=== PATIENT | male | born 1940 | race Caucasian/White ===

== ENCOUNTER → 2019-11-15 09:10 | Outpatient (BNVA) | payer MEDICARE, SELFPAY | PROVIDERS: Family Provider Internal Medicine; PCP Internal Medicine; Visit Provider Orthopaedic Surgery | DX: Z48.89 Encounter for other specified surgical aftercare (principal); Z96.611 Presence of right artificial shoulder joint | CPT/HCPCS: 73030 ==

== ENCOUNTER 2019-11-18 07:34 | Outpatient (RCR) | payer MEDICARE, SELFPAY | END 2019-12-09 23:59 | disposition home or self-care (01) | LOC: SPT 07:34 | PROVIDERS: Family Provider Internal Medicine; PCP Internal Medicine; Referring Provider Orthopaedic Surgery; Visit Provider Orthopaedic Surgery | DX: Z47.1 Aftercare following joint replacement surgery (principal); Z96.611 Presence of right artificial shoulder joint | CPT/HCPCS: 97110; 97140; 97162 ==

== ENCOUNTER 2019-12-10 06:00 | Outpatient (RCR) | payer MEDICARE, SELFPAY | END 2020-01-07 23:59 | disposition home or self-care (01) | LOC: SPT 06:00 | PROVIDERS: Family Provider Internal Medicine; PCP Internal Medicine; Referring Provider Orthopaedic Surgery; Visit Provider Orthopaedic Surgery | DX: Z47.1 Aftercare following joint replacement surgery (principal); Z96.611 Presence of right artificial shoulder joint | CPT/HCPCS: 97110; 97140 ==

== ENCOUNTER 2019-12-10 06:00 | Outpatient (RCR) | payer MEDICARE, SELFPAY | END 2020-01-07 23:59 | disposition home or self-care (01) | LOC: SPT 06:00 | PROVIDERS: Family Provider Internal Medicine; PCP Internal Medicine; Referring Provider Orthopaedic Surgery; Visit Provider Orthopaedic Surgery | DX: Z47.1 Aftercare following joint replacement surgery (principal); Z96.611 Presence of right artificial shoulder joint | CPT/HCPCS: 97110; 97140 ==

== ENCOUNTER 2020-01-08 06:00 | Outpatient (RCR) | payer MEDICARE, SELFPAY | END 2020-02-07 23:59 | disposition home or self-care (01) | LOC: SPT 06:00 | PROVIDERS: Family Provider Internal Medicine; PCP Internal Medicine; Referring Provider Orthopaedic Surgery; Visit Provider Orthopaedic Surgery | DX: Z47.1 Aftercare following joint replacement surgery (principal); Z96.611 Presence of right artificial shoulder joint | CPT/HCPCS: 97110 ==

== ENCOUNTER 2020-01-20 15:07 | Outpatient (CLI) | payer MEDICARE, MEDICAID, SELFPAY ==
[2020-01-20 15:43] LABS: Basophils % 0.5 %; Eosinophils # 0.1 10^3/uL (0.0-0.8); Eosinophils % 2.3 %; Hematocrit 39.6 % (42.0-52.0); Hemoglobin 12.2 g/dL (11.7-16.6); Lymphocytes # 1.3 10^3/uL (0.8-4.8); Lymphocytes % 21.4 %; Mean Corpuscular HGB Conc 30.8 g/dL (30.0-36.0); Mean Corpuscular Hemoglobin 30.4 pg (28.0-34.0); Mean Corpuscular Volume 98.8 fL (80-94); Mean Platelet Volume 9.8 fL (7.4-10.4); Monocytes # 0.6 10^3/uL (0.2-0.9); Monocytes % 9.1 %; Neutrophils % 66.4 %; Nucleated Red Blood Cells % 0 %; Platelet Count 284 10^3/cmm (130-400); Red Blood Count 4.01 10^6/uL (4.1-5.3); Red Cell Distribution Width 12.1 % (12.1-15.1)
[2020-01-20 15:53] LABS: Alanine Aminotransferase 7 U/L (0-41); Albumin Level 4.5 g/dL (3.5-5.2); Alkaline Phosphatase 92 IU/L (40-130); Anion Gap 16.3 (5-19); Aspartate Amino Transferase 25 U/L (0-40); Blood Urea Nitrogen 28 mg/dL (8-23); Calcium 9.7 mg/dL (8.5-10.5); Carbon Dioxide 24 mmol/L (22-29); Chloride 102 mmol/L (98-107); Globulin 2.8 g/dL (1.3-4.6); Glucose 91 mg/dL (65-115); Lactate Dehydrogenase 169 U/L (135-225); Osmolality Calculated 281 mOsm/kg (285-295); Potassium 5.3 mmol/L (3.5-5.1); Sodium 137 mmol/L (136-145); Total Bilirubin 0.5 mg/dL (0.15-1.2); Total Protein 7.3 g/dL (6.6-8.7)
== END 2020-01-20 15:08 | disposition home or self-care (01) ==
LOC: ONCMED 15:14
PROVIDERS: Family Provider Internal Medicine; PCP Internal Medicine; Visit Provider Internal Medicine Hematology & Oncology
DX: C82.11 Follicular lymphoma grade II, lymph nodes of head, face, and neck (principal)
CPT/HCPCS: 36415; 80053; 83615; 85025

== ENCOUNTER 2020-01-23 08:43 | Outpatient (CLI) | payer MEDICARE, SELFPAY ==
--- NOTE | 2020-01-23 09:37 | ONC FU_ITS ---
Dr. Figueroa follow up note Patient: Xavi Pryor Unit #: [id number]: 1940 Dicatated By: Jose Angel Figueroa M.D.Date of Visit:Jan 23, 2020 Onc Med Follow-up/Prog Note History of Present Illness: Mr. 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 Also exhibited surface kappa light chain restriction. And these findings were consistent with grade 2 follicular lymphoma. Patient was evaluated by Dr. Pardo at [facility] in [place], [place] and being low-grade and stage II disease active surveillance was pursued. Last time he saw Dr. Pardo on 02/15/2018. As per patient, last CT PET scan was done in 2016. Since his last visit with Dr. Pardo in February 2018, patient did develop left inguinal lymphadenopathy and lost about 30 pounds. Patient take his weight loss is due to diverticulitis. Denies any night sweats, denies any recurrent fevers, denies any abdominal fullness, denies any other peripheral lymphadenopathy. Denies any melena hematochezia, denies any nosebleed petechiae or ecchymosis, denies any shortness of breath or dysphagia, denies any jaundice. CT PET scan was done on 03/12/2019 showed hypermetabolic soft tissue adherent to the aorta at upper mediastinum and upper abdominal level is consistent with a lymphoma Hypermetabolic left inguinal nodes consistent with lymphoma Diffuse activity in the rectosigmoid colon Questionable activity in the posterior left iliac Left inguinal lymph node biopsy was done on 05/04/2019 to confirm whether there is transformation to aggressive lymphoma versus persistent low-grade follicular. Final pathology report came back follicular lymphoma grade 1-2 of 3 s/p right shoulder replacement in first week of October 2019. Came for follow-up, denies any specific complaints, denies any night sweats, denies any recent fever, denies any weight loss, denies any abdominal fullness or peripheral lymphadenopathy, denies any generalized weakness and fatigue. Medications: Acetaminophen 2 Tablet (of 325 mg) Oral q 6 hours PRN, Albuterol Sulfate 1 puff(s) (of 108 (90 base) mcg/act) Aerosol Powder, Breath Activated Inhalation PRN, Claritin 1 Tablet (of 10 mg) Oral daily, Flonase 2 spray(s) (of 50 mcg/act) Suspension Nasal daily, HYDROcodone-Acetaminophen 1 Tablet (of 5-325 mg) Oral q 6 hours PRN, Naprosyn 1 Tablet (of 250 mg) Oral b.i.d. Allergies: Tetanus-Diphtheria Toxoids Td Review of Systems: Review of Systems is not available for this patient. Vital Signs: Performed on Jan 23, 2020 08:52 Height - 67.50 in Weight - 140.0 lbs (HIGH) BSA - 1.75 sq.m BMI - 21.60 Temperature - 98.0 F (LOW) Pulse - 87 /min Respiration - 18 /min BP - 120/68 mm(hg) O2 Sat - 98 % Pain - 0 Performance Status: 0 - Fully active, able to carry on all predisease activities without restrictions. (ECOG) Physical Examination: ENMT - . No oral exudates, ulcers, masses, thrush or mucositis. Oropharynx clear. Tongue normal, Hematologic/Lymphatic - No petechiae or purpura. No tender or palpable lymph nodes in the cervical, supraclavicular, axillary or inguinal area, Respiratory - Lungs are clear to auscultation without rhonchi or wheezing, Cardiovascular - Regular rate and rhythm of heart, Abdomen - Non-tender, non-distended, Good bowel sounds. No guarding or rebound tenderness. No pulsatile masses, Extremities - no edema. Lab/Imaging: Test performed on Sep 20, 2019 12:38 Sodium 137 mmol/L Potassium 4.3 mmol/L Chloride 102 mmol/L CO2 22 mmol/L Anion Gap 20.3 BUN 20 mg/dL Creatinine 1.3 mg/dL Cr Clearance (Est) 42.9300 mL/min Glucose 114 mg/dl Calcium 9.9 mg/dL Protein, Total 7.8 g/dL Albumin 4.9 g/dL Globulin 2.9 gm/dL Bilirubin, Total 0.9 mg/dL ALT (SGPT) 20 U/L AST (SGOT) 35 U/L Alkaline Phosphatase 87 U/L WBC 5.0 10 3/uL RBC 3.85 10 6/uL HGB 12.0 g/dL HCT 36.9 % MCV 95.8 fl MCH 31.2 pg MCHC 32.5 g/dl RDW 12.3 % Platelet Count 273 10 3/cmm MPV 9.8 fl Neutrophils 3.1 10 3/uL Lymphocytes 1.3 10 3/uL Monocytes 0.5 10 3/uL Eosinophils 0.2 10 3/uL Basophils 0.0 10 3/uL Neutrophil % 60.7 % Lymphocyte % 25.2 % Monocyte % 9.9 % Eosinophil % 3.4 % Basophils % 0.6 % Impression: Grade 2 follicular lymphoma status post excisional biopsy of right mandibular mass done on 04/08/2017 Flow cytometry was positive for CD19, CD20, CD22 and FNCC 7 and negative for CD5 Also exhibited surface kappa light chain restriction. CT PET scan was done in 2017, as per patient he was told he has stage II disease. Being low-grade and early-stage, no treatment was required but Active surveillance. CT PET scan done on 05/06/2017 showed left cervical lymphadenopathy and activity in the right shoulder but there are severe degenerative changes in that area and there is also increased activity involving lumbar spine may have both soft tissue or bone lesions. There are abnormal areas in the right ribs but patient has history of surgery on right ribs CT PET scan repeated on 03/12/2019 showed suspicious activity is present in the mediastinum in soft tissue abutting the ascending aortic arch and pulmonary artery. This has SUV of 7.9 consistent with recurrent lymphoma and additional hypermetabolic soft tissue is adherent to the abdominal aorta with SUV of 6.8 consistent with lymphoma Left inguinal lymph nodes measures up to 2.7 cm has SUV of 11 There is intense rectosigmoid activity which could be physiological but lymphomatous involvement cannot be ruled out Patient has history of diverticulitis/diverticular. Left inguinal lymph node biopsy done on 05/04/2019 showed follicular lymphoma Plan: Discussed with patient regarding his labs white blood count 6 hemoglobin 12.2 crit 30.6 platelets 264,000 CMP within normal limit except creatinine 1.4 and potassium 5.3 Clinically, patient is doing well with no signs symptoms suggestive of recurrence/progression of disease, no B symptoms, and follow-up lab workup is within normal limits except mild renal insufficiency. Patient is on naproxen by PMD for chronic arthritis pain, as per patient his PMDs following his renal function test and electrolytes, closely. Patient will return to 4 months with CBC CMP LDH and follow-up CT scan of neck chest abdomen pelvis. Patient was advised to call in case he has any B symptoms or any concerns Signed By: Jose Angel Figueroa M.D. <<Signature on File>>
== END 2020-01-23 08:44 | disposition home or self-care (01) ==
LOC: ONCMED 08:43
PROVIDERS: Family Provider Internal Medicine; PCP Internal Medicine; Visit Provider Internal Medicine Hematology & Oncology
DX: C82.11 Follicular lymphoma grade II, lymph nodes of head, face, and neck (principal); G89.29 Other chronic pain; M19.90 Unspecified osteoarthritis, unspecified site; Z79.891 Long term (current) use of opiate analgesic; Z79.51 Long term (current) use of inhaled steroids; Z96.611 Presence of right artificial shoulder joint
CPT/HCPCS: G0463

== ENCOUNTER 2020-02-08 06:00 | Outpatient (RCR) | payer MEDICARE, SELFPAY | END 2020-03-08 23:59 | disposition home or self-care (01) | LOC: SPT 06:00 | PROVIDERS: Family Provider Internal Medicine; PCP Internal Medicine; Referring Provider Orthopaedic Surgery; Visit Provider Orthopaedic Surgery | DX: Z47.1 Aftercare following joint replacement surgery (principal); Z96.611 Presence of right artificial shoulder joint | CPT/HCPCS: 97110; 97140 ==

== ENCOUNTER 2020-05-21 08:35 | Outpatient (CLI) | payer MEDICARE, SELFPAY ==
[2020-05-21 09:31] LABS: Alanine Aminotransferase 14 U/L (0-41); Albumin Level 4.2 g/dL (3.5-5.2); Alkaline Phosphatase 90 IU/L (40-130); Aspartate Amino Transferase 23 U/L (0-40); Blood Urea Nitrogen 20 mg/dL (8-23); Calcium 9.7 mg/dL (8.5-10.5); Carbon Dioxide 24 mmol/L (22-29); Chloride 99 mmol/L (98-107); Globulin 2.9 g/dL (1.3-4.6); Glucose 102 mg/dL (65-115); Osmolality Calculated 273 mOsm/kg (285-295); Sodium 133 mmol/L (136-145); Total Bilirubin 0.4 mg/dL (0.15-1.2); Total Protein 7.1 g/dL (6.6-8.7)
[2020-05-21 09:40] LABS: Basophils % 0.5 %; Eosinophils # 0.3 10^3/uL (0.0-0.8); Eosinophils % 5.3 %; Hemoglobin 11.8 g/dL (11.7-16.6); Lymphocytes # 1.3 10^3/uL (0.8-4.8); Lymphocytes % 20.6 %; Mean Corpuscular HGB Conc 31.1 g/dL (30.0-36.0); Mean Corpuscular Hemoglobin 29.7 pg (28.0-34.0); Mean Corpuscular Volume 95.7 fL (80-94); Mean Platelet Volume 10.2 fL (7.4-10.4); Monocytes # 0.6 10^3/uL (0.2-0.9); Monocytes % 10.3 %; Neutrophils # 3.91 10^3/uL (1.8-7.7); Neutrophils % 62.8 %; Nucleated Red Blood Cells % 0 %; Platelet Count 292 10^3/cmm (130-400); Red Blood Count 3.97 10^6/uL (4.1-5.3); Red Cell Distribution Width 12.5 % (12.1-15.1); White Blood Count 6.2 10^3/uL (4.0-10.0)
--- NOTE | 2020-05-21 15:51 | ONC FU_ITS ---
Dr. Figueroa follow up note Patient: Xavi Pryor Unit #: [id number]: 1940 Dicatated By: Jose Angel Figueroa M.D.Date of Visit:May 21, 2020 Onc Med Follow-up/Prog Note History of Present Illness: Mr. 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 Also exhibited surface kappa light chain restriction. And these findings were consistent with grade 2 follicular lymphoma. Patient was evaluated by Dr. Pardo at [facility] in [place], [place] and being low-grade and stage II disease active surveillance was pursued. Last time he saw Dr. Pardo on 02/15/2018. As per patient, last CT PET scan was done in 2016. Since his last visit with Dr. Pardo in February 2018, patient did develop left inguinal lymphadenopathy and lost about 30 pounds. Patient take his weight loss is due to diverticulitis. Denies any night sweats, denies any recurrent fevers, denies any abdominal fullness, denies any other peripheral lymphadenopathy. Denies any melena hematochezia, denies any nosebleed petechiae or ecchymosis, denies any shortness of breath or dysphagia, denies any jaundice. CT PET scan was done on 03/12/2019 showed hypermetabolic soft tissue adherent to the aorta at upper mediastinum and upper abdominal level is consistent with a lymphoma Hypermetabolic left inguinal nodes consistent with lymphoma Diffuse activity in the rectosigmoid colon Questionable activity in the posterior left iliac Left inguinal lymph node biopsy was done on 05/04/2019 to confirm whether there is transformation to aggressive lymphoma versus persistent low-grade follicular. Final pathology report came back follicular lymphoma grade 1-2 of 3 s/p right shoulder replacement in first week of October 2019. Came for follow-up, denies any specific complaint except progressive generalized weakness and fatigue but no night sweats, no recurrent fever, no weight loss, no shortness of breath at rest or palpitation, no melena or hematochezia, no diarrhea or constipation, no headaches, appetite is good, denies any peripheral lymphadenopathy or abdominal fullness. But intolerance to hot weather. Medications: Acetaminophen 2 Tablet (of 325 mg) Oral q 6 hours PRN, Albuterol Sulfate 1 puff(s) (of 108 (90 base) mcg/act) Aerosol Powder, Breath Activated Inhalation PRN, Claritin 1 Tablet (of 10 mg) Oral daily, Flonase 2 spray(s) (of 50 mcg/act) Suspension Nasal daily, HYDROcodone-Acetaminophen 1 Tablet (of 5-325 mg) Oral q 6 hours PRN, Naprosyn 1 Tablet (of 250 mg) Oral b.i.d. Allergies: Tetanus-Diphtheria Toxoids Td Review of Systems: Constitutional - Weight is stable, appetite is appropriate. Pt states he feels weak and tired, ENMT - Negative for sinus congestion/drainage. No mouth sores. No sore throat or difficulty swallowing, Hematologic/Lymphatic - Pt states he bruises and bleeds easily, Respiratory - No dyspnea on exertion, chest pain, cough or hemoptysis, Cardiovascular - No anginal chest pain, palpitations or orthopnea, Gastrointestinal - He continues to have diverticulitis, Genitourinary (M) - No hematuria, dysuria, increased frequency, urgency, hesitancy or incontinence, Musculoskeletal - No joint pain, swelling or redness. No decreased range of motion, Integumentary - No chronic rashes, inflammation, ulcerations or skin changes, Neurologic - No headache or dizziness. No numbness/paresthesias or other focal neurologic symptoms, Psychiatric - No anxiety or depression. No insomnia. Vital Signs: Performed on May 21, 2020 10:54 Height - 67.50 in Weight - 139.0 lbs (LOW) BSA - 1.74 sq.m BMI - 21.45 Temperature - 98.9 F (HIGH) Pulse - 71 /min Respiration - 18 /min BP - 115/67 mm(hg) O2 Sat - 97 % Pain - 0 Performance Status: 1 - No physically strenuous activity, but ambulatory and able to carry out light or sedentary work (e.g. office work, light house work). (ECOG) Physical Examination: ENMT - No mouth sores, no thrush, no jaundice, Respiratory - Lungs are clear, Cardiovascular - Regular rate and rhythm of heart, Abdomen - Soft, bowel sounds present, Extremities - No visible edemaOr peripheral lymphadenopathy. Lab/Imaging: Test performed on Jan 20, 2020 15:30 LDH (Total) 169 U/L Sodium 137 mmol/L Potassium 5.3 mmol/L Chloride 102 mmol/L CO2 24 mmol/L Anion Gap 16.3 BUN 28 mg/dL Creatinine 1.4 mg/dL Cr Clearance (Est) 39.69 mL/min Glucose 91 mg/dL Calcium 9.7 mg/dL Protein, Total 7.3 g/dL Albumin 4.5 g/dL Globulin 2.8 g/dL Bilirubin, Total 0.5 mg/dL ALT (SGPT) 7 U/L AST (SGOT) 25 U/L Alkaline Phosphatase 92 IU/L WBC 6.0 10 3/uL RBC 4.01 10 6/uL HGB 12.2 g/dL HCT 39.6 % MCV 98.8 fL MCH 30.4 pg MCHC 30.8 g/dL RDW 12.1 % Platelet Count 284 10 3/cmm MPV 9.8 fL Neutrophils 4.0 10 3/uL Lymphocytes 1.3 10 3/uL Monocytes 0.6 10 3/uL Eosinophils 0.1 10 3/uL Basophils 0.0 10 3/uL Neutrophil % 66.4 % Lymphocyte % 21.4 % Monocyte % 9.1 % Eosinophil % 2.3 % Basophils % 0.5 % Impression: Grade 2 follicular lymphoma status post excisional biopsy of right mandibular mass done on 04/08/2017 Flow cytometry was positive for CD19, CD20, CD22 and FNCC 7 and negative for CD5 Also exhibited surface kappa light chain restriction. CT PET scan was done in 2017, as per patient he was told he has stage II disease. Being low-grade and early-stage, no treatment was required but Active surveillance. CT PET scan done on 05/06/2017 showed left cervical lymphadenopathy and activity in the right shoulder but there are severe degenerative changes in that area and there is also increased activity involving lumbar spine may have both soft tissue or bone lesions. There are abnormal areas in the right ribs but patient has history of surgery on right ribs CT PET scan repeated on 03/12/2019 showed suspicious activity is present in the mediastinum in soft tissue abutting the ascending aortic arch and pulmonary artery. This has SUV of 7.9 consistent with recurrent lymphoma and additional hypermetabolic soft tissue is adherent to the abdominal aorta with SUV of 6.8 consistent with lymphoma Left inguinal lymph nodes measures up to 2.7 cm has SUV of 11 There is intense rectosigmoid activity which could be physiological but lymphomatous involvement cannot be ruled out Patient has history of diverticulitis/diverticular. Left inguinal lymph node biopsy done on 05/04/2019 showed follicular lymphoma Plan: Discussed with patient regarding his labs white blood count 6.2 hemoglobin 11.8 hematocrit 38 platelets 292,000 CMP within normal limits Clinically, patient doing well, with no B signs symptom, no peripheral lymphadenopathy or organomegaly on exam. Patient was scheduled for follow-up CT scan of chest abdomen pelvis but his insurance declined the coverage. His lab work-up is within normal limits, will continue to monitor and as far as generalized weakness and fatigue is concerned, etiology unclear but will check his TSH and testosterone level and if low may consider supplement In the meantime he will return to clinic in 4 months with CBC CMP and LDH, As patient is aware of insurance's refusal to cover follow-up CT scans Signed By: Jose Angel Figueroa M.D. <<Signature on File>>
[2020-05-22 01:07] LABS: Testosterone Total 824.1 ng/dL (193-740)
[2020-05-22 01:49] LABS: Thyroid Stimulating Hormone 0.97 uIU/mL (0.27-4.20)
== END 2020-05-21 08:36 | disposition home or self-care (01) ==
LOC: ONCMED 08:38
PROVIDERS: PCP Internal Medicine; Visit Provider Internal Medicine Hematology & Oncology
DX: C82.11 Follicular lymphoma grade II, lymph nodes of head, face, and neck (principal); K57.90 Diverticulosis of intestine, part unspecified, without perforation or abscess without bleeding; M19.90 Unspecified osteoarthritis, unspecified site; R59.0 Localized enlarged lymph nodes; Z85.828 Personal history of other malignant neoplasm of skin; Z79.899 Other long term (current) drug therapy
CPT/HCPCS: 80053; 84403; 84443; 85025; 99214

== ENCOUNTER 2020-09-19 10:19 | Outpatient (CLI) | payer MEDICARE, SELFPAY ==
[2020-09-19 10:50] LABS: Basophils % 0.5 %; Eosinophils # 0.3 10^3/uL (0.0-0.8); Eosinophils % 4.8 %; Hematocrit 38.6 % (42.0-52.0); Hemoglobin 12.3 g/dL (11.7-16.6); Lymphocytes # 1.1 10^3/uL (0.8-4.8); Lymphocytes % 18.7 %; Mean Corpuscular HGB Conc 31.9 g/dL (30.0-36.0); Mean Corpuscular Hemoglobin 30.8 pg (28.0-34.0); Mean Corpuscular Volume 96.5 fL (80-94); Mean Platelet Volume 10.1 fL (7.4-10.4); Monocytes # 0.6 10^3/uL (0.2-0.9); Monocytes % 10.6 %; Neutrophils % 65.2 %; Nucleated Red Blood Cells % 0 %; Platelet Count 289 10^3/cmm (130-400); Red Cell Distribution Width 12.9 % (12.1-15.1); White Blood Count 5.7 10^3/uL (4.0-10.0)
[2020-09-19 14:34] LABS: Alanine Aminotransferase 13 U/L (0-41); Albumin Level 4.5 g/dL (3.5-5.2); Alkaline Phosphatase 102 IU/L (40-130); Anion Gap 13.7 (5-19); Aspartate Amino Transferase 27 U/L (0-40); Blood Urea Nitrogen 22 mg/dL (8-23); Calcium 9.6 mg/dL (8.5-10.5); Carbon Dioxide 26 mmol/L (22-29); Chloride 101 mmol/L (98-107); Globulin 2.7 g/dL (1.3-4.6); Glucose 105 mg/dL (65-115); Lactate Dehydrogenase 352 U/L (135-225); Osmolality Calculated 286 mOsm/kg (285-295); Potassium 4.7 mmol/L (3.5-5.1); Sodium 136 mmol/L (136-145); Total Bilirubin 0.5 mg/dL (0.15-1.2); Total Protein 7.2 g/dL (6.6-8.7)
== END 2020-09-19 10:20 | disposition home or self-care (01) ==
LOC: ONCMED 10:23
PROVIDERS: PCP Internal Medicine; Visit Provider Internal Medicine Hematology & Oncology
DX: C82.11 Follicular lymphoma grade II, lymph nodes of head, face, and neck (principal)
CPT/HCPCS: 36415; 80053; 83615; 85025

== ENCOUNTER 2020-09-21 05:49 | Outpatient (CLI) | payer MEDICARE, SELFPAY ==
--- NOTE | 2020-09-21 11:51 | ONC FU_ITS ---
Dr. Figueroa follow up note Patient: Xavi Pryor Unit #: [id number]: 1940 Dicatated By: Jose Angel Figueroa M.D.Date of Visit:Sep 21, 2020 Onc Med Follow-up/Prog Note History of Present Illness: Mr. 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 Also exhibited surface kappa light chain restriction. And these findings were consistent with grade 2 follicular lymphoma. Patient was evaluated by Dr. Pardo at [facility] in [place], [place] and being low-grade and stage II disease active surveillance was pursued. Last time he saw Dr. Pardo on 02/15/2018. As per patient, last CT PET scan was done in 2016. Since his last visit with Dr. Pardo in February 2018, patient did develop left inguinal lymphadenopathy and lost about 30 pounds. Patient take his weight loss is due to diverticulitis. Denies any night sweats, denies any recurrent fevers, denies any abdominal fullness, denies any other peripheral lymphadenopathy. Denies any melena hematochezia, denies any nosebleed petechiae or ecchymosis, denies any shortness of breath or dysphagia, denies any jaundice. CT PET scan was done on 03/12/2019 showed hypermetabolic soft tissue adherent to the aorta at upper mediastinum and upper abdominal level is consistent with a lymphoma Hypermetabolic left inguinal nodes consistent with lymphoma Diffuse activity in the rectosigmoid colon Questionable activity in the posterior left iliac Left inguinal lymph node biopsy was done on 05/04/2019 to confirm whether there is transformation to aggressive lymphoma versus persistent low-grade follicular. Final pathology report came back follicular lymphoma grade 1-2 of 3 s/p right shoulder replacement in first week of October 2019. Came for follow-up, denies any specific complaints, no fever chills, no nausea or vomiting, no diarrhea constipation, no night sweats, no weight loss, no recurrent fever, no peripheral lymphadenopathy, no abdominal fullness Medications: Acetaminophen 2 Tablet (of 325 mg) Oral q 6 hours PRN, Albuterol Sulfate 1 puff(s) (of 108 (90 base) mcg/act) Aerosol Powder, Breath Activated Inhalation PRN, Claritin 1 Tablet (of 10 mg) Oral daily, Flonase 2 spray(s) (of 50 mcg/act) Suspension Nasal daily, HYDROcodone-Acetaminophen 1 Tablet (of 5-325 mg) Oral q 6 hours PRN, Naprosyn 1 Tablet (of 250 mg) Oral b.i.d. Allergies: Tetanus-Diphtheria Toxoids Td Review of Systems: Constitutional - Weight is stable, appetite is appropriate. Pt states he feels weak and tired, ENMT - Negative for sinus congestion/drainage. No mouth sores. No sore throat or difficulty swallowing, Hematologic/Lymphatic - Pt states he bruises and bleeds easily, Respiratory - No dyspnea on exertion, chest pain, cough or hemoptysis, Cardiovascular - No anginal chest pain, palpitations or orthopnea, Gastrointestinal - He continues to have diverticulitis, Genitourinary (M) - No hematuria, dysuria, increased frequency, urgency, hesitancy or incontinence, Musculoskeletal - No joint pain, swelling or redness. No decreased range of motion, Integumentary - No chronic rashes, inflammation, ulcerations or skin changes, Neurologic - No headache or dizziness. No numbness/paresthesias or other focal neurologic symptoms, Psychiatric - No anxiety or depression. No insomnia. Vital Signs: Performed on Sep 21, 2020 11:17 Height - 67.50 in Weight - 142.0 lbs (HIGH) BSA - 1.76 sq.m BMI - 21.91 Temperature - 98.6 F Pulse - 75 /min Respiration - 24 /min BP - 142/70 mm(hg) (HIGH) O2 Sat - 98 % Pain - 0 Performance Status: 0 - Fully active, able to carry on all predisease activities without restrictions. (ECOG) Physical Examination: ENMT - No mouth sores, no thrush, no jaundice, Respiratory - Lungs are clear to auscultation, Cardiovascular - Regular rate and rhythm of heart, Abdomen - Soft, bowel sounds present, Extremities - No visible edema. Lab/Imaging: Test performed on May 21, 2020 08:45 Testosterone, Total 824.1 ng/dL TSH 0.97 uIU/mL Test performed on May 21, 2020 07:45 Sodium 133 mmol/L Potassium 5.0 mmol/L Chloride 99 mmol/L CO2 24 mmol/L Anion Gap 15.0 BUN 20 mg/dL Creatinine 1.1 mg/dL Cr Clearance (Est) 50.15 mL/min Glucose 102 mg/dL Calcium 9.7 mg/dL Protein, Total 7.1 g/dL Albumin 4.2 g/dL Globulin 2.9 g/dL Bilirubin, Total 0.4 mg/dL ALT (SGPT) 14 U/L AST (SGOT) 23 U/L Alkaline Phosphatase 90 IU/L WBC 6.2 10 3/uL RBC 3.97 10 6/uL HGB 11.8 g/dL HCT 38.0 % MCV 95.7 fL MCH 29.7 pg MCHC 31.1 g/dL RDW 12.5 % Platelet Count 292 10 3/cmm MPV 10.2 fL Neutrophils 3.91 10 3/uL Lymphocytes 1.3 10 3/uL Monocytes 0.6 10 3/uL Eosinophils 0.3 10 3/uL Basophils 0.0 10 3/uL Neutrophil % 62.8 % Lymphocyte % 20.6 % Monocyte % 10.3 % Eosinophil % 5.3 % Basophils % 0.5 % NRBC % 0 % Impression: Grade 2 follicular lymphoma status post excisional biopsy of right mandibular mass done on 04/08/2017 Flow cytometry was positive for CD19, CD20, CD22 and FNCC 7 and negative for CD5 Also exhibited surface kappa light chain restriction. CT PET scan was done in 2017, as per patient he was told he has stage II disease. Being low-grade and early-stage, no treatment was required but Active surveillance. CT PET scan done on 05/06/2017 showed left cervical lymphadenopathy and activity in the right shoulder but there are severe degenerative changes in that area and there is also increased activity involving lumbar spine may have both soft tissue or bone lesions. There are abnormal areas in the right ribs but patient has history of surgery on right ribs CT PET scan repeated on 03/12/2019 showed suspicious activity is present in the mediastinum in soft tissue abutting the ascending aortic arch and pulmonary artery. This has SUV of 7.9 consistent with recurrent lymphoma and additional hypermetabolic soft tissue is adherent to the abdominal aorta with SUV of 6.8 consistent with lymphoma Left inguinal lymph nodes measures up to 2.7 cm has SUV of 11 There is intense rectosigmoid activity which could be physiological but lymphomatous involvement cannot be ruled out Patient has history of diverticulitis/diverticular. Left inguinal lymph node biopsy done on 05/04/2019 showed follicular lymphoma Plan: Discussed with patient regarding his labs white blood count 5.7 hemoglobin 12.3 hematocrit 38.6 platelets 289,000 CMP within normal limit except creatinine 1.3 and LDH is 352 compared to 169 on March 21, 2020 Clinically, patient is doing well with no new signs symptom suggestive of recurrence of disease, no B symptoms, no peripheral lymphadenopathy, no organomegaly. But his follow-up labs shows LDH has gone up, will continue to monitor return to clinic in 6 months with CBC CMP, patient was advised to call us in case he experience night sweats or recurrent fever or any peripheral lymphadenopathy. Signed By: Jose Angel Figueroa M.D. <<Signature on File>>
== END 2020-09-21 05:50 | disposition home or self-care (01) ==
LOC: ONCMED 05:51
PROVIDERS: PCP Internal Medicine; Visit Provider Internal Medicine Hematology & Oncology
DX: Z08 Encounter for follow-up examination after completed treatment for malignant neoplasm (principal); Z85.72 Personal history of non-Hodgkin lymphomas; R59.0 Localized enlarged lymph nodes
CPT/HCPCS: G0463

== ENCOUNTER → 2020-10-20 10:20 | Outpatient (BNVA) | payer MEDICARE, SELFPAY | PROVIDERS: PCP Internal Medicine; Visit Provider Nurse Practitioner Family | DX: Z20.828 Contact with and (suspected) exposure to other viral communicable diseases (principal) | CPT/HCPCS: 87635 ==

== ENCOUNTER → 2020-12-31 12:40 | Outpatient (BNVA) | payer MEDICARE, MEDICAID, SELFPAY | PROVIDERS: PCP Internal Medicine; Visit Provider Surgery | DX: C82.90 Follicular lymphoma, unspecified, unspecified site (principal) | CPT/HCPCS: 88304 ==

== ENCOUNTER 2021-01-01 13:38 | Outpatient (CLI) | payer MEDICARE, SELFPAY ==
--- NOTE | 2021-01-01 13:45 | CT_ITS ---
WS: [id number] CT ABDOMEN AND PELVIS WITH CONTRAST HISTORY: LYTIC BONE LESION ON X-RAY TECHNIQUE: Imaging performed of the abdomen and pelvis with IV contrast. Single phase imaging of the abdomen. Coronal and sagittal reformats are submitted. All CT scans at [facility] use at least one of these dose optimization techniques: automated exposure control; mA and/or kV adjustment per patient size (includes targeted exams where dose is matched to clinical indication); or iterativ e reconstruction. IV CONTRAST: Visipaque 320; 95 mL IV. Oral contrast: Yes. DLP: 862.55 mGycm COMPARISON: 12/03/2020. Lower thorax: Mild interstitial thickening at the RIGHT lung base. Heart size is normal. No hiatal he rnia. Liver/biliary system: Normal size liver with mild central bile duct dilatation. Gallbladder: Normal. No gallstones or wall thickening. No pericholecystic fluid. Pancreas: Normal. Spleen: Normal. Adrenal glands: Normal. Right kidney: Normal. Left kidney: Normal. Aorta: Mild atherosclerosis with no aneurysm. Lymphadenopathy: None. Free fluid: None. GI tract: Diffuse constipation. GI tract is limited without oral contrast. Abdominal wall: Unremarkable abdominal wall. No hernia. Pelvis: No free fluid. Beam hardening artifact in the pelvis from the patient's RIGHT hip arthroplast y. Bones: Prior RIGHT hip arthroplasty. There is no lytic area identified in the LEFT ilium. Lytic alvarez es may extend air in the colon as there is probably significant constipation and urinary retention. T here is variable density within the LEFT femoral neck and head. No destruction of the bony cortex. Th ere is a lipoma in the vastus lateralis. Extensive osteochondrosis in the lumbar vertebral bodies. 5 mm anterolisthesis of L5. Sclerotic changes are similar to the CT from 03/12/2019. CT/CT abdomen pelvis w con* [id number] IMPRESSION: 1. No lytic lesion in the LEFT ilium. 2. Variable density within the LEFT hip and proximal femur may be all related to osteopenia. Consider follow-up nuclear medicine bone scan for confirmation. 3. Moderate atherosclerosis aorta. 4. Constipation. 5. Mild central bile duct dilatation.
[2021-01-01] MEDS: iodixanol 320 mg/mL 100mL Btl IV (14:38)
== END 2021-01-01 13:39 | disposition home or self-care (01) ==
LOC: RADWPI 13:42
PROVIDERS: PCP Internal Medicine; Visit Provider Internal Medicine
DX: M89.9 Disorder of bone, unspecified (principal); K59.00 Constipation, unspecified; I70.0 Atherosclerosis of aorta
CPT/HCPCS: 74177; Q9967

== ENCOUNTER 2021-01-14 08:00 | Outpatient (CLI) | payer MEDICARE, SELFPAY ==
--- NOTE | 2021-01-14 08:07 | NM_ITS ---
WS: [id number] NUCLEAR MEDICINE BONE SCAN Radiopharmaceutical: 265 Tc-99m MDP mCi IV Injection site: Right antecubital Postinjection imaging delay: 1 hr CLINICAL INFORMATION: LYTIC LESION ON XRAY COMPARISON: Radiograph December 03, [address] January 01, 2021 FINDINGS: Bone lesions: Multiple patchy areas of uptake involving the humeral shafts bilaterally and mid femora l shafts suspicious for metastatic disease. Patchy activity involving the left hip. Additional patchy uptake involving the forearm bilaterally. Additional patchy uptake involving the left proximal tibia and proximal tibial shaft. Patchy uptake involving the calvarium. Bony uptake involving the right m axillary sinus likely due to sinusitis. Soft tissue contours: Normal. Kidneys: Normal. Other findings: Postoperative changes right HEMANT. Degenerative uptake involving both AC joints and rig ht knee. Degenerative type uptake in both wrists. NM/NM bone scan whole body* [id number] IMPRESSION: 1. Multiple patchy areas of bone marrow activity involving the bilateral humer us, bilateral forearm bones, and mid femoral shafts suspicious for metastatic d isease. 2. Patchy activity involving the left hip. 3. Additional abnormal activity involving the left proximal tibial shaft. 4. Right maxillary sinus uptake likely due to sinusitis. 5. Additional patchy uptake involving the calvarium.
== END 2021-01-14 08:01 | disposition home or self-care (01) ==
LOC: RAD 08:03
PROVIDERS: PCP Internal Medicine; Visit Provider Internal Medicine
DX: M89.9 Disorder of bone, unspecified (principal)
CPT/HCPCS: 78306; A9561

== ENCOUNTER 2021-01-14 08:28 | Outpatient (CLI) | payer MEDICARE, SELFPAY ==
[2021-01-14 08:57] LABS: Basophils % 0.6 %; Eosinophils # 0.3 10^3/uL (0.0-0.8); Eosinophils % 3.5 %; Hematocrit 33.8 % (42.0-52.0); Hemoglobin 10.7 g/dL (11.7-16.6); Lymphocytes % 14.5 %; Mean Corpuscular HGB Conc 31.7 g/dL (30.0-36.0); Mean Corpuscular Hemoglobin 29.3 pg (28.0-34.0); Mean Corpuscular Volume 92.6 fL (80-94); Mean Platelet Volume 9.2 fL (7.4-10.4); Monocytes # 0.7 10^3/uL (0.2-0.9); Monocytes % 10.4 %; Neutrophils # 4.99 10^3/uL (1.8-7.7); Neutrophils % 70.7 %; Nucleated Red Blood Cells % 0 %; Platelet Count 367 10^3/cmm (130-400); Red Blood Count 3.65 10^6/uL (4.1-5.3); Red Cell Distribution Width 12.3 % (12.1-15.1); White Blood Count 7.1 10^3/uL (4.0-10.0)
[2021-01-14 09:15] LABS: Alanine Aminotransferase 11 U/L (0-41); Alkaline Phosphatase 112 IU/L (40-130); Anion Gap 15.5 (5-19); Aspartate Amino Transferase 19 U/L (0-40); Blood Urea Nitrogen 20 mg/dL (8-23); Calcium 9.7 mg/dL (8.5-10.5); Carbon Dioxide 26 mmol/L (22-29); Chloride 100 mmol/L (98-107); Globulin 3.5 g/dL (1.3-4.6); Glucose 70 mg/dL (65-115); Osmolality Calculated 285 mOsm/kg (285-295); Potassium 4.5 mmol/L (3.5-5.1); Sodium 137 mmol/L (136-145); Total Bilirubin 0.3 mg/dL (0.15-1.2); Total Protein 7.5 g/dL (6.6-8.7)
== END 2021-01-14 08:29 | disposition home or self-care (01) ==
LOC: ONCMED 08:32
PROVIDERS: PCP Internal Medicine; Visit Provider Internal Medicine Hematology & Oncology
DX: C82.11 Follicular lymphoma grade II, lymph nodes of head, face, and neck (principal)
CPT/HCPCS: 80053; 85025

== ENCOUNTER 2021-01-15 05:45 | Outpatient (CLI) | payer MEDICARE, SELFPAY ==
--- NOTE | 2021-01-15 16:33 | ONC FU_ITS ---
Dr. Figueroa follow up note Patient: Xavi Pryor Unit #: [id number]: 1940 Dicatated By: Jose Angel Figueroa M.D.Date of Visit:Jan 15, 2021 Onc Med Follow-up/Prog Note History of Present Illness: Mr. 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 Also exhibited surface kappa light chain restriction. And these findings were consistent with grade 2 follicular lymphoma. Patient was evaluated by Dr. Pardo at [facility] in [place], [place] and being low-grade and stage II disease active surveillance was pursued. Last time he saw Dr. Pardo on 02/15/2018. As per patient, last CT PET scan was done in 2016. Since his last visit with Dr. Pardo in February 2018, patient did develop left inguinal lymphadenopathy and lost about 30 pounds. Patient take his weight loss is due to diverticulitis. Denies any night sweats, denies any recurrent fevers, denies any abdominal fullness, denies any other peripheral lymphadenopathy. Denies any melena hematochezia, denies any nosebleed petechiae or ecchymosis, denies any shortness of breath or dysphagia, denies any jaundice. CT PET scan was done on 03/12/2019 showed hypermetabolic soft tissue adherent to the aorta at upper mediastinum and upper abdominal level is consistent with a lymphoma Hypermetabolic left inguinal nodes consistent with lymphoma Diffuse activity in the rectosigmoid colon Questionable activity in the posterior left iliac Left inguinal lymph node biopsy was done on 05/04/2019 to confirm whether there is transformation to aggressive lymphoma versus persistent low-grade follicular. Final pathology report came back follicular lymphoma grade 1-2 of 3 s/p right shoulder replacement in first week of October 2019. Patient underwent anterior left midabdomen skin biopsy on December 31, 2020 which showed follicular lymphoma, grade 1 -2 of 3., BCL6 negative cyclin D1 was negative, BCL-2's staining is moderately strong and demonstrate aberrant coexpression of B cells. Further immunohistochemistry positive for CD3, CD5, CD20, CD10, CD43 Because of progressive left hip/lower back pain with radiation to left leg, PMD ordered CT scan of abdomen pelvis which was done on January 01, 2021 showed no lytic lesion in left ilium. Variable density within left hip and proximal femur may be related to osteopenia. No abdominal or pelvic lymphadenopathy, spleen is normal size, bone scan was recommended for further evaluation which was done on January 14, 2021 showed multiple patchy areas of bone marrow activity involving bilateral humerus, bilateral forearm bones, mid femoral shafts suspicious for metastatic disease. Patchy activity involving left hip. Also involving left proximal tibial shaft. And calvarium. Came for follow-up, denies any specific complaint except purplish color skin lesion in left anterior and mid abdomen, recently underwent skin biopsy and pathology confirmed follicular lymphoma. Patient also underwent CT scan of abdomen pelvis on January 01, 2021 followed by bone scan on January 14, 2021, he is here for further discussions. Patient denies any night sweats, denies any recurrent fevers, denies any weight loss, denies any progressive peripheral lymphadenopathy, denies any abdominal fullness. Patient is complaining of lower back pain due to pinched nerve and now radiating to left leg, his PMD is evaluating him Medications: Acetaminophen 2 Tablet (of 325 mg) Oral q 6 hours PRN, Albuterol Sulfate 1 puff(s) (of 108 (90 base) mcg/act) Aerosol Powder, Breath Activated Inhalation PRN, Claritin 1 Tablet (of 10 mg) Oral daily, Flonase 2 spray(s) (of 50 mcg/act) Suspension Nasal daily, HYDROcodone-Acetaminophen 1 Tablet (of 5-325 mg) Oral q 6 hours PRN, Naprosyn 1 Tablet (of 250 mg) Oral b.i.d. Allergies: Tetanus-Diphtheria Toxoids Td Review of Systems: Review of Systems is not available for this patient. Vital Signs: Performed on Jan 15, 2021 08:55 Height - 67.50 in Weight - 144.6 lbs (HIGH) BSA - 1.77 sq.m BMI - 22.31 Temperature - 98.7 F Pulse - 94 /min Respiration - 18 /min BP - 131/71 mm(hg) O2 Sat - 97 % Pain - 4 Fatigue - 4 Performance Status: 2 - Ambulatory/capable of all self-care, unable to perform any work activities. Up and about more than 50% of waking hours. (ECOG) Physical Examination: ENMT - No mouth sores, no thrush, no jaundice, Mild shotty cervical lymphadenopathy and right submental lymph node, Respiratory - Lungs are clear to auscultation, Cardiovascular - Regular rate and rhythm of heart, Abdomen - Soft, bowel sounds present,10x8 cm purplish skin lesion in the left anterior abdomen wall, nontender not fixed, Extremities - No visible edema. Lab/Imaging: Test performed on Sep 19, 2020 10:27 LDH (Total) 352 U/L Sodium 136 mmol/L Potassium 4.7 mmol/L Chloride 101 mmol/L CO2 26 mmol/L Anion Gap 13.7 BUN 22 mg/dL Creatinine 1.3 mg/dL Cr Clearance (Est) 43.35 mL/min Glucose 105 mg/dL Osmolality - Calculated 286 mOsm/kg Calcium 9.6 mg/dL Protein, Total 7.2 g/dL Albumin 4.5 g/dL Globulin 2.7 g/dL Bilirubin, Total 0.5 mg/dL ALT (SGPT) 13 U/L AST (SGOT) 27 U/L Alkaline Phosphatase 102 IU/L WBC 5.7 10 3/uL RBC 4.00 10 6/uL HGB 12.3 g/dL HCT 38.6 % MCV 96.5 fL MCH 30.8 pg MCHC 31.9 g/dL RDW 12.9 % Platelet Count 289 10 3/cmm MPV 10.1 fL Neutrophils 3.70 10 3/uL Lymphocytes 1.1 10 3/uL Monocytes 0.6 10 3/uL Eosinophils 0.3 10 3/uL Basophils 0.0 10 3/uL Neutrophil % 65.2 % Lymphocyte % 18.7 % Monocyte % 10.6 % Eosinophil % 4.8 % Basophils % 0.5 % NRBC % 0 % Impression: Grade 2 follicular lymphoma status post excisional biopsy of right mandibular mass done on 04/08/2017 Flow cytometry was positive for CD19, CD20, CD22 and FNCC 7 and negative for CD5 Also exhibited surface kappa light chain restriction. CT PET scan was done in 2017, as per patient he was told he has stage II disease. Being low-grade and early-stage, no treatment was required but Active surveillance. CT PET scan done on 05/06/2017 showed left cervical lymphadenopathy and activity in the right shoulder but there are severe degenerative changes in that area and there is also increased activity involving lumbar spine may have both soft tissue or bone lesions. There are abnormal areas in the right ribs but patient has history of surgery on right ribs CT PET scan repeated on 03/12/2019 showed suspicious activity is present in the mediastinum in soft tissue abutting the ascending aortic arch and pulmonary artery. This has SUV of 7.9 consistent with recurrent lymphoma and additional hypermetabolic soft tissue is adherent to the abdominal aorta with SUV of 6.8 consistent with lymphoma Left inguinal lymph nodes measures up to 2.7 cm has SUV of 11 There is intense rectosigmoid activity which could be physiological but lymphomatous involvement cannot be ruled out Patient has history of diverticulitis/diverticular. Left inguinal lymph node biopsy done on 05/04/2019 showed follicular lymphoma Skin biopsy from left anterior mid abdomen done on December 31, 2020 showed follicular lymphoma similar to initial histology Plan: Discussed with patient regarding his labs white blood count 7.1 hemoglobin 10.7 g compared to 12.3 g on September 19, 2020 hematocrit 33.8 platelets 367,000 CMP within normal limits LDH is pending And left anterior abdominal skin biopsy results which showed follicular lymphoma, as per pathology, no evidence of transformation rather similar histology when compared with initial biopsy Clinically, patient is doing well but in mild to moderate distress due to lower back pain now radiating to left leg, being evaluated by PMD, patient was advised if there is a worsening of pain or urine or stool incontinence he need to go to ER. As far as, follicular lymphoma is concerned,Patient denies any B symptoms. Persistent right submental mass, and shortly cervical lymphadenopathy but no progression. now with anterior abdominal skin involvement, biopsy-proven, bone scan shows extensive bone marrow infiltrate most likely with a lymphoma, CBC shows drop in his hemoglobin, consistent with transformation into aggressive lymphoma but recently done anterior abdominal skin biopsy showed low-grade lymphoma similar to initial histology. At this point, we will consider whole blood flow cytometry to rule out transformation into progressive lymphoma and also consider CT PET scan if CT PET scan shows high SUV e.g. more than 15, that would be a sign of transformation. And we may consider bone marrow evaluation from left hip to rule out extensive bone marrow involvement causing anemia or other pathology. Patient will return to clinic after CT PET scan and whole blood flow cytometry for further discussion. Signed By: Jose Angel Figueroa M.D. <<Signature on File>>
== END 2021-01-15 05:46 | disposition home or self-care (01) ==
LOC: ONCMED 05:47
PROVIDERS: PCP Internal Medicine; Visit Provider Internal Medicine Hematology & Oncology
DX: C82.18 Follicular lymphoma grade II, lymph nodes of multiple sites (principal); M79.605 Pain in left leg
CPT/HCPCS: 36415; 88184; 88185; 99214

== ENCOUNTER 2021-01-25 05:39 | Outpatient (CLI) | payer MEDICARE, SELFPAY ==
[2021-01-25 10:06] LABS: HCG Tumor Marker 1 mIU/mL (0-3); Tumor Marker Alpha Fetoprotein 4.2 ng/mL (0-8.3)
[2021-01-25 10:17] LABS: Lactate Dehydrogenase 325 U/L (135-225)
--- NOTE | 2021-01-25 10:19 | ONC FU_ITS ---
Dr. Figueroa follow up note Patient: Xavi Pryor Unit #: [id number]: 1940 Dicatated By: Jose Angel Figueroa M.D.Date of Visit:Jan 25, 2021 Onc Med Follow-up/Prog Note History of Present Illness: Mr. 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 Also exhibited surface kappa light chain restriction. And these findings were consistent with grade 2 follicular lymphoma. Patient was evaluated by Dr. Pardo at [facility] in [place], [place] and being low-grade and stage II disease active surveillance was pursued. Last time he saw Dr. Pardo on 02/15/2018. As per patient, last CT PET scan was done in 2016. Since his last visit with Dr. Pardo in February 2018, patient did develop left inguinal lymphadenopathy and lost about 30 pounds. Patient take his weight loss is due to diverticulitis. Denies any night sweats, denies any recurrent fevers, denies any abdominal fullness, denies any other peripheral lymphadenopathy. Denies any melena hematochezia, denies any nosebleed petechiae or ecchymosis, denies any shortness of breath or dysphagia, denies any jaundice. CT PET scan was done on 03/12/2019 showed hypermetabolic soft tissue adherent to the aorta at upper mediastinum and upper abdominal level is consistent with a lymphoma Hypermetabolic left inguinal nodes consistent with lymphoma Diffuse activity in the rectosigmoid colon Questionable activity in the posterior left iliac Left inguinal lymph node biopsy was done on 05/04/2019 to confirm whether there is transformation to aggressive lymphoma versus persistent low-grade follicular. Final pathology report came back follicular lymphoma grade 1-2 of 3 s/p right shoulder replacement in first week of October 2019. Patient underwent anterior left midabdomen skin biopsy on December 31, 2020 which showed follicular lymphoma, grade 1 -2 of 3., BCL6 negative cyclin D1 was negative, BCL-2's staining is moderately strong and demonstrate aberrant coexpression of B cells. Further immunohistochemistry positive for CD3, CD5, CD20, CD10, CD43 Because of progressive left hip/lower back pain with radiation to left leg, PMD ordered CT scan of abdomen pelvis which was done on January 01, 2021 showed no lytic lesion in left ilium. Variable density within left hip and proximal femur may be related to osteopenia. No abdominal or pelvic lymphadenopathy, spleen is normal size, bone scan was recommended for further evaluation which was done on January 14, 2021 showed multiple patchy areas of bone marrow activity involving bilateral humerus, bilateral forearm bones, mid femoral shafts suspicious for metastatic disease. Patchy activity involving left hip. Also involving left proximal tibial shaft. And calvarium. CT PET scan done on January 19, 2021 showed anterior mediastinal and upper abdominal periaortic soft tissue seen previously is now FDG negative. However there is a new central anterior mediastinal soft tissue measuring 2.2 x 1.2 cm with an SUV of 7.5, other soft tissue lesion noted in the right cervical level two lymph node. Subcutaneous lesion in the anterior left chest and anterior left upper quadrant abdominal wall soft tissue thickening. The right testicular lesion has SUV of 15.8. A peripancreatic node at pancreatic tail has SUV of seven. Multifocal osseous lesions are present in the proximal left humerus, medial left clavicle, bilateral proximal femurs, left L3 and L4 with encroachment into left neural foramen at these levels. Came for follow-up, denies any specific complaint except persistent lower back pain radiating to left leg and left leg tingling sensation. As per patient his PMD gave him dexamethasone with that his pain improved tremendously along with neuropathy but now it took last dose yesterday and it appears pain is relapsing on the scale of 1-10 is about four or five. Otherwise no urine or stool incontinence, no night sweats, no weight loss, no recurrent fever., No abdominal fullness, no lymphadenopathy. Skin lesion on abdomen and chest stable. Medications: Acetaminophen 2 Tablet (of 325 mg) Oral q 6 hours PRN, Albuterol Sulfate 1 puff(s) (of 108 (90 base) mcg/act) Aerosol Powder, Breath Activated Inhalation PRN, Claritin 1 Tablet (of 10 mg) Oral daily, Flonase 2 spray(s) (of 50 mcg/act) Suspension Nasal daily, HYDROcodone-Acetaminophen 1 Tablet (of 5-325 mg) Oral q 6 hours PRN, Naprosyn 1 Tablet (of 250 mg) Oral b.i.d. Allergies: Tetanus-Diphtheria Toxoids Td Review of Systems: Review of Systems is not available for this patient. Vital Signs: Performed on Jan 25, 2021 08:31 Height - 67.50 in Weight - 144.8 lbs (HIGH) BSA - 1.77 sq.m BMI - 22.34 Temperature - 98.2 F (LOW) Pulse - 88 /min Respiration - 17 /min BP - 112/59 mm(hg) O2 Sat - 96 % Pain - 0 Performance Status: 1 - No physically strenuous activity, but ambulatory and able to carry out light or sedentary work (e.g. office work, light house work). (ECOG) Physical Examination: ENMT - no Mouth sores, no thrush, no jaundice no lymphadenopathy, Respiratory - Lungs are clear to auscultation, Cardiovascular - Regular rate and rhythm of heart, Abdomen - Soft, bowel sounds present, Extremities - No visible edema. Lab/Imaging: Test performed on Sep 19, 2020 10:27 LDH (Total) 352 U/L Sodium 136 mmol/L Potassium 4.7 mmol/L Chloride 101 mmol/L CO2 26 mmol/L Anion Gap 13.7 BUN 22 mg/dL Creatinine 1.3 mg/dL Cr Clearance (Est) 43.35 mL/min Glucose 105 mg/dL Osmolality - Calculated 286 mOsm/kg Calcium 9.6 mg/dL Protein, Total 7.2 g/dL Albumin 4.5 g/dL Globulin 2.7 g/dL Bilirubin, Total 0.5 mg/dL ALT (SGPT) 13 U/L AST (SGOT) 27 U/L Alkaline Phosphatase 102 IU/L WBC 5.7 10 3/uL RBC 4.00 10 6/uL HGB 12.3 g/dL HCT 38.6 % MCV 96.5 fL MCH 30.8 pg MCHC 31.9 g/dL RDW 12.9 % Platelet Count 289 10 3/cmm MPV 10.1 fL Neutrophils 3.70 10 3/uL Lymphocytes 1.1 10 3/uL Monocytes 0.6 10 3/uL Eosinophils 0.3 10 3/uL Basophils 0.0 10 3/uL Neutrophil % 65.2 % Lymphocyte % 18.7 % Monocyte % 10.6 % Eosinophil % 4.8 % Basophils % 0.5 % NRBC % 0 % Impression: Grade 2 follicular lymphoma status post excisional biopsy of right mandibular mass done on 04/08/2017 Flow cytometry was positive for CD19, CD20, CD22 and FNCC 7 and negative for CD5 Also exhibited surface kappa light chain restriction. CT PET scan was done in 2017, as per patient he was told he has stage II disease. Being low-grade and early-stage, no treatment was required but Active surveillance. CT PET scan done on 05/06/2017 showed left cervical lymphadenopathy and activity in the right shoulder but there are severe degenerative changes in that area and there is also increased activity involving lumbar spine may have both soft tissue or bone lesions. There are abnormal areas in the right ribs but patient has history of surgery on right ribs CT PET scan repeated on 03/12/2019 showed suspicious activity is present in the mediastinum in soft tissue abutting the ascending aortic arch and pulmonary artery. This has SUV of 7.9 consistent with recurrent lymphoma and additional hypermetabolic soft tissue is adherent to the abdominal aorta with SUV of 6.8 consistent with lymphoma Left inguinal lymph nodes measures up to 2.7 cm has SUV of 11 There is intense rectosigmoid activity which could be physiological but lymphomatous involvement cannot be ruled out Patient has history of diverticulitis/diverticular. Left inguinal lymph node biopsy done on 05/04/[address] PET scan done on January 19, 2021 showed hypermetabolic soft tissue lesion in the right cervical papo territory, anterior mediastinum, subcutaneous tissue involving left upper abdominal wall and anterior chest, right testicle, peripancreatic region. Multifocal osseous metastatic disease, FDG positive soft tissue at L3 and L4 neuroforamen, representing lymphoma. Plan: Discussed with patient regarding his CT PET scan report which shows anterior mediastinal lymph node and right cervical lymph node and one peripancreatic lymph node but concern is osseous metastatic disease which is unusual for low-grade lymphoma like follicular unless transformation but his recent abdominal wall skin biopsy showed no evidence of transformation. And also noted right testicle uptake at this point, concern exists progressive lower back pain with radiation to left leg most likely due to L3-L4 vertebral involvement with encroachment into left neural foramen, patient responded well to dexamethasone prescribed by PMD, case was discussed with radiation oncology this morning so we will refer him to radiation oncology for evaluation and possible treatment in the meantime we will start him on Medrol Dosepak for lower back pain. In the meantime we will order testicular sonogram with special attention to right testicle, and check beta-hCG, AFP, LDH, PSA, as per PET scan is a previously seen periaortic lymph node as well as anterior mediastinal lymph node are now FDG negative but now he has a new central anterior mediastinal soft tissue so concern is whether he has a second primary metastasized to mediastinum or lymphoma progression. And will also consider left humerus bone biopsy, and we will do hepatitis panel, in case metastatic follicular lymphoma is confirmed then will consider systemic treatment with bendamustine/Rituxan or R-CVP. Patient return to clinic in 2 weeks for further discussion. Patient was advised in case there is a worsening of symptoms like urine or stool incontinence or weakness in left leg, he need to go to hospital immediately otherwise he will see radiation oncology as soon as possible. Signed By: Jose Angel Figueroa M.D. <<Signature on File>>
[2021-01-25 10:28] LABS: Hepatitis A Antibody IgM Non-Reactive (Nonreactive); Hepatitis B Core AB, Total Non-Reactive (Nonreactive); Hepatitis B Surface AB 3.5 (0-8.5); Hepatitis B Surface Antigen Non-Reactive (Nonreactive); Hepatitis C Virus Antibody Non-Reactive (Nonreactive)
== END 2021-01-25 05:40 | disposition home or self-care (01) ==
PROVIDERS: PCP Internal Medicine; Visit Provider Internal Medicine Hematology & Oncology
DX: C82.18 Follicular lymphoma grade II, lymph nodes of multiple sites (principal); C79.51 Secondary malignant neoplasm of bone; R94.8 Abnormal results of function studies of other organs and systems; R93.89 Abnormal findings on diagnostic imaging of other specified body structures; M54.5 Low back pain; N50.811 Right testicular pain; Z79.52 Long term (current) use of systemic steroids
CPT/HCPCS: 82105; 83615; 84153; 84702; 86705; 86706; 86709; 86803; 87340; 99215

== ENCOUNTER 2021-01-31 10:03 | Outpatient (CLI) | payer MEDICARE, SELFPAY ==
--- NOTE | 2021-01-31 | XR_ITS ---
WS: [id number] SHOULDER LEFT TECHNIQUE: 3 views of the left shoulder CLINICAL INFORMATION: FELL, PAIN LEFT SHOULDER COMPARISON: None. FINDINGS: Mild degenerative arthritis AC joint. Downsloping of the acromion. Mild narrowing of the subacromial space. Mild degenerative arthritis the glenohumeral joint. No acute fractures. XR/XR shoulder LT min 2V* [id number] IMPRESSION: Mild degenerative arthritis AC joint and glenohumeral joint. No visualized frac tures.
== END 2021-01-31 10:04 | disposition home or self-care (01) ==
PROVIDERS: PCP Internal Medicine; Visit Provider Internal Medicine
DX: Z53.9 Procedure and treatment not carried out, unspecified reason (principal)

== ENCOUNTER 2021-02-06 05:40 | Outpatient (RCR) | payer MEDICARE, SELFPAY ==
--- NOTE | 2021-01-28 14:06 | N.ONRAD NP_ITS ---
Radiation Oncology Consultation Patient Name: Xavi Pryor Date of : 1940 Date of Service: 01/28/2021 Attending Physician: Mauri Calabrese M.D. Xavi Pryor was seen in consultation this afternoon at the request of Taina Figueroa M.D. for consideration of radiotherapy for the management of his newly diagnosed bone metastases for the management of his lymphoma. He was diagnosed with a stage II, grade 1/2 follicular lymphoma in March 2017 following a right submandibular mass biopsy. Active surveillance was pursued. Left inguinal adenopathy developed for which an excisional biopsy was completed in April 2019. No transformation was documented pathology confirming a low-grade follicular lymphoma. In November, a left hip radiograph was performed because of left leg paresthesia. A lytic area was demonstrated in the left ilium and left femoral diaphysis. A nuclear bone scan (directly viewed in [employer]) ordered on January 14, 2021 revealed metabolic uptake involving the calvarium, humeral shafts, mid femoral shafts, and proximal tibia. Approximately 2 weeks ago he described worsening left hip and lower back pain symptoms of the left leg. A recent PET CT (independently visualized in [employer]) on January 19, 2021 identified an anterior mediastinal soft tissue mass measuring 2.2 cm x 1.2 cm (SUV of 7.5), right cervical lymphadenopathy (level II), subcutaneous lesions within the anterior left chest wall and upper quadrant of the abdominal wall, a right testicular lesion (SUV 15.8), a hypermetabolic peripancreatic lymph node, and multiple osseous lesions within the proximal left humerus, medial left clavicle, bilateral proximal femurs, and L3/L4/L5 with encroachment into the left neural foramen. Dexamethasone was prescribed prior to this consultation. Recent laboratory data (personally reviewed in [employer]) revealed anemia (Hg 10.7 g/dL), and elevated LDH (325 U/L) and PSA (7.1 ng/mL). A normal alpha-fetoprotein level was noted. A testicular ultrasound has been requested. The patient presents for evaluation for potential palliative lumbar radiotherapy. I discussed with the patient the role of palliative radiotherapy for the management of his metastases. I would recommend a 2-week course of radiation therapy. Prior to beginning treatment, a planning CT will be acquired to delineate the clinical tumor volume. The potential toxicities of lumbar spine radiotherapy were reviewed. The patient has verbalized understanding would like to proceed as recommended. Signed by: Dr. Mauri Calabrese 01/28/2021 2:10:23 PM
--- NOTE | 2021-01-28 14:34 | US_ITS ---
WS: [id number] TESTICULAR ULTRASOUND HISTORY: TESTICULAR PAIN/MASS- ATTN:RIGHT testicle COMPARISON: 01/19/2021 TECHNIQUE: Real-time and color Doppler imaging or utilized to perform a testicular ultrasound. Right testicle: 4.8 cm x 3.3 cm x 2.8 cm. Normal sized testicle. Ill-defined low-attenuation soft tissue mass within the central RIGHT testicle . Mass measures 2.4 x 1.8 x 2.1 cm with marked increased vascularity. The central portion of this mas s is of very low attenuation but also contains increased vascularity. The normal appearing testicle has normal Doppler. No significant hydrocele. Right epididymis: Normal epididymis with no increased vascularity. Left testicle: 3.0 cm x 2.2 cm x 1.6 cm. Normal size and echogenicity. No mass or torsion. Normal color Doppler is present throughout. Systolic and diastolic velocities are both present. No significant hydrocele. Left epididymis: Normal epididymis with no increased vascularity. US/US scrotum [id number] IMPRESSION: 1. Low-attenuation mass within the RIGHT testicle with increased vascularity a nd possible mild central necrosis. Mass measures 2.4 x 1.8 x 2.1 cm and was lidia cribed also on PET/CT is likely malignant. With the diffuse increased vasculari ty this is not likely a testicular abscess. 2. Negative LEFT testicle.
--- NOTE | 2021-01-29 16:47 | CT_ITS ---
Radiation Therapy Planning CT images; total exam DLP: 547.07 mGy-cm MTDD
--- NOTE | 2021-02-05 14:39 | ONCRAD TMN_ITS ---
Radiation Oncology Treatment Management Note Patient Name: Xavi Pryor Date of : 1940 Date of Service: 02/05/2021 Attending Physician: Mauri Calabrese M.D. 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 The patient has received 15 Gy of a prescribed 30 Rodrigues to the lumbar spine with a 3-dimensional conformal radiotherapy plan utilizing AP/PA treatment manriquez. Upon review of systems, he denied any neurological complaints. On physical examination, the patient weighed 141 lbs. His temperature was 99 ???F with a blood pressure of 138/87 mmHg. His pulse was 79 bpm and his respiratory rate was 18. Continue palliative radiotherapy as prescribed. Signed by: Dr. Mauri Calabrese 02/05/2021 2:38:28 PM
== END 2021-02-06 23:59 | disposition home or self-care (01) ==
LOC: ONCMED 05:40
PROVIDERS: PCP Internal Medicine; Visit Provider Radiology Radiation Oncology
DX: Z51.0 Encounter for antineoplastic radiation therapy (principal); C82.99 Follicular lymphoma, unspecified, extranodal and solid organ sites; N50.811 Right testicular pain; N50.9 Disorder of male genital organs, unspecified; R93.811 Abnormal radiologic findings on diagnostic imaging of right testicle; D63.0 Anemia in neoplastic disease; R74.02 Elevation of levels of lactic acid dehydrogenase [LDH]
CPT/HCPCS: 76870; 77280; 77290; 77295; 77300; 77334; 77412; 77417; 99215

== ENCOUNTER 2021-02-26 08:30 | Outpatient (RCR) | payer MEDICARE, SELFPAY ==
--- NOTE | 2021-02-12 14:20 | ONCRAD TMN_ITS ---
Radiation Oncology Treatment Management Note Patient Name: Xavi Pryor Date of : 1940 Date of Service: 02/12/2021 Attending Physician: Mauri Calabrese M.D. 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 The patient has received 30 Gy of a prescribed 30 Rodrigues to the lumbar spine with a 3-dimensional conformal radiotherapy plan utilizing AP/PA treatment manriquez. Upon review of systems, he reported a significant improvement in his pain (2/10). On physical examination, the patient weighed 140 lbs. His temperature was 99.1 ???F with a blood pressure of 104/63 mmHg. His pulse was 98 bpm and his respiratory rate was 18. Radiotherapy was completed today. Signed by: Dr. Mauri Calabrese 02/12/2021 2:20:01 PM
[2021-02-18 09:25] LABS: Basophils # 0.1 10^3/uL (0.0-0.1); Basophils % 1.3 %; Eosinophils # 0.5 10^3/uL (0.0-0.8); Eosinophils % 9.9 %; Hematocrit 32.6 % (42.0-52.0); Hemoglobin 10.6 g/dL (11.7-16.6); Lymphocytes # 0.3 10^3/uL (0.8-4.8); Lymphocytes % 5.9 %; Mean Corpuscular HGB Conc 32.5 g/dL (30.0-36.0); Mean Corpuscular Volume 92.4 fL (80-94); Mean Platelet Volume 9.3 fL (7.4-10.4); Monocytes # 0.5 10^3/uL (0.2-0.9); Monocytes % 10.2 %; Neutrophils # 3.73 10^3/uL (1.8-7.7); Neutrophils % 70.8 %; Nucleated Red Blood Cells % 0 %; Platelet Count 334 10^3/cmm (130-400); Red Blood Count 3.53 10^6/uL (4.1-5.3); Red Cell Distribution Width 13.2 % (12.1-15.1); White Blood Count 5.3 10^3/uL (4.0-10.0)
[2021-02-18 09:42] LABS: Alanine Aminotransferase 13 U/L (0-41); Albumin Level 2.9 g/dL (3.5-5.2); Alkaline Phosphatase 102 IU/L (40-130); Anion Gap 13.1 (5-19); Aspartate Amino Transferase 18 U/L (0-40); Blood Urea Nitrogen 14 mg/dL (8-23); Calcium 8.5 mg/dL (8.5-10.5); Carbon Dioxide 27 mmol/L (22-29); Chloride 97 mmol/L (98-107); Globulin 2.6 g/dL (1.3-4.6); Glucose 101 mg/dL (65-115); Lactate Dehydrogenase 418 U/L (135-225); Osmolality Calculated 277 mOsm/kg (285-295); Potassium 4.1 mmol/L (3.5-5.1); Sodium 133 mmol/L (136-145); Total Bilirubin 0.4 mg/dL (0.15-1.2); Total Protein 5.5 g/dL (6.6-8.7)
[2021-02-20 14:05] LABS: Basophils # 0.1 10^3/uL (0.0-0.1); Basophils % 1.1 %; Eosinophils # 0.4 10^3/uL (0.0-0.8); Eosinophils % 8.2 %; Hematocrit 31.7 % (42.0-52.0); Hemoglobin 10.4 g/dL (11.7-16.6); Lymphocytes # 0.3 10^3/uL (0.8-4.8); Lymphocytes % 6.3 %; Mean Corpuscular HGB Conc 32.8 g/dL (30.0-36.0); Mean Corpuscular Hemoglobin 29.7 pg (28.0-34.0); Mean Corpuscular Volume 90.6 fL (80-94); Mean Platelet Volume 9.2 fL (7.4-10.4); Monocytes # 0.4 10^3/uL (0.2-0.9); Monocytes % 7.6 %; Neutrophils # 3.51 10^3/uL (1.8-7.7); Neutrophils % 73.6 %; Nucleated Red Blood Cells % 0 %; Platelet Count 372 10^3/cmm (130-400); Red Cell Distribution Width 12.8 % (12.1-15.1); White Blood Count 4.8 10^3/uL (4.0-10.0)
[2021-02-20 14:33] LABS: Alanine Aminotransferase 16 U/L (0-41); Albumin Level 3.1 g/dL (3.5-5.2); Alkaline Phosphatase 103 IU/L (40-130); Anion Gap 13.4 (5-19); Aspartate Amino Transferase 24 U/L (0-40); Blood Urea Nitrogen 15 mg/dL (8-23); Calcium 8.7 mg/dL (8.5-10.5); Carbon Dioxide 30 mmol/L (22-29); Chloride 96 mmol/L (98-107); Globulin 2.6 g/dL (1.3-4.6); Glucose 94 mg/dL (65-115); Lactate Dehydrogenase 478 U/L (135-225); Osmolality Calculated 281 mOsm/kg (285-295); Potassium 4.4 mmol/L (3.5-5.1); Sodium 135 mmol/L (136-145); Total Bilirubin 0.3 mg/dL (0.15-1.2); Total Protein 5.7 g/dL (6.6-8.7)
--- NOTE | 2021-03-03 15:02 | ONC FU_ITS ---
[facility] Patient Note Patient: Xavi Gomez Unit #: [id number]: 1940 Dictated By: Marsha MaciasDate of Visit: Feb 20, 2021 Onc MED Follow-Up/Prog Note Chief Complaint: Follicular lymphoma History of Present Illness: Mr. 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 He initially presented with right submandibular mass and was treated with antibiotics without much help, He was referred to ENT and underwent FNA of right submental mass which showed atypical lymphoid infiltrate. Mr Gomez subsequently underwent excisional biopsy of right submandibular mass on 04/08/2017. flow cytometry showed monoclonal B-cell population which was positive for CD19/CD20/FNCC 7 and CD20 to and was negative for CD5. Also exhibited surface kappa light chain restriction. These findings were consistent with grade 2 follicular lymphoma. Patient was evaluated by Dr. Pardo at [facility] in [place], [place] and being low-grade and stage II disease active surveillance was pursued. Last time he saw Dr. Pardo was on 02/15/2018. As per patient, last CT PET scan was done in 2016. Since his last visit with Dr. Pardo in February 2018, he had develop left inguinal lymphadenopathy and lost about 30 pounds. Mr Gomez attributed his weight loss to diverticulitis. Denied any night sweats, recurrent fever, abdominal fullness, any other peripheral lymphadenopathy. Denied any melena, hematochezia, denied any nosebleed, petechiae or ecchymosis. He denied any shortness of breath or dysphagia, denies any jaundice. CT PET scan was done on 03/12/2019 showed hypermetabolic soft tissue adherent to the aorta at upper mediastinum and upper abdominal level is consistent with a lymphoma Hypermetabolic left inguinal nodes consistent with lymphoma Diffuse activity in the rectosigmoid colon Questionable activity in the posterior left iliac Left inguinal lymph node biopsy was done on 05/04/2019 to confirm whether there is transformation to aggressive lymphoma versus persistent low-grade follicular. Final pathology report came back follicular lymphoma grade 1-2 of 3 s/p right shoulder replacement in first week of October 2019. Patient underwent anterior left midabdomen skin biopsy on December 31, 2020 which showed follicular lymphoma, grade 1 -2 of 3., BCL6 negative cyclin D1 was negative, BCL-2's staining is moderately strong and demonstrate aberrant coexpression of B cells. Further immunohistochemistry positive for CD3, CD5, CD20, CD10, CD43 Because of progressive left hip/lower back pain with radiation to left leg, PMD ordered CT scan of abdomen pelvis which was done on January 01, 2021 showed no lytic lesion in left ilium. Variable density within left hip and proximal femur may be related to osteopenia. No abdominal or pelvic lymphadenopathy, spleen is normal size, bone scan was recommended for further evaluation which was done on January 14, 2021 showed multiple patchy areas of bone marrow activity involving bilateral humerus, bilateral forearm bones, mid femoral shafts suspicious for metastatic disease. Patchy activity involving left hip. Also involving left proximal tibial shaft. And calvarium. CT PET scan done on January 19, 2021 showed anterior mediastinal and upper abdominal periaortic soft tissue seen previously is now FDG negative. However there is a new central anterior mediastinal soft tissue measuring 2.2 x 1.2 cm with an SUV of 7.5, other soft tissue lesion noted in the right cervical level two lymph node. Subcutaneous lesion in the anterior left chest and anterior left upper quadrant abdominal wall soft tissue thickening. The right testicular lesion has SUV of 15.8. A peripancreatic node at pancreatic tail has SUV of seven. Multifocal osseous lesions are present in the proximal left humerus, medial left clavicle, bilateral proximal femurs, left L3 and L4 with encroachment into left neural foramen at these levels. Mr. Gomez was referred to Dr. Calabrese in [facility] for newly diagnosed bone metastasis related to his lymphoma. His nuclear bone scan from January 14, 2021 revealed metabolic uptake in the calvarium, moral shaft, mid femoral shaft and proximal tibia. 2 weeks prior to his appointment with Dr. Calaberse he developed worsening left hip pain and lower back pain symptoms of the left leg. A recent PET/CT on January 19, 2021 identified the anterior medial soft tissue mass as indicated above. It measured 2.2 cm x 1.2 cm with an SUV of 7.5. He also had right cervical lymphadenopathy (level 2), subcutaneous lesions within the anterior left chest wall and upper quadrant of the abdominal wall. I right testicular lesion SUV of 15.8 and a hypermetabolic peripancreatic lymph node as well as multiple osseous lesions throughout the proximal left humerus, medial left clavicle, bilateral proximal femurs and L3???L4-L5 with encroachment into the left neural foramen. He was treated with dexamethasone prior to his appointment with Dr. Calabrese for potential palliative lumbar radiotherapy. 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 A total of 30 Rodrigues was delivered in 10 fractions encompassing 14 days. He received radiation to the third through the fifth lumbar vertebral bodies. He tolerated it well and states his pain is better. Mr. Gomez is here today for concerns of new nodules in his abdomen and on his back. He states they are also on his lower leg. He has adenopathy in his left anterior cervical supraclavicular area as well. He denies any trouble swallowing. He has had no fever or chills. He denies any hot flashes or night sweats. He states that his breathing is about the same. Is not having any new orthopnea. He denies chest pain or palpitations. He denies nausea or vomiting. His energy is fair. He states overall his pain is better after having radiation to his back. He is walking better. He denies any diarrhea or constipation. These nodules have worsened over the last week or 2 per his report. His ECOG is 2. Past Medical History: Diverticulosis History of basal cell skin cancer Osteoarthritis Past Surgical History: Appendectomy Cataract excision Reconstruction of ribs Right hip replacement Colonoscopy in 2016 Allergies: Tetanus-Diphtheria Toxoids Td Medications: Acetaminophen 2 Tablet (of 325 mg) Oral q 6 hours PRN Albuterol Sulfate 1 puff(s) (of 108 (90 base) mcg/act) Aerosol Powder, Breath Activated Inhalation PRN Claritin 1 Tablet (of 10 mg) Oral daily Flonase 2 spray(s) (of 50 mcg/act) Suspension Nasal daily HYDROcodone-Acetaminophen 1 Tablet (of 5-325 mg) Oral q 6 hours PRN Naprosyn 1 Tablet (of 250 mg) Oral b.i.d. Family History: Mr. Gomez's mother at age 63: brain cancer. Mr. Gomez's father at age 80: myeloma. His maternal grandfather is : cancer of unknown primary. Social History: Mr. Gomez is and he is retired. Mr. Gomez quit smoking 16 years ago but had smoked 1.0 pack/day for 40 years. He is an active drinker.He consumes 2 drinks/day 7 days/week. Review Of Symptoms: See above Vital Signs: Performed on Feb 20, 2021 12:32 Height - 67.50 in Weight - 141 lbs (HIGH) BSA - 1.75 sq.m BMI - 21.76 Temperature - 99.3 F (HIGH) Pulse - 112 /min (HIGH) Respiration - 16 /min BP - 117/70 mm(hg) O2 Sat - 92 % (LOW) Pain - 3,2 - Ambulatory/capable of all self-care, unable to perform any work activities. Up and about more than 50% of waking hours. (ECOG) Physical Examination: Constitutional Alert, oriented, no acute distress. Skin pink, warm and dry. Head Normocephalic; atraumatic. Eyes Conjunctivae and sclerae are clear and without icterus. Pupils are reactive and equal. Hematologic/Lymphatic He has adenopathy on the left side and the sternal click navicular area. Is approximately 2 cm in diameter. He also has subcutaneous nodules on his abdomen, lower legs and back. These are purple in appearance without any open skin or exudate. They are of various sizes with the smallest being approximate one-point centimeters in diameter. Respiratory Lungs are clear to auscultation without rhonchi or wheezing. Cardiovascular Regular rate and rhythm of heart without murmurs,clicks, gallops or rubs. Back/Spine Non-tender to palpation. Extremities No visible deformities, no cyanosis, clubbing or edema. Musculoskeletal No tenderness or swelling, normal range of motion without obvious weakness. Neurologic No sensory or motor deficits, normal cerebellar function, normal gait. Psychiatric Alert and oriented times three. Coherent speech. Verbalizes understanding of our discussions today. Laboratory:Test performed on Feb 20, 2021 13:40 LDH (Total) 478 U/L Sodium 135 mmol/L Potassium 4.4 mmol/L Chloride 96 mmol/L CO2 30 mmol/L Anion Gap 13.4 BUN 15 mg/dL Creatinine 0.9 mg/dL Cr Clearance (Est) 61.1900 mL/min Glucose 94 mg/dL Osmolality - Calculated 281 mOsm/kg Calcium 8.7 mg/dL Protein, Total 5.7 g/dL Albumin 3.1 g/dL Globulin 2.6 g/dL Bilirubin, Total 0.3 mg/dL ALT (SGPT) 16 U/L AST (SGOT) 24 U/L Alkaline Phosphatase 103 IU/L WBC 4.8 10 3/uL RBC 3.50 10 6/uL HGB 10.4 g/dL HCT 31.7 % MCV 90.6 fL MCH 29.7 pg MCHC 32.8 g/dL RDW 12.8 % Platelet Count 372 10 3/cmm MPV 9.2 fL Neutrophils 3.51 10 3/uL Lymphocytes 0.3 10 3/uL Monocytes 0.4 10 3/uL Eosinophils 0.4 10 3/uL Basophils 0.1 10 3/uL Neutrophil % 73.6 % Lymphocyte % 6.3 % Monocyte % 7.6 % Eosinophil % 8.2 % Basophils % 1.1 % NRBC % 0 % Impression: Grade 2 follicular lymphoma status post excisional biopsy of right mandibular mass done on 04/08/2017 Flow cytometry was positive for CD19, CD20, CD22 and FNCC 7 and negative for CD5 Also exhibited surface kappa light chain restriction. CT PET scan was done in 2017, as per patient he was told he has stage II disease. Being low-grade and early-stage, no treatment was required but Active surveillance. CT PET scan done on 05/06/2017 showed left cervical lymphadenopathy and activity in the right shoulder but there are severe degenerative changes in that area and there is also increased activity involving lumbar spine may have both soft tissue or bone lesions. There are abnormal areas in the right ribs but patient has history of surgery on right ribs CT PET scan repeated on 03/12/2019 showed suspicious activity is present in the mediastinum in soft tissue abutting the ascending aortic arch and pulmonary artery. This has SUV of 7.9 consistent with recurrent lymphoma and additional hypermetabolic soft tissue is adherent to the abdominal aorta with SUV of 6.8 consistent with lymphoma Left inguinal lymph nodes measures up to 2.7 cm has SUV of 11 There is intense rectosigmoid activity which could be physiological but lymphomatous involvement cannot be ruled out Patient has history of diverticulitis/diverticular. Left inguinal lymph node biopsy done on 05/04/[address] PET scan done on January 19, 2021 showed hypermetabolic soft tissue lesion in the right cervical papo territory, anterior mediastinum, subcutaneous tissue involving left upper abdominal wall and anterior chest, right testicle, peripancreatic region. Multifocal osseous metastatic disease, FDG positive soft tissue at L3 and L4 neuroforamen, representing lymphoma. Plan: PROBLEMS ADDRESSED TODAY 1. Follicular lymphoma A. After reviewing his presentation and concerns with Dr. Figueroa and Dr. Figueroa evaluating his nodules, Mr. Gomez has been advised to pursue biopsy of the sternal clavicular area nodule with Dr. Jennings. B. We will also put in a request for prior authorization for Rituxan CVP to start ANDREA. C. He will need baseline echocardiogram full echocardiogram before starting chemotherapy. D. I have asked for CBC CMP LDH and type a next for today. He has complained of fatigue and has had radiation to the L3-L5 vertebral spine. E. Anticipate him starting his chemotherapy as soon as prior authorization is obtained. Hopefully he will be able to have his biopsy soon as well. F. Mr. Garza was instructed to contact us in interim should questions or problems arise. Total time spent in review of this patient's care today including evaluating his records prior to his visit, review of his current concerns and discussion with Dr. Figueroa and formation of plan of care as well as post visit documentation was 55 minutes. Signed By: Marsha Macias-, [facility] Jose Angel Figueroa MD <<Signature on File>>
== END 2021-03-08 23:59 | disposition home or self-care (01) ==
LOC: ONCMED 08:30
PROVIDERS: Radiology Radiation Oncology; PCP Internal Medicine; Visit Provider Nurse Practitioner
DX: Z51.0 Encounter for antineoplastic radiation therapy (principal); C82.11 Follicular lymphoma grade II, lymph nodes of head, face, and neck; C79.51 Secondary malignant neoplasm of bone; M19.011 Primary osteoarthritis, right shoulder; K57.92 Diverticulitis of intestine, part unspecified, without perforation or abscess without bleeding; M81.0 Age-related osteoporosis without current pathological fracture; Z79.899 Other long term (current) drug therapy
CPT/HCPCS: 36415; 77336; 77412; 80053; 83615; 85025; 99215

== ENCOUNTER 2021-02-26 08:30 | Outpatient (CLI) | payer MEDICARE, SELFPAY ==
--- NOTE | 2021-02-26 10:09 | USCV_ITS ---
Xavi Pryor Age: 80 Gender: M : 1940 Exam Date: 02/26/2021 10:23 Ordering Phys: Lucy Rosas NP Technologist: Curly Yanes Exam Location: [facility] – [place], [place] Indication: HIGH RISK MEDS BP: 139 / 69 HR: 97 Rhythm: Sinus Technical Quality: Fair MEASUREMENTS (Male / Female) Normal Values 2D ECHO LV Diastolic Diameter PLAX 3.3 cm 4.2 - 5.9 / 3.9 - 5.3 cm LV Systolic Diameter PLAX 2.0 cm IVS Diastolic Thickness 0.8 cm 0.6 - 1.0 / 0.6 - 0.9 cm IVS Systolic Thickness 1.2 cm LVPW Diastolic Thickness 0.8 cm 0.6 - 1.0 / 0.6 - 0.9 cm LVPW Systolic Thickness 1.1 cm LVOT Diameter 2.1 cm LV Ejection Fraction 2D Teich 71.5 % LV Ejection Fraction MOD 2C 64.0 % LV Ejection Fraction 2C AL 63.3 % LA Diameter 3.4 cm LA Width 3.5 cm LA Height 4.3 cm RA Width 2.6 cm RA Height 4.4 cm Aorta at Sinotubular Diameter 2.8 cm M-MODE LV Diastolic Diameter MM 5.2 cm 4.2 - 5.9 / 3.9 - 5.3 cm LV Systolic Diameter MM 3.3 cm LV Ejection Fraction MM Teich 66.0 % IVS Diastolic Thickness MM 0.9 cm 0.6 - 1.0 / 0.6 - 0.9 cm IVS Systolic Thickness MM 1.4 cm LVPW Diastolic Thickness MM 1.3 cm 0.6 - 1.0 / 0.6 - 0.9 cm LVPW Systolic Thickness MM 1.7 cm RV Diastolic Diameter MM 0.9 cm Aortic Annulus Diameter 3.0 cm LA Ao Ratio MM 1.3 MV E Point Septal Separation 0.8 cm DOPPLER AV Peak Velocity 121.3 cm/s LVOT Peak Velocity 125.0 cm/s AV Area Cont Eq vti 2.9 cm squared AV Area Cont Eq pk 3.4 cm squared MV Area PHT 5.0 cm squared Mitral E to A Ratio 0.7 MV E' Velocity 38.5 cm/s Mitral E to MV E' Ratio 7.4 Mitral E to LV E' Lateral Ratio 7.1 Mitral E to LV E' Septal Ratio 7.7 TR Peak Velocity 223.7 cm/s TR Peak Gradient 20.0 mmHg TV Peak E Velocity 89.0 cm/s Right Atrial Pressure 3.0 mmHg Pulmonary Artery Systolic Pressu 23.0 mmHg PV Peak Velocity 84.0 cm/s FINDINGS Left Ventricle Normal left ventricular cavity size. Normal left ventricular systolic function. No regional wall motion abnormalities. Left ventricular ejection fraction is estimated at 60 %. Grade I/IV diastolic dysfunction (abnormal relaxation filling pattern), normal to mildly elevated filling pressures. Right Ventricle The right ventricle is normal in size and function. Right Atrium The right atrium is normal in size. Left Atrium The left atrium is normal in size. Mitral Valve Mildly thickened mitral valve. No mitral valve stenosis. Mild mitral valve regurgitation. Aortic Valve Structurally normal aortic valve without significant sclerosis or stenosis. There is no aortic regurgitation. Tricuspid Valve Structurally normal tricuspid valve without significant stenosis or regurgitation. Pulmonary artery systolic pressure is normal. Pulmonic Valve Structurally normal pulmonic valve without significant stenosis. There is no pulmonic regurgitation. Pericardium Normal pericardium without effusion. Aorta Normal ascending aorta dimension. CONCLUSIONS 1-Normal left ventricular cavity size. Normal left ventricular systolic function. No regional wall motion abnormalities. Left ventricular ejection fraction is estimated at 60 %. Grade I/IV diastolic dysfunction (abnormal relaxation filling pattern), normal to mildly elevated filling pressures. 2-No significant valve abnormalities. 3-There is no pericardial effusion. 4-Pulmonary artery systolic pressure is within normal limits. 5-Right atrial pressure is around 5 mm of mercury. 6-There are no prior echocardiogram studies to compare. Grecia Santa MD (Electronically Signed) Final Date: 16 Mar 2021 17:35 S
== END 2021-02-26 10:06 | disposition home or self-care (01) ==
PROVIDERS: PCP Internal Medicine; Visit Provider Nurse Practitioner
DX: C82.11 Follicular lymphoma grade II, lymph nodes of head, face, and neck (principal); Z79.899 Other long term (current) drug therapy
CPT/HCPCS: 93306

== ENCOUNTER → 2021-03-11 16:36 | Outpatient (BNVA) | payer MEDICARE, SELFPAY | PROVIDERS: PCP Internal Medicine; Visit Provider Surgery | DX: R22.2 Localized swelling, mass and lump, trunk (principal) | CPT/HCPCS: 88307 ==

== ENCOUNTER 2021-03-20 05:31 | Outpatient (RCR) | payer MEDICARE, SELFPAY ==
[2021-03-12 13:33] LABS: Basophils # 0.1 10^3/uL (0.0-0.1); Basophils % 0.9 %; Eosinophils # 0.2 10^3/uL (0.0-0.8); Hematocrit 35.4 % (42.0-52.0); Hemoglobin 11.3 g/dL (11.7-16.6); Lymphocytes # 0.7 10^3/uL (0.8-4.8); Lymphocytes % 8.1 %; Mean Corpuscular HGB Conc 31.9 g/dL (30.0-36.0); Mean Corpuscular Hemoglobin 28.8 pg (28.0-34.0); Mean Corpuscular Volume 90.3 fL (80-94); Mean Platelet Volume 9.8 fL (7.4-10.4); Monocytes % 11.6 %; Neutrophils # 6.26 10^3/uL (1.8-7.7); Neutrophils % 76.5 %; Nucleated Red Blood Cells % 0 %; Platelet Count 478 10^3/cmm (130-400); Red Blood Count 3.92 10^6/uL (4.1-5.3); Red Cell Distribution Width 13.2 % (12.1-15.1); White Blood Count 8.2 10^3/uL (4.0-10.0)
--- NOTE | 2021-03-13 14:36 | ONC FU_ITS ---
Dr. Figueroa follow up note Patient: Xavi Gomez Unit #: [id number]: [id number] Dicatated By: Jose Angel Figueroa M.D.Date of Visit:March 13, 2021 Onc Med Follow-up/Prog Note History of Present Illness: Mr. 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 He initially presented with right submandibular mass and was treated with antibiotics without much help, He was referred to ENT and underwent FNA of right submental mass which showed atypical lymphoid infiltrate. Mr Gomez subsequently underwent excisional biopsy of right submandibular mass on 04/08/2017. flow cytometry showed monoclonal B-cell population which was positive for CD19/CD20/FNCC 7 and CD20 to and was negative for CD5. Also exhibited surface kappa light chain restriction. These findings were consistent with grade 2 follicular lymphoma. Patient was evaluated by Dr. Pardo at [facility] in [place], [place] and being low-grade and stage II disease active surveillance was pursued. Last time he saw Dr. Pardo was on 02/15/2018. As per patient, last CT PET scan was done in 2016. Since his last visit with Dr. Pardo in February 2018, he had develop left inguinal lymphadenopathy and lost about 30 pounds. Mr Gomez attributed his weight loss to diverticulitis. Denied any night sweats, recurrent fever, abdominal fullness, any other peripheral lymphadenopathy. Denied any melena, hematochezia, denied any nosebleed, petechiae or ecchymosis. He denied any shortness of breath or dysphagia, denies any jaundice. CT PET scan was done on 03/12/2019 showed hypermetabolic soft tissue adherent to the aorta at upper mediastinum and upper abdominal level is consistent with a lymphoma Hypermetabolic left inguinal nodes consistent with lymphoma Diffuse activity in the rectosigmoid colon Questionable activity in the posterior left iliac Left inguinal lymph node biopsy was done on 05/04/2019 to confirm whether there is transformation to aggressive lymphoma versus persistent low-grade follicular. Final pathology report came back follicular lymphoma grade 1-2 of 3 s/p right shoulder replacement in first week of October 2019. Patient underwent anterior left midabdomen skin biopsy on December 31, 2020 which showed follicular lymphoma, grade 1 -2 of 3., BCL6 negative cyclin D1 was negative, BCL-2's staining is moderately strong and demonstrate aberrant coexpression of B cells. Further immunohistochemistry positive for CD3, CD5, CD20, CD10, CD43 Because of progressive left hip/lower back pain with radiation to left leg, PMD ordered CT scan of abdomen pelvis which was done on January 01, 2021 showed no lytic lesion in left ilium. Variable density within left hip and proximal femur may be related to osteopenia. No abdominal or pelvic lymphadenopathy, spleen is normal size, bone scan was recommended for further evaluation which was done on January 14, 2021 showed multiple patchy areas of bone marrow activity involving bilateral humerus, bilateral forearm bones, mid femoral shafts suspicious for metastatic disease. Patchy activity involving left hip. Also involving left proximal tibial shaft. And calvarium. CT PET scan done on January 19, 2021 showed anterior mediastinal and upper abdominal periaortic soft tissue seen previously is now FDG negative. However there is a new central anterior mediastinal soft tissue measuring 2.2 x 1.2 cm with an SUV of 7.5, other soft tissue lesion noted in the right cervical level two lymph node. Subcutaneous lesion in the anterior left chest and anterior left upper quadrant abdominal wall soft tissue thickening. The right testicular lesion has SUV of 15.8. A peripancreatic node at pancreatic tail has SUV of seven. Multifocal osseous lesions are present in the proximal left humerus, medial left clavicle, bilateral proximal femurs, left L3 and L4 with encroachment into left neural foramen at these levels. Mr. Gomez was referred to Dr. Calabrese in radiationoncology for newly diagnosed bone metastasis related to his lymphoma. His nuclear bone scan from January 14, 2021 revealed metabolic uptake in the calvarium, moral shaft, mid femoral shaft and proximal tibia. 2 weeks prior to his appointment with Dr. Calabrese he developed worsening left hip pain and lower back pain symptoms of the left leg. A recent PET/CT on January 19, 2021 identified the anterior medial soft tissue mass as indicated above. It measured 2.2 cm x 1.2 cm with an SUV of 7.5. He also had right cervical lymphadenopathy (level 2), subcutaneous lesions within the anterior left chest wall and upper quadrant of the abdominal wall. I right testicular lesion SUV of 15.8 and a hypermetabolic peripancreatic lymph node as well as multiple osseous lesions throughout the proximal left humerus, medial left clavicle, bilateral proximal femurs and L3???L4-L5 with encroachment into the left neural foramen. He was treated with dexamethasone prior to his appointment with Dr. Calabrese for potential palliative lumbar radiotherapy. 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 A total of 30 Rodrigues was delivered in 10 fractions encompassing 14 days. He received radiation to the third through the fifth lumbar vertebral bodies. He tolerated it well and states his pain is better. patient was concernd of new nodules in his abdomen and on his back. He states they are also on his lower leg. He has adenopathy in his left anterior cervical supraclavicular area as well. He denies any trouble swallowing. And complaining of generalized weakness and fatigue, initially patient had skin biopsy done from left anterior epigastric area skin lesion and as per pathology he was consistent with low-grade lymphoma but his disease is behaving like aggressive lymphoma, patient was referred to surgery for biopsy from new lesions especially in the left anterior cervical supraclavicular lymph node area, biopsy was repeated from the large subcutaneous lesion in the right upper abdominal area, and pathology is pending Came for follow-up, complaining of generalized weakness and fatigue, night sweats, no fever, no weight loss, though poor appetite, overall not feeling well. No nausea or vomiting, no diarrhea or constipation. Medications: Acetaminophen 2 Tablet (of 325 mg) Oral q 6 hours PRN, Albuterol Sulfate 1 puff(s) (of 108 (90 base) mcg/act) Aerosol Powder, Breath Activated Inhalation PRN, Claritin 1 Tablet (of 10 mg) Oral daily, Flonase 2 spray(s) (of 50 mcg/act) Suspension Nasal daily, HYDROcodone-Acetaminophen 1 Tablet (of 5-325 mg) Oral q 6 hours PRN, Naprosyn 1 Tablet (of 250 mg) Oral b.i.d. Allergies: Tetanus-Diphtheria Toxoids Td Review of Systems: Review of Systems is not available for this patient. Vital Signs: Performed on March 13, 2021 09:36 Height - 67.50 in Weight - 140.2 lbs (LOW) BSA - 1.75 sq.m BMI - 21.63 Temperature - 98.6 F Pulse - 100 /min Respiration - 18 /min BP - 146/73 mm(hg) (HIGH) O2 Sat - 95 % (LOW) Pain - 4 Fatigue - 10 Performance Status: 2 - Ambulatory/capable of all self-care, unable to perform any work activities. Up and about more than 50% of waking hours. (ECOG) Physical Examination: ENMT - No mouth sores, no thrush, no jaundice but large 8 x 10 cm left anterior cervical/supraclavicular lymph node/mass, nontender, Respiratory - Lungs are clear to auscultation, Cardiovascular - Regular rate and rhythm of heart, Abdomen - Soft, bowel sounds present, flat raised erythematous skin lesion involving upper abdomen, nontender, Extremities - No visible edema but right leg showed below-knee a flat but raised margin skin lesion 15 x 10 cm in size, no oozing, nontender. Lab/Imaging: Test performed on Feb 20, 2021 13:40 LDH (Total) 478 U/L Sodium 135 mmol/L Potassium 4.4 mmol/L Chloride 96 mmol/L CO2 30 mmol/L Anion Gap 13.4 BUN 15 mg/dL Creatinine 0.9 mg/dL Cr Clearance (Est) 61.1900 mL/min Glucose 94 mg/dL Osmolality - Calculated 281 mOsm/kg Calcium 8.7 mg/dL Protein, Total 5.7 g/dL Albumin 3.1 g/dL Globulin 2.6 g/dL Bilirubin, Total 0.3 mg/dL ALT (SGPT) 16 U/L AST (SGOT) 24 U/L Alkaline Phosphatase 103 IU/L WBC 4.8 10 3/uL RBC 3.50 10 6/uL HGB 10.4 g/dL HCT 31.7 % MCV 90.6 fL MCH 29.7 pg MCHC 32.8 g/dL RDW 12.8 % Platelet Count 372 10 3/cmm MPV 9.2 fL Neutrophils 3.51 10 3/uL Lymphocytes 0.3 10 3/uL Monocytes 0.4 10 3/uL Eosinophils 0.4 10 3/uL Basophils 0.1 10 3/uL Neutrophil % 73.6 % Lymphocyte % 6.3 % Monocyte % 7.6 % Eosinophil % 8.2 % Basophils % 1.1 % NRBC % 0 % Impression: Grade 2 follicular lymphoma status post excisional biopsy of right mandibular mass done on 04/08/2017 Flow cytometry was positive for CD19, CD20, CD22 and FNCC 7 and negative for CD5 Also exhibited surface kappa light chain restriction. CT PET scan was done in 2017, as per patient he was told he has stage II disease. Being low-grade and early-stage, no treatment was required but Active surveillance. CT PET scan done on 05/06/2017 showed left cervical lymphadenopathy and activity in the right shoulder but there are severe degenerative changes in that area and there is also increased activity involving lumbar spine may have both soft tissue or bone lesions. There are abnormal areas in the right ribs but patient has history of surgery on right ribs CT PET scan repeated on 03/12/2019 showed suspicious activity is present in the mediastinum in soft tissue abutting the ascending aortic arch and pulmonary artery. This has SUV of 7.9 consistent with recurrent lymphoma and additional hypermetabolic soft tissue is adherent to the abdominal aorta with SUV of 6.8 consistent with lymphoma Left inguinal lymph nodes measures up to 2.7 cm has SUV of 11 There is intense rectosigmoid activity which could be physiological but lymphomatous involvement cannot be ruled out Patient has history of diverticulitis/diverticular. Left inguinal lymph node biopsy done on 05/04/[address] PET scan done on January 19, 2021 showed hypermetabolic soft tissue lesion in the right cervical papo territory, anterior mediastinum, subcutaneous tissue involving left upper abdominal wall and anterior chest, right testicle, peripancreatic region. Multifocal osseous metastatic disease, FDG positive soft tissue at L3 and L4 neuroforamen, representing lymphoma. Plan: Discussed with patient regarding his labs white blood count 8.2 hemoglobin 11.3 hematocrit 35.4 platelets 478,000 Clinically, patient is in mild to moderate distress due to generalized weakness and fatigue, night sweats and now with progressive disease patient has multiple skin lesions involving upper abdomen, right anterior shoulder, right leg, left anterior cervical/supraclavicular mass, patient had left anterior abdominal wall biopsy done recently on December 31, 2020 but after pathology it was a follicular lymphoma, clinically his disease is behaving like an aggressive lymphoma so repeat biopsy was considered which was done recently and case was discussed with Dr. Calabrese pathologist, his impression is, probably there is a transformation into diffuse B-cell lymphoma but he would consult dermatopathologist to confirm it, as per Dr. Calabrese, final pathology may be available by Thursday or next week. But patient is symptomatic, at this point, will consider R-CHOP if transformation is confirmed otherwise will consider R-CVP, as per discussed with pathology and clinical findings, patient most likely has transformation into high-grade lymphoma, so we will request prior approval for R-CHOP unless pathology confirmed low-grade lymphoma again in that case we will consider R-CVP, all the side effect possible benefits history with chemotherapy were discussed earlier and repeated again today, because of patient's symptoms, will start him on prednisone 60 mg p.o. daily for 5 days while waiting for pathology confirmation, hopefully with that his symptom may improve and once we have confirmation, will plan accordingly. , His CT PET scan shows extensive bone mets, will also consider monthly Xgeva to prevent skeletal related complications. Patient had echocardiogram done recently, report is pending, will also consider Port-A-Cath placement., Patient will return to clinic in a week with CBC CMP, patient was advised in case there is a worsening of symptom, he need to go to hospital for evaluation. Signed By: Jose Angel Figueroa M.D. <<Signature on File>>
[2021-03-19 10:54] LABS: Basophils % 0.2 %; Hematocrit 34.2 % (42.0-52.0); Hemoglobin 11.1 g/dL (11.7-16.6); Lymphocytes # 0.5 10^3/uL (0.8-4.8); Lymphocytes % 3.9 %; Mean Corpuscular HGB Conc 32.5 g/dL (30.0-36.0); Mean Corpuscular Hemoglobin 28.8 pg (28.0-34.0); Mean Corpuscular Volume 88.8 fL (80-94); Mean Platelet Volume 10.1 fL (7.4-10.4); Monocytes # 1.1 10^3/uL (0.2-0.9); Monocytes % 8.8 %; Neutrophils # 10.55 10^3/uL (1.8-7.7); Neutrophils % 84.4 %; Nucleated Red Blood Cells % 0 %; Platelet Count 475 10^3/cmm (130-400); Red Blood Count 3.85 10^6/uL (4.1-5.3); Red Cell Distribution Width 13.7 % (12.1-15.1); White Blood Count 12.5 10^3/uL (4.0-10.0)
[2021-03-19 11:36] LABS: Alanine Aminotransferase 17 U/L (0-41); Albumin Level 3.6 g/dL (3.5-5.2); Alkaline Phosphatase 118 IU/L (40-130); Aspartate Amino Transferase 28 U/L (0-40); Calcium 11.1 mg/dL (8.5-10.5); Carbon Dioxide 26 mmol/L (22-29); Chloride 95 mmol/L (98-107); Globulin 2.7 g/dL (1.3-4.6); Glucose 101 mg/dL (65-115); Osmolality Calculated 308 mOsm/kg (285-295); Sodium 134 mmol/L (136-145); Total Bilirubin 0.2 mg/dL (0.15-1.2); Total Protein 6.3 g/dL (6.6-8.7)
[2021-03-19 12:08] LABS: Anion Gap 17.6 (5-19); Potassium 4.6 mmol/L (3.5-5.1)
[2021-03-19 12:09] LABS: Blood Urea Nitrogen 97 mg/dL (8-23)
[2021-03-20 14:39] LABS: Alanine Aminotransferase 16 U/L (0-41); Albumin Level 3.5 g/dL (3.5-5.2); Alkaline Phosphatase 105 IU/L (40-130); Anion Gap 15.5 (5-19); Aspartate Amino Transferase 22 U/L (0-40); Basophils % 0.1 %; Calcium 10.4 mg/dL (8.5-10.5); Carbon Dioxide 28 mmol/L (22-29); Chloride 98 mmol/L (98-107); Globulin 2.4 g/dL (1.3-4.6); Glucose 116 mg/dL (65-115); Hematocrit 31.7 % (42.0-52.0); Hemoglobin 10.3 g/dL (11.7-16.6); Lactate Dehydrogenase 551 U/L (135-225); Lymphocytes # 0.4 10^3/uL (0.8-4.8); Lymphocytes % 2.6 %; Mean Corpuscular HGB Conc 32.5 g/dL (30.0-36.0); Mean Corpuscular Hemoglobin 28.9 pg (28.0-34.0); Mean Corpuscular Volume 88.8 fL (80-94); Mean Platelet Volume 10.3 fL (7.4-10.4); Monocytes # 0.8 10^3/uL (0.2-0.9); Monocytes % 5.7 %; Neutrophils # 11.95 10^3/uL (1.8-7.7); Neutrophils % 89.7 %; Nucleated Red Blood Cells % 0 %; Osmolality Calculated 313 mOsm/kg (285-295); Platelet Count 436 10^3/cmm (130-400); Potassium 5.5 mmol/L (3.5-5.1); Red Blood Count 3.57 10^6/uL (4.1-5.3); Red Cell Distribution Width 13.9 % (12.1-15.1); Sodium 136 mmol/L (136-145); Total Bilirubin 0.2 mg/dL (0.15-1.2); Total Protein 5.9 g/dL (6.6-8.7); Uric Acid 10.7 mg/dL (3.4-7.0); White Blood Count 13.3 10^3/uL (4.0-10.0)
[2021-03-20 14:41] LABS: Blood Urea Nitrogen 97 mg/dL (8-23)
--- NOTE | 2021-03-20 16:00 | ONC FU_ITS ---
[facility] Patient Note Patient: Xavi Pryor Unit #: [id number]: 1940 Dictated By: Marsha MaciasDate of Visit: March 20, 2021 Onc MED Follow-Up/Prog Note Chief Complaint: Follicular lymphoma History of Present Illness: Mr. 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 He initially presented with right submandibular mass and was treated with antibiotics without much help, He was referred to ENT and underwent FNA of right submental mass which showed atypical lymphoid infiltrate. Mr Pryor subsequently underwent excisional biopsy of right submandibular mass on 04/08/2017. flow cytometry showed monoclonal B-cell population which was positive for CD19/CD20/FNCC 7 and CD20 to and was negative for CD5. Also exhibited surface kappa light chain restriction. These findings were consistent with grade 2 follicular lymphoma. Patient was evaluated by Dr. Pardo at [facility] in [place], [place] and being low-grade and stage II disease active surveillance was pursued. Last time he saw Dr. Pardo was on 02/15/2018. As per patient, last CT PET scan was done in 2016. Since his last visit with Dr. Pardo in February 2018, he had develop left inguinal lymphadenopathy and lost about 30 pounds. Mr Pryor attributed his weight loss to diverticulitis. Denied any night sweats, recurrent fever, abdominal fullness, any other peripheral lymphadenopathy. Denied any melena, hematochezia, denied any nosebleed, petechiae or ecchymosis. He denied any shortness of breath or dysphagia, denies any jaundice. CT PET scan was done on 03/12/2019 showed hypermetabolic soft tissue adherent to the aorta at upper mediastinum and upper abdominal level is consistent with a lymphoma Hypermetabolic left inguinal nodes consistent with lymphoma Diffuse activity in the rectosigmoid colon Questionable activity in the posterior left iliac Left inguinal lymph node biopsy was done on 05/04/2019 to confirm whether there is transformation to aggressive lymphoma versus persistent low-grade follicular. Final pathology report came back follicular lymphoma grade 1-2 of 3 s/p right shoulder replacement in first week of October 2019. Patient underwent anterior left midabdomen skin biopsy on December 31, 2020 which showed follicular lymphoma, grade 1 -2 of 3., BCL6 negative cyclin D1 was negative, BCL-2's staining is moderately strong and demonstrate aberrant coexpression of B cells. Further immunohistochemistry positive for CD3, CD5, CD20, CD10, CD43 Because of progressive left hip/lower back pain with radiation to left leg, PMD ordered CT scan of abdomen pelvis which was done on January 01, 2021 showed no lytic lesion in left ilium. Variable density within left hip and proximal femur may be related to osteopenia. No abdominal or pelvic lymphadenopathy, spleen is normal size, bone scan was recommended for further evaluation which was done on January 14, 2021 showed multiple patchy areas of bone marrow activity involving bilateral humerus, bilateral forearm bones, mid femoral shafts suspicious for metastatic disease. Patchy activity involving left hip. Also involving left proximal tibial shaft. And calvarium. CT PET scan done on January 19, 2021 showed anterior mediastinal and upper abdominal periaortic soft tissue seen previously is now FDG negative. However there is a new central anterior mediastinal soft tissue measuring 2.2 x 1.2 cm with an SUV of 7.5, other soft tissue lesion noted in the right cervical level two lymph node. Subcutaneous lesion in the anterior left chest and anterior left upper quadrant abdominal wall soft tissue thickening. The right testicular lesion has SUV of 15.8. A peripancreatic node at pancreatic tail has SUV of seven. Multifocal osseous lesions are present in the proximal left humerus, medial left clavicle, bilateral proximal femurs, left L3 and L4 with encroachment into left neural foramen at these levels. Mr. Pryor was referred to Dr. Calabrese in radiationoncology for newly diagnosed bone metastasis related to his lymphoma. His nuclear bone scan from January 14, 2021 revealed metabolic uptake in the calvarium, moral shaft, mid femoral shaft and proximal tibia. 2 weeks prior to his appointment with Dr. Calabrese he developed worsening left hip pain and lower back pain symptoms of the left leg. A recent PET/CT on January 19, 2021 identified the anterior medial soft tissue mass as indicated above. It measured 2.2 cm x 1.2 cm with an SUV of 7.5. He also had right cervical lymphadenopathy (level 2), subcutaneous lesions within the anterior left chest wall and upper quadrant of the abdominal wall. I right testicular lesion SUV of 15.8 and a hypermetabolic peripancreatic lymph node as well as multiple osseous lesions throughout the proximal left humerus, medial left clavicle, bilateral proximal femurs and L3???L4-L5 with encroachment into the left neural foramen. He was treated with dexamethasone prior to his appointment with Dr. Calabrese for potential palliative lumbar radiotherapy. 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 A total of 30 Rodrigues was delivered in 10 fractions encompassing 14 days. He received radiation to the third through the fifth lumbar vertebral bodies. He tolerated it well and states his pain is better. Mr Pryor was seen in medical oncology post completion of the radiation therapy. He was concernd of new nodules in his abdomen and on his back. He states they are also on his lower leg. He has adenopathy in his left anterior cervical supraclavicular area as well. He denied any trouble swallowing. He was complaining of generalized weakness and fatigue, initially patient had skin biopsy done from left anterior epigastric area skin lesion and as per pathology he was consistent with low-grade lymphoma but his disease is behaving like aggressive lymphoma. Mr Smiley was referred to surgery for biopsy from new lesions especially in the left anterior cervical supraclavicular lymph node area, biopsy was repeated from the large subcutaneous lesion in the right upper abdominal area, and pathology has been pending Mr. Pryor was seen on March 13, [address] Figueroa for follow-up given his generalized weakness and fatigue. He also had developed night sweats. There were more lesions involving the upper abdomen, right anterior shoulder, right leg, left anterior cervical/supraclavicular mass. Dr. Figueroa did call today to pathology to confirm his pathology and was told it had turned transformed from low-grade lymphoma to high-grade lymphoma. Mr. Pryor was started on prednisone 60 mg daily for 5 days. He states he has 2 more days left. He states today he feels really good. He states he feels better than he has in quite some time. He denies any fever or chills. The night sweats are much better. He denies any nausea or vomiting. He has had some intermittent gastritis symptoms from the prednisone but states generally if he eats that is resolved. He denies any new shortness of breath orthopnea. He denies hemoptysis he has had no lower extremity edema. He has had no diarrhea or constipation. He denies any urinary symptoms. He states his urine stream and volume is normal for him. He denies any hematuria. He has no new pain. He states overall he again feels much better. He is very jovial today. He states his energy is much better and he is eating good also. It is noted that his weight is up 4 pounds from last week. His ECOG is 1. Past Medical History: Diverticulosis History of basal cell skin cancer Osteoarthritis Past Surgical History: Appendectomy Cataract excision Reconstruction of ribs Right hip replacement Covid vaccine #2 in 2020 Covid vaccine #1 in 2020 Colonoscopy in 2016 Allergies: Tetanus-Diphtheria Toxoids Td Medications: Acetaminophen 2 Tablet (of 325 mg) Oral q 6 hours PRN Albuterol Sulfate 1 puff(s) (of 108 (90 base) mcg/act) Aerosol Powder, Breath Activated Inhalation PRN Claritin 1 Tablet (of 10 mg) Oral daily Flonase 2 spray(s) (of 50 mcg/act) Suspension Nasal daily HYDROcodone-Acetaminophen 1 Tablet (of 5-325 mg) Oral q 6 hours PRN Naprosyn 1 Tablet (of 250 mg) Oral b.i.d. Family History: Mr. Pryor's mother at age 63: brain cancer. Mr. Pryor's father at age 80: myeloma. His maternal grandfather is : cancer of unknown primary. Social History: Mr. Pryor is and he is retired. Mr. Pryor quit smoking 16 years ago but had smoked 1.0 pack/day for 40 years. He is an active drinker.He consumes 2 drinks/day 7 days/week. Review Of Symptoms: <See Above> Vital Signs: Performed on March 20, 2021 12:55 Height - 67.50 in Weight - 144.6 lbs (HIGH) BSA - 1.77 sq.m BMI - 22.31 Temperature - 99.0 F (HIGH) Pulse - 79 /min Respiration - 18 /min BP - 150/75 mm(hg) (HIGH) O2 Sat - 98 % Pain - 0 Fatigue - 6,1 - No physically strenuous activity, but ambulatory and able to carry out light or sedentary work (e.g. office work, light house work). (ECOG) Physical Examination: Constitutional Alert, oriented, no acute distress. Skin pink, warm and dry. Head Normocephalic; atraumatic. Eyes Conjunctivae and sclerae are clear and without icterus. Pupils are reactive and equal. Hematologic/Lymphatic He has adenopathy on the left side and the sternoclavicular area. Is approximately 2-3 cm in diameter. It is dramatically improved since I last saw him in February 2021. Back/Spine Non-tender to palpation. Extremities No visible deformities, no cyanosis, clubbing or edema. Musculoskeletal No tenderness or swelling, normal range of motion without obvious weakness. Neurologic No sensory or motor deficits, normal cerebellar function, normal gait. Psychiatric Alert and oriented times three. Coherent speech. Verbalizes understanding of our discussions today. Laboratory:Test performed on March 20, 2021 13:30 LDH (Total) 551 U/L Sodium 136 mmol/L Uric Acid 10.7 mg/dL Potassium 5.5 mmol/L Chloride 98 mmol/L CO2 28 mmol/L Anion Gap 15.5 BUN 97 mg/dL Creatinine 4.0 mg/dL Cr Clearance (Est) 13.6900 mL/min Glucose 116 mg/dL Osmolality - Calculated 313 mOsm/kg Calcium 10.4 mg/dL Protein, Total 5.9 g/dL Albumin 3.5 g/dL Globulin 2.4 g/dL Bilirubin, Total 0.2 mg/dL ALT (SGPT) 16 U/L AST (SGOT) 22 U/L Alkaline Phosphatase 105 IU/L WBC 13.3 10 3/uL RBC 3.57 10 6/uL HGB 10.3 g/dL HCT 31.7 % MCV 88.8 fL MCH 28.9 pg MCHC 32.5 g/dL RDW 13.9 % Platelet Count 436 10 3/cmm MPV 10.3 fL Neutrophils 11.95 10 3/uL Lymphocytes 0.4 10 3/uL Monocytes 0.8 10 3/uL Eosinophils 0.0 10 3/uL Basophils 0.0 10 3/uL Neutrophil % 89.7 % Lymphocyte % 2.6 % Monocyte % 5.7 % Eosinophil % 0.0 % Basophils % 0.1 % NRBC % 0 % Impression: Grade 2 follicular lymphoma status post excisional biopsy of right mandibular mass done on 04/08/2017 Flow cytometry was positive for CD19, CD20, CD22 and FNCC 7 and negative for CD5 Also exhibited surface kappa light chain restriction. CT PET scan was done in 2017, as per patient he was told he has stage II disease. Being low-grade and early-stage, no treatment was required but Active surveillance. CT PET scan done on 05/06/2017 showed left cervical lymphadenopathy and activity in the right shoulder but there are severe degenerative changes in that area and there is also increased activity involving lumbar spine may have both soft tissue or bone lesions. There are abnormal areas in the right ribs but patient has history of surgery on right ribs CT PET scan repeated on 03/12/2019 showed suspicious activity is present in the mediastinum in soft tissue abutting the ascending aortic arch and pulmonary artery. This has SUV of 7.9 consistent with recurrent lymphoma and additional hypermetabolic soft tissue is adherent to the abdominal aorta with SUV of 6.8 consistent with lymphoma Left inguinal lymph nodes measures up to 2.7 cm has SUV of 11 There is intense rectosigmoid activity which could be physiological but lymphomatous involvement cannot be ruled out Patient has history of diverticulitis/diverticular. Left inguinal lymph node biopsy done on 05/04/[address] PET scan done on January 19, 2021 showed hypermetabolic soft tissue lesion in the right cervical papo territory, anterior mediastinum, subcutaneous tissue involving left upper abdominal wall and anterior chest, right testicle, peripancreatic region. Multifocal osseous metastatic disease, FDG positive soft tissue at L3 and L4 neuroforamen, representing lymphoma. Plan/Problems Addressed at this Visit: 1. 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 He was also prescribed allopurinol, but I am unclear as to if he was actually taking it. 2. Follicular lymphoma-now transformed to high grade lymphoma A. His labs from March 19, 2021 were reviewed in detail discussed with Mr. Pryor and Dr. Figueroa. Mr. Pryor's WBC was 12.5, hemoglobin 11.1, platelets 4 and 75,000, ANC is 10,500. His sodium was 134 potassium 4.6, BUN was noted to be 97 and creatinine 4.4. His calcium was reported at 11.1. His LFTs were normal LDH was not drawn. Repeat labs on 03/20/2021 revealed a white count of 13.3, hemoglobin 10.3, platelets 4 and 36,000 ANC is 12,000 potassium 5.5, random glucose 116, BUN 97 creatinine is 4.0 calcium is 10.4 total bilirubin 0.2 LFTs are normal LDH is 551 (it was 478 on February 20, 2021) and his uric acid is 10.7 entheses no recent comparison) his blood pressure stable at 150/75 O2 sat 98 heart rate is 79 and respirations are 18. B. He confirms that he has been taking the prednisone. C. I discussed his labs and presentation with Dr. Figueroa. Given his creatinine of 4.0 (It was 0.9 on February 20, 2021), it has been elected to pursue at least overnight hospital observation with hydration. I did talk with Dr. Arias, [facility] hospitalist, and she is willing to accept his case. D. Dr. Figueroa reported to me that he did talk with the pathology and and confirmed that the lymphoma is now considered high-grade . E. With the confirmation of high-grade lymphoma, we will plan to treat him with R-CHOP but due to concern of his elevated creatinine and tumor lysis syndrome symptoms per lab, we will start him with just cyclophosphamide and vincristine. He does not have central line yet so we will hold the Adriamycin. We will hold the Rituxan for now given that it can induce further tumor lysis syndrome. F. He reports that he is scheduled for Port-A-Cath placement with Dr. Jennings on Thursday, March 22, 2021. G. We will plan to give him cyclophosphamide and vincristine tomorrow if he is improved after hydration/supportive care. H. His calcium from yesterday was 11.1 however that is improved today to 10.4. He will need denosumab for extensive bone metastasis and can either start that while he is in the hospital or we can do it as an outpatient whichever is most appropriate given his labs at the time. I. He did have baseline echocardiogram for high risk medication monitoring (Adriamycin) his LVEF was estimated at 60%. Grade 1/4 diastolic dysfunction with normal to mildly elevated filling pressures. The right ventricle is normal size and function the right atrium is normal in size the left atrium is normal in size he has a mildly thickened mitral valve but no mitral valve stenosis no significant mitral valve regurgitation. His pulmonary artery systolic pressure is normal and there were no regional wall motion abnormalities. There was no report of pericardial effusion. J. I discussed his labs from March 19 and again repeat labs for today in detail with Mr. Pryor in regards to the creatinine. He is aware that hospital admission is necessary at this point for hydration given that he has acute renal failure. I did tell him we are more concerned about his kidney function and feel that he would benefit from persistent hydration overnight. He is in no acute distress but I did encourage him that I felt admission was necessary to protect him from further complications. We will plan to give him chemotherapy tomorrow as indicated above. We will plan later to add the rituximab and Adriamycin. He states he is already had dramatic response from the prednisone and that he cannot feel the nodules other than the one in his neck which is significantly smaller. He is willing to proceed for hospital admission and is aware that we will plan to see him back here tomorrow for chemotherapy and will have him proceed as planned for Port-A-Cath placement on Thursday. K. Mr. Pryor was instructed to contact us in interim should questions or problems arise. Total time spent in review of this patient's care today including evaluating his records prior to his visit, review of his current concerns and discussion with Dr. Figueroa and formation/corridination of plan of care as well as post visit documentation was 60 minutes. Signed By: Marsha Macias-, AOCNP Jose Angel Figueroa MD <<Signature on File>>
== END 2021-03-20 16:00 | disposition home or self-care (01) ==
LOC: ONCMED 05:31
PROVIDERS: Internal Medicine Hematology & Oncology; Internal Medicine Medical Oncology; PCP Internal Medicine; Visit Provider Nurse Practitioner
DX: C82.11 Follicular lymphoma grade II, lymph nodes of head, face, and neck (principal); C79.51 Secondary malignant neoplasm of bone; K57.90 Diverticulosis of intestine, part unspecified, without perforation or abscess without bleeding; M19.90 Unspecified osteoarthritis, unspecified site; Z85.828 Personal history of other malignant neoplasm of skin; Z79.899 Other long term (current) drug therapy; Z79.52 Long term (current) use of systemic steroids
CPT/HCPCS: 36415; 80053; 83615; 84550; 85025; 99214; 99215

== ENCOUNTER 2021-03-20 16:55 | Inpatient (IN) | payer MEDICARE, SELFPAY ==
[2021-03-20 17:09] VITALS: BP 165/84; PULSE 76; RESP 25; TEMP 36.9; O2SAT 98
--- NOTE | 2021-03-20 17:09 | P.HP_ITS ---
Providers/Chief Complaint Admitting Physician: Yoli Arias MD Primary Care Provider: Enrique Nguyen DO Chief Complaint: Lymphoma History of Present Illness Xavi Pryor is a 80 year old male who [facility] He has follicular lymphoma involving multiple locations. He has been in the process of getting worked up. He is due to start chemotherapy tomorrow, March 21. He has been on steroids, prednisone 60 mg daily which was started on March 14, in preparation for this. He was prescribed allopurinol but it is unclear if he was taking it. He has had night sweats and weight loss. Denies fever. Not having any nausea or vomiting. Denies any hematuria. His urine might be a little bit darker. He does not describe decreased urine output, dysuria or difficulty with urination. Denies any blood in his stools or black tarry stools. He has some chronic hip and back pain as well as pain in his right knee and right shoulder. Denies recent respiratory symptoms. Other than home medications he was given for cancer pretreatment and [id number] pain medications plus hydrocodone and allergy medicines he is not on anything chronically. No known history of kidney problems. He had a normal BUN and creatinine in February of this year. He had laboratory studies done yesterday in preparation for today's clinic visit and was found to have a BUN and creatinine around 90/4.0. Uric acid was elevated at 10.7 and LDH which had been in the 400s was up to 550. He was sent for direct admission for hydration and further monitoring of progressive abnormalities. Current plan is for him to undergo a treatment with an R-CHOP regimen although it will have to be adjusted due to renal function and suspected tumor lysis. He is supposed to get Port-A-Cath placement this Thursday. Plan is for him to be getting cyclophosphamide and vincristine AF improves overnight enough with holding of the Adriamycin and Rituxan for now. He will need denosumab initiated at some point as well. Review of Systems Const: Reports: change in weight, fatigue and night sweats; Denies: fever(s), chills or change in appetite Eyes: Denies: change in vision ENMT: Denies: throat pain Card: Denies: chest pain, palpitations or edema Resp: Denies: dyspnea, productive cough or non-productive cough GI: Reports: abdominal pain and heartburn; Denies: nausea, vomiting, diarrhea, constipation, hematochezia or melena : Denies: difficulty urinating, oliguria or hematuria Musc: Reports: back pain and extremity pain Skin/Breast: Denies: rash, pruritus or sores Neuro: Reports: weakness in extremities; Denies: headache(s), numbness in extremities or difficulty walking Psych: Denies: anxiety or depression Miguel/Lymph: Denies: easy bruising or easy bleeding Medications/Allergies Home Medications Medication Instructions Recorded Confirmed Last Taken Type acetaminophen 325 mg tablet 325 mg PO ONCE PRN 11/15/19 03/11/21 Unknown History fluticasone propionate 50 1 spray INTRANASAL BID 11/15/19 03/11/21 Unknown History mcg/actuation nasal spray,suspension hydrocodone 5 mg-acetaminophen 325 1 tab PO Q6H PRN 11/15/19 03/11/21 Unknown History mg tablet loratadine 10 mg tablet 10 mg PO ONCE 11/15/19 03/11/21 Unknown History naproxen 250 mg tablet 250 mg PO BID PRN 12/15/19 03/11/21 Unknown History Allergies Allergy/AdvReac Type Severity Reaction Status Date / Time Tetanus Vaccines and Toxoid Allergy Intermediate ALGY-Hives Verified 03/11/21 15:36 PFSH Acute PFSH: Medical History (Updated 03/20/21 @ 23:14 by Yoli Arias MD) Diverticulosis Follicular lymphoma Diagnosed in 2017, 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, multiple locations, 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 History of basal cell carcinoma of skin Osteoarthritis Surgical History (Updated 03/20/21 @ 22:45 by Yoli Arias MD) H/O lymph node biopsy (~04/2019) Left inguinal History of appendectomy History of cataract surgery History of colonoscopy (~2015) History of right knee joint replacement S/P skin biopsy (~12/2020) Abdominal wall mass Status post excisional biopsy (~2016) Submandibular mass Status post radiation therapy Palliative radiotherapy completed on February 12, 2021 to the lumbar area Status post replacement of right shoulder joint (~2018) Family History (Updated 03/20/21 @ 22:47 by Yoli Arias MD) Mother Cancer Brain Father Cancer Multiple myeloma Social History (Updated 03/20/21 @ 22:48 by Yoli Arias MD) Smoking and tobacco status: former smoker Alcohol intake: current Alcohol intake frequency: few times a week Alcohol type: beer Alcohol use comment: Denies daily use Lives independently: Yes Marital status: / Physical Exam Narrative: EXAM NARRATIVE: Constitutional: Awake and alert, very pleasant HEENT: Normocephalic, extraocular movements are intact, oropharynx with very poor dentition with some rotten teeth that ideally need to be extracted Neck: Supple, soft tissue mass noted in the left supraclavicular area which according the patient has gone down significantly Respiratory: Clear to auscultation bilaterally Cardiovascular: Regular rate and rhythm Abdomen: Soft, mild tenderness, has sutures in place underneath the Band-Aid in the right mid lower quadrant from recent biopsy. Has erythematous soft tissue masses in the mid left lower quadrant x2 : Normal external genitalia Extremities: No pitting edema Skin: Dry, has erythema at sites where he has various masses Neuro: Speech clear, face symmetric, handgrip equal Data Other Labs: Laboratory Tests 03/19/21 03/20/21 03/20/21 10:30 13:30 13:30 WBC 13.3 H Hgb 10.3 L Hct 31.7 L Plt Count 436 H Sodium 136 Potassium 5.5 H Chloride 98 Carbon Dioxide 28 Anion Gap 15.5 BUN 97 H* D 97 H* Creatinine 4.4 H 4.0 H Glucose 116 H Calculated Osmolality 313 H Uric Acid 10.7 H Calcium 10.4 Total Bilirubin 0.2 AST 22 ALT 16 Alkaline Phosphatase 105 Lactate Dehydrogenase 551 H Total Protein 5.9 L Albumin 3.5 Globulin 2.4 Laboratory Tests 02/18/21 02/20/21 03/19/21 08:47 13:40 10:30 Potassium 4.1 4.4 4.6 BUN 14 15 97 H* D Creatinine 0.9 0.9 4.4 H Lactate Dehydrogenase 418 H 478 H 03/20/21 13:30 Potassium 5.5 H BUN 97 H* Creatinine 4.0 H Lactate Dehydrogenase 551 H A&P Assessment and plan (1) Acute kidney injury: Has been on steroids and also has NSAIDs as part of his pain control regimen. Given elevation in uric acid and LDH combined with this being a lymphoma, tumor lysis syndrome prior to initiation of chemotherapy is within the differential. That said he does not look as sick as one might expect under such a circumstance. He does describe decreased size of some of his tumors. Status: Acute (2) Tumor lysis syndrome: Status: Acute (3) Follicular lymphoma: Status: Chronic Qualifiers: Follicular lymphoma grade: grade III, unspecified Lymphoma site: multiple regions Qualified Code(s): C82.28 - Follicular lymphoma grade III, unspecified, lymph nodes of multiple sites (4) Poor dentition: Status: Acute Additional A&P Information Observation admission IV fluids We will see if we can get rasburicase Hold NSAID therapy Pain control Monitor serial laboratory studies Strict I's and O's, unless has rapid improvement will need to place Dudley catheter for close monitoring of urine output He clinically looks better than you would expect for abnormalities identified Dialysis is pending Current plan is for patient to receive first dose of chemotherapy tomorrow as per discussion with oncology although will of course depend on clinical course and response to treatment PPI Add Augmentin for dentition and will discuss with oncology Supportive care otherwise Plans were discussed with patient and he was given an opportunity to ask questions Tentative disposition is tomorrow back to oncology for management assuming that he has significant improvement in his renal function with hydration overnight Currently full code until we can discuss CODE STATUS more at length Attestations Medical Necessity Statement*: Currently anticipated stay less than 2 midnights in a patient with significant acute kidney injury who is currently about to start chemotherapy for follicular lymphoma. He has evidence of what is some early tumor lysis syndrome and requires aggressive hydration. Current plan is for him to receive chemotherapy tomorrow out patient unless he clinically worsens necessitating other management Coding Level of Care Code Acute Motor Equipment Sergeant for Alexi Mckeon Diagnoses Acute kidney injury N17.9 Tumor lysis syndrome E88.3 Follicular lymphoma C82.28 Follicular lymphoma grade: grade III, unspecified Lymphoma site: multiple regions Poor dentition K08.9
[2021-03-20] MEDS: sodium chloride 0.9% 1,000 ML 150 ML IV (18:59)
--- NOTE | 2021-03-20 19:46 | PC.PHAR ---
DISCUSSION WITH TRISTAN VIA PHONE REGARDING PATIENT'S ELEVATED URIC ACID LEVEL. RASBURICASE TO BE GIVEN SINGLE DOSE OF 7.5 MG NOW AND RECHECK LEVEL. WILL REPEAT DOSE TOMORROW IF NEEDED. VERBAL ORDER MORENA/TRISTAN
--- NOTE | 2021-03-20 20:09 | PC.PHAR ---
DELIVERED RASBURICASE TO FLOOR AND ASKED THAT NURSING HANG IT ANDREA
[2021-03-20 20:27] VITALS: BP 158/85; PULSE 80; RESP 18; TEMP 36.7; O2SAT 97
[2021-03-20] MEDS: pantoprazole 40 mg SDV IVP (20:33)
[2021-03-20] MEDS: enoxaparin 40 mg/0.4 mL Syringe SUBCUT (20:33)
[2021-03-20 22:00] VITALS: PULSE 93
[2021-03-21] VITALS (15 sets, daily range): BP systolic 152–188; BP diastolic 60–99; PULSE 72–101; RESP 14–20; TEMP 36.2–37.2; O2SAT 92–97
--- NOTE | 2021-03-21 | SCC_ITS ---
Procedure Done: Placement of PowerPort in the right subclavian vein Fluoroscopic guidance and interpretation for placement of catheter 190.7 seconds of fluoroscopic guidance, for a cumulative dose of 19.47 mGy, was provided to Dr. Jennings by the radiology department. C-arm images of the chest were saved for the patient's permanent record. [facility]
[2021-03-21] MEDS: sodium chloride 0.9% 1,000 ML 150 ML IV ×3 (01:58→20:26)
[2021-03-21 05:27] LABS: Basophils % 0.2 %; Eosinophils % 0.4 %; Hematocrit 26.7 % (42.0-52.0); Hemoglobin 8.5 g/dL (11.7-16.6); Lymphocytes # 0.4 10^3/uL (0.8-4.8); Lymphocytes % 4.6 %; Mean Corpuscular HGB Conc 31.8 g/dL (30.0-36.0); Mean Corpuscular Hemoglobin 28.1 pg (28.0-34.0); Mean Corpuscular Volume 88.1 fL (80-94); Mean Platelet Volume 10.4 fL (7.4-10.4); Monocytes % 10.2 %; Neutrophils # 7.86 10^3/uL (1.8-7.7); Neutrophils % 82.2 %; Nucleated Red Blood Cells % 0 %; Platelet Count 373 10^3/cmm (130-400); Red Blood Count 3.03 10^6/uL (4.1-5.3); White Blood Count 9.6 10^3/uL (4.0-10.0)
[2021-03-21 05:35] LABS: INR 1.12 (0.8-1.2)
[2021-03-21 05:41] LABS: Alanine Aminotransferase 13 U/L (0-41); Albumin Level 2.7 g/dL (3.5-5.2); Alkaline Phosphatase 89 IU/L (40-130); Aspartate Amino Transferase 19 U/L (0-40); Calcium 9.4 mg/dL (8.5-10.5); Carbon Dioxide 24 mmol/L (22-29); Chloride 103 mmol/L (98-107); Globulin 2.2 g/dL (1.3-4.6); Glucose 104 mg/dL (65-115); Magnesium 1.7 mg/dL (1.7-2.3); Osmolality Calculated 310 mOsm/kg (285-295); Phosphorus 4.5 mg/dL (2.5-4.5); Sodium 136 mmol/L (136-145); Total Bilirubin 0.2 mg/dL (0.15-1.2); Total Protein 4.9 g/dL (6.6-8.7)
[2021-03-21 05:45] LABS: Lactate Dehydrogenase 442 U/L (135-225); Uric Acid 0.4 mg/dL (3.4-7.0)
[2021-03-21 05:58] LABS: Add Urine Microscopic? NO; Charge for UA Resulting for Rev
[2021-03-21 06:27] LABS: Bilirubin Urine Neg (Negative); Blood Urine Neg (Negative); Glucose Urine UA Norm (Normal); Ketones Urine Negative (Negative); Leukocyte Esterase Urine Negative (Negative); Nitrate Urine Negative (Negative); Protein Urine Neg (Negative); Urine Appearance Clear (CLEAR); Urine Color Yellow (Yellow); Urobilinogen Urine Norm (Negative); pH Urine 7 (5-7)
[2021-03-21 07:14] LABS: Blood Urea Nitrogen 91 mg/dL (8-23)
--- NOTE | 2021-03-21 08:59 | US_ITS ---
WS: [id number] RENAL ULTRASOUND HISTORY: acute renal failure COMPARISON: 10/24/2016 TECHNIQUE: 2-D and color Doppler imaging of the kidney submitted. Right kidney: 10.2 cm x 5.6 cm x 6.0 cm. Normal size kidney. Mild increased echogenicity as compared to the liver. No hydronephrosis or mass. No cortical thinning. Left kidney: 9.9 cm x 5.4 cm x 5.2 cm. Normal size kidney with mild increased echogenicity. No hydronephrosis or mass. No cortical thinning. Aorta: Mild atherosclerotic plaque. Urinary Bladder: Normal distention. US/US renal BI* [id number] IMPRESSION: 1. Mild chronic medical renal disease. 2. No hydronephrosis or significant cortical atrophy.
[2021-03-21] MEDS: amoxicillin-clav 875-125 mg Tablet 1 TAB PO ×2 (09:13→17:34)
[2021-03-21] MEDS: allopurinol 100 mg Tablet PO (09:13)
--- NOTE | 2021-03-21 11:54 | PC.CHAP ---
Pastoral Care Encounter/Spiritual Assessment Type of Contact [] Declined school janitor visit [] Patient/Family/Request visit [] Outpatient visit [] Follow-up visit [] Physician referral [] Code/Alert [x] Routine visit [] Staff referral [] Actively dying [] Patient sleeping [] Family support [] [] Out of room [] Palliative care [] [x] Receiving care in room [] Pre-surgical visit [] Trauma [x] Long length of stay [] ICU visit [] Other: Relational/Emotional Strength [x] Patient feels connected with others/family/visitors/staff [] Distress [] Loneliness/isolation [] Abandonment Spirituality of Patient [x] Person of Rossi [] Attends Cheondoism of their Rossi [x] Believes in Prayer [] Reads Bible or Adventist materials [] There are Spiritual issues to be addressed Adobe Developer Interventions [x] Prayer [x] Active listening [x] Non-anxious presence [x] Spiritual/emotional support [] Crisis/trauma care [x] Spiritual counseling [] Bereavement support [] Provided bereavement packet [] Provided Bible/devotional materials [] Provided toy/stuffed animal, coloring book to patient or family member [] Provided Communion [] Anointing/[place] [] Salvation [x] Completed spiritual assessment [] Other: Impact on Illness or Injury [] Angry [] Fearful [] Anxious [] Often cries [] Exhaustion [] Unable to work [] Unable to attend druze [] Unable to walk/stand [] Unable to read [] Unable to drive [] Unable to eat/drink [] Unable to sleep [] Unable to be with family [] Patient intubated [] Other: Summary Time spent with patient
--- NOTE | 2021-03-21 12:43 | PC.CHAP ---
Pastoral Care Encounter/Spiritual Assessment Type of Contact [] Declined delivery driver/customer service visit [] Patient/Family/Request visit [] Outpatient visit [] Follow-up visit [] Physician referral [] Code/Alert [] Routine visit [x] Staff referral [] Actively dying [] Patient sleeping [] Family support [] [] Out of room [] Palliative care [] [x] Receiving care in room [] Pre-surgical visit [] Trauma [x] Long length of stay [] ICU visit [] Other: Relational/Emotional Strength [x] Patient feels connected with others/family/visitors/staff [] Distress [] Loneliness/isolation [] Abandonment Spirituality of Patient [x] Person of Rossi [] Attends Religious of their Rossi [] Believes in Prayer [] Reads Bible or Holiness materials [] There are Spiritual issues to be addressed Health Technician Interventions [x] Prayer [x] Active listening [x] Non-anxious presence [x] Spiritual/emotional support [] Crisis/trauma care [x] Spiritual counseling [] Bereavement support [] Provided bereavement packet [] Provided Bible/devotional materials [] Provided toy/stuffed animal, coloring book to patient or family member [] Provided Communion [] Anointing/[place] [] Salvation [x] Completed spiritual assessment [] Other: Impact on Illness or Injury [] Angry [] Fearful [] Anxious [] Often cries [] Exhaustion [] Unable to work [] Unable to attend orthodox [] Unable to walk/stand [] Unable to read [] Unable to drive [] Unable to eat/drink [] Unable to sleep [] Unable to be with family [] Patient intubated [] Other: Summary Lymphoma cancer on chemo, feels good has a good attitude, wb\ants ti\o gohome Time spent with patient 10 mins
--- NOTE | 2021-03-21 13:55 | PC.NURSE ---
surgery Pt taken down to surgery.
--- NOTE | 2021-03-21 13:56 | PM.CONSULT ---
Providers/Reason For Consult Consulting Physican/Specialty*: General Surgery Dr. Jennings Reason for Consult*: Port-A-Cath placement Attending Physician: Yoli Arias MD Primary Care Provider: Enrique Nguyen DO History of Present Illness History of Present Illness Xavi Pryor is a 80 year old male who was recently admitted to the hospital with acute renal failure secondary to tumor lysis syndrome. Patient had been diagnosed with follicular lymphoma and needed central venous access for emergent chemotherapy. Patient denies a history of clavicle fracture or central line placement Review of Systems General: Reports: 10 or more systems reviewed and unremarkable except in HPI and below Meds/Allergies Home Medications and Allergies Home Medications Medication Instructions Recorded Confirmed Last Taken Type acetaminophen 325 mg tablet 325 mg PO DAILY PRN 11/15/19 03/21/21 Unknown History fluticasone propionate 50 1 spray INTRANASAL BID PRN 11/15/19 03/21/21 Unknown History mcg/actuation nasal spray,suspension hydrocodone 5 mg-acetaminophen 325 1 tab PO Q6H PRN 11/15/19 03/21/21 Unknown History mg tablet loratadine 10 mg tablet 10 mg PO DAILY PRN 11/15/19 03/21/21 Unknown History naproxen 250 mg tablet 250 mg PO BID PRN 12/15/19 03/21/21 Unknown History albuterol sulfate 1 puff INHALATION QID PRN 03/21/21 03/21/21 Unknown History prednisone 20 mg PO TID 03/21/21 03/21/21 Unknown History Allergies Allergy/AdvReac Type Severity Reaction Status Date / Time Tetanus Vaccines and Toxoid Allergy Intermediate ALGY-Hives Verified 03/11/21 15:36 Current Medications Current Medications Generic Name Dose Route Start Last Admin Trade Name Freq PRN Reason Stop Dose Admin Allopurinol 100 mg 03/21/21 09:00 03/21/21 09:13 Allopurinol 100 Mg Tablet PO 100 mg DAILY ADITI Administration Amoxicillin/Clavulanate Potassium 1 tab 03/21/21 09:00 03/21/21 09:13 Amoxicillin-Clav 875-125 Mg Tablet PO 1 tab BID ADITI Administration Protocol Enoxaparin Sodium 40 mg 03/20/21 20:00 03/20/21 20:33 Enoxaparin 40 Mg/0.4 Ml Syringe SUBCUT 40 mg Q24H ADITI Administration Sodium Chloride 1,000 mls @ 150 mls/hr 03/20/21 17:15 03/21/21 09:13 Sodium Chloride 0.9% IV 150 mls/hr .Q6H40M ADITI Administration Pantoprazole Sodium 40 mg 03/20/21 20:00 03/20/21 20:33 Pantoprazole 40 Mg Sdv IVP 40 mg Q24H ADITI Administration PFSH Acute PFSH: Medical History Diverticulosis Follicular lymphoma Diagnosed in 2017, 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, multiple locations, 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 History of basal cell carcinoma of skin Osteoarthritis Surgical History H/O lymph node biopsy (~04/2019) Left inguinal History of appendectomy History of cataract surgery History of colonoscopy (~2015) History of right knee joint replacement S/P skin biopsy (~12/2020) Abdominal wall mass Status post excisional biopsy (~2016) Submandibular mass Status post radiation therapy Palliative radiotherapy completed on February 12, 2021 to the lumbar area Status post replacement of right shoulder joint (~2018) Family History Mother Cancer Brain Father Cancer Multiple myeloma Social History Smoking and tobacco status: former smoker Alcohol intake: current Alcohol intake frequency: few times a week Alcohol type: beer Alcohol use comment: Denies daily use Lives independently: Yes Marital status: / Vitals/I&O/Wt Last Vital Signs Temp 98.0 F 03/21/21 12:00 Pulse 81 03/21/21 12:00 Resp 20 H 03/21/21 12:00 BP 156/81 03/21/21 12:00 Pulse Ox 97 03/21/21 12:00 03/20/21 03/21/21 03/21/21 22:59 06:59 14:59 Intake Total 50 / 1050 1000 / 1050 1000 / 1000 Output Total 200 / 1700 1500 / 1700 500 / 500 Balance -150 / -650 -500 / -650 500 / 500 Physical Exam Narrative: EXAM NARRATIVE: HEENT: Normocephalic Eye: Sclera /conjunctiva normal Respiratory and chest: Bilateral clear breath sounds on auscultation Cardiovascular: Normal S1 and S2 heart sounds Abdomen: Soft to palpation Neurological: Oriented to place person and time Skin: Intact, multiple subcutaneous masses throughout the entire body A&P Assessment and plan (1) Follicular lymphoma: 80-year-old male with follicular lymphoma requiring central venous access for chemotherapy Plan for PowerPort placement under MAC Procedure, risks, benefits and alternatives have been discussed with the patient who wishes to proceed with surgery. Status: Chronic Qualifiers: Follicular lymphoma grade: grade III, unspecified Lymphoma site: multiple regions Qualified Code(s): C82.28 - Follicular lymphoma grade III, unspecified, lymph nodes of multiple sites Consult Attestations Medical Necessity Statement: As per attending physician Coding Level of Care Code Acute Glass Or Mirror Inspector for [facility] Fwd Diagnoses Follicular lymphoma C82.28 Follicular lymphoma grade: grade III, unspecified Lymphoma site: multiple regions
--- NOTE | 2021-03-21 14:12 | PM.CONSULT ---
Providers/Reason For Consult Consulting Physican/Specialty*: Jody Todd DO, telenephrology Reason for Consult*: Acute Kidney Injury Attending Physician: Yoli Arias MD Primary Care Provider: Enrique Nguyen DO History of Present Illness History of Present Illness Xavi Pryor is a 80 year old male recently diagnosed with high grade lymphoma admitted for evaluation of acute kidney injury. Baseline serum Cr 0.9 mg/dL. Was taking naproxen BID for about a year. In 2011 he had a horse back riding accident and was hospitalized for 2 months. He developed DARÍO during that hospitalization and was on hemodialysis for 3 weeks. Review of Systems Card: Reports: edema; Denies: chest pain Resp: Denies: dyspnea : Denies: difficulty urinating Meds/Allergies Home Medications and Allergies Home Medications Medication Instructions Recorded Confirmed Last Taken Type acetaminophen 325 mg tablet 325 mg PO DAILY PRN 11/15/19 03/21/21 Unknown History fluticasone propionate 50 1 spray INTRANASAL BID PRN 11/15/19 03/21/21 Unknown History mcg/actuation nasal spray,suspension hydrocodone 5 mg-acetaminophen 325 1 tab PO Q6H PRN 11/15/19 03/21/21 Unknown History mg tablet loratadine 10 mg tablet 10 mg PO DAILY PRN 11/15/19 03/21/21 Unknown History naproxen 250 mg tablet 250 mg PO BID PRN 12/15/19 03/21/21 Unknown History albuterol sulfate 1 puff INHALATION QID PRN 03/21/21 03/21/21 Unknown History prednisone 20 mg PO TID 03/21/21 03/21/21 Unknown History Allergies Allergy/AdvReac Type Severity Reaction Status Date / Time Tetanus Vaccines and Toxoid Allergy Intermediate ALGY-Hives Verified 03/11/21 15:36 Current Medications Current Medications Generic Name Dose Route Start Last Admin Trade Name Freq PRN Reason Stop Dose Admin Allopurinol 100 mg 03/21/21 09:00 03/21/21 09:13 Allopurinol 100 Mg Tablet PO 100 mg DAILY ADITI Administration Amoxicillin/Clavulanate Potassium 1 tab 03/21/21 09:00 03/21/21 09:13 Amoxicillin-Clav 875-125 Mg Tablet PO 1 tab BID ADITI Administration Protocol Enoxaparin Sodium 40 mg 03/20/21 20:00 03/20/21 20:33 Enoxaparin 40 Mg/0.4 Ml Syringe SUBCUT 40 mg Q24H ADITI Administration Sodium Chloride 1,000 mls @ 150 mls/hr 03/20/21 17:15 03/21/21 09:13 Sodium Chloride 0.9% IV 150 mls/hr .Q6H40M ADITI Administration Pantoprazole Sodium 40 mg 03/20/21 20:00 03/20/21 20:33 Pantoprazole 40 Mg Sdv IVP 40 mg Q24H ADITI Administration PFSH Acute PFSH: Medical History Diverticulosis Follicular lymphoma Diagnosed in 2017, 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, multiple locations, 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 History of basal cell carcinoma of skin Osteoarthritis Surgical History H/O lymph node biopsy (~04/2019) Left inguinal History of appendectomy History of cataract surgery History of colonoscopy (~2015) History of right knee joint replacement S/P skin biopsy (~12/2020) Abdominal wall mass Status post excisional biopsy (~2016) Submandibular mass Status post radiation therapy Palliative radiotherapy completed on February 12, 2021 to the lumbar area Status post replacement of right shoulder joint (~2018) Family History Mother Cancer Brain Father Cancer Multiple myeloma Social History Smoking and tobacco status: former smoker Alcohol intake: current Alcohol intake frequency: few times a week Alcohol type: beer Alcohol use comment: Denies daily use Lives independently: Yes Marital status: / Vitals/I&O/Wt Last Vital Signs Temp 98.4 F 03/21/21 14:08 Pulse 79 03/21/21 14:08 Resp 18 03/21/21 14:08 BP 175/86 03/21/21 14:08 Pulse Ox 95 03/21/21 14:08 03/20/21 03/21/21 03/21/21 22:59 06:59 14:59 Intake Total 50 / 50 1000 / 1050 1000 / 1000 Output Total 200 / 200 1500 / 1700 500 / 500 Balance -150 / -150 -500 / -650 500 / 500 Physical Exam Const: COMMON NORMALS: no acute distress GENERAL APPEARANCE: cooperative Eye: COMMON NORMALS: negative for no scleral icterus Extremity: GENERAL: Yes edema Data Labs: Other Labs: urinalysis normal, Uric acid initially 10.7, 0.4 today after rasburicase Calcium 11.1, now corrected for albumin about 10.6 phos 4.5, LDH 442, Mg 1.7 Imaging^: US: Radiologist's impression: Right kidney: 10.2 cm x 5.6 cm x 6.0 cm. Normal size kidney. Mild increased echogenicity as compared to the liver. No hydronephrosis or mass. No cortical thinning. Left kidney: 9.9 cm x 5.4 cm x 5.2 cm. Normal size kidney with mild increased echogenicity. No hydronephrosis or mass. No cortical thinning. A&P Additional A&P Information Impression: 1. 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 Supported by hyperuricemia and hyperkalemia (mild). Not hyperphosphatemic or hypocalcemic. Was taking NSAID, possible component of volume depletion. 2. High grade follicular lymphoma 3. Hypertension 4. Anemia Recommend: continue IVF hydration. Allopurinol started. Repeat labs 03/22/21. Daily uric acid. Line placement scheduled to begin chemotherapy. May need to add antihypertensive. Consult Attestations Medical Necessity Statement: see above Time Spent in Patient Care: Greater than 35 minutes Coding Level of Care Code Acute Pipe Joints Supervisor for Alexi Mckeon
[2021-03-21] MEDS: sodium chloride 0.9% 1,000 ML 30 ML (14:25)
--- NOTE | 2021-03-21 14:28 | ANES.PREANE2 ---
Pre-Anesthetic Assessment Pre-Anesthetic Assessment: Height/Weight: Height 1.7 m Temp Pulse Resp BP Pulse Ox 98.4 F 79 18 175/86 95 03/21/21 14:08 03/21/21 14:08 03/21/21 14:08 03/21/21 14:08 03/21/21 14:08 Preop Diagnosis: Follicular lymphoma Proposed Procedure: Operation Date: 03/21/21 15:10 Proposed Procedures p Portacath Placement(Not Applicable) - Magdiel Jennings MD Familial anesthetic complications: None Was Beta Paz taken within 24 hours: N/A Was Clonidine taken within 24 hours: N/A Last intake: Intake Last Liquid Date 03/21/21 Last Liquid Time 07:00 Last Solid Date 03/20/21 Last Solid Time 19:00 Social: Social History: No alcohol and No tobacco Exam: Pre-Anes Outpt Exam: alert, oriented x 3, clear to auscultation bilaterally and regular rate & rhythm Airway: Cervical ROM: WNL MP: 3 Dentition: Full Pulmonary: Comments: Hx 8 rib fractures CV/HEM: Comments: echo EF 60% : Comments: DARÍO Metabolic: Comments: follicular lymphom a Anesthetic Plan: ASA status: 4 Anesthesia: MAC Risk of > 500 ml blood loss (7ml/kg in children): No Meds/Allergies Current Medications: Current Medications Generic Name Dose Route Start Last Admin Trade Name Freq PRN Reason Stop Dose Admin Allopurinol 100 mg 03/21/21 09:00 03/21/21 09:13 Allopurinol 100 Mg Tablet PO 100 mg DAILY ADITI Administration Amoxicillin/Clavul anate Potassium 1 tab 03/21/21 09:00 03/21/21 09:13 Amoxicillin-Clav 875-125 Mg Tablet PO 1 tab BID ADITI Administration Protocol Enoxaparin Sodium 40 mg 03/20/21 20:00 03/20/21 20:33 Enoxaparin 40 Mg /0.4 Ml Syringe SUBCUT 40 mg Q24H ADITI Administration Sodium Chloride 1,000 mls @ 150 m ls/hr 03/20/21 17:15 03/21/21 09:13 Sodium Chloride 0.9% IV 150 mls/hr .Q6H40M ADITI Administration Pantoprazole Sodiu m 40 mg 03/20/21 20:00 03/20/21 20:33 Pantoprazole 40 Mg Sdv IVP 40 mg Q24H ADITI Administration PFSH Anesthesia PFSH: Medical History Diverticulosis Follicular lymphoma Diagnosed in 2017, 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, multiple locations, 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 History of basal cell carcinoma of skin Osteoarthritis Surgical History H/O lymph node biopsy (~04/2019) Left inguinal History of appendectomy History of cataract surgery History of colonoscopy (~2015) History of right knee joint replacement S/P skin biopsy (~12/2020) Abdominal wall mass Status post excisional biopsy (~2016) Submandibular mass Status post radiation therapy Palliative radiotherapy completed on February 12, 2021 to the lumbar area Status post replacement of right shoulder joint (~2018) Family History Mother Cancer Brain Father Cancer Multiple myeloma Social History Smoking and tobacco status: former smoker Alcohol intake: current Alcohol intake frequency: few times a week Alcohol type: beer Alcohol use comment: Denies daily use Lives independently: Yes Marital status: / Data Anesthesia CBC & Chem 7: 03/21/21 04:40 03/21/21 04:40 Other Labs: Laboratory Results - last 48 hr 03/21/21 03/21/21 03/21/21 04:40 04:40 04:40 WBC 9.6 RBC 3.03 L Hgb 8.5 L Hct 26.7 L MCV 88.1 MCH 28.1 MCHC 31.8 RDW 14.0 Plt Count 373 MPV 10.4 Neut % (Auto) 82.2 Lymph % (Auto) 4.6 [place] % (Auto) 10.2 Eos % (Auto) 0.4 Baso % (Auto) 0.2 Neut # (Auto) 7.86 H Lymph # (Auto) 0.4 L [place] # (Auto) 1.0 H Eos # (Auto) 0.0 Baso # (Auto) 0.0 Nucleated RBC % (auto) 0 Nucleated RBCs # 0.0 PT 14.80 INR 1.12 APTT 36.0 Sodium 136 Potassium 5.0 Chloride 103 Carbon Dioxide 24 Anion Gap 14.0 BUN 91 H* Creatinine 3.9 H GFR Calculation Not Reportable Glucose 104 Calculated Osmolality 310 H Uric Acid Calcium 9.4 Phosphorus 4.5 Magnesium 1.7 Total Bilirubin 0.2 AST 19 ALT 13 Alkaline Phosphatase 89 Lactate Dehydrogenase Total Protein 4.9 L Albumin 2.7 L Globulin 2.2 Urine Color Urine Appearance Urine pH Ur Specific [place] Urine Protein Urine Glucose (UA) Urine Ketones Urine Blood Urine Nitrate Urine Bilirubin Urine Urobilinogen Ur Leukocyte Esterase 03/21/21 03/21/21 04:40 05:57 WBC RBC Hgb Hct MCV MCH MCHC RDW Plt Count MPV Neut % (Auto) Lymph % (Auto) [place] % (Auto) Eos % (Auto) Baso % (Auto) Neut # (Auto) Lymph # (Auto) [place] # (Auto) Eos # (Auto) Baso # (Auto) Nucleated RBC % (auto) Nucleated RBCs # PT INR APTT Sodium Potassium Chloride Carbon Dioxide Anion Gap BUN Creatinine GFR Calculation Glucose Calculated Osmolality Uric Acid 0.4 L Calcium Phosphorus Magnesium Total Bilirubin AST ALT Alkaline Phosphatase Lactate Dehydrogenase 442 H Total Protein Albumin Globulin Urine Color Yellow Urine Appearance Clear Urine pH 7 Ur Specific [place] 1.010 Urine Protein Neg Urine Glucose (UA) Norm Urine Ketones Negative Urine Blood Neg Urine Nitrate Negative Urine Bilirubin Neg Urine Urobilinogen Norm Ur Leukocyte Esterase Negative Cardiac Studies: No Data to Display
[2021-03-21] MEDS: lidocaine 1% INJ 20 mL INJECTION (14:55)
[2021-03-21] MEDS: heparin, porcine 1,000 unit/mL INJ 10 mL 10000 UNIT IRRIGATION (14:56)
--- NOTE | 2021-03-21 15:30 | P.OP_ITS ---
Operative Report Date of procedure: March 21, 2021 Pre-op Diagnosis: Follicular lymphoma Post-op diagnosis: same Procedure Done: Placement of PowerPort in the right subclavian vein Fluoroscopic guidance and interpretation for placement of catheter Pathology: none sent Surgeon: Magdiel Jennings Anesthesia: MAC Condition: stable Disposition: PACU Procedure: The patient was taken to the Operating Room and the chest and neck bilaterally were prepped and draped in a sterile manner after the antibiotic had been administered and shoulder rolls had been placed. A total of 10 mL of 1% lidocaine with 0.5% Marcaine was infiltrated under the clavicle on the left side at the site of the planned entry into the subclavian vein. An introducer needle was then used to access the subclavian vein under the clavicle and after withdrawing blood syringe was removed and a guidewire passed under fluoroscopy into the superior vena cava. The site of the planned port was then marked on the chest and a 15 blade was used to make a 3 cm skin incision this was extended into the subcutaneous tissue using electrocautery and a subcutaneous pocket over the pectoralis fascia was created 2-0 Vicryl suture was used to suture the port to the pectoral fascia in the pocket on 3 sides. The catheter, after having been flushed with hep saline, was attached to the tunneler and a tunnel created between the port site and the subclavian vein entry site. Under fluoroscopy the dilator sheath was passed over the guidewire into the proximal superior vena cava. The inner dilator was removed and the sheath left behind and~the catheter was introduced through the peel-away sheath as it was removed but the catheter tip migrated to the brachiocephalic vein. 0.038 J-wire was passed through the catheter to reposition the catheter tip. The proximal end of the catheter was cut to the right size and was attached to the port. Unfortunately it was noted that there was no withdrawing of blood and therefore the catheter was cut from the port to which it was attached and the tip was slowly withdrawn into the superior vena cava under fluoroscopy and there was withdrawal and easy flushing of hep saline noted through the catheter. The catheter was attached to a new port after the previous port had been removed. Using a Denis needle the port was accessed, it withdrew blood easily and flushed easily. The port was sutured to the pectoral fascia using 2-0 Vicryl suture. A final 5cc of heparin was used to flush the PowerPort. The subcutaneous tissue was approximated using interrupted 3-0 Vicryl sutures and the skin at the introducer site and the port site was closed using subcuticular running 4-0 Cameron cryl sutures. Surgical glue was applied and the patient was stable throughout the procedure. Fluoroscopic guidance and interpretation was performed for introduction of the guidewire in the right subclavian vein, passage of dilator and placement of catheter tip in the distal superior vena cava.
--- NOTE | 2021-03-21 15:49 | SUR.PHASEI ---
PT SLEEPS NOW AFTER 4 WARM BLANKETS TO PT, LT CHEST DRESSING D/I VSS PT AWAKES EASILY AND VERBALIZED APPROP,DENIES PAIN AND NAUSEA.
--- NOTE | 2021-03-21 16:19 | SUR.PHASEI ---
PT AWAKE ALERT DRESSING TO RT CHEST NO LEFT STATED ABOVE, PT TO FLOOR PER CART PT WALKED TO BED WITH MINIMAL ASSIST, AND IN TO BED . PT ALERT AND TALKATIVE TO AID IN ROOM.
[2021-03-21] MEDS: hyDRALAzine 25 mg Tablet PO ×2 (17:34→20:26)
[2021-03-21] MEDS: HYDROcodone-acetaminophen 5-325 mg Tablet 1 TAB PO (17:38)
--- NOTE | 2021-03-21 18:04 | ANE.PACU2 ---
Inpatient post-anesthesia follow up: Airway intact: Yes Vital signs: Temperature 97.2 F Pulse Rate 76 Respiratory Rate 20 Blood Pressure 188/99 Pulse Oximetry 95 Oxygen Delivery Me thod Room Air Oxygen Flow Rate Fraction of Inspir ed Oxygen Hydration adequate: Yes Nausea and vomiting: No Pain level: 2 Mental status: Baseline
[2021-03-21] MEDS: enoxaparin 40 mg/0.4 mL Syringe SUBCUT (20:26)
[2021-03-21] MEDS: pantoprazole 40 mg SDV IVP (20:26)
--- NOTE | 2021-03-21 23:10 | P.PN_ITS ---
Subjective Subjective: Interval history: Patient was seen earlier this morning. Case was discussed with Dr. Figueroa. Given minimal improvement and renal function decision was made to cancel plan for chemotherapy today and proceed with continued hospitalization for management of acute kidney injury. Uric acid improved significantly after rasburicase and LDH has trended background investigator to usual base line. Case was discussed with on-call nephrology who has seen . Appreciate assistance in care. I also discussed the case with Dr. Jennings. Mr. Pryor underwent Port-A-Cath placement today. He tolerated the procedure well. He himself has no complaints but he is not much of a complainer. Vitals/I&O/Wt Last Vital Signs Temp 97.7 F 03/21/21 19:15 Pulse 84 03/21/21 21:15 Resp 18 03/21/21 21:15 BP 161/60 03/21/21 21:15 Pulse Ox 92 03/21/21 21:15 03/21/21 03/21/21 03/22/21 14:59 22:59 06:59 Intake Total 1750 / 1750 120 / 1870 Output Total 500 / 500 475 / 975 Balance 1250 / 1250 -355 / 895 Physical Exam Narrative: EXAM NARRATIVE: Constitutional: Awake and alert Neck: No change to soft tissue mass Respiratory: Clear to auscultation bilaterally Cardiovascular: Regular rate and rhythm Abdomen: Soft, sutures in place underneath the Band-Aid in the right mid lower quadrant from recent biopsy. No change to other nonbiopsied masses Extremities: No pitting edema Skin: Dry, has erythema at sites where he has various masses Neuro: Speech clear, face symmetric, handgrip equal Data : 03/21/21 04:40 03/21/21 04:40 Renal ultrasound: Radiologist's impression: Right kidney: 10.2 cm x 5.6 cm x 6.0 cm. Normal size kidney. Mild increased echogenicity as compared to the liver. No hydronephrosis or mass. No cortical thinning. Left kidney: 9.9 cm x 5.4 cm x 5.2 cm. Normal size kidney with mild increased echogenicity. No hydronephrosis or mass. No cortical thinning. Aorta: Mild atherosclerotic plaque. Urinary Bladder: Normal distention. US/US renal BI* [id number] IMPRESSION: 1. Mild chronic medical renal disease. 2. No hydronephrosis or significant cortical atrophy A&P Assessment and plan (1) Acute kidney injury: Tumor lysis syndrome plus or minus impact of NSAID therapy Status: Acute (2) Tumor lysis syndrome: Status: Acute (3) Follicular lymphoma: Status: Chronic Qualifiers: Follicular lymphoma grade: grade III, unspecified Lymphoma site: multiple regions Qualified Code(s): C82.28 - Follicular lymphoma grade III, unspecified, lymph nodes of multiple sites (4) Poor dentition: Status: Acute (5) Hypertension: Status: Acute Additional A&P Information Change to inpatient Continue IV fluids Check daily labs including uric acid and LDH Status post 1 dose of rasburicase Avoid nephrotoxic medications Pain control with usual home hydrocodone and as needed morphine Monitor blood pressures Strict I's and O's, may need to place Dudley catheter Augmentin for teeth GI prophylaxis Will need close follow-up with oncology for initiation of chemotherapy when renal function improves Lovenox for DVT prophylaxis Supportive care otherwise Plans were discussed with patient and he was given an opportunity to ask questions Full code Attestations Medical Necessity Statement*: Given lack of rapid improvement with fluids, he has been changed to inpatient stay as he will now crossed 2 midnights. Plans are as indicated. Coding Level of Care Code Acute Student Services Representative for Alexi Mckeon Diagnoses Acute kidney injury N17.9 Tumor lysis syndrome E88.3 Follicular lymphoma C82.28 Follicular lymphoma grade: grade III, unspecified Lymphoma site: multiple regions Poor dentition K08.9 Hypertension I10
[2021-03-22] VITALS (10 sets, daily range): BP systolic 157–174; BP diastolic 63–90; PULSE 84–120; RESP 15–20; TEMP 36.5–36.9; O2SAT 94–98
[2021-03-22 00:04] LABS: Basophils % 0.4 %; Eosinophils # 0.7 10^3/uL (0.0-0.8); Eosinophils % 6.1 %; Hematocrit 26.5 % (42.0-52.0); Hemoglobin 8.6 g/dL (11.7-16.6); Lymphocytes # 0.5 10^3/uL (0.8-4.8); Lymphocytes % 4.4 %; Mean Corpuscular HGB Conc 32.5 g/dL (30.0-36.0); Mean Corpuscular Hemoglobin 28.8 pg (28.0-34.0); Mean Corpuscular Volume 88.6 fL (80-94); Mean Platelet Volume 9.9 fL (7.4-10.4); Monocytes # 0.9 10^3/uL (0.2-0.9); Monocytes % 8.8 %; Neutrophils # 8.36 10^3/uL (1.8-7.7); Neutrophils % 78.6 %; Nucleated Red Blood Cells % 0 %; Platelet Count 360 10^3/cmm (130-400); Red Blood Count 2.99 10^6/uL (4.1-5.3); Red Cell Distribution Width 14.3 % (12.1-15.1); White Blood Count 10.6 10^3/uL (4.0-10.0)
[2021-03-22] MEDS: sodium chloride 0.9% 1,000 ML 150 ML IV ×2 (03:23→09:22)
[2021-03-22 06:30] LABS: Alanine Aminotransferase 10 U/L (0-41); Albumin Level 2.7 g/dL (3.5-5.2); Alkaline Phosphatase 81 IU/L (40-130); Anion Gap 15.7 (5-19); Aspartate Amino Transferase 17 U/L (0-40); Calcium 8.7 mg/dL (8.5-10.5); Carbon Dioxide 22 mmol/L (22-29); Chloride 107 mmol/L (98-107); Globulin 2.1 g/dL (1.3-4.6); Glucose 72 mg/dL (65-115); Lactate Dehydrogenase 473 U/L (135-225); Magnesium 1.5 mg/dL (1.7-2.3); Osmolality Calculated 315 mOsm/kg (285-295); Phosphorus 4.9 mg/dL (2.5-4.5); Potassium 4.7 mmol/L (3.5-5.1); Sodium 140 mmol/L (136-145); Total Bilirubin 0.2 mg/dL (0.15-1.2); Total Protein 4.8 g/dL (6.6-8.7); Uric Acid 0.3 mg/dL (3.4-7.0)
[2021-03-22 06:47] LABS: Blood Urea Nitrogen 86 mg/dL (8-23)
--- NOTE | 2021-03-22 07:07 | P.PN_ITS ---
Subjective Subjective: Interval history: no complaints. Had access placed for chemotherapy yesterday Medications: Reviewed: Yes Vitals/I&O/Wt Last Vital Signs Temp 98.4 F 03/22/21 03:12 Pulse 84 03/22/21 06:00 Resp 18 03/22/21 03:12 BP 174/79 03/22/21 03:12 Pulse Ox 95 03/22/21 03:12 03/21/21 03/22/21 03/22/21 22:59 06:59 14:59 Intake Total 120 / 1870 1000 / 2870 Output Total 475 / 975 1575 / 2550 Balance -355 / 895 -575 / 320 Physical Exam Const: COMMON NORMALS: no acute distress GENERAL APPEARANCE: cooperative Data : 03/21/21 23:46 03/22/21 05:36 Other Labs: uric acid 0.3, calcium 8.7, phos 4.9, Mg 1.5 LDH 473, albumin 2.7 A&P Additional A&P Information Impression: 1. 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 Supported by hyperuricemia and hyperkalemia (mild). Was taking NSAID, possible component of volume depletion. Serum creatinine improving. Excellent urine output 2. High grade follicular lymphoma 3. Hypertension 4. Anemia 5. Hypomagnesemia Recommend: continue IVF hydration. Allopurinol started. Daily uric acid. add oral magnesium Attestations Medical Necessity Statement*: see above Time Spent in Patient Care: 16 - 35 minutes Coding Level of Care Code Acute Director Patient Financial Services for Alexi Mckeon Exam Problem Focused
[2021-03-22] MEDS: amoxicillin-clav 875-125 mg Tablet 1 TAB PO ×2 (09:22→17:33)
[2021-03-22] MEDS: allopurinol 100 mg Tablet PO (09:22)
[2021-03-22] MEDS: hyDRALAzine 25 mg Tablet PO (09:22)
--- NOTE | 2021-03-22 09:26 | P.PN_ITS ---
Subjective Subjective: Interval history: Patient reports some loose stools. I suspect it may be secondary to Augmentin. He had some blood noted in the toilet bowl yesterday. He does not report a history of hemorrhoids. Normally has bowel movements are daily. Denies issues with constipation. Occasionally takes a laxative at home. Does not have any abdominal pain that is new per se. He is wanting to get up out of bed. Feels fairly steady on his feet. No vomiting. Tolerating oral intake. Port-A-Cath was placed yesterday. Doing okay from that standpoint. Medications: Reviewed: Yes Vitals/I&O/Wt Last Vital Signs Temp 98.1 F 03/22/21 08:11 Pulse 92 03/22/21 08:11 Resp 18 03/22/21 08:11 BP 166/63 03/22/21 08:11 Pulse Ox 94 03/22/21 08:11 03/21/21 03/22/21 03/22/21 22:59 06:59 14:59 Intake Total 120 / 1870 1000 / 2870 1377.5 / 1377.5 Output Total 475 / 975 1575 / 2550 Balance -355 / 895 -575 / 320 1377.5 / 1377.5 Physical Exam Narrative: EXAM NARRATIVE: Constitutional: Awake and alert Neck: No change to soft tissue mass Respiratory: Clear to auscultation bilaterally Cardiovascular: Regular rate and rhythm Abdomen: Soft, nontender, sutures still in place, no flank pain, no changes to palpable masses Extremities: No pitting edema Neuro: Speech clear, face symmetric, handgrip equal Data : 03/21/21 23:46 03/22/21 05:36 A&P Assessment and plan (1) Hematochezia: New complaint today. Has accompanied development of some diarrhea. I suspect the diarrhea is from Augmentin. He has flushed the toilet rather than allowing staff to see. Reports that he normally has a bowel movement most days. Last solid stool was a couple of days ago. Occasionally takes laxatives at home. Has had intermittent issues with hemorrhoids but not recently to his knowledge. He did receive Lovenox for DVT prophylaxis. He had radiation therapy that ended at the beginning of February. He does have a drop in his hemoglobin, though this is coincided with administration of fluids for acute kidney injury. No new abdominal pain. Differential includes hemorrhoidal bleeding, GI losses related to prior NSAID use, radiation therapy, prednisone, among others. Status: Acute (2) Acute kidney injury: Tumor lysis syndrome plus impact of NSAID therapy, slow improvement with current management though uric acid has not reaccumulated Status: Acute (3) Tumor lysis syndrome: Secondary to lymphoma after initiation of prednisone prior to planned initiation of chemotherapy, has not begun chemotherapy yet Status: Acute (4) Follicular lymphoma: Diagnosed in 2017, 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, multiple locations, now appears to be high-grade lymphoma with extensive sites including bone metastases, though further studies pending per my conversation with Dr Figueroa. Status: Chronic Qualifiers: Follicular lymphoma grade: grade III, unspecified Lymphoma site: multiple regions Qualified Code(s): C82.28 - Follicular lymphoma grade III, unspecified, lymph nodes of multiple sites (5) Hypertension: This is a new finding, not previously identified prior to the acute kidney injury Status: Acute Qualifiers: Hypertension type: renovascular hypertension Qualified Code(s): I15.0 - Renovascular hypertension (6) Poor dentition: Status: Acute (7) Port-A-Cath in place: Placed 03/21/2021 Status: Acute (8) Protein-calorie malnutrition, moderate: In the setting of known cancer, weight loss, acute kidney injury, hypoalbu minemia Status: Acute Additional A&P Information Decrease IV fluids Check daily labs including uric acid, LDH Nephrology following, appreciate their assistance Strict I's and O's, may need to place Dudley catheter Continue hydralazine but increase dose Monitor blood pressures Status post 1 dose of rasburicase on 03/20 Avoid nephrotoxic medications Probably need to see about arranging outpatient nephrology follow-up given planned initiation of chemotherapy Check TIBC, type and screen; coags were normal 03/21 Hold Lovenox secondary to decreased hemoglobin and reported hematochezia Add scheduled as a one-time extra laxative, discussed with patient that there may be a component of constipation contributing to the diarrhea/hematochezia. Last CT image did demonstrate constipation though it was a few months ago. He is on narcotics for pain. Clarified with him that I do think that the Augmentin is a factor. He expressed understanding. Monitor closely for any evidence of bleeding, have instructed him not to flush the toilet and ensure nursing staff and/or I have notified if he has further bleeding May have to consider imaging or direct evaluation depending on clinical course Pain control with usual home hydrocodone and as needed morphine Augmentin for teeth; need to ensure oncology knows about dentition before starting chemotherapy, discussed with patient GI prophylaxis Add nepro supplement, recommend outpatient nutritional follow up through oncology or pcp Out of bed and scds while in bed for DVT prophlaxis, no pharmacological prophylaxis currentlt due to hematochezia and drop in hemoglobin presently Will need close follow-up with oncology for initiation of chemotherapy when renal function improves Supportive care otherwise Plans were discussed with patient and he was given an opportunity to ask questions Reviewed with nursing Full code Attestations Medical Necessity Statement*: Requires ongoing inpatient stay for continued monitoring of renal dysfunction and now anemia and reported hematochezia. Plans are as indicated. Coding Level of Care Code Acute Business Analytics Faculty Member for Poojag Chaced Diagnoses Hematochezia K92.1 Acute kidney injury N17.9 Tumor lysis syndrome E88.3 Follicular lymphoma C82.28 Follicular lymphoma grade: grade III, unspecified Lymphoma site: multiple regions Hypertension I15.0 Hypertension type: renovascular hypertension Poor dentition K08.9 Port-A-Cath in place Z95.828 Protein-calorie malnutrition, moderate E44.0
[2021-03-22] MEDS: bisacodyl 5 mg Tablet PO (10:11)
[2021-03-22] MEDS: sennosides-docusate Tablet 1 TAB PO ×2 (10:11→17:34)
[2021-03-22] MEDS: HYDROcodone-acetaminophen 5-325 mg Tablet 1 TAB PO ×2 (10:13→20:32)
--- NOTE | 2021-03-22 12:40 | PC.CHAP ---
Pastoral Care Encounter/Spiritual Assessment Type of Contact [] Declined motorcycle police visit [] Patient/Family/Request visit [] Outpatient visit [] Follow-up visit [] Physician referral [] Code/Alert [xx] Routine visit [] Staff referral [] Actively dying [] Patient sleeping [] Family support [] [] Out of room [] Palliative care [] [] Receiving care in room [] Pre-surgical visit [] Trauma [] Long length of stay [] ICU visit [] Other: Relational/Emotional Strength [xx] Patient feels connected with others/family/visitors/staff [] Distress [] Loneliness/isolation [] Abandonment Spirituality of Patient [xx] Person of Rossi [] Attends Congregation of their Rossi [xx] Believes in Prayer [xx] Reads Bible or Hoahaoism materials [] There are Spiritual issues to be addressed Cylinder Batcher Interventions [xx] Prayer [xx] Active listening [xx] Non-anxious presence [] Spiritual/emotional support [] Crisis/trauma care [] Spiritual counseling [] Bereavement support [] Provided bereavement packet [] Provided Bible/devotional materials [] Provided toy/stuffed animal, coloring book to patient or family member [] Provided Communion [] Anointing/[place] [] Salvation [xx] Completed spiritual assessment [] Other: Impact on Illness or Injury [] Angry [] Fearful [] Anxious [] Often cries [] Exhaustion [] Unable to work [] Unable to attend caodaism [] Unable to walk/stand [] Unable to read [] Unable to drive [] Unable to eat/drink [] Unable to sleep [] Unable to be with family [] Patient intubated [] Other: Summary Patient was a very pleasant gentleman to talk to and pray with. His IVs started beeping during prayer. Cylinder Batcher afterward found nurse to take care of what the patient called the most annoying sound in the hospital. Time spent with patient 5 minutes
[2021-03-22] MEDS: hyDRALAzine 50 mg Tablet PO ×3 (13:07→20:32)
--- NOTE | 2021-03-22 16:39 | CTR_ITS ---
PROCEDURE INFORMATION: Exam: CT Chest Without Contrast; Diagnostic Exam date and time: 03/22/2021 5:17 PM Age: 80 years old Clinical indication: Condition or disease; Cancer; Other: Lymphoma; Prior surgery; Surgery type: Port, ribs; Additional info: Gross hematuria with clots, lymphoma high grade TECHNIQUE: Imaging protocol: Diagnostic computed tomography of the chest without contrast. Total images: 477 Radiation optimization: All CT scans at this facility use at least one of these dose optimization techniques: automated exposure control; mA and/or kV adjustment per patient size (includes targeted exams where dose is matched to clinical indication); or iterative reconstruction. COMPARISON: No relevant prior studies available. RADIATION DOSE METRICS: Total DLP (mGy-cm): 1311.96 FINDINGS: Tubes, catheters and devices: Right Infusaport catheter. 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 Mild parenchymal scar right lung base. Pleural spaces: Scant right pleural effusion. Heart: No cardiomegaly. No visible pericardial effusion. Advanced 3 vessel coronary artery disease. Aorta: The thoracic aorta is nonaneurysmal. Moderate arterial sclerotic disease. Lymph nodes: Few marginally prominent middle mediastinal lymph nodes a dominant pretracheal node measuring 11 mm in the short axis. No visible axillary lymphadenopathy. Unable to adequately assess hilar lymph nodes without contrast. Bones/joints: Right shoulder prosthesis with extensive metal artifact. Right rib compression plate and screw fixation devices with metal artifact. Scoliosis. No visible acute osseous abnormality. Degenerative disease of the spine age-appropriate. Increased kyphosis. No visible osteolytic or osteoblastic destructive process. Soft tissues: Cachexia. IMPRESSION: 1. Currently no visible evidence for acute cardiopulmonary/cardiothoracic pathologic process. 2. 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 3. Scant right pleural effusion. 4. Advanced 3 vessel coronary artery disease. PROCEDURE INFORMATION: Exam: CT Abdomen And Pelvis Without Contrast Exam date and time: 03/22/2021 5:17 PM Age: 80 years old Clinical indication: Condition or disease; Cancer; Other: Lymphoma; Prior surgery; Surgery type: Port, ribs; Additional info: Gross hematuria with clots, lymphoma high grade TECHNIQUE: Imaging protocol: Computed tomography of the abdomen and pelvis without contrast. Radiation optimization: All CT scans at this facility use at least one of these dose optimization techniques: automated exposure control; mA and/or kV adjustment per patient size (includes targeted exams where dose is matched to clinical indication); or iterative reconstruction. COMPARISON: No relevant prior studies available. RADIATION DOSE METRICS: Total DLP (mGy-cm): 1311.96 FINDINGS: Liver: No visible hepatic mass or cystic structure. Gallbladder and bile ducts: Gallbladder unremarkable. No visible cholelithiasis. Pancreas: Pancreas unremarkable. No visible pancreatic ductal ectasia. Spleen: Spleen unremarkable. Adrenal glands: Adrenal glands unremarkable. Kidneys and ureters: No visible hydronephrosis or perinephric fluid bilaterally. No visible nephrolithiasis. Stomach and bowel: Diverticulosis coli without visible evidence for acute diverticulitis nonobstructive bowel pattern. No visible significant adynamic or reactive ileus. Small right inguinal hernia containing a small bowel loop without obstruction. Appendix: The appendix is not visualized. Intraperitoneal space: No visible pneumoperitoneum or intraperitoneal ascites. Vasculature: The abdominal aorta is nonaneurysmal. Moderate arterial sclerotic disease. Lymph nodes: Currently no visible lymphadenopathy. Urinary bladder: Urinary bladder grossly unremarkable. No visible filling defect. No visible asymmetrical bladder wall thickening. Reproductive: Prostate hypertrophy. Bones/joints: Scoliosis. No visible acute osseous abnormality. Bilateral spondylolysis L5/S1 with grade 1 anterior spondylolisthesis. Advanced degenerative disc disease with disc space height loss throughout the visualized thoracolumbar lumbosacral spine. Facet arthrosis. No visible osteolytic or osteoblastic destructive process. Right total hip prosthesis with extensive metal artifact limiting assessment of the pelvis. Soft tissues: Cachexia. CT/CT chest abd pel wo con IMPRESSION: 1. Currently no visible evidence for acute abdominal or pelvic pathologic process. 2. No visible explanation for the indication of gross hematuria with clots. 3. Other nonurgent, nonemergent, chronic, and age related findings as detailed in text above. Radiation Dose CTDIVOL = (mGy): DLP = 1311.96~1311.96 (mGy-cm)
[2021-03-22 17:15] LABS: Basophils % 0.2 %; Eosinophils # 0.6 10^3/uL (0.0-0.8); Eosinophils % 6.3 %; Hematocrit 25.5 % (42.0-52.0); Lymphocytes # 0.4 10^3/uL (0.8-4.8); Lymphocytes % 4.5 %; Mean Corpuscular HGB Conc 31.4 g/dL (30.0-36.0); Mean Corpuscular Hemoglobin 28.8 pg (28.0-34.0); Mean Corpuscular Volume 91.7 fL (80-94); Mean Platelet Volume 10.6 fL (7.4-10.4); Monocytes # 0.9 10^3/uL (0.2-0.9); Monocytes % 9.7 %; Neutrophils # 7.52 10^3/uL (1.8-7.7); Nucleated Red Blood Cells % 0 %; Platelet Count 382 10^3/cmm (130-400); Red Blood Count 2.78 10^6/uL (4.1-5.3); Red Cell Distribution Width 14.6 % (12.1-15.1); White Blood Count 9.7 10^3/uL (4.0-10.0)
--- NOTE | 2021-03-22 19:33 | PC.NURSE ---
patient complained of blood in his stools today, upon assessment patient had a total of 4 stools with blood and clots noted. notified.
[2021-03-22] MEDS: pantoprazole 40 mg SDV IVP (20:23)
--- NOTE | 2021-03-22 21:48 | ECG_ITS ---
[facility] ED Test Date: 2021-03-22 Pat Name: Xavi Pryor Department: Room: 270 Gender: Male Clinical Counselor: SAM KAUR: 1940 Requested By: Dario Judge Order Number: [id number] Qiana MD: Kailey Ang M.D. Measurements Intervals [place] Rate: 105 P: 68 MT: 159 QRS: 10 QRSD: 88 T: 72 QT: 306 QTc: 404 Interpretive Statements SINUS TACHYCARDIA Compared to ECG 09/30/2019 14:16:20 Sinus rhythm no longer present Electronically Signed On 03-27-2021 6:58:25 CDT by Kailey Ang M.D. [id number]
[2021-03-22] MEDS: sodium chloride 0.9% 1,000 ML 125 ML IV (22:13)
[2021-03-22] MEDS: magnesium oxide 400 mg tablet PO (22:14)
[2021-03-22 22:51] LABS: Basophils % 0.2 %; Eosinophils # 0.3 10^3/uL (0.0-0.8); Eosinophils % 2.9 %; Hematocrit 21.5 % (42.0-52.0); Lymphocytes # 0.6 10^3/uL (0.8-4.8); Lymphocytes % 6.1 %; Mean Corpuscular HGB Conc 32.6 g/dL (30.0-36.0); Mean Corpuscular Hemoglobin 28.9 pg (28.0-34.0); Mean Corpuscular Volume 88.8 fL (80-94); Mean Platelet Volume 9.8 fL (7.4-10.4); Monocytes # 0.9 10^3/uL (0.2-0.9); Monocytes % 9.6 %; Neutrophils # 7.35 10^3/uL (1.8-7.7); Neutrophils % 79.8 %; Nucleated Red Blood Cells % 0 %; Platelet Count 330 10^3/cmm (130-400); Red Blood Count 2.42 10^6/uL (4.1-5.3); Red Cell Distribution Width 14.3 % (12.1-15.1); White Blood Count 9.2 10^3/uL (4.0-10.0)
[2021-03-23] VITALS (14 sets, daily range): BP systolic 145–164; BP diastolic 66–88; PULSE 87–119; RESP 16–21; TEMP 36.5–37.5; O2SAT 94–96
--- NOTE | 2021-03-23 01:25 | PC.NURSE ---
Port Accessed called from med surg for assistance on accessing port. Right chest wall port site edematous and bruised making difficult to palpate power port. Right chest wall port accessed with 19G non-coring needle via sterile procedure. flushed with 20ml saline and blood return obtained. Pt complains of tenderness and pain during access and tolerated well. Dry sterile gauze with tegaderm dressing applied.
[2021-03-23] MEDS: sodium chloride 0.9% (100 ml) 100 ML 50 ML (03:39)
--- NOTE | 2021-03-23 07:08 | P.PN_ITS ---
Subjective Subjective: Interval history: telehealth cart not working. Per RN, Xavi feels better. Had one episode of bright red blood per rectum Medications: Reviewed: Yes Vitals/I&O/Wt Last Vital Signs Temp 97.8 F 03/23/21 06:38 Pulse 116 H 03/23/21 06:38 Resp 18 03/23/21 06:38 BP 164/81 03/23/21 06:38 Pulse Ox 96 03/23/21 06:38 03/22/21 03/23/21 03/23/21 22:59 06:59 14:59 Intake Total 1000 / 3269.5 1455 / 4724.5 Output Total 500 / 500 0 / 500 Balance 500 / 2769.5 1455 / 4224.5 Weight last 48 hrs Weight 62.794 kg Data : 03/23/21 08:18 03/23/21 08:18 A&P Additional A&P Information 1. 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 Supported by hyperuricemia and hyperkalemia (mild). Was taking NSAID, possible component of volume depletion. Serum creatinine improving. Excellent urine output 2. High grade follicular lymphoma 3. Hypertension 4. Anemia 5. Hypomagnesemia Recommend: continue IVF hydration. Allopurinol started. Daily uric acid. 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
[2021-03-23] MEDS: allopurinol 100 mg Tablet PO (08:15)
[2021-03-23] MEDS: amoxicillin-clav 875-125 mg Tablet 1 TAB PO ×2 (08:15→17:24)
[2021-03-23] MEDS: sennosides-docusate Tablet 1 TAB PO ×2 (08:15→17:24)
[2021-03-23] MEDS: sodium chloride 0.9% 1,000 ML 125 ML IV ×2 (08:16→15:54)
[2021-03-23] MEDS: hyDRALAzine 50 mg Tablet PO ×4 (08:16→21:11)
[2021-03-23 08:51] LABS: Basophils % 0.2 %; Eosinophils # 0.3 10^3/uL (0.0-0.8); Eosinophils % 3.7 %; Hematocrit 26.6 % (42.0-52.0); Hemoglobin 8.5 g/dL (11.7-16.6); Lymphocytes # 0.7 10^3/uL (0.8-4.8); Lymphocytes % 7.1 %; Mean Corpuscular Hemoglobin 28.9 pg (28.0-34.0); Mean Corpuscular Volume 90.5 fL (80-94); Mean Platelet Volume 9.6 fL (7.4-10.4); Monocytes # 0.9 10^3/uL (0.2-0.9); Monocytes % 10.3 %; Neutrophils # 7.07 10^3/uL (1.8-7.7); Neutrophils % 77.4 %; Nucleated Red Blood Cells % 0 %; Platelet Count 339 10^3/cmm (130-400); Red Blood Count 2.94 10^6/uL (4.1-5.3); White Blood Count 9.1 10^3/uL (4.0-10.0)
[2021-03-23] MEDS: HYDROcodone-acetaminophen 5-325 mg Tablet 1 TAB PO ×2 (08:58→18:54)
[2021-03-23 09:07] LABS: Iron 44 ug/dL (59-158); Percent Saturation 26.9 % (20-50); Total Iron Binding Capacity 163 mcg/dl; Unsaturated Iron Binding 119 ug/dL (112-347)
[2021-03-23 09:33] LABS: Blood Urea Nitrogen 63 mg/dL (8-23); Calcium 8.8 mg/dL (8.5-10.5); Carbon Dioxide 20 mmol/L (22-29); Chloride 106 mmol/L (98-107); Glucose 96 mg/dL (65-115); Lactate Dehydrogenase 485 U/L (135-225); Magnesium 1.5 mg/dL (1.7-2.3); Osmolality Calculated 306 mOsm/kg (285-295); Phosphorus 4.2 mg/dL (2.5-4.5); Sodium 139 mmol/L (136-145)
--- NOTE | 2021-03-23 10:07 | P.PN_ITS ---
Subjective Subjective: Interval history: Patient had hematochezia yesterday and subsequently his hemoglobin dropped to 7 g/dL, received 1 unit PRBC and his hemoglobin is up to 8.5 today. Patient feels a lot better states that he had a semisolid stool after a long time and it was not significantly bloody Vitals/I&O/Wt Last Vital Signs Temp 97.7 F 03/23/21 08:00 Pulse 117 H 03/23/21 08:00 Resp 17 03/23/21 08:00 BP 154/78 03/23/21 08:00 Pulse Ox 95 03/23/21 08:00 03/22/21 03/23/21 03/23/21 22:59 06:59 14:59 Intake Total 1000 / 4724.5 1455 / 4724.5 2096.25 / 2096.25 Output Total 500 / 500 0 / 500 Balance 500 / 4224.5 1455 / 4224.5 2096.25 / 2096.25 Weight last 48 hrs Weight 138 lb 7 oz Physical Exam Narrative: EXAM NARRATIVE: Abdomen: Soft, nontender, nondistended Data : 03/23/21 08:18 03/23/21 08:18 A&P Assessment and plan (1) Hematochezia: 80-year-old male with follicular lymphoma, recurrent and acute renal failure secondary to tumor lysis syndrome who developed hematochezia yesterday which appears to be resolving spontaneously. His hemoglobin has responded appropriately to 1 unit PRBC transfusion suggesting that he is not actively bleeding. CT abdomen pelvis did not show any acute pathology to identify a source of GI bleed. I had performed a flexible sigmoidoscopy in 2018 which had shown sigmoid diverticulosis. At this point after discussing with the patient we can hold off on performing colonoscopy unless he starts bleeding actively again. Continue regular diet Status: Acute Attestations Medical Necessity Statement*: GI bleed, acute renal failure requiring continued inpatient stay Coding Level of Care Code Acute Social And Political Studies Professor for Alexi Mckeon Diagnoses Hematochezia K92.1
[2021-03-23] MEDS: magnesium sulfate premix 2 GM/50 ML PIGGYBACK IV (10:27)
[2021-03-23] MEDS: magnesium lactate 84 mg Tablet PO (17:23)
[2021-03-23] MEDS: pantoprazole 40 mg SDV IVP (20:49)
--- NOTE | 2021-03-23 21:34 | P.PN_ITS ---
Subjective Subjective: Interval history: Later in the day yesterday patient developed a gross blood, bright red with blood clots multiple episodes, even more than what he had originally reported. Feeling much better today. Received 1 unit of packed red blood cells. Has not had any further bloody bowel movements. Stool today in fact has supple blood per his report. Denies abdominal pain again. No new complaints. CT imaging of the abdomen and pelvis did not show any obvious etiology of b shobha. It was done with oral contrast only. Medications: Reviewed: Yes Vitals/I&O/Wt Last Vital Signs Temp 99.5 F 03/23/21 19:37 Pulse 119 H 03/23/21 19:37 Resp 21 H 03/23/21 19:37 BP 157/79 03/23/21 19:37 Pulse Ox 95 03/23/21 19:37 03/23/21 03/23/21 03/23/21 06:59 14:59 22:59 Intake Total 1455 / 4724.5 2506.25 / 2506.25 1074.167 / 3580.417 Output Total 0 / 500 150 / 150 Balance 1455 / 4224.5 2506.25 / 2506.25 924.167 / 3430.417 Weight last 48 hrs Weight 62.794 kg Physical Exam Narrative: EXAM NARRATIVE: Constitutional: Awake and alert Neck: No change to soft tissue mass Respiratory: Clear to auscultation bilaterally Cardiovascular: Regular rate and rhythm Abdomen: Soft, nontender, sutures still in place, no flank pain, no changes to palpable masses Extremities: No pitting edema Neuro: Speech clear, face symmetric, handgrip equal Data : 03/23/21 08:18 03/23/21 08:18 A&P Assessment and plan (1) Hematochezia: Large volume with gross blood clots, has resolved with cessation of Lovenox at least for the time being. Required transfusion of 1 units of packed red blood cells. Unremarkable CT of the abdomen and pelvis with oral contrast. Diverticular bleed, hemorrhoidal bleed, or involvement of his lymphoma somewhere along the GI tract that was not visible on imaging within differential. He had had previous endoscopy demonstrating diverticulosis. Upper GI bleed less likely with bright red blood and bright red clots but he had been treated recently with steroids. Status: Acute (2) Acute kidney injury: Tumor lysis syndrome plus impact of NSAID therapy, slow improvement with current management though uric acid has not reaccumulated Status: Acute (3) Tumor lysis syndrome: Secondary to lymphoma after initiation of prednisone prior to planned initiation of chemotherapy, has not begun chemotherapy yet Status: Acute (4) Follicular lymphoma: Diagnosed in 2017, 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, multiple locations, now appears to be high-grade lymphoma with extensive sites including bone metastases, though further studies pending per my conversation with Dr Figueroa. Status: Chronic Qualifiers: Follicular lymphoma grade: grade III, unspecified Lymphoma site: multiple regions Qualified Code(s): C82.28 - Follicular lymphoma grade III, unspecified, lymph nodes of multiple sites (5) Hypertension: This is a new finding, not previously identified prior to the acute kidney injury Status: Acute Qualifiers: Hypertension type: renovascular hypertension Qualified Code(s): I15.0 - Renovascular hypertension (6) Poor dentition: Status: Acute (7) Port-A-Cath in place: Placed 03/21/2021 Status: Acute (8) Protein-calorie malnutrition, moderate: In the setting of known cancer, weight loss, acute kidney injury, hypoalbuminemia Status: Acute Additional A&P Information Decrease IV fluids Check daily labs including uric acid, LDH Nephrology following, appreciate their assistance Continue hydralazine Monitor blood pressures Status post 1 dose of rasburicase on 03/20 Avoid nephrotoxic medications Need to see about arranging outpatient nephrology follow-up given planned initiation of chemotherapy Start iron orally Pain control with usual home hydrocodone and as needed morphine Port-A-Cath is fusing well Augmentin for teeth; need to ensure oncology knows about dentition before starting chemotherapy, discussed with patient GI prophylaxis Recommend outpatient nutritional follow up through oncology or pcp Out of bed and scds while in bed for DVT prophlaxis, no pharmacological prophylaxis due to hematochezia and anemia requiring transfusion Will need close follow-up with oncology for initiation of chemotherapy when renal function improves Supportive care otherwise Plans were discussed with patient and he was given an opportunity to ask questions Reviewed with nursing Full code Attestations Medical Necessity Statement*: Requires ongoing inpatient care for continued fluid and close monitoring of renal function, replacement of electrolytes and monitoring for further bleeding. Other issues and plans as noted above. Coding Level of Care Code Acute Career Guidance Counselor for Alexi Mckeon Diagnoses Hematochezia K92.1 Acute kidney injury N17.9 Tumor lysis syndrome E88.3 Follicular lymphoma C82.28 Follicular lymphoma grade: grade III, unspecified Lymphoma site: multiple regions Hypertension I15.0 Hypertension type: renovascular hypertension Poor dentition K08.9 Port-A-Cath in place Z95.828 Protein-calorie malnutrition, moderate E44.0
[2021-03-23] MEDS: sodium chloride 0.9% 1,000 ML 100 ML IV (23:53)
[2021-03-24] VITALS (13 sets, daily range): BP systolic 135–166; BP diastolic 67–81; PULSE 93–127; RESP 18–20; TEMP 36.7–37.5; O2SAT 94–97
[2021-03-24 00:34] LABS: Lactate Dehydrogenase 518 U/L (135-225)
[2021-03-24 05:05] LABS: Basophils % 0.2 %; Eosinophils # 0.4 10^3/uL (0.0-0.8); Eosinophils % 4.6 %; Hematocrit 22.2 % (42.0-52.0); Hemoglobin 7.1 g/dL (11.7-16.6); Lymphocytes # 0.4 10^3/uL (0.8-4.8); Lymphocytes % 5.2 %; Mean Corpuscular Hemoglobin 28.7 pg (28.0-34.0); Mean Corpuscular Volume 89.9 fL (80-94); Mean Platelet Volume 9.8 fL (7.4-10.4); Monocytes # 0.8 10^3/uL (0.2-0.9); Monocytes % 10.3 %; Neutrophils # 6.37 10^3/uL (1.8-7.7); Neutrophils % 78.7 %; Nucleated Red Blood Cells % 0 %; Platelet Count 296 10^3/cmm (130-400); Red Blood Count 2.47 10^6/uL (4.1-5.3); Red Cell Distribution Width 14.6 % (12.1-15.1); White Blood Count 8.1 10^3/uL (4.0-10.0)
[2021-03-24 05:22] LABS: Anion Gap 14.7 (5-19); Blood Urea Nitrogen 52 mg/dL (8-23); Calcium 8.2 mg/dL (8.5-10.5); Carbon Dioxide 20 mmol/L (22-29); Chloride 107 mmol/L (98-107); Glucose 91 mg/dL (65-115); Magnesium 1.8 mg/dL (1.7-2.3); Osmolality Calculated 300 mOsm/kg (285-295); Phosphorus 3.8 mg/dL (2.5-4.5); Potassium 3.7 mmol/L (3.5-5.1); Sodium 138 mmol/L (136-145); Uric Acid 1.5 mg/dL (3.4-7.0)
[2021-03-24] MEDS: hyDRALAzine 50 mg Tablet PO ×4 (08:26→20:30)
[2021-03-24] MEDS: ferrous sulfate EC 325 mg Tablet PO ×2 (08:26→17:41)
[2021-03-24] MEDS: magnesium lactate 84 mg Tablet PO ×2 (08:26→17:41)
[2021-03-24] MEDS: amoxicillin-clav 875-125 mg Tablet 1 TAB PO ×2 (08:26→17:41)
[2021-03-24] MEDS: allopurinol 100 mg Tablet PO (08:26)
[2021-03-24] MEDS: sennosides-docusate Tablet 1 TAB PO ×2 (08:26→17:41)
--- NOTE | 2021-03-24 08:56 | P.PN_ITS ---
Subjective Subjective: Interval history: Patient feels good, no further bloody bowel movements, denies any abdominal pain, nausea or vomiting Vitals/I&O/Wt Last Vital Signs Temp 99.5 F 03/24/21 08:00 Pulse 119 H 03/24/21 08:00 Resp 18 03/24/21 08:00 BP 156/74 03/24/21 08:00 Pulse Ox 94 03/24/21 08:00 03/23/21 03/24/21 03/24/21 22:59 06:59 14:59 Intake Total 1074.167 / 4578.334 997.917 / 4578.334 240 / 240 Output Total 550 / 1100 550 / 1100 200 / 200 Balance 524.167 / 3478.334 447.917 / 3478.334 40 / 40 Weight last 48 hrs Weight 138 lb 7 oz Physical Exam Narrative: EXAM NARRATIVE: Abdomen: Soft, incision from prior subcutaneous mass biopsy healing well, sutures removed Data : 03/24/21 04:46 03/24/21 04:46 A&P Assessment and plan (1) Hematochezia: 80-year-old male with follicular lymphoma, recurrent and acute renal failure secondary to tumor lysis syndrome who developed hematochezia yesterday which appears to be resolving spontaneously. His hemoglobin is down to 7.1 today. No evidence of active GI bleed. CT abdomen pelvis did not show any acu te pathology to identify a source of GI bleed. Patient most likely will need one more unit PRBC, I think at this point we can still hold off on performing a colonoscopy since he does not have hematochezia. 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
--- NOTE | 2021-03-24 09:08 | PM.PN ---
Subjective Subjective: Interval history: He feels well today with no further episodes of hematochezia. Eating and drinking well. Mobilizing around the [place] well. Breathing comfortably, no dyspnea on exertion. Passing urine well with good volumes, no obstructive symptoms. No uremic symptoms. Vitals/I&O/Wt Last Vital Signs Temp 99.5 F 03/24/21 08:00 Pulse 119 H 03/24/21 08:00 Resp 18 03/24/21 08:00 BP 156/74 03/24/21 08:00 Pulse Ox 94 03/24/21 08:00 03/23/21 03/24/21 03/24/21 22:59 06:59 14:59 Intake Total 1074.167 / 3580.417 997.917 / 4578.334 240 / 240 Output Total 550 / 550 550 / 1100 200 / 200 Balance 524.167 / 3030.417 447.917 / 3478.334 40 / 40 Physical Exam Narrative: EXAM NARRATIVE: Constitutional: Awake, comfortable HEENT: Wet mucosa, no jvp, non icteric Lungs: Bilaterally clear without discernible wheeze or rales in all lung zones CVS: S1 S2, no murmurs Abdo: Soft, BS ok Ext 4: Minimal edema, peripheral perfusion with no cyanosis Neurological: Grossly non-focal Data : 03/24/21 04:46 03/24/21 04:46 A&P Additional A&P Information 1. 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 Renal function continues to improve nicely. Uric acid levels now low. Good oral intake, maintain oral hydration. No need for further IV hydration and this cannot be stopped. It will likely take a few weeks for renal function to completely recover which can be monitored as an outpatient. Avoid usual nephrotoxic agents. Dose medications for GFR less than 30. 2. Chemistry Minor aberration including slight decrease in serum bicarb. Corrected calcium is normal. Continue to monitor 3. Hematochezia I appreciate Dr. Jennings's input, no indication for colonoscopy at this time, continue to monitor, may need another unit of blood. 4. Disposition He can be discharged from my own perspective pending clearance from Dr. Jennings and Dr. 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
--- NOTE | 2021-03-24 10:56 | PC.SOCIAL ---
Pg 2 IMM Explained to pt Pg 2 IMM. No questions voiced. Provided pt a copy. Signed, dated, & timed a copy & placed in chart.
[2021-03-24 14:04] LABS: Hematocrit 13.2 % (42.0-52.0); Hemoglobin 4.1 g/dL (11.7-16.6)
[2021-03-24 15:39] LABS: Basophils % 0.2 %; Eosinophils # 0.3 10^3/uL (0.0-0.8); Hematocrit 23.7 % (42.0-52.0); Hemoglobin 7.7 g/dL (11.7-16.6); Lymphocytes # 0.6 10^3/uL (0.8-4.8); Lymphocytes % 5.6 %; Mean Corpuscular HGB Conc 32.5 g/dL (30.0-36.0); Mean Corpuscular Hemoglobin 29.3 pg (28.0-34.0); Mean Corpuscular Volume 90.1 fL (80-94); Mean Platelet Volume 9.8 fL (7.4-10.4); Monocytes # 0.9 10^3/uL (0.2-0.9); Monocytes % 8.8 %; Neutrophils # 8.54 10^3/uL (1.8-7.7); Neutrophils % 81.2 %; Nucleated Red Blood Cells % 0 %; Platelet Count 310 10^3/cmm (130-400); Red Blood Count 2.63 10^6/uL (4.1-5.3); Red Cell Distribution Width 14.6 % (12.1-15.1); White Blood Count 10.5 10^3/uL (4.0-10.0)
[2021-03-24] MEDS: sodium chloride 0.9% (100 ml) 100 ML (16:34)
[2021-03-24] MEDS: HYDROcodone-acetaminophen 5-325 mg Tablet 1 TAB PO (16:34)
[2021-03-24] MEDS: hyDRALAzine 50 mg Tablet 100 MG PO (17:53)
--- NOTE | 2021-03-25 01:57 | P.DS_ITS ---
Discharge Providers Date of Admission: 03/21/21 08:59 Date of Discharge: March 25, 2021 Attending Provider at Admission: Yoli Arias MD Attending Provider at Discharge: Yoli Arias MD Consults: Dr Jennings Primary Care Provider: Enrique Nguyen DO Diagnoses at Discharge Discharge Diagnosis (1) Acute kidney injury: Status: Acute (2) Tumor lysis syndrome: Status: Acute (3) Hypertension: Status: Acute Qualifiers: Hypertension type: renovascular hypertension Qualified Code(s): I15.0 - Renovascular hypertension (4) Follicular lymphoma: Status: Chronic Permanent problem details: Diagnosed in 2017, 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, multiple locations, 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 Pryor presented from oncology clinic due to acute kidney injury. Clinically he appeared to have tumor lysis syndrome after initiation of prednisone therapy for pretreatment. Plan had been for him to initiate chemotherapy the day following his admission but it was delayed. He had had normal creatinine in February and now had BUN and creatinine of 90/4.0. He was admitted to the medical floor. Nephrology was consulted for assistance in care. I did give him 1 dose of respiratory case for uric acid of 10.7. With this uric acid normalized. He was continued on IV fluids and BUN and creatinine improved to 52/3.2 prior to discharge. He was having good urine output. Per nephrology will take a couple of weeks for his kidney function to normalize. He was hypertensive as well and started on hydralazine for blood pressure control. Pressures have been normal prior to the acute kidney injury. Blood pressures will need to be monitored and adjustment in medication made as indicated. While in the hospital patient was treated empirically with Lovenox for DVT prophylaxis. He subsequently developed hematochezia at times with large bright red clots of blood noted. This lasted for approximately 24 hours, stopping after Lovenox was stopped. He did have acute blood loss anemia with hemoglobin dropping from around 10 to a low of 7. He received a total of 2 units of packed red blood cells. Second unit was given due to anticipated need for chemotherapy soon and potential for recurrent anemia. He was also having tachycardia with exertion. I have ordered for labs to be rechecked outpatient. Recommend patient continue stool softeners. While here it was noted that Mr. Pryor has very poor dentition. He was given a course of Augmentin for this particularly in light of planned chemotherapy. Dr. Jennings did place a Port-A-Cath during this stay. It was working and utilized during the hospital stay. There was some bruising around the area but no signs of bleeding. Sutures were removed from the site where the abdominal wall mass was recently biopsied as well. Patient was chomping at the bits to get out of the hospital on the day of discharge. Color was improved with transfusion. He was pleasant, alert and oriented. He had some tachycardia with exertion, though it improved with rest. Lungs were clear. Abdomen was soft without increase masses or tenderness noted. Patient did have some ongoing pain in his right lower extremity and right knee but indicated that these were chronic throughout the stay and they did not progress. Patient is to keep follow-up with oncology and I have also recommended follow-up with his primary care provider. He will probably need to get established with a hide salter as he may have further complications during chemotherapy. Patient was seen by [place] [employer] professor while here and recommendations were made to increase protein and calories to improve his overall nutritional status as he enters into treatment course for his cancer. Diet plans were to be balanced with his renal function. Information was provided to him to take with him. Discharge Data Data Completed and Pending: Completed Studies During Hospitalization Category Date Time Status CT chest abd pel wo con Routine Cat Scan 03/22/21 16:39 Completed US renal BI* [id number] Routine Ultrasound 03/21/21 08:59 Completed Pending at discharge Category Date Time Status C-arm [place] for CVA [id number] Routine Exams 03/21/21 Taken Irradiated Leuko Red RBC Routine Lab 03/22/21 19:27 Results PRBC [Leukocyte R educed RBC] Routin e Lab 03/24/21 14:10 Results Type and Screen R outine Lab 03/22/21 19:27 Results Laboratory Results WBC 10.5 10^3/uL (4.0 -10.0) H 03/24/21 15:24 Corrected WBC Cancelled 03/22/21 05:36 RBC 2.63 10^6/uL (4.1 -5.3) L 03/24/21 15:24 Hgb 7.7 g/dL (11.7-16 .6) L D 03/24/21 15:24 Hct 23.7 % (42.0-52.0 ) L D 03/24/21 15:24 MCV 90.1 fL (80-94) 03/24/21 15:24 MCH 29.3 pg (28.0-34. 0) 03/24/21 15:24 MCHC 32.5 g/dL (30.0-3 6.0) 03/24/21 15:24 RDW 14.6 % (12.1-15.1 ) 03/24/21 15:24 Plt Count 310 10^3/cmm (130 -400) 03/24/21 15:24 MPV 9.8 fL (7.4-10.4) 03/24/21 15:24 Gran % Cancelled 03/22/21 05:36 Neut % (Auto) 81.2 % 03/24/21 15:24 Lymph % (Auto) 5.6 % 03/24/21 15:24 Summit % (Auto) 8.8 % 03/24/21 15:24 Eos % (Auto) 3.0 % 03/24/21 15:24 Baso % (Auto) 0.2 % 03/24/21 15:24 Neut # (Auto) 8.54 10^3/uL (1.8 -7.7) H 03/24/21 15:24 Lymph # (Auto) 0.6 10^3/uL (0.8- 4.8) L 03/24/21 15:24 Summit # (Auto) 0.9 10^3/uL (0.2- 0.9) 03/24/21 15:24 Eos # (Auto) 0.3 10^3/uL (0.0- 0.8) 03/24/21 15:24 Baso # (Auto) 0.0 10^3/uL (0.0- 0.1) 03/24/21 15:24 Absolute Gran (aut o) Cancelled 03/22/21 05:36 Nucleated RBC % (a uto) 0 % 03/24/21 15:24 Nucleated RBCs # 0.0 /100WBC 03/24/21 15:24 PT 14.80 SECONDS (12 .1-14.9) 03/21/21 04:40 INR 1.12 (0.8-1.2) 03/21/21 04:40 APTT 36.0 SECONDS (23. 9-36.7) 03/21/21 04:40 Sodium 138 mmol/L (136-1 45) 03/24/21 04:46 Potassium 3.7 mmol/L (3.5-5 .1) 03/24/21 04:46 Chloride 107 mmol/L (98-10 7) 03/24/21 04:46 Carbon Dioxide 20 mmol/L (22-29) L 03/24/21 04:46 Anion Gap 14.7 (5-19) 03/24/21 04:46 BUN 52 mg/dL (8-23) H 03/24/21 04:46 Creatinine 3.2 mg/dL (0.7-1. 2) H 03/24/21 04:46 GFR Calculation Not Reportable 03/24/21 04:46 Glucose 91 mg/dL (65-115) 03/24/21 04:46 Calculated Osmolal ity 300 mOsm/kg (285- 295) H 03/24/21 04:46 Uric Acid 1.5 mg/dL (3.4-7. 0) L 03/24/21 04:46 Calcium 8.2 mg/dL (8.5-10 .5) L 03/24/21 04:46 Phosphorus 3.8 mg/dL (2.5-4. 5) 03/24/21 04:46 Magnesium 1.8 mg/dL (1.7-2. 3) 03/24/21 04:46 Iron Cancelled 03/23/21 08:18 TIBC Cancelled 03/23/21 08:18 % Saturation Cancelled 03/23/21 08:18 Unsat Iron Binding Cancelled 03/23/21 08:18 Total Bilirubin 0.2 mg/dL (0.15-1 .2) 03/22/21 05:36 AST 17 U/L (0-40) 03/22/21 05:36 ALT 10 U/L (0-41) 03/22/21 05:36 Alkaline Phosphata se 81 IU/L (40-130) 03/22/21 05:36 Lactate Dehydrogen ase 518 U/L (135-225) H 03/23/21 23:45 Total Protein 4.8 g/dL (6.6-8.7 ) L 03/22/21 05:36 Albumin 2.7 g/dL (3.5-5.2 ) L 03/22/21 05:36 Globulin 2.1 g/dL (1.3-4.6 ) 03/22/21 05:36 Urine Color Yellow (Yellow) 03/21/21 05:57 Urine Appearance Clear (CLEAR) 03/21/21 05:57 Urine pH 7 (5-7) 03/21/21 05:57 Ur Specific Gravit y 1.010 (1.005-1.0 30) 03/21/21 05:57 Urine Protein Neg (Negative) 03/21/21 05:57 Urine Glucose (UA) Norm (Normal) 03/21/21 05:57 Urine Ketones Negative (Negati ve) 03/21/21 05:57 Urine Blood Neg (Negative) 03/21/21 05:57 Urine Nitrate Negative (Negati ve) 03/21/21 05:57 Urine Bilirubin Neg (Negative) 03/21/21 05:57 Urine Urobilinogen Norm mg/dL (Negat nanette) 03/21/21 05:57 Ur Leukocyte Shahana ase Negative (Negati ve) 03/21/21 05:57 Blood Type O Negative 03/22/21 19:27 Rho(D) Type Negative / 0 03/22/21 19:27 Antibody Screen Negative 03/22/21 19:27 Crossmatch See Detail 03/22/21 19:27 Impressions Renal Ultrasound 03/21/21 08:59 IMPRESSION: 1. Mild chronic medical renal disease. 2. No hydronephrosis or significant cortical atrophy. Chest/Abdomen/Pelvis CT 03/22/21 16:39 IMPRESSION: 1. Currently no visible evidence for acute abdominal or pelvic pathologic process. 2. No visible explanation for the indication of gross hematuria with clots. 3. Other nonurgent, nonemergent, chronic, and age related findings as detailed in text above. Radiation Dose CTDIVOL = (mGy): DLP = 1311.96~1311.96 (mGy-cm) Vitals: Last Vital Signs Temp 98.4 F 03/24/21 20:29 Pulse 111 H 03/24/21 20:29 Resp 20 H 03/24/21 20:29 BP 135/67 03/24/21 20:29 Pulse Ox 94 03/24/21 20:29 Discharge Plan Discharge Patient Disposition: Home Condition: Stable Prescriptions: New allopurinol 100 mg Tablet 100 mg PO DAILY Qty: 30 RF: 0 ferrous sulfate 325 mg (65 mg iron) Tablet,Delayed Release (Dr/Ec) 325 mg PO BIDWM Qty: 0 RF: 0 amoxicillin-pot clavulanate 875-125 mg Tablet 1 tab PO BID Qty: 14 RF: 0 Stool Softener-Laxative 8.6-50 mg Tablet 1 tab PO BID Qty: 0 RF: 0 hydralazine 100 mg tablet 100 mg PO TID Qty: 90 RF: 0 pantoprazole 40 mg tablet,delayed release (DR/EC) 40 mg PO DAILY 28 Days Qty: 30 RF: 0 Continued loratadine [Claritin] 10 mg tablet 10 mg PO DAILY PRN (Reason: Allergy Symptoms) RF: 0 fluticasone propionate 50 mcg/actuation spray,suspension 1 spray INTRANASAL BID PRN (Reason: Nasal Congestion) RF: 0 acetaminophen [Tylenol] 325 mg tablet 325 mg PO DAILY PRN (Reason: Pain) RF: 0 albuterol sulfate 90 mcg/actuation Hfa Aerosol Inhaler 1 puff INHALATION QID PRN (Reason: Shortness Of Breath) RF: 0 hydrocodone-acetaminophen 5-325 mg tablet 1 tab PO Q6H PRN (Reason: Pain) RF: 0 Discontinued naproxen 250 mg tablet 250 mg PO BID PRN (Reason: Pain) RF: 0 prednisone 20 mg tablet 20 mg PO TID RF: 0 Discharge Orders: Discharge Order (Routine); Ordered 03/24/21 Ordered By: Yoli Arias Other Ambulatory Orders: Complete Blood Count w/Auto (Routine) Timeframe: 3 Days Location: Determined by Patient Ordered By: Yoli Arias Comprehensive Metabolic Panel (Routine) Timeframe: 3 Days Location: Determined by Patient Ordered By: Yoli Arias Lactate Dehydrogenase (Routine) Timeframe: 3 Days Location: Determined by Patient Ordered By: Yoli Arias Magnesium (Routine) Timeframe: 3 Days Location: Determined by Patient Ordered By: Yoli Arias Phosphorus (Routine) Timeframe: 3 Days Location: Determined by Patient Ordered By: Yoli Arias Uric Acid (Routine) Timeframe: 3 Days Location: Determined by Patient Ordered By: Yoli Arias Referrals: Jose Angel Figueroa MD [Staff Physician] - 1-3 days (hospital follow up to determine plan of care; can schedule with Lucy Rosas also) Enrique Nguyen DO [Primary Care Provider] - 4-7 days (hospital follow up) Discharge Diet: Advance as tolerated Discharge Activity: Resume usual activity Patient Instructions: Gastrointestinal Bleeding (DC), Acute Kidney Injury (GEN), High Protein / High Calorie Diet (GEN), Eating During Cancer Treatment (GEN), Implanted Venous Access Port (DC), Self Care Measures with Cancer (GEN), Tumor Lysis Syndrome (DC), Opioid Safety Activity Restrictions/Additional Instructions: You came to the hospital from the cancer treatment center due to acute kidney injury. On February 20, your BUN/creatinine were 15/0.9. This is a completely normal value. On March 19, your BUN and creatinine were 97/4.4. You had an elevated uric acid 10.7 as well as an increase in your LDH level from mid 400s in February to mid 500s in March. You had only been on prednisone pretreatment for planned start of chemotherapy for your lymphoma. Acute kidney injury felt to be secondary to tumor lysis syndrome. You received 1 dose of a medicine called rasburicase to bring down your uric acid level. You also received IV fluids. A kidney doctor saw you while you were in the hospital. Slowly your renal function has improved not back to normal. You are making good urine output and it was felt that she could be discharged home with ongoing management in the outpatient setting. You need to drink plenty of fluids. Your BUN and creatinine on the day of discharge were 52/3.2. Your uric acid level was at 1.5. LDH at 518. It will take a few weeks for your renal function to normalize. We will likely need to have you follow with a kidney doctor while you are undergoing chemotherapy. For now continue close follow-up with Dr. Figueroa/Lucy Rosas as well as her primary care provider. Renal ultrasound done during the hospital stay showed mild chronic medical renal disease with no hydronephrosis or cortical atrophy. During the hospital stay you were noted to have high blood pressures. You were started on hydralazine. At discharge this will be continued. As your kidney function normalizes, this may be able to be stopped as you did have more normal blood pressures back in February without treatment. You were noted to have poor dentition during the hospital stay. You were covered with some Augmentin. Make sure to let Dr. Figueroa and Lucy can slow no about your teeth before you start chemotherapy. Your Port-A-Cath was able to be placed by Dr. Jenninsg during the hospital stay. It is functioning and can be used right away and was in fact use during the hospital stay. During the hospital stay you developed grossly bloody stools, with bright red blood and bright red clots. This lasted for about 24 hours. You had a drop in your blood counts and required transfusion of 2 units of packed red blood cells. The bleeding started after you had received Lovenox for DVT prophylaxis. I have ordered a medication for your stomach. Dr. Jennings did see you. A CT of the abdomen and pelvis oral contrast did not show a reason for bleeding. You were known to have diverticulosis. At this point in time no clear indication for colonoscopy or upper endoscopy. Should you have recurrent bleeding would follow-up with Dr. Jennings who knows you well. I have started you on iron replacement secondary to the anemia. Discharge Attestations Time Spent in Discharge Care*: greater than 30 min Specific Discharge Activities: educating patient, documenting/other paperwork and evaluating patient/reviewing data Quality Metrics Clinical Quality Measures During this hospital stay, did patient experience: None Coding Level of Care Code Acute g FW DC note Diagnoses Acute kidney injury N17.9 Tumor lysis syndrome E88.3 Hypertension I15.0 Hypertension type: renovascular hypertension Follicular lymphoma C82.28 Follicular lymphoma grade: grade III, unspecified Lymphoma site: multiple regions Hematochezia K92.1 Acute blood loss anemia D62 Protein-calorie malnutrition, moderate E44.0 Poor dentition K08.9 Port-A-Cath in place Z95.828
== END 2021-03-24 20:55 | disposition home or self-care (01) | DRG 674 ==
PROVIDERS: Internal Medicine; Surgery; Admitting Provider Hospitalist; PCP Internal Medicine; Visit Provider Hospitalist
PROC: 0JH60WZ Insertion of Totally Implantable Vascular Access Device into Chest Subcutaneous Tissue and Fascia, Open Approach (ICD-10-PCS; principal; 2021-03-21 15:00)
DX: N17.9 Acute kidney failure, unspecified (principal); C82.28 Follicular lymphoma grade III, unspecified, lymph nodes of multiple sites; D62 Acute posthemorrhagic anemia; E44.0 Moderate protein-calorie malnutrition; K92.1 Melena; E88.3 Tumor lysis syndrome; I10 Essential (primary) hypertension; K08.9 Disorder of teeth and supporting structures, unspecified; M19.90 Unspecified osteoarthritis, unspecified site; E83.42 Hypomagnesemia; Z87.19 Personal history of other diseases of the digestive system; Z85.828 Personal history of other malignant neoplasm of skin; Z96.651 Presence of right artificial knee joint; Z92.3 Personal history of irradiation; Z96.611 Presence of right artificial shoulder joint; Z87.891 Personal history of nicotine dependence; Z79.891 Long term (current) use of opiate analgesic
CPT/HCPCS: 36415; 36430; 71250; 74176; 76770; 77001; 80048; 80053; 81003; 83540; 83550; 83615; 83735; 84100; 84550; 85014; 85018; 85025; 85610; 85730; 86850; 86900; 86920; 93005; 96372; C1788; C9113; G0378; G0379; J0690; J1644; J1650; J2250; J2704; J2783; J3010; J3475; J3490; J7030; P9040; Q3014

== ENCOUNTER 2021-04-02 08:06 | Outpatient (RCR) | payer MEDICARE, SELFPAY ==
[2021-03-29 09:18] LABS: Basophils # 0.1 10^3/uL (0.0-0.1); Basophils % 0.8 %; Eosinophils # 0.1 10^3/uL (0.0-0.8); Eosinophils % 0.9 %; Hematocrit 26.7 % (42.0-52.0); Hemoglobin 8.7 g/dL (11.7-16.6); Lymphocytes # 0.5 10^3/uL (0.8-4.8); Lymphocytes % 4.1 %; Mean Corpuscular HGB Conc 32.6 g/dL (30.0-36.0); Mean Corpuscular Hemoglobin 29.4 pg (28.0-34.0); Mean Corpuscular Volume 90.2 fL (80-94); Mean Platelet Volume 9.4 fL (7.4-10.4); Monocytes # 1.1 10^3/uL (0.2-0.9); Monocytes % 8.1 %; Neutrophils # 11.08 10^3/uL (1.8-7.7); Neutrophils % 85.6 %; Nucleated Red Blood Cells % 0 %; Platelet Count 340 10^3/cmm (130-400); Red Blood Count 2.96 10^6/uL (4.1-5.3); Red Cell Distribution Width 14.6 % (12.1-15.1); White Blood Count 12.9 10^3/uL (4.0-10.0)
[2021-03-29 09:39] LABS: Alanine Aminotransferase 16 U/L (0-41); Albumin Level 3.7 g/dL (3.5-5.2); Alkaline Phosphatase 111 IU/L (40-130); Anion Gap 18.2 (5-19); Aspartate Amino Transferase 27 U/L (0-40); Blood Urea Nitrogen 33 mg/dL (8-23); Carbon Dioxide 24 mmol/L (22-29); Chloride 94 mmol/L (98-107); Globulin 2.7 g/dL (1.3-4.6); Glucose 142 mg/dL (65-115); Osmolality Calculated 286 mOsm/kg (285-295); Potassium 3.2 mmol/L (3.5-5.1); Sodium 133 mmol/L (136-145); Total Bilirubin 0.4 mg/dL (0.15-1.2); Total Protein 6.4 g/dL (6.6-8.7)
--- NOTE | 2021-03-29 10:52 | ONC FU_ITS ---
Dr. Figueroa follow up note Patient: Xavi Pryor Unit #: [id number]: 1940 Dicatated By: Jose Angel Figueroa M.D.Date of Visit:March 29, 2021 Onc Med Follow-up/Prog Note History of Present Illness: Mr. 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 He initially presented with right submandibular mass and was treated with antibiotics without much help, He was referred to ENT and underwent FNA of right submental mass which showed atypical lymphoid infiltrate. Mr Pryor subsequently underwent excisional biopsy of right submandibular mass on 04/08/2017. flow cytometry showed monoclonal B-cell population which was positive for CD19/CD20/FNCC 7 and CD20 to and was negative for CD5. Also exhibited surface kappa light chain restriction. These findings were consistent with grade 2 follicular lymphoma. Patient was evaluated by Dr. Pardo at [facility] in [place], [place] and being low-grade and stage II disease active surveillance was pursued. Last time he saw Dr. Pardo was on 02/15/2018. As per patient, last CT PET scan was done in 2016. Since his last visit with Dr. Pardo in February 2018, he had develop left inguinal lymphadenopathy and lost about 30 pounds. Mr Pryor attributed his weight loss to diverticulitis. Denied any night sweats, recurrent fever, abdominal fullness, any other peripheral lymphadenopathy. Denied any melena, hematochezia, denied any nosebleed, petechiae or ecchymosis. He denied any shortness of breath or dysphagia, denies any jaundice. CT PET scan was done on 03/12/2019 showed hypermetabolic soft tissue adherent to the aorta at upper mediastinum and upper abdominal level is consistent with a lymphoma Hypermetabolic left inguinal nodes consistent with lymphoma Diffuse activity in the rectosigmoid colon Questionable activity in the posterior left iliac Left inguinal lymph node biopsy was done on 05/04/2019 to confirm whether there is transformation to aggressive lymphoma versus persistent low-grade follicular. Final pathology report came back follicular lymphoma grade 1-2 of 3 s/p right shoulder replacement in first week of October 2019. Patient underwent anterior left midabdomen skin biopsy on December 31, 2020 which showed follicular lymphoma, grade 1 -2 of 3., BCL6 negative cyclin D1 was negative, BCL-2's staining is moderately strong and demonstrate aberrant coexpression of B cells. Further immunohistochemistry positive for CD3, CD5, CD20, CD10, CD43 Because of progressive left hip/lower back pain with radiation to left leg, PMD ordered CT scan of abdomen pelvis which was done on January 01, 2021 showed no lytic lesion in left ilium. Variable density within left hip and proximal femur may be related to osteopenia. No abdominal or pelvic lymphadenopathy, spleen is normal size, bone scan was recommended for further evaluation which was done on January 14, 2021 showed multiple patchy areas of bone marrow activity involving bilateral humerus, bilateral forearm bones, mid femoral shafts suspicious for metastatic disease. Patchy activity involving left hip. Also involving left proximal tibial shaft. And calvarium. CT PET scan done on January 19, 2021 showed anterior mediastinal and upper abdominal periaortic soft tissue seen previously is now FDG negative. However there is a new central anterior mediastinal soft tissue measuring 2.2 x 1.2 cm with an SUV of 7.5, other soft tissue lesion noted in the right cervical level two lymph node. Subcutaneous lesion in the anterior left chest and anterior left upper quadrant abdominal wall soft tissue thickening. The right testicular lesion has SUV of 15.8. A peripancreatic node at pancreatic tail has SUV of seven. Multifocal osseous lesions are present in the proximal left humerus, medial left clavicle, bilateral proximal femurs, left L3 and L4 with encroachment into left neural foramen at these levels. Mr. Pryor was referred to Dr. Calabrese in radiationoncology for newly diagnosed bone metastasis related to his lymphoma. His nuclear bone scan from January 14, 2021 revealed metabolic uptake in the calvarium, moral shaft, mid femoral shaft and proximal tibia. 2 weeks prior to his appointment with Dr. Calabrese he developed worsening left hip pain and lower back pain symptoms of the left leg. A recent PET/CT on January 19, 2021 identified the anterior medial soft tissue mass as indicated above. It measured 2.2 cm x 1.2 cm with an SUV of 7.5. He also had right cervical lymphadenopathy (level 2), subcutaneous lesions within the anterior left chest wall and upper quadrant of the abdominal wall. I right testicular lesion SUV of 15.8 and a hypermetabolic peripancreatic lymph node as well as multiple osseous lesions throughout the proximal left humerus, medial left clavicle, bilateral proximal femurs and L3???L4-L5 with encroachment into the left neural foramen. He was treated with dexamethasone prior to his appointment with Dr. Calabrese for potential palliative lumbar radiotherapy. 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 A total of 30 Rodrigues was delivered in 10 fractions encompassing 14 days. He received radiation to the third through the fifth lumbar vertebral bodies. He tolerated it well and states his pain is better. Mr Pryor was seen in medical oncology post completion of the radiation therapy. He was concernd of new nodules in his abdomen and on his back. He states they are also on his lower leg. He has adenopathy in his left anterior cervical supraclavicular area as well. He denied any trouble swallowing. He was complaining of generalized weakness and fatigue, initially patient had skin biopsy done from left anterior epigastric area skin lesion and as per pathology he was consistent with low-grade lymphoma but his disease is behaving like aggressive lymphoma. Mr Smiley was referred to surgery for biopsy from new lesions especially in the left anterior cervical supraclavicular lymph node area, biopsy was repeated from the large subcutaneous lesion in the right upper abdominal area, and pathology has been pending Mr. Pryor was seen on March 13, 2021 for follow-up given his generalized weakness and fatigue. He also had developed night sweats. There were more lesions involving the upper abdomen, right anterior shoulder, right leg, left anterior cervical/supraclavicular mass. as per pathology it had turned transformed from low-grade lymphoma to high-grade lymphoma. Mr. Pryor was started on prednisone 60 mg daily for 5 days.While awaiting chemotherapy with R-CHOP approval from insurance company And prognostic lymphoma profile testing His final pathology report was confirmed on March 12, 2021 which shows large B-cell lymphoma with high-grade features high Ki-67 up to 75%, BCL-2 weak and strong c-Myc coexpression. FISH to evaluate possible double hit was pending Patient was admitted to hospital on March 21, 2021 with acute kidney injury/tumor lysis due to steroid alone, as his chemistry showed BUN 90/creatinine 4, nephrology was consulted his uric acid was 10.7, patient was given dose of rasburicase with that his uric acid was normalized patient was treated with IV fluids and his BUN/creatinine continue to improve at the time of discharge his BUN was 52 creatinine was 3.2 and patient was also having good urine output, as per nephrology that will take couple of weeks for kidney function to normalize patient also had CT scan of chest done on March 21, 2021 which showed no visible evidence of acute cardiopulmonary pathology process, advanced COPD, centrilobular emphysema scant right pleural effusion no significant mediastinal or axillary lymphadenopathy. Came for follow-up, denies any specific complaint except generalized weakness and fatigue but no night sweats, no fever, no abdominal fullness, no dysphagia, no mouth sores, no melena or hematochezia, no jaundice, as per patient he did receive 2 units of packed RBC while he was in the hospital recently. But overall feeling well and now on allopurinol. Patient is due for his fourth cycle of R-CHOP minus prednisone as he has already completed recommended course of prednisone.Patient has follow-up appointment with primary care and wants to consider starting his chemotherapy on Thursday morning Medications: Acetaminophen 2 Tablet (of 325 mg) Oral q 6 hours PRN, Albuterol Sulfate 1 puff(s) (of 108 (90 base) mcg/act) Aerosol Powder, Breath Activated Inhalation PRN, Allopurinol 1 Tablet (of 100 mg) Oral daily, Amoxicillin-Pot Clavulanate 1 Tablet (of 875-125 mg) Oral b.i.d. for 7 days, Claritin 1 Tablet (of 10 mg) Oral daily, Ferrous Sulfate 1 Tablet (of 325 (65 fe) mg) Oral b.i.d., Flonase 2 spray(s) (of 50 mcg/act) Suspension Nasal daily, hydrALAZINE HCl 1 Tablet (of 100 mg) Oral daily, HYDROcodone-Acetaminophen 1 Tablet (of 5-325 mg) Oral q 6 hours PRN, Naprosyn 1 Tablet (of 250 mg) Oral b.i.d., Pantoprazole Sodium 1 Tablet (of 40 mg) Tablet, enteric coated Oral daily Allergies: Tetanus-Diphtheria Toxoids Td Review of Systems: Review of Systems is not available for this patient. Vital Signs: Performed on March 29, 2021 09:09 Height - 67.50 in Weight - 136.4 lbs (LOW) BSA - 1.73 sq.m BMI - 21.05 Temperature - 97.7 F (LOW) Pulse - 95 /min Respiration - 17 /min BP - 142/63 mm(hg) (HIGH) O2 Sat - 94 % (LOW) Pain - 3 Performance Status: 1 - No physically strenuous activity, but ambulatory and able to carry out light or sedentary work (e.g. office work, light house work). (ECOG) Physical Examination: ENMT - No mouth sores, no thrush, no jaundice no cervical lymphadenopathy except anterior low neck mass but significantly improved, Respiratory - Poor air entry otherwise clear, Cardiovascular - Regular rate and rhythm of heart, Abdomen - Soft, bowel sounds present, Extremities - No visible edema. Lab/Imaging: Test performed on March 20, 2021 13:30 LDH (Total) 551 U/L Sodium 136 mmol/L Uric Acid 10.7 mg/dL Potassium 5.5 mmol/L Chloride 98 mmol/L CO2 28 mmol/L Anion Gap 15.5 BUN 97 mg/dL Creatinine 4.0 mg/dL Cr Clearance (Est) 13.6900 mL/min Glucose 116 mg/dL Osmolality - Calculated 313 mOsm/kg Calcium 10.4 mg/dL Protein, Total 5.9 g/dL Albumin 3.5 g/dL Globulin 2.4 g/dL Bilirubin, Total 0.2 mg/dL ALT (SGPT) 16 U/L AST (SGOT) 22 U/L Alkaline Phosphatase 105 IU/L WBC 13.3 10 3/uL RBC 3.57 10 6/uL HGB 10.3 g/dL HCT 31.7 % MCV 88.8 fL MCH 28.9 pg MCHC 32.5 g/dL RDW 13.9 % Platelet Count 436 10 3/cmm MPV 10.3 fL Neutrophils 11.95 10 3/uL Lymphocytes 0.4 10 3/uL Monocytes 0.8 10 3/uL Eosinophils 0.0 10 3/uL Basophils 0.0 10 3/uL Neutrophil % 89.7 % Lymphocyte % 2.6 % Monocyte % 5.7 % Eosinophil % 0.0 % Basophils % 0.1 % NRBC % 0 % Impression: [Large B-cell lymphoma with high-grade features, per anterior abdominal wall cutaneous/subcutaneous mass biopsy done on March 11, 2021, final pathology report confirmed high grade B-cell lymphoma, high Ki-67 up to 75%, BCL-2 weak and strong c-Myc coexpression MUM1 is negative, PAX 5+ in all large size tumor lymphocytes FISH to evaluate for possible double hit lymphoma is pending ^Grade 2 follicular lymphoma status post excisional biopsy of right mandibular mass done on 04/08/2017 Flow cytometry was positive for CD19, CD20, CD22 and FNCC 7 and negative for CD5 Also exhibited surface kappa light chain restriction. CT PET scan was done in 2017, as per patient he was told he has stage II disease. Being low-grade and early-stage, no treatment was required but Active surveillance. CT PET scan done on 05/06/2017 showed left cervical lymphadenopathy and activity in the right shoulder but there are severe degenerative changes in that area and there is also increased activity involving lumbar spine may have both soft tissue or bone lesions. There are abnormal areas in the right ribs but patient has history of surgery on right ribs CT PET scan repeated on 03/12/2019 showed suspicious activity is present in the mediastinum in soft tissue abutting the ascending aortic arch and pulmonary artery. This has SUV of 7.9 consistent with recurrent lymphoma and additional hypermetabolic soft tissue is adherent to the abdominal aorta with SUV of 6.8 consistent with lymphoma Left inguinal lymph nodes measures up to 2.7 cm has SUV of 11 There is intense rectosigmoid activity which could be physiological but lymphomatous involvement cannot be ruled out Patient has history of diverticulitis/diverticular. Left inguinal lymph node biopsy done on 05/04/[address] PET scan done on January 19, 2021 showed hypermetabolic soft tissue lesion in the right cervical papo territory, anterior mediastinum, subcutaneous tissue involving left upper abdominal wall and anterior chest, right testicle, peripancreatic region. Multifocal osseous metastatic disease, FDG positive soft tissue at L3 and L4 neuroforamen, representing lymphoma. Plan: Discussed with patient regarding his labs white blood count 12.9 hemoglobin 8.7 compared to 10.3 g on March 20, 2021, marked 26.7 platelets 340,000 CMP within normal limit except creatinine 2.5 BUN 33 glucose 142 potassium 3.2. Clinically, patient doing reasonably well, with no new signs symptom except generalized weakness and fatigue which could be multifactorial including due to progressive anemia, patient did receive 2 units of packed RBC in the hospital other possibility could be high-grade lymphoma, so we will start him on R-CHOP patient has already completed his high-dose prednisone and had a very good response with significant improvement in cutaneous lymphomatous lesion as well as left anterior low cervical lymph node/mass, resolution of night sweats but patient had tumor lysis just with prednisone, responded well to dose of rasburicase and now on allopurinol, and renal function test is improving. Patient return to clinic on Thursday to start his first cycle of chemotherapy with R-CHOP minus prednisone as mentioned above he has completed his recommended dose of prednisone while waiting for confirmation from pathology regarding transformation of low-grade lymphoma into high-grade lymphoma. We will continue to monitor and consider blood transfusion if hemoglobin drops below 8 g and continue supportive care.And he will return to clinic on Thursday morning with CBC CMPAnd to start his first cycle of chemotherapy with Neulasta support Signed By: Jose Angel Figueroa M.D. <<Signature on File>>
[2021-04-01] MEDS: acetaminophen 325 mg Tablet 650 MG PO (09:10)
[2021-04-01] MEDS: sodium chloride 0.9% 1,000 ML 999 ML IV (09:10)
[2021-04-01] MEDS: palonosetron 0.25 mg/5 mL SDV IVP (09:11)
[2021-04-01] MEDS: famotidine 20 mg/2 mL INJ IVP (09:12)
[2021-04-01] MEDS: diphenhydrAMINE 50 mg/mL SDV 1mL 25 MG IVP (09:15)
[2021-04-01] MEDS: denosumab 120 mg SDV SUBCUT (09:20)
== END 2021-04-08 23:59 | disposition home or self-care (01) ==
LOC: ONCMED 08:06
PROVIDERS: Internal Medicine Hematology & Oncology; PCP Internal Medicine; Visit Provider Internal Medicine Medical Oncology
DX: Z51.12 Encounter for antineoplastic immunotherapy (principal); Z51.11 Encounter for antineoplastic chemotherapy; C83.38 Diffuse large B-cell lymphoma, lymph nodes of multiple sites; C79.51 Secondary malignant neoplasm of bone; M19.011 Primary osteoarthritis, right shoulder; K57.92 Diverticulitis of intestine, part unspecified, without perforation or abscess without bleeding; Z79.899 Other long term (current) drug therapy
CPT/HCPCS: 36591; 80053; 85025; 96367; 96372; 96375; 96411; 96413; 96415; 96417; 99214; J0897; J1100; J1200; J1453; J2469; J2505; J3490; J7030; J7040; J9000; J9070; J9312; J9370

== ENCOUNTER 2021-04-09 12:11 | Outpatient (RCR) | payer MEDICARE, SELFPAY ==
[2021-04-09] MEDS: sodium chloride 0.9% 1,000 ML 999 ML IV (13:12)
[2021-04-09 13:29] LABS: Basophils % 2.3 %; Eosinophils # 0.1 10^3/uL (0.0-0.8); Eosinophils % 6.8 %; Hemoglobin 7.7 g/dL (11.7-16.6); Lymphocytes # 0.2 10^3/uL (0.8-4.8); Mean Corpuscular HGB Conc 32.1 g/dL (30.0-36.0); Mean Corpuscular Hemoglobin 28.9 pg (28.0-34.0); Mean Corpuscular Volume 90.2 fL (80-94); Mean Platelet Volume 10.3 fL (7.4-10.4); Monocytes # 0.2 10^3/uL (0.2-0.9); Monocytes % 26.1 %; Neutrophils % 43.3 %; Nucleated Red Blood Cells % 0 %; Platelet Count 151 10^3/cmm (130-400); Red Blood Count 2.66 10^6/uL (4.1-5.3); Red Cell Distribution Width 14.5 % (12.1-15.1)
[2021-04-09 13:43] LABS: Alanine Aminotransferase 11 U/L (0-41); Albumin Level 3.6 g/dL (3.5-5.2); Alkaline Phosphatase 114 IU/L (40-130); Aspartate Amino Transferase 14 U/L (0-40); Blood Urea Nitrogen 31 mg/dL (8-23); Calcium 8.1 mg/dL (8.5-10.5); Carbon Dioxide 22 mmol/L (22-29); Chloride 99 mmol/L (98-107); Globulin 2.4 g/dL (1.3-4.6); Glucose 135 mg/dL (65-115); Osmolality Calculated 285 mOsm/kg (285-295); Sodium 133 mmol/L (136-145); Total Bilirubin 0.3 mg/dL (0.15-1.2)
[2021-04-09 13:52] LABS: Neutrophils # 0.38 10^3/uL (1.8-7.7); Slide Review Slide Review Perform; White Blood Count 0.9 10^3/uL (4.0-10.0)
--- NOTE | 2021-04-09 16:58 | ONC FU_ITS ---
Dr. Figueroa follow up note Patient: Xavi Pryor Unit #: [id number]: 1940 Dicatated By: Jose Angel Figueroa M.D.Date of Visit:Apr 09, 2021 Onc Med Follow-up/Prog Note History of Present Illness: Mr. 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 He initially presented with right submandibular mass and was treated with antibiotics without much help, He was referred to ENT and underwent FNA of right submental mass which showed atypical lymphoid infiltrate. Mr Pryor subsequently underwent excisional biopsy of right submandibular mass on 04/08/2017. flow cytometry showed monoclonal B-cell population which was positive for CD19/CD20/FNCC 7 and CD20 to and was negative for CD5. Also exhibited surface kappa light chain restriction. These findings were consistent with grade 2 follicular lymphoma. Patient was evaluated by Dr. Pardo at [facility] in [place], [place] and being low-grade and stage II disease active surveillance was pursued. Last time he saw Dr. Pardo was on 02/15/2018. As per patient, last CT PET scan was done in 2016. Since his last visit with Dr. Pardo in February 2018, he had develop left inguinal lymphadenopathy and lost about 30 pounds. Mr Pryor attributed his weight loss to diverticulitis. Denied any night sweats, recurrent fever, abdominal fullness, any other peripheral lymphadenopathy. Denied any melena, hematochezia, denied any nosebleed, petechiae or ecchymosis. He denied any shortness of breath or dysphagia, denies any jaundice. CT PET scan was done on 03/12/2019 showed hypermetabolic soft tissue adherent to the aorta at upper mediastinum and upper abdominal level is consistent with a lymphoma Hypermetabolic left inguinal nodes consistent with lymphoma Diffuse activity in the rectosigmoid colon Questionable activity in the posterior left iliac Left inguinal lymph node biopsy was done on 05/04/2019 to confirm whether there is transformation to aggressive lymphoma versus persistent low-grade follicular. Final pathology report came back follicular lymphoma grade 1-2 of 3 s/p right shoulder replacement in first week of October 2019. Patient underwent anterior left midabdomen skin biopsy on December 31, 2020 which showed follicular lymphoma, grade 1 -2 of 3., BCL6 negative cyclin D1 was negative, BCL-2's staining is moderately strong and demonstrate aberrant coexpression of B cells. Further immunohistochemistry positive for CD3, CD5, CD20, CD10, CD43 Because of progressive left hip/lower back pain with radiation to left leg, PMD ordered CT scan of abdomen pelvis which was done on January 01, 2021 showed no lytic lesion in left ilium. Variable density within left hip and proximal femur may be related to osteopenia. No abdominal or pelvic lymphadenopathy, spleen is normal size, bone scan was recommended for further evaluation which was done on January 14, 2021 showed multiple patchy areas of bone marrow activity involving bilateral humerus, bilateral forearm bones, mid femoral shafts suspicious for metastatic disease. Patchy activity involving left hip. Also involving left proximal tibial shaft. And calvarium. CT PET scan done on January 19, 2021 showed anterior mediastinal and upper abdominal periaortic soft tissue seen previously is now FDG negative. However there is a new central anterior mediastinal soft tissue measuring 2.2 x 1.2 cm with an SUV of 7.5, other soft tissue lesion noted in the right cervical level two lymph node. Subcutaneous lesion in the anterior left chest and anterior left upper quadrant abdominal wall soft tissue thickening. The right testicular lesion has SUV of 15.8. A peripancreatic node at pancreatic tail has SUV of seven. Multifocal osseous lesions are present in the proximal left humerus, medial left clavicle, bilateral proximal femurs, left L3 and L4 with encroachment into left neural foramen at these levels. Mr. Pryor was referred to Dr. Calabrese in radiationoncology for newly diagnosed bone metastasis related to his lymphoma. His nuclear bone scan from January 14, 2021 revealed metabolic uptake in the calvarium, moral shaft, mid femoral shaft and proximal tibia. 2 weeks prior to his appointment with Dr. Calabrese he developed worsening left hip pain and lower back pain symptoms of the left leg. A recent PET/CT on January 19, 2021 identified the anterior medial soft tissue mass as indicated above. It measured 2.2 cm x 1.2 cm with an SUV of 7.5. He also had right cervical lymphadenopathy (level 2), subcutaneous lesions within the anterior left chest wall and upper quadrant of the abdominal wall. I right testicular lesion SUV of 15.8 and a hypermetabolic peripancreatic lymph node as well as multiple osseous lesions throughout the proximal left humerus, medial left clavicle, bilateral proximal femurs and L3???L4-L5 with encroachment into the left neural foramen. He was treated with dexamethasone prior to his appointment with Dr. Calabrese for potential palliative lumbar radiotherapy. 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 A total of 30 Rodrigues was delivered in 10 fractions encompassing 14 days. He received radiation to the third through the fifth lumbar vertebral bodies. He tolerated it well and states his pain is better. Mr Pryor was seen in medical oncology post completion of the radiation therapy. He was concernd of new nodules in his abdomen and on his back. He states they are also on his lower leg. He has adenopathy in his left anterior cervical supraclavicular area as well. He denied any trouble swallowing. He was complaining of generalized weakness and fatigue, initially patient had skin biopsy done from left anterior epigastric area skin lesion and as per pathology he was consistent with low-grade lymphoma but his disease is behaving like aggressive lymphoma. Mr Smiley was referred to surgery for biopsy from new lesions especially in the left anterior cervical supraclavicular lymph node area, biopsy was repeated from the large subcutaneous lesion in the right upper abdominal area, and pathology has been pending Mr. Pryor was seen on March 13, 2021 for follow-up given his generalized weakness and fatigue. He also had developed night sweats. There were more lesions involving the upper abdomen, right anterior shoulder, right leg, left anterior cervical/supraclavicular mass. as per pathology it had turned transformed from low-grade lymphoma to high-grade lymphoma. Mr. Pryor was started on prednisone 60 mg daily for 5 days.While awaiting chemotherapy with R-CHOP approval from insurance company And prognostic lymphoma profile testing His final pathology report was confirmed on March 12, 2021 which shows large B-cell lymphoma with high-grade features high Ki-67 up to 75%, BCL-2 weak and strong c-Myc coexpression. FISH to evaluate possible double hit was pending Patient was admitted to hospital on March 21, 2021 with acute kidney injury/tumor lysis due to steroid alone, as his chemistry showed BUN 90/creatinine 4, nephrology was consulted his uric acid was 10.7, patient was given dose of rasburicase with that his uric acid was normalized patient was treated with IV fluids and his BUN/creatinine continue to improve at the time of discharge his BUN was 52 creatinine was 3.2 and patient was also having good urine output, as per nephrology that will take couple of weeks for kidney function to normalize patient also had CT scan of chest done on March 21, 2021 which showed no visible evidence of acute cardiopulmonary pathology process, advanced COPD, centrilobular emphysema scant right pleural effusion no significant mediastinal or axillary lymphadenopathy. Started on R-CHOP on April 01, 2021 due to low-grade lymphoma transforming into high-grade Came for follow-up, complaining of chills and shakes, feeling very cold, denies any fever, denies any dysuria or hematuria denies any cough or sore throat but infection/pain in left anterior mandible,, denies any blurred vision or double vision but complaining of generalized weakness and fatigue and dyspnea on exertion, denies any melena or hematochezia denies any hemoptysis or hematemesis. Tolerated first cycle of chemotherapy with R-CHOP and monthly Xgeva for bone mets And since then his left lower anterior cervical/upper sternal swelling has gone down significantly and abdominal skin lesion are also resolving Medications: Acetaminophen 2 Tablet (of 325 mg) Oral q 6 hours PRN, Albuterol Sulfate 1 puff(s) (of 108 (90 base) mcg/act) Aerosol Powder, Breath Activated Inhalation PRN, Allopurinol 1 Tablet (of 100 mg) Oral daily, Amoxicillin-Pot Clavulanate 1 Tablet (of 875-125 mg) Oral b.i.d. for 7 days, Claritin 1 Tablet (of 10 mg) Oral daily, Ferrous Sulfate 1 Tablet (of 325 (65 fe) mg) Oral b.i.d., Flonase 2 spray(s) (of 50 mcg/act) Suspension Nasal daily, hydrALAZINE HCl 1 Tablet (of 100 mg) Oral daily, HYDROcodone-Acetaminophen 1 Tablet (of 5-325 mg) Oral q 6 hours PRN, Naprosyn 1 Tablet (of 250 mg) Oral b.i.d., Pantoprazole Sodium 1 Tablet (of 40 mg) Tablet, enteric coated Oral daily Allergies: Tetanus-Diphtheria Toxoids Td Review of Systems: Review of Systems is not available for this patient. Vital Signs: Performed on Apr 09, 2021 13:51 Height - 67.50 in Weight - 129.4 lbs (LOW) BSA - 1.69 sq.m BMI - 19.97 Temperature - 99.7 F (HIGH) Pulse - 117 /min (HIGH) Respiration - 18 /min BP - 145/79 mm(hg) (HIGH) O2 Sat - 98 % Pain - 4 Fatigue - 10 Performance Status: 2 - Ambulatory/capable of all self-care, unable to perform any work activities. Up and about more than 50% of waking hours. (ECOG) Physical Examination: ENMT - No mouth sores, but poor oral hygiene with inflammation/purulent discharge in left anterior mandible, no thrush, no jaundice, Respiratory - Lungs are clear to auscultation, Cardiovascular - Regular rate and rhythm of heart, Abdomen - Soft, bowel sounds present, Anterior skin lesions are improving, Extremities - No visible edema. Lab/Imaging: Test performed on March 20, 2021 13:30 LDH (Total) 551 U/L Sodium 136 mmol/L Uric Acid 10.7 mg/dL Potassium 5.5 mmol/L Chloride 98 mmol/L CO2 28 mmol/L Anion Gap 15.5 BUN 97 mg/dL Creatinine 4.0 mg/dL Cr Clearance (Est) 13.6900 mL/min Glucose 116 mg/dL Osmolality - Calculated 313 mOsm/kg Calcium 10.4 mg/dL Protein, Total 5.9 g/dL Albumin 3.5 g/dL Globulin 2.4 g/dL Bilirubin, Total 0.2 mg/dL ALT (SGPT) 16 U/L AST (SGOT) 22 U/L Alkaline Phosphatase 105 IU/L WBC 13.3 10 3/uL RBC 3.57 10 6/uL HGB 10.3 g/dL HCT 31.7 % MCV 88.8 fL MCH 28.9 pg MCHC 32.5 g/dL RDW 13.9 % Platelet Count 436 10 3/cmm MPV 10.3 fL Neutrophils 11.95 10 3/uL Lymphocytes 0.4 10 3/uL Monocytes 0.8 10 3/uL Eosinophils 0.0 10 3/uL Basophils 0.0 10 3/uL Neutrophil % 89.7 % Lymphocyte % 2.6 % Monocyte % 5.7 % Eosinophil % 0.0 % Basophils % 0.1 % NRBC % 0 % Impression: Large B-cell lymphoma with high-grade features per anterior abdominal wall skin lesion biopsy done on March 11, 2021, Ki-67 up to 75%, BCL-2 weak, strong c-Myc expression, FISH pending CT PET scan done on January 19, 2021 showed hypermetabolic soft tissue lesion in the right cervical papo territory, anterior mediastinum, subcutaneous tissue involving left upper abdominal wall and anterior chest, right testicle, peripancreatic region. Multifocal osseous metastatic disease, FDG positive soft tissue at L3 and L4 neuroforamen, representing lymphoma. Started on R-CHOP/Xgeva on April 01, 2021, Prior to that, patient was given high-dose prednisone as a part of R-CHOP because of progressive symptoms while waiting for chemotherapy approval for recently transformed low-grade lymphoma into high-grade, patient did develop symptom of tumor lysis despite of being on allopurinol for which patient required inpatient care 2, h/o Grade 2 follicular lymphoma status post excisional biopsy of right mandibular mass done on 04/08/2017 Flow cytometry was positive for CD19, CD20, CD22 and FNCC 7 and negative for CD5 Also exhibited surface kappa light chain restriction. CT PET scan was done in 2017, as per patient he was told he has stage II disease. Being low-grade and early-stage, no treatment was required but Active surveillance. CT PET scan done on 05/06/2017 showed left cervical lymphadenopathy and activity in the right shoulder but there are severe degenerative changes in that area and there is also increased activity involving lumbar spine may have both soft tissue or bone lesions. There are abnormal areas in the right ribs but patient has history of surgery on right ribs CT PET scan repeated on 03/12/2019 showed suspicious activity is present in the mediastinum in soft tissue abutting the ascending aortic arch and pulmonary artery. This has SUV of 7.9 consistent with recurrent lymphoma and additional hypermetabolic soft tissue is adherent to the abdominal aorta with SUV of 6.8 consistent with lymphoma Left inguinal lymph nodes measures up to 2.7 cm has SUV of 11 There is intense rectosigmoid activity which could be physiological but lymphomatous involvement cannot be ruled out Patient has history of diverticulitis/diverticular. Left inguinal lymph node biopsy done on 05/04/2019 showed follicular lymphoma Plan: Discussed with patient regarding his labs white blood count 0.9 hemoglobin 7.7 g adequate 24 platelets 151,000 ANC 380 CMP within normal limit except creatinine 1.5 compared to 2.5 on March 29, 2021 and 4.4 on March 19, 2021, sodium 133 Clinically, patient is in moderate to severe distress due to persistent shakes and chills and feeling cold although not feverish but clinically being severely neutropenic, there is a concern he may have underlying sepsis and source could be left anterior mandibular gingivitis or questionable osteomyelitis. At this point we will send him to [facility] for evaluation for possible inpatient care with broad-spectrum antibiotics, patient also has severe anemia which is multifactorial, will also consider 2 units of packed RBCs. Patient return to clinic in 2 weeks with CBC CMP Signed By: Jose Angel Figueroa M.D. <<Signature on File>>
== END 2021-04-09 15:00 | disposition home or self-care (01) ==
LOC: ONCMED 12:11
PROVIDERS: PCP Internal Medicine; Visit Provider Internal Medicine Hematology & Oncology
DX: C82.11 Follicular lymphoma grade II, lymph nodes of head, face, and neck (principal); C79.51 Secondary malignant neoplasm of bone; R74.8 Abnormal levels of other serum enzymes; K57.92 Diverticulitis of intestine, part unspecified, without perforation or abscess without bleeding; Z79.899 Other long term (current) drug therapy; Z92.21 Personal history of antineoplastic chemotherapy
CPT/HCPCS: 80053; 85025; 96360; 99214; J7030

== ENCOUNTER 2021-04-09 15:15 | Inpatient (IN) | payer MEDICARE, SELFPAY ==
[2021-04-09] VITALS (12 sets, daily range): BP systolic 120–141; BP diastolic 65–87; PULSE 98–118; RESP 16–22; TEMP 36.6–38.4; O2SAT 94–99; BMI 20.2
--- NOTE | 2021-04-09 16:36 | ECG_ITS ---
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 Measurements Intervals [place] Rate: 111 P: WI: QRS: 46 QRSD: 85 T: 81 QT: 318 QTc: 433 Interpretive Statements SINUS TACHYCARDIA Compared to ECG 03/22/2021 22:03:53 NO SIGNIFICANT CHANGES Electronically Signed On 04-09-2021 18:54:38 CDT by Neal Stringer M.D. [email or web address]
[2021-04-09 17:57] LABS: Basophils % 2.6 %; Eosinophils # 0.1 10^3/uL (0.0-0.8); Eosinophils % 6.9 %; Hematocrit 26.1 % (42.0-52.0); Hemoglobin 8.1 g/dL (11.7-16.6); Lymphocytes # 0.2 10^3/uL (0.8-4.8); Lymphocytes % 17.2 %; Mean Corpuscular Hemoglobin 29.3 pg (28.0-34.0); Mean Corpuscular Volume 94.6 fL (80-94); Mean Platelet Volume 10.2 fL (7.4-10.4); Monocytes # 0.3 10^3/uL (0.2-0.9); Monocytes % 23.3 %; Neutrophils % 49.1 %; Nucleated Red Blood Cells % 0 %; Platelet Count 161 10^3/cmm (130-400); Red Blood Count 2.76 10^6/uL (4.1-5.3); Red Cell Distribution Width 14.6 % (12.1-15.1); White Blood Count 1.2 10^3/uL (4.0-10.0)
[2021-04-09 18:08] LABS: Ketone (Acetest) Serum Negative (Negative)
[2021-04-09 18:15] LABS: Alanine Aminotransferase 9 U/L (0-41); Albumin Level 3.6 g/dL (3.5-5.2); Alkaline Phosphatase 109 IU/L (40-130); Anion Gap 16.9 (5-19); Aspartate Amino Transferase 15 U/L (0-40); Blood Urea Nitrogen 30 mg/dL (8-23); Calcium 8.2 mg/dL (8.5-10.5); Carbon Dioxide 21 mmol/L (22-29); Chloride 98 mmol/L (98-107); Globulin 2.7 g/dL (1.3-4.6); Glucose 114 mg/dL (65-115); Osmolality Calculated 281 mOsm/kg (285-295); Potassium 3.9 mmol/L (3.5-5.1); Sodium 132 mmol/L (136-145); Total Bilirubin 0.4 mg/dL (0.15-1.2); Total Protein 6.3 g/dL (6.6-8.7)
[2021-04-09 18:20] LABS: Neutrophils # 0.57 10^3/uL (1.8-7.7)
[2021-04-09 18:21] LABS: Slide Review Slide Review Perform
--- NOTE | 2021-04-09 18:21 | ED_ITS ---
HPI - General Adult General: Chief complaint: General Medical Stated complaint: NEEDS TRANSFUSION Time Seen by Provider: 04/09/21 18:10 Source: patient Mode of arrival: ambulatory Limitations: no limitations History of Present Illness: HPI narrative: 80-year-old male has a history of cancer has been on chemo over the last 2 weeks. Patient states he had blood drawn yesterday and was anemic in his oncologist sent him up here for transfusion. Patient also is neutropenic and had a low-grade fever at home. Temperature here is 99.6. He denies any cough or difficulty urinating. He denies any headache. Associated symptoms: Deny chest pain, dyspnea, headache(s), nausea, rash or vomiting Review of Systems Const: Denies: fever(s), chills, body aches or change in appetite Eyes: Denies: blurry vision or eye discomfort ENMT: Denies: throat pain or dental pain Card: Denies: chest pain Resp: Denies: dyspnea GI: Denies: abdominal pain, nausea, vomiting or diarrhea : Denies: dysuria Musc: Denies: neck pain or back pain Skin/Breast: Denies: rash Neuro: Denies: headache(s) Psych: Denies: depression Miguel/Lymph: Denies: easy bruising All/Imm: Denies: urticaria PFSH ED PFSH: Medical History Diverticulosis Follicular lymphoma Diagnosed in 2017, 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, multiple locations, 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 History of basal cell carcinoma of skin History of renal dialysis Temporary 3 weeks of hemodialysis after traumatic encounter with a horse in 2011 Osteoarthritis Surgical History H/O lymph node biopsy (~04/2019) Left inguinal History of appendectomy History of cataract surgery History of colonoscopy (~2015) History of right knee joint replacement Port-A-Cath in place (03/21/21) S/P skin biopsy (~12/2020) Abdominal wall mass Status post excisional biopsy (~2016) Submandibular mass Status post radiation therapy Palliative radiotherapy completed on February 12, 2021 to the lumbar area Status post replacement of right shoulder joint (~2018) Family History Mother Cancer Brain Father Cancer Multiple myeloma Social History Smoking and tobacco status: former smoker Alcohol intake: current Alcohol intake frequency: few times a week Alcohol type: beer Lives independently: Yes Marital status: / Physical Exam Const: COMMON NORMALS: no acute distress, patient oriented x3 and healthy appearing HENMT: COMMON NORMALS: normocephalic and atraumatic HEAD & SCALP: normocephalic and atraumatic Eye: COMMON NORMALS: Equal, round and reactive pupils present and EOMs intact bilaterally PUPIL: Yes Equal, round and reactive pupils present Neck/C-Spine: COMMON NORMALS: full ROM and supple Chest: COMMONS NORMALS: normal inspection of the chest and normal palpation of entire chest wall Resp: COMMON NORMALS: normal respiratory effort, No retractions, No use of a ccessory muscles and clear to auscultation bilaterally AUSCULTATION: clear to auscultation bilaterally Cardio: COMMON NORMALS: regular rate, regular rhythm and No murmurs present (Cardio) RATE: regular rate RHYTHM: regular rhythm GI: COMMON NORMALS: Normal to inspection, nondistended, normoactive bowel sounds present, Soft to palpation, non-tender and no masses PALPATION: Yes Soft to palpation Extremity: COMMON NORMALS: normal to inspection and full ROM Neuro: COMMON NORMALS: patient oriented x3, moves all extremities and no focal motor deficits Psych: COMMON NORMALS: mental status grossly normal, Normal thought process present and cooperative THOUGHT PROCESS: Normal thought process present Skin: COMMON NORMALS: no rashes or lesions noted and no wounds GENERAL SKIN EXAM: no rashes or lesions noted Course Vital Signs: Vital signs: Vital Signs Temperature 101.1 F H 04/09/21 18:48 Pulse Rate 110 H 04/09/21 18:41 Respiratory Rate 22 H 04/09/21 18:41 Blood Pressure 134/87 04/09/21 18:41 Pulse Oximetry 99 04/09/21 18:41 MDM - General Adult MDM Narrative: Medical decision making narrative: Patient presents with a neutropenic fever. His temperature here is 101. He has no signs of septic shock his vitals here have otherwise been normal. He is neutropenic. I spoke to the hospitalist and will admit and start patient on IV antibiotics. Lab Data: Labs: Lab Results 04/09/21 04/09/21 04/09/21 Range/Units 17:36 17:36 17:36 WBC 1.2 L (4.0-10.0) 10^3/ uL RBC 2.76 L (4.1-5.3) 10^6/u L Hgb 8.1 L (11.7-16.6) g/dL Hct 26.1 L (42.0-52.0) % MCV 94.6 H (80-94) fL MCH 29.3 (28.0-34.0) pg MCHC 31.0 (30.0-36.0) g/dL RDW 14.6 (12.1-15.1) % Plt Count 161 (130-400) 10^3/c mm MPV 10.2 (7.4-10.4) fL Neut % (Auto) 49.1 % Lymph % (Auto) 17.2 % [place] % (Auto) 23.3 % Eos % (Auto) 6.9 % Baso % (Auto) 2.6 % Neut # (Auto) 0.57 L* (1.8-7.7) 10^3/u L Lymph # (Auto) 0.2 L (0.8-4.8) 10^3/u L [place] # (Auto) 0.3 (0.2-0.9) 10^3/u L Eos # (Auto) 0.1 (0.0-0.8) 10^3/u L Baso # (Auto) 0.0 (0.0-0.1) 10^3/u L Nucleated RBC % (a uto) 0 % Nucleated RBCs # 0.0 /100WBC Sodium 132 L (136-145) mmol/L Potassium 3.9 (3.5-5.1) mmol/L Chloride 98 (98-107) mmol/L Carbon Dioxide 21 L (22-29) mmol/L Anion Gap 16.9 (5-19) BUN 30 H (8-23) mg/dL Creatinine 1.3 H (0.7-1.2) mg/dL GFR Calculation Not Reportable Glucose 114 (65-115) mg/dL Calculated Osmolal ity 281 L (285-295) mOsm/k g Lactic Acid 1.0 (0.5-2.2) mmol/L Lactate (0.5-2.2) mmol/L Calcium 8.2 L (8.5-10.5) mg/dL Total Bilirubin 0.4 (0.15-1.2) mg/dL AST 15 (0-40) U/L ALT 9 (0-41) U/L Alkaline Phosphata se 109 (40-130) IU/L Total Protein 6.3 L (6.6-8.7) g/dL Albumin 3.6 (3.5-5.2) g/dL Globulin 2.7 (1.3-4.6) g/dL Urine Color (Yellow) Urine Appearance (CLEAR) Urine pH (5-7) Ur Specific Gravit y (1.005-1.030) Urine Protein (Negative) Urine Glucose (UA) (Normal) Urine Ketones (Negative) Urine Blood (Negative) Urine Nitrate (Negative) Urine Bilirubin (Negative) Urine Urobilinogen (Negative) mg/dL Ur Leukocyte Shahana ase (Negative) Serum Ketones (Negative) Blood Type Rho(D) Type Antibody Screen 04/09/21 04/09/21 04/09/21 Range/Units 17:36 17:36 18:43 WBC (4.0-10.0) 10^3/ uL RBC (4.1-5.3) 10^6/u L Hgb (11.7-16.6) g/dL Hct (42.0-52.0) % MCV (80-94) fL MCH (28.0-34.0) pg MCHC (30.0-36.0) g/dL RDW (12.1-15.1) % Plt Count (130-400) 10^3/c mm MPV (7.4-10.4) fL Neut % (Auto) % Lymph % (Auto) % [place] % (Auto) % Eos % (Auto) % Baso % (Auto) % Neut # (Auto) (1.8-7.7) 10^3/u L Lymph # (Auto) (0.8-4.8) 10^3/u L [place] # (Auto) (0.2-0.9) 10^3/u L Eos # (Auto) (0.0-0.8) 10^3/u L Baso # (Auto) (0.0-0.1) 10^3/u L Nucleated RBC % (a uto) % Nucleated RBCs # /100WBC Sodium (136-145) mmol/L Potassium (3.5-5.1) mmol/L Chloride (98-107) mmol/L Carbon Dioxide (22-29) mmol/L Anion Gap (5-19) BUN (8-23) mg/dL Creatinine (0.7-1.2) mg/dL GFR Calculation Glucose (65-115) mg/dL Calculated Osmolal ity (285-295) mOsm/k g Lactic Acid (0.5-2.2) mmol/L Lactate 0.8 (0.5-2.2) mmol/L Calcium (8.5-10.5) mg/dL Total Bilirubin (0.15-1.2) mg/dL AST (0-40) U/L ALT (0-41) U/L Alkaline Phosphata se (40-130) IU/L Total Protein (6.6-8.7) g/dL Albumin (3.5-5.2) g/dL Globulin (1.3-4.6) g/dL Urine Color (Yellow) Urine Appearance (CLEAR) Urine pH (5-7) Ur Specific Gravit y (1.005-1.030) Urine Protein (Negative) Urine Glucose (UA) (Normal) Urine Ketones (Negative) Urine Blood (Negative) Urine Nitrate (Negative) Urine Bilirubin (Negative) Urine Urobilinogen (Negative) mg/dL Ur Leukocyte Shahana ase (Negative) Serum Ketones Negative (Negative) Blood Type O Negative Rho(D) Type Negative / 0 Antibody Screen Negative 04/09/21 Range/Units 19:10 WBC (4.0-10.0) 10^3/ uL RBC (4.1-5.3) 10^6/u L Hgb (11.7-16.6) g/dL Hct (42.0-52.0) % MCV (80-94) fL MCH (28.0-34.0) pg MCHC (30.0-36.0) g/dL RDW (12.1-15.1) % Plt Count (130-400) 10^3/c mm MPV (7.4-10.4) fL Neut % (Auto) % Lymph % (Auto) % [place] % (Auto) % Eos % (Auto) % Baso % (Auto) % Neut # (Auto) (1.8-7.7) 10^3/u L Lymph # (Auto) (0.8-4.8) 10^3/u L [place] # (Auto) (0.2-0.9) 10^3/u L Eos # (Auto) (0.0-0.8) 10^3/u L Baso # (Auto) (0.0-0.1) 10^3/u L Nucleated RBC % (a uto) % Nucleated RBCs # /100WBC Sodium (136-145) mmol/L Potassium (3.5-5.1) mmol/L Chloride (98-107) mmol/L Carbon Dioxide (22-29) mmol/L Anion Gap (5-19) BUN (8-23) mg/dL Creatinine (0.7-1.2) mg/dL GFR Calculation Glucose (65-115) mg/dL Calculated Osmolal ity (285-295) mOsm/k g Lactic Acid (0.5-2.2) mmol/L Lactate (0.5-2.2) mmol/L Calcium (8.5-10.5) mg/dL Total Bilirubin (0.15-1.2) mg/dL AST (0-40) U/L ALT (0-41) U/L Alkaline Phosphata se (40-130) IU/L Total Protein (6.6-8.7) g/dL Albumin (3.5-5.2) g/dL Globulin (1.3-4.6) g/dL Urine Color Yellow (Yellow) Urine Appearance Clear (CLEAR) Urine pH 6 (5-7) Ur Specific Gravit y 1.010 (1.005-1.030) Urine Protein Neg (Negative) Urine Glucose (UA) Norm (Normal) Urine Ketones Negative (Negative) Urine Blood Neg (Negative) Urine Nitrate Negative (Negative) Urine Bilirubin Neg (Negative) Urine Urobilinogen Norm (Negative) mg/dL Ur Leukocyte Shahana ase Negative (Negative) Serum Ketones (Negative) Blood Type Rho(D) Type Antibody Screen Imaging Data^: CXR: Attestation: I personally reviewed and interpreted this imaging study as follows: Radiologist's impression: [address] [address] XRay Report Signed Patient: Xavi Pryor Unit #: [id number] : 1940 Age/Sex: 80 / M ADM Date: 04/09/21 Loc: ER Room/Bed: Attending Dr: Ordering Provider/Ordering MD: Ciarra Hartman MD Date of Service: 04/09/21 Procedure(s): XR chest 1V portable [id number] Accession Number(s): [id number] Report Number: [id number] PROCEDURE INFORMATION: Exam: XR Chest Exam date and time: 04/09/2021 6:20 PM Age: 80 years old Clinical indication: Fever and shortness of breath; Prior surgery; Surgery type: RT side ribs, RT shoulder, port; Patient HX: PT on chemo for lymphoma; Additional info: Fever, SOB TECHNIQUE: Imaging protocol: XR of the chest. Views: 1 view. COMPARISON: CT chest abd pel wo con 03/22/2021 6:44 PM FINDINGS: Tubes, catheters and devices: Right-sided Port-A-Cath seen in place with tip in the superior vena cava. Stable orthopedic hardware seen at several right ribs. Lungs: Unremarkable. No consolidation. Pleural spaces: Trace right pleural effusion. Heart/Mediastinum: Unremarkable. No cardiomegaly. Bones/joints: Right shoulder arthroplasty changes. XR/XR chest 1V portable [id number] IMPRESSION: 1. Right-sided Port-A-Cath seen in place with tip in the superior vena cava. 2. Stable orthopedic hardware seen at several right ribs. 3. Right shoulder arthroplasty changes. 4. Trace right pleural effusion. Discharge Plan Discharge Prescriptions: No Action loratadine [Claritin] 10 mg tablet 10 mg PO DAILY PRN (Reason: Allergy Symptoms) RF: 0 fluticasone propionate 50 mcg/actuation spray,suspension 1 spray INTRANASAL BID PRN (Reason: Nasal Congestion) RF: 0 albuterol sulfate 90 mcg/actuation Hfa Aerosol Inhaler 1 puff INHALATION QID PRN (Reason: Shortness Of Breath) RF: 0 hydrocodone-acetaminophen 5-325 mg tablet 1 tab PO Q6H PRN (Reason: Pain) RF: 0 ferrous sulfate 325 mg (65 mg iron) Tablet,Delayed Release (Dr/Ec) 325 mg PO BIDWM Qty: 0 RF: 0 sennosides-docusate sodium [Stool Softener-Laxative] 8.6-50 mg Tablet 1 tab PO BID Qty: 0 RF: 0 hydralazine 100 mg tablet 100 mg PO TID Qty: 90 RF: 0 allopurinol 100 mg tablet 100 mg PO DAILY@20 RF: 0 multivitamin Tablet 1 tab PO DAILY@20 RF: 0 prochlorperazine maleate 10 mg tablet 10 - 20 mg PO TID PRN (Reason: Nausea And Vomiting) RF: 0 lidocaine-prilocaine 2.5-2.5 % cream 1 applic topical . 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
[2021-04-09 19:05] LABS: Lactate (Lactic Acid level) 0.8 mmol/L (0.5-2.2)
[2021-04-09 19:17] LABS: Add Urine Microscopic? NO; Charge for UA Resulting for Rev
--- NOTE | 2021-04-09 19:19 | PM.HP ---
Providers/Chief Complaint Primary Care Provider: Enrique Nguyen DO Chief Complaint: NEEDS TRANSFUSION History of Present Illness Xavi Pryor is a 80 year old male who has 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 Figueroa because of anemia, neutropenia. Patient is stating that at home he has not noticed any chest pain, shortness of breath, productive cough, change in his bowel movement, worsening of skin rash. He has been extremely lethargic, fatigued and exhausted. Endorsing subjective fevers. Denies any melena, hematochezia, hemoptysis. He has lost significant amount of weight about 30 pounds in last few months. Diagnosis in the ER revealed high-grade fever, neutropenia and anemia, he was started on broad-spectrum antibiotics, normal blood pressure, patient is denying new symptoms other than exhaustion. Chest x-ray unremarkable Of note, patient did develop tumor lysis syndrome after starting chemotherapy Review of records: CT PET scan done on January 19, 2021 showed hypermetabolic soft tissue lesion in the right cervical papo territory, anterior mediastinum, subcutaneous tissue involving left upper abdominal wall and anterior chest, right testicle, peripancreatic region. Multifocal osseous metastatic disease, FDG positive soft tissue at L3 and L4 neuroforamen, representing lymphoma. Review of Systems Const: Reports: chills, body aches, change in appetite, change in weight, fatigue and malaise; Denies: night sweats Eyes: Denies: change in vision ENMT: Reports: throat pain, oral sores, dental pain and halitosis Card: Denies: chest pain Resp: Denies: dyspnea GI: Denies: abdominal pain : Denies: flank pain Musc: Reports: muscle cramps Skin/Breast: Reports: lesions Neuro: Denies: headache(s) Psych: Denies: anxiety Endo: Denies: polyuria Miguel/Lymph: Reports: easy bruising All/Imm: Denies: urticaria Medications/Allergies Home Medications Medication Instructions Recorded Confirmed Last Taken Type fluticasone propionate 50 1 spray INTRANASAL BID PRN 11/15/19 03/21/21 Unknown History mcg/actuation nasal spray,suspension loratadine 10 mg tablet 10 mg PO DAILY PRN 11/15/19 03/21/21 Unknown History albuterol sulfate 1 puff INHALATION QID PRN 03/21/21 04/09/21 Unknown History ferrous sulfate 325 mg PO BIDWM #0 tab 03/24/21 Unknown Rx hydralazine 100 mg PO TID #90 tab 03/24/21 Unknown Rx hydrocodone-acetaminophen 1 tab PO Q6H PRN 03/24/21 03/24/21 03/21/21 History sennosides-docusate sodium [Stool 1 tab PO BID #0 tab 03/24/21 Unknown Rx Softener-Laxative] allopurinol 100 mg PO DAILY@20 04/09/21 04/09/21 04/08/21 History lidocaine-prilocaine 1 applic TOPICAL . DIRECTED 04/09/21 04/09/21 Unknown History lorazepam 1 mg PO TID PRN 04/09/21 04/09/21 Unknown History melatonin 10 mg PO BEDTIME 04/09/21 04/09/21 Unknown History multivitamin 1 tab PO DAILY@20 04/09/21 04/09/21 04/08/21 History pantoprazole 40 mg PO DAILY 04/09/21 04/09/21 Unknown History potassium chloride 20 meq PO DAILY@20 04/09/21 04/09/21 04/08/21 History prochlorperazine maleate 10 - 20 mg PO TID PRN 04/09/21 04/09/21 Unknown History Allergies Allergy/AdvReac Type Severity Reaction Status Date / Time Tetanus Vaccines and Toxoid Allergy Intermediate ALGY-Hives Verified 04/09/21 15:59 PFSH Acute PFSH: Medical History Diverticulosis Follicular lymphoma Diagnosed in 2017, 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, multiple locations, 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 History of basal cell carcinoma of skin History of renal dialysis Temporary 3 weeks of hemodialysis after traumatic encounter with a horse in 2011 Osteoarthritis Surgical History H/O lymph node biopsy (~04/2019) Left inguinal History of appendectomy History of cataract surgery History of colonoscopy (~2015) History of right knee joint replacement Port-A-Cath in place (03/21/21) S/P skin biopsy (~12/2020) Abdominal wall mass Status post excisional biopsy (~2016) Submandibular mass Status post radiation therapy Palliative radiotherapy completed on February 12, 2021 to the lumbar area Status post replacement of right shoulder joint (~2018) Family History Mother Cancer Brain Father Cancer Multiple myeloma Social History Smoking and tobacco status: former smoker Alcohol intake: current Alcohol intake frequency: few times a week Alcohol type: beer Lives independently: Yes Marital status: / Vitals/I&O/Wt Last Vital Signs Temp 101.1 F H 04/09/21 18:48 Pulse 110 H 04/09/21 18:41 Resp 22 H 04/09/21 18:41 BP 134/87 04/09/21 18:41 Pulse Ox 99 04/09/21 18:41 Weight last 48 hrs Weight 58.513 kg Physical Exam Narrative: EXAM NARRATIVE: Very pleasant elderly male who was laying supine comfortably in his bed with multiple layers of blankets Was able to mention above HPI, Awake alert oriented x3 GCS 15 No strokelike symptoms No signs of meningitis No headache EOMI, PERRLA Left mandibular gingivitis left mid abdomen nodule, mildly tender on deep palpation Abdomen soft no signs of peritonitis guarding or rigidity Lower extremity no edema gangrene or ulcer Bilateral breath sounds without adventitious rhonchi or crackles S1, S2 sinus tachycardia Multiple skin nodules all over his body, cervical lymphadenopathy, erythema nodosum Data : 04/09/21 17:36 04/09/21 17:36 Micro: Microbiology 04/09/21 18:43 Blood Culture - Preliminary Blood SPECIMEN COLLECTED 04/09/21 17:36 Blood Culture - Preliminary Blood SPECIMEN COLLECTED A&P Assessment and plan (1) Neutropenia: Status: Acute (2) Neutropenic fever: Status: Acute (3) Chronic kidney disease: Status: Acute (4) Macrocytic anemia: Status: Acute (5) Sepsis: Status: Acute Additional A&P Information Sepsis with neutropenia Neutropenia with fever 101 Multiple lymphadenopathy with skin nodules Chest x-ray unremarkable no signs of meningitis Start on broad-spectrum antibiotics Normal saline 75 cc/h Currently hemodynamically stable CBC showing anemia with neutropenia however platelet count is normal, kindly touch base with Dr. Figueroa in the morning if he would benefit from CSF stimulating factor however does not have pancytopenia, differentials will include sepsis, chemotherapy-induced, bone marrow suppression Isolation precautions With broad-spectrum antibiotics he will get MRSA, gram-negative &anaerobic coverage, I would hold off on adding antifungal regimen for now Requested blood culture, sputum culture Will obtain chest abdomen pelvis CT scan Scrotum ultrasound 01/28: Poor dental hygiene with gingival inflammation, chlorhexidine mouthwash 1. Low-attenuation mass within the RIGHT testicle with increased vascularity and possible mild central necrosis. Mass measures 2.4 x 1.8 x 2.1 cm and was described also on PET/CT is likely malignant. With the diffuse increased vascularity this is not likely a testicular abscess. 2. Negative LEFT testicle. Macrocytic anemia: No acute blood loss, check B12, folic acid I would hold off on blood transfusion for now, current hemoglobin 8.1, he has received blood transfusion in the past when his hemoglobin was 4 Normal TSH, will check B12 and folate level Previous history of hematuria, CT abdomen pelvis was unremarkable He also experienced hematochezia with large bright red clots, however improved after Lovenox was discontinued, he received 2 units of blood when his hemoglobin dropped from 12 to 7 I do not see any EGD or colonoscopy report Protein calorie malnourishment: He was evaluated by a tile ditcher in the past, recommendation was made to increase protein and calories, diet plan was according to his poor kidney function Chronic kidney disease without acute exacerbation this seems to be his new baseline Cardiac diet DVT prophylaxis contraindicated would use SCDs Full code , Sepsis with neutropenic fever carries higher mortality and morbidity, currently patient is hemodynamically stable will monitor on MedSurg for now Attestations Medical Necessity Statement*: Anticipating stay in the hospital cross more than 2 midnights for sepsis neutropenic fever Time Spent in Patient Care: 40mins Coding Level of Care Code 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 Fwd Diagnoses Neutropenia D70.9 Neutropenic fever D70.9; R50.81 Chronic kidney disease N18.9 Macrocytic anemia D53.9 Sepsis A41.9
[2021-04-09 19:21] LABS: Bilirubin Urine Neg (Negative); Blood Urine Neg (Negative); Glucose Urine UA Norm (Normal); Ketones Urine Negative (Negative); Leukocyte Esterase Urine Negative (Negative); Nitrate Urine Negative (Negative); Protein Urine Neg (Negative); Urine Appearance Clear (CLEAR); Urine Color Yellow (Yellow); Urobilinogen Urine Norm (Negative); pH Urine 6 (5-7)
--- NOTE | 2021-04-09 19:23 | PC.PHAR ---
pt states he takes care of his own medications-pt states the dr parker all the steroids he was taking-pt states he thinks he is taking 100mg daily of allopurinol last filled on 03/25/21-pt did have 300mg daily filled on 03/13/21-pt states he is unsure if he is taking pantoprazole 40mg daily filled on 03/25/21 30d/s
[2021-04-09] MEDS: acetaminophen 325 mg Tablet 650 MG PO (20:13)
[2021-04-09] MEDS: piperacillin-tazobactam 3.375 GM in sodium chloride 0.9% (plus) 50 ML IV (20:19)
[2021-04-09] MEDS: vancomycin 1,000 MG in sodium chloride 0.9% 250 ML 250 MG IV (20:56)
--- NOTE | 2021-04-09 21:55 | CTR_ITS ---
PROCEDURE INFORMATION: Exam: CT Chest Without Contrast; Diagnostic Exam date and time: 04/09/2021 10:01 PM Age: 80 years old Clinical indication: Prior surgery; Surgery type: Costal fixation. Tsr. Thr. ; Patient HX: Fever with lymphadenopathy. History of lymphoma. ; Additional info: Fever lymphadenopathy, lymphoma TECHNIQUE: Imaging protocol: Diagnostic computed tomography of the chest without contrast. Radiation optimization: All CT scans at this facility use at least one of these dose optimization techniques: automated exposure control; mA and/or kV adjustment per patient size (includes targeted exams where dose is matched to clinical indication); or iterative reconstruction. COMPARISON: CT chest abd pel wo con 03/22/2021 6:44 PM RADIATION DOSE METRICS: Total DLP (mGy-cm): 1214.17 FINDINGS: Tubes, catheters and devices: Right-sided Port-A-Cath Lungs: Emphysematous changes. Right lower lobe atelectasis versus infiltrate. Pleural spaces: Unremarkable. No pneumothorax. No pleural effusion. Heart: Coronary artery atherosclerotic calcifications. Aorta: Unremarkable. No aortic aneurysm. Lymph nodes: Several nonspecific mediastinal lymph nodes measuring up to 5.5 mm short axis diameter, similar to prior exam. Bones/joints: Fixation hardware seen in several right ribs. Soft tissues: Unremarkable. IMPRESSION: 1. Emphysematous changes. 2. Coronary artery atherosclerotic calcifications. 3. Right lower lobe atelectasis versus infiltrate. 4. Fixation hardware seen in several right ribs. 5. Several nonspecific mediastinal lymph nodes measuring up to 5.5 mm short axis diameter, similar to prior exam. 6. Right-sided Port-A-Cath PROCEDURE INFORMATION: Exam: CT Abdomen And Pelvis Without Contrast Exam date and time: 04/09/2021 10:01 PM Age: 80 years old Clinical indication: Prior surgery; Surgery type: Costal fixation. Tsr. Thr. ; Patient HX: Fever with lymphadenopathy. History of lymphoma. ; Additional info: Fever lymphadenopathy, lymphoma TECHNIQUE: Imaging protocol: Computed tomography of the abdomen and pelvis without contrast. Radiation optimization: All CT scans at this facility use at least one of these dose optimization techniques: automated exposure control; mA and/or kV adjustment per patient size (includes targeted exams where dose is matched to clinical indication); or iterative reconstruction. COMPARISON: CT chest abd pel wo con 03/22/2021 6:44 PM RADIATION DOSE METRICS: Total DLP (mGy-cm): 1214.17 FINDINGS: Liver: Normal. No mass. Gallbladder and bile ducts: Normal. No calcified stones. No ductal dilation. Pancreas: Normal. No ductal dilation. Spleen: Normal. No splenomegaly. Adrenal glands: Normal. No mass. Kidneys and ureters: Normal. No hydronephrosis. Stomach and bowel: Constipation. Diverticulosis without diverticulitis. Appendix: No evidence of appendicitis. Intraperitoneal space: Unremarkable. No free air. No significant fluid collection. Vasculature: Unremarkable. No abdominal aortic aneurysm. Lymph nodes: Unremarkable. No enlarged lymph nodes. Urinary bladder: Unremarkable as visualized. Reproductive: Unremarkable as visualized. Bones/joints: Right hip arthroplasty changes. 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 Soft tissues: Unremarkable. CT/CT chest abd pel wo con IMPRESSION: 1. Negative for acute inflammatory process in the abdomen or pelvis. 2. Constipation. 3. Diverticulosis without diverticulitis. 4. Right hip arthroplasty changes. 5. 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 Radiation Dose CTDIVOL = (mGy): DLP = 1214.17~1214.17 (mGy-cm)
[2021-04-09 22:22] LABS: Reticulocyte % 0.2 % (0.5-2.0)
[2021-04-09 22:38] LABS: Iron 16 ug/dL (59-158); Lactate Dehydrogenase 312 U/L (135-225); Percent Saturation 6.6 % (20-50); Total Bilirubin 0.4 mg/dL (0.15-1.2); Total Iron Binding Capacity 241 mcg/dl; Unsaturated Iron Binding 225 ug/dL (112-347)
[2021-04-09 22:52] LABS: Vitamin B12 1276 pg/mL (232-1245)
[2021-04-09 22:53] LABS: Ferritin 1155 ng/mL (30-400); Folate Level 15.9 ng/mL (4.5-32.2)
[2021-04-09] MEDS: sodium chloride 0.9% 500 ML 999 ML IV (23:18)
[2021-04-09] MEDS: sodium chloride 0.9% 1,000 ML 75 ML IV (23:52)
[2021-04-10] VITALS (18 sets, daily range): BP systolic 119–155; BP diastolic 60–86; PULSE 97–114; RESP 16–20; TEMP 36.5–36.8; O2SAT 94–97
[2021-04-10] MEDS: HYDROcodone-acetaminophen 5-325 mg Tablet 1 TAB PO ×2 (00:17→21:10)
[2021-04-10 03:27] LABS: Basophils % 1.8 %; Eosinophils # 0.2 10^3/uL (0.0-0.8); Eosinophils % 10.4 %; Lymphocytes # 0.2 10^3/uL (0.8-4.8); Lymphocytes % 14.7 %; Mean Corpuscular HGB Conc 31.3 g/dL (30.0-36.0); Mean Corpuscular Hemoglobin 28.9 pg (28.0-34.0); Mean Corpuscular Volume 92.2 fL (80-94); Mean Platelet Volume 10.7 fL (7.4-10.4); Monocytes # 0.3 10^3/uL (0.2-0.9); Monocytes % 15.3 %; Neutrophils % 54.7 %; Nucleated Red Blood Cells % 0 %; Platelet Count 118 10^3/cmm (130-400); Red Blood Count 2.18 10^6/uL (4.1-5.3); Red Cell Distribution Width 14.4 % (12.1-15.1); White Blood Count 1.6 10^3/uL (4.0-10.0)
[2021-04-10 03:30] LABS: Hematocrit 20.1 % (42.0-52.0); Hemoglobin 6.3 g/dL (11.7-16.6); Neutrophils # 0.89 10^3/uL (1.8-7.7)
[2021-04-10 03:31] LABS: Slide Review Slide Review Perform
[2021-04-10] MEDS: piperacillin-tazobactam 3.375 GM in sodium chloride 0.9% (plus) 50 ML IV ×2 (03:37→19:35)
[2021-04-10 03:57] LABS: Anion Gap 13.8 (5-19); Blood Urea Nitrogen 30 mg/dL (8-23); C Reactive Protein 101.5 mg/L (0.0-4.9); Calcium 7.5 mg/dL (8.5-10.5); Carbon Dioxide 22 mmol/L (22-29); Chloride 102 mmol/L (98-107); Glucose 125 mg/dL (65-115); Osmolality Calculated 286 mOsm/kg (285-295); Potassium 3.8 mmol/L (3.5-5.1); Sodium 134 mmol/L (136-145)
[2021-04-10 04:04] LABS: Procalcitonin 0.39 ng/mL (0-0.5)
[2021-04-10] MEDS: pantoprazole DR 40 mg Tablet PO ×2 (09:26→17:25)
[2021-04-10] MEDS: hyDRALAzine 50 mg Tablet PO ×3 (09:26→21:10)
[2021-04-10] MEDS: chlorhexidine gluconate 0.12% Btl 473 mL 15 ML MUCOUS MEM ×2 (09:26→17:18)
[2021-04-10] MEDS: sennosides-docusate Tablet 1 TAB PO ×2 (09:26→17:25)
[2021-04-10] MEDS: sodium chloride 0.9% (100 ml) 100 ML (10:52)
--- NOTE | 2021-04-10 16:41 | P.PN_ITS ---
Subjective Subjective: Interval history: Admitted overnight. H&P and labs appreciated. Examination patient lying comfortably in bed. States he is feeling little better. Denies any nausea vomiting, headache. T-max since admission 101 Fahrenheit. Patient has not had any fever since 1 spike. Patient states he would like to go home but he understands if he is not able to go today. He is already received monitor blood transfusion and second is ongoing. Vitals/I&O/Wt Last Vital Signs Temp 98.0 F 04/10/21 15:58 Pulse 110 H 04/10/21 15:58 Resp 16 04/10/21 15:58 BP 139/78 04/10/21 15:58 Pulse Ox 94 04/10/21 15:58 04/10/21 04/10/21 04/10/21 06:59 14:59 22:59 Intake Total 1460 / 1760 1100 / 1100 0 / 1100 Output Total 465 / 465 620 / 620 Balance 995 / 1295 480 / 480 0 / 480 Weight last 48 hrs Weight 58.513 kg Physical Exam Narrative: EXAM NARRATIVE: Very pleasant elderly male who was laying supine comfortably Awake alert oriented x3 GCS 15 EOMI, PERRLA Left mandibular gingivitis left mid abdomen nodule, mildly tender on deep palpation Abdomen soft no signs of peritonitis guarding or rigidity, bowel sounds regular Lower extremity no edema gangrene or ulcer Bilateral breath sounds without adventitious rhonchi or crackles S1, S2 sinus tachycardia Multiple skin nodules all over his body, cervical lymphadenopathy, Data : 04/10/21 01:53 04/10/21 01:53 Micro: Microbiology 04/09/21 18:43 Blood Culture - Preliminary Blood 04/09/21 17:36 Blood Culture - Preliminary Blood SPECIMEN COLLECTED A&P Assessment and plan (1) Neutropenia: Status: Acute (2) Neutropenic fever: Status: Acute (3) Chronic kidney disease: Status: Acute (4) Macrocytic anemia: Status: Acute (5) Sepsis: Status: Acute Additional A&P Information Sepsis with neutropenia: Post first cycle chemotherapy. Continue broad-spectrum antibiotics vancomycin and Zosyn. Check MRSA swab, urine Legionella, bacterial antigen, sputum culture. We will continue to follow blood cultures. Preliminary negative. Patient has remained afebrile next 48 hours and blood cultures remain negative we will discontinue the antibiotics. Keep mean arterial pressure over 65. Continue with neutropenic precautions. Continue to monitor ANC. Leukopenia/anemia: Most likely secondary to first cycle of chemotherapy. Treatment of leukopenia as above. Anemia: Patient is getting 2 units of blood transfusion. We will recheck hemoglobin after the second unit. No active sites of bleeding for now. CT abdomen results appreciated. Check iron panel, vitamin B12, folate levels. Stool for occult blood. If positive will consult general surgery for possible EGD and colonoscopy. Patient would benefit from EGD and colonoscopy as an outpatient as well. Protein calorie malnourishment: He was evaluated by a online communications manager in the past, recommendation was made to increase protein and calories, diet plan was according to his poor kidney function Chronic kidney disease: Baseline creatinine from earlier this year seems to be running on the higher side. Creatinine improving than before. 1.4 today. Medical reconciliation done for nephrotoxic drugs. No active signs of acidosis or electrolyte of normality present. Tachycardia: Most likely reactionary to anemia. Start patient metoprolol 5 mg twice daily. We will continue to monitor. Cardiac diet DVT prophylaxis contraindicated would use SCDs Full code Attestations Medical Necessity Statement*: Patient requires further hospitalization for man agement of sepsis in setting of neutropenia, anemia requiring blood transfusion. Time Spent in Patient Care: Greater than 35 minutes (>than 50% of time spent in counselling and/or direct pt care on unit) . Coding Level of Care Code Acute Hospice Volunteer Coordinator for g Fwd Diagnoses Neutropenia D70.9 Neutropenic fever D70.9; R50.81 Chronic kidney disease N18.9 Macrocytic anemia D53.9 Sepsis A41.9
[2021-04-10 17:02] LABS: Iron 21 ug/dL (59-158); Percent Saturation 12.2 % (20-50); Total Iron Binding Capacity 171 mcg/dl; Unsaturated Iron Binding 150 ug/dL (112-347)
[2021-04-10 17:08] LABS: Thyroid Stimulating Hormone 1.81 uIU/mL (0.27-4.20)
[2021-04-10] MEDS: sodium chloride 0.9% 1,000 ML 75 ML IV (18:55)
[2021-04-10] MEDS: allopurinol 100 mg Tablet PO (19:35)
[2021-04-10 20:36] LABS: Hematocrit 25.8 % (42.0-52.0); Hemoglobin 8.6 g/dL (11.7-16.6)
[2021-04-10] MEDS: vancomycin 1,000 MG in sodium chloride 0.9% 250 ML 250 MG IV (21:10)
[2021-04-10] MEDS: metoprolol tartrate 25 mg Tablet PO (21:10)
[2021-04-11] VITALS (9 sets, daily range): BP systolic 121–133; BP diastolic 55–78; PULSE 80–106; RESP 18–21; TEMP 36.3–36.8; O2SAT 94–98
[2021-04-11] MEDS: piperacillin-tazobactam 3.375 GM in sodium chloride 0.9% (plus) 50 ML IV ×3 (03:54→21:34)
[2021-04-11 06:11] LABS: Hematocrit 26.7 % (42.0-52.0); Hemoglobin 8.6 g/dL (11.7-16.6); Mean Corpuscular HGB Conc 32.2 g/dL (30.0-36.0); Mean Corpuscular Hemoglobin 28.8 pg (28.0-34.0); Mean Corpuscular Volume 89.3 fL (80-94); Mean Platelet Volume 11.2 fL (7.4-10.4); Platelet Count 131 10^3/cmm (130-400); Red Blood Count 2.99 10^6/uL (4.1-5.3); Red Cell Distribution Width 14.6 % (12.1-15.1); White Blood Count 8.5 10^3/uL (4.0-10.0)
[2021-04-11 06:35] LABS: Alanine Aminotransferase 9 U/L (0-41); Alkaline Phosphatase 101 IU/L (40-130); Anion Gap 14.5 (5-19); Aspartate Amino Transferase 14 U/L (0-40); Blood Urea Nitrogen 20 mg/dL (8-23); Calcium 7.2 mg/dL (8.5-10.5); Carbon Dioxide 20 mmol/L (22-29); Chloride 103 mmol/L (98-107); Globulin 2.4 g/dL (1.3-4.6); Glucose 89 mg/dL (65-115); Osmolality Calculated 280 mOsm/kg (285-295); Potassium 3.5 mmol/L (3.5-5.1); Sodium 134 mmol/L (136-145); Total Bilirubin 0.4 mg/dL (0.15-1.2); Total Protein 5.4 g/dL (6.6-8.7)
[2021-04-11 06:37] LABS: Estmated Average Glucose 103; Hemoglobin A1C 5.2 % (4.0-6.0)
[2021-04-11 07:29] LABS: Slide Review Slide Review Perform
[2021-04-11 07:40] LABS: Absolute Eosinophils 0.5 10^3/cmm (0.0-0.7); Absolute Segmented Neutrophil 3.5 10/cmm (1.6-7.1); Band Neutrophils Absolute 3.3 10^3/cmm (0.0-1.2); Eosinophils 6 %; Lymphocytes 3 %; Lymphocytes Absolute 0.3 10^3/cmm (1.2-3.4); Monocytes Absolute 0.8 10^3/cmm (0.1-0.6); Segmented Neutrophils 41 %; Total Cells Counted 100 (0-100)
[2021-04-11 07:41] LABS: Absolute Neutrophil 6.8 10^3/cmm (1.4-6.5); Giant Platelets Trace; Platelet Estimate Decreased (Normal)
[2021-04-11] MEDS: pantoprazole DR 40 mg Tablet PO ×2 (08:41→17:50)
[2021-04-11] MEDS: ferrous sulfate EC 325 mg Tablet PO (08:41)
[2021-04-11] MEDS: sennosides-docusate Tablet 1 TAB PO ×2 (08:41→17:50)
[2021-04-11] MEDS: hyDRALAzine 50 mg Tablet PO ×3 (08:42→21:30)
[2021-04-11] MEDS: metoprolol tartrate 25 mg Tablet PO ×2 (08:43→21:30)
[2021-04-11] MEDS: chlorhexidine gluconate 0.12% Btl 473 mL 15 ML MUCOUS MEM ×2 (08:43→17:50)
[2021-04-11] MEDS: sodium chloride 0.9% 1,000 ML 75 ML IV (11:16)
--- NOTE | 2021-04-11 11:51 | P.PN_ITS ---
Subjective Subjective: Interval history: No events overnight. Has remained afebrile and hemodynamically stable. Blood cultures 1 out of 4 growing staph aureus. Patient denies any nausea, vomiting, headache. Patient is eager to go home. But understands the reason for him to be in the hospital. Vitals/I&O/Wt Last Vital Signs Temp 98.3 F 04/11/21 11:40 Pulse 80 04/11/21 11:40 Resp 18 04/11/21 11:40 BP 121/63 04/11/21 11:40 Pulse Ox 98 04/11/21 11:40 04/10/21 04/11/21 04/11/21 22:59 06:59 14:59 Intake Total 1774.792 / 2874.792 753.208 / 3628.000 960 / 960 Output Total 950 / 1570 595 / 2165 200 / 200 Balance 824.792 / 1304.792 158.208 / 1463.000 760 / 760 Weight last 48 hrs Weight 58.513 kg Physical Exam Narrative: EXAM NARRATIVE: Very pleasant elderly male who was laying supine comfortably Awake alert oriented x3 GCS 15 EOMI, PERRLA Left mandibular gingivitis left mid abdomen nodule, mildly tender on deep palpation Abdomen soft no signs of peritonitis guarding or rigidity, bowel sounds regular Lower extremity no edema gangrene or ulcer Bilateral breath sounds without adventitious rhonchi or crackles S1, S2 sinus tachycardia Multiple skin nodules all over his body, cervical lymphadenopathy, Data : 04/11/21 05:43 04/11/21 05:43 Micro: Microbiology 04/11/21 10:00 Blood Culture - Preliminary Blood SPECIMEN COLLECTED 04/09/21 18:43 Blood Culture - Preliminary Blood Staphylococcus aureus 04/10/21 17:30 Gram Stain - Final Sputum - Expectorated Sputum 04/11/21 00:25 Occult Blood (FIT) - Final Stool - Stool Aspirate 04/10/21 18:10 Legionella Urinary Antigen - Final Urine,Voided 04/09/21 17:36 Blood Culture - Preliminary Blood NEGATIVE TO DATE 04/09/21 19:10 Bacterial Antigens - Final Urine Kidney A&P Assessment and plan (1) Staphylococcus aureus bacteremia: Status: Acute (2) Sepsis: Status: Acute (3) Neutropenia: Status: Acute (4) Neutropenic fever: Status: Acute (5) Chronic kidney disease: Status: Acute (6) Macrocytic anemia: Status: Acute Additional A&P Information Sepsis with neutropenia: Post first cycle chemotherapy. Neutropenia has resolved. Patient did receive Neulasta after the last cycle of chemotherapy on April 02. Blood cultures from admission 1 out of 4 growing staph aureus. MRSA negative. Urine Legionella, bacterial antigen negative. For now we will continue vancomycin and Zosyn until we have sensitivities of staph aureus. Repeat blood cultures. Cannot rule out staph being a contaminant but with a history of neutropenia and multiple hardware in the past will have to confirm with repeat blood cultures prior to discharge. Keep mean arterial pressure over 65. Leukopenia/anemia: Most likely secondary to first cycle of chemotherapy. Resolved. Anemia: Post blood transfusion. Hemoglobin up to 8.6. Stool for occult blood positive. Hemoglobin stable for now. Iron panel results appreciated. Start patient on oral iron supplementation. Vitamin B12 folate levels within normal limits. Patient's hemoglobin drop again will consult general surgery for possible EGD and colonoscopy. Patient would benefit from EGD and colonoscopy as an outpatient as well. Protonix 40 mg oral daily. Protein calorie malnourishment: He was evaluated by a network cabler in the past, recommendation was made to increase protein and calories, diet plan was according to his poor kidney function Chronic kidney disease: Baseline creatinine from earlier this year seems to be running on the higher side. Creatinine improving than before. 1.4 today. Medical reconciliation done for nephrotoxic drugs. No active signs of acidosis or electrolyte of normality present. Tachycardia: Resolved. Continue with oral dose of metoprolol 25 mg twice daily. Hypertension: Goal blood pressure less than 140/90 of Hg. Continue home dose of hydralazine 50 3 times daily, metoprolol 25 twice daily. Cardiac diet DVT prophylaxis contraindicated would use SCDs Full code Attestations Medical Necessity Statement*: Patient requires further hospitalization for management of staph aureus bacteremia, sepsis in setting of resolving neutropenia and post chemotherapy patient. Time Spent in Patient Care: Greater than 35 minutes (>than 50% of time spent in counselling and/or direct pt care on unit) . Coding Level of Care Code Acute Field Sales Specialist for [facility] Fwd Diagnoses Staphylococcus aureus bacteremia R78.81; B95.61 Sepsis A41.9 Neutropenia D70.9 Neutropenic fever D70.9; R50.81 Chronic kidney disease N18.9 Macrocytic anemia D53.9
[2021-04-11] MEDS: albuterol 8 gm MDI 1 PUFF INHALATION (18:13)
[2021-04-11 21:04] LABS: Vancomycin Trough 11.6 ug/mL (10-15)
[2021-04-11] MEDS: vancomycin 1,000 MG in sodium chloride 0.9% 250 ML 250 MG IV (21:30)
[2021-04-11] MEDS: HYDROcodone-acetaminophen 5-325 mg Tablet 1 TAB PO (21:30)
[2021-04-11] MEDS: allopurinol 100 mg Tablet PO (21:30)
[2021-04-12] VITALS (7 sets, daily range): BP systolic 103–141; BP diastolic 64–78; PULSE 83–102; RESP 17–20; TEMP 36.3–36.9; O2SAT 94–99
[2021-04-12] MEDS: piperacillin-tazobactam 3.375 GM in sodium chloride 0.9% (plus) 50 ML IV ×2 (04:54→11:36)
[2021-04-12 06:36] LABS: Basophils # 0.1 10^3/uL (0.0-0.1); Basophils % 0.4 %; Eosinophils # 0.2 10^3/uL (0.0-0.8); Eosinophils % 1.8 %; Hematocrit 27.9 % (42.0-52.0); Lymphocytes # 0.4 10^3/uL (0.8-4.8); Mean Corpuscular HGB Conc 32.3 g/dL (30.0-36.0); Mean Corpuscular Hemoglobin 29.4 pg (28.0-34.0); Mean Corpuscular Volume 91.2 fL (80-94); Mean Platelet Volume 11.9 fL (7.4-10.4); Monocytes # 1.2 10^3/uL (0.2-0.9); Monocytes % 9.1 %; Neutrophils # 9.03 10^3/uL (1.8-7.7); Neutrophils % 67.1 %; Nucleated Red Blood Cells % 0 %; Platelet Count 164 10^3/cmm (130-400); Red Blood Count 3.06 10^6/uL (4.1-5.3); Red Cell Distribution Width 14.6 % (12.1-15.1); White Blood Count 13.5 10^3/uL (4.0-10.0)
[2021-04-12 06:57] LABS: Alanine Aminotransferase 9 U/L (0-41); Albumin Level 3.1 g/dL (3.5-5.2); Alkaline Phosphatase 156 IU/L (40-130); Anion Gap 14.7 (5-19); Aspartate Amino Transferase 21 U/L (0-40); Blood Urea Nitrogen 18 mg/dL (8-23); Calcium 7.3 mg/dL (8.5-10.5); Carbon Dioxide 21 mmol/L (22-29); Chloride 106 mmol/L (98-107); Globulin 2.6 g/dL (1.3-4.6); Glucose 96 mg/dL (65-115); Osmolality Calculated 288 mOsm/kg (285-295); Potassium 3.7 mmol/L (3.5-5.1); Sodium 138 mmol/L (136-145); Total Bilirubin 0.2 mg/dL (0.15-1.2); Total Protein 5.7 g/dL (6.6-8.7)
[2021-04-12 07:31] LABS: Slide Review Slide Review Perform
[2021-04-12] MEDS: hyDRALAzine 50 mg Tablet PO ×3 (09:12→21:11)
[2021-04-12] MEDS: sennosides-docusate Tablet 1 TAB PO ×2 (09:12→17:39)
[2021-04-12] MEDS: chlorhexidine gluconate 0.12% Btl 473 mL 15 ML MUCOUS MEM ×2 (09:12→17:39)
[2021-04-12] MEDS: metoprolol tartrate 25 mg Tablet PO ×2 (09:13→21:12)
[2021-04-12] MEDS: ferrous sulfate EC 325 mg Tablet PO (09:13)
[2021-04-12] MEDS: pantoprazole DR 40 mg Tablet PO ×2 (09:13→17:39)
--- NOTE | 2021-04-12 09:18 | PC.SOCIAL ---
IMM Update Pg.2 of [facility] updated and reviewed with patient who verbalized understanding, copy provided.
--- NOTE | 2021-04-12 16:17 | P.PN_ITS ---
Subjective Subjective: Interval history: No acute events overnight. Patient has remained hemodynamically stable and afebrile in last 24 hours. Patient is in good mood. Denies any nausea vomiting, headache. Vitals/I&O/Wt Last Vital Signs Temp 97.3 F L 04/12/21 11:56 Pulse 83 04/12/21 11:56 Resp 17 04/12/21 11:56 BP 128/69 04/12/21 11:56 Pulse Ox 96 04/12/21 11:56 04/12/21 04/12/21 04/12/21 06:59 14:59 22:59 Intake Total 1379.583 / 2990.000 650 / 650 50 / 700 Output Total 800 / 1800 Balance 579.583 / 1190.000 650 / 650 50 / 700 Physical Exam Narrative: EXAM NARRATIVE: Very pleasant elderly male who was laying supine comfortably Awake alert oriented x3 GCS 15 EOMI, PERRLA Left mandibular gingivitis left mid abdomen nodule, mildly tender on deep palpation Abdomen soft no signs of peritonitis guarding or rigidity, bowel sounds regular Lower extremity no edema gangrene or ulcer Bilateral breath sounds without adventitious rhonchi or crackles S1, S2 sinus tachycardia Multiple skin nodules all over his body, cervical lymphadenopathy, Data : 04/12/21 06:00 04/12/21 06:00 Micro: Microbiology 04/10/21 17:30 Gram Stain - Final Sputum - Expectorated Sputum Sputum Culture - Final 04/11/21 10:00 Blood Culture - Preliminary Blood NEGATIVE TO DATE 04/09/21 18:43 Blood Culture - Preliminary Blood Staphylococcus aureus 04/11/21 10:12 Blood Culture - Preliminary Blood SPECIMEN COLLECTED 04/10/21 16:40 MRSA Culture - Final Nose A&P Assessment and plan (1) Staphylococcus aureus bacteremia: Status: Acute (2) Sepsis: Status: Acute (3) Neutropenia: Status: Acute (4) Neutropenic fever: Status: Acute (5) Chronic kidney disease: Status: Acute (6) Macrocytic anemia: Status: Acute Additional A&P Information Sepsis with neutropenia: Post first cycle chemotherapy. Neutropenia has resolved. Patient did receive Neulasta after the last cycle of chemotherapy on April 02. Positive for MRSA. MRSA swab nasal negative. Urine Legionella, bacterial antigen negative. Stop Zosyn continue with vancomycin. Repeat blood cultures preliminary have negative. If blood cultures remain negative in next 24 hours we will plan to stop antibiotics and asked patient to follow-up as an outpatient. Cannot rule out staph being a contaminant but with a history of neutropenia and multiple hardware in the past will have to confirm with repeat blood cultures prior to discharge. Keep mean arterial pressure over 65. Leukopenia/anemia: Most likely secondary to first cycle of chemotherapy. Resolved. Anemia: Post blood transfusion. Hemoglobin up to 8.6. Stool for occult blood positive. Hemoglobin stable for now. Iron panel results appreciated. Start patient on oral iron supplementation. Vitamin B12 folate levels within normal limits. Patient's hemoglobin drop again will consult general surgery for possible EGD and colonoscopy. Patient would benefit from EGD and colonoscopy as an outpatient as well. Protonix 40 mg oral daily. Protein calorie malnourishment: He was evaluated by a procurement engineer in the past, recommendation was made to increase protein and calories, diet plan was according to his poor kidney function Chronic kidney disease: Baseline creatinine from earlier this year seems to be running on the higher side. Creatinine improving than before. 1.4 today. Medical reconciliation done for nephrotoxic drugs. No active signs of acidosis or electrolyte of normality present. Tachycardia: Resolved. Continue with oral dose of metoprolol 25 mg twice daily. Hypertension: Goal blood pressure less than 140/90 of Hg. Continue home dose of hydralazine 50 3 times daily, metoprolol 25 twice daily. Cardiac diet DVT prophylaxis contraindicated would use SCDs Full code Attestations Medical Necessity Statement*: Requires further hospitalization for management of sepsis with neutropenia, MRSA bacteremia. Time Spent in Patient Care: Greater than 35 minutes (>than 50% of time spent in counselling and/or direct pt care on unit) . Coding Level of Care Code Acute Inpatient Services Director for [facility] Fwd Diagnoses Staphylococcus aureus bacteremia R78.81; B95.61 Sepsis A41.9 Neutropenia D70.9 Neutropenic fever D70.9; R50.81 Chronic kidney disease N18.9 Macrocytic anemia D53.9
[2021-04-12] MEDS: albuterol 8 gm MDI 1 PUFF INHALATION (16:44)
[2021-04-12] MEDS: HYDROcodone-acetaminophen 5-325 mg Tablet 1 TAB PO (21:11)
[2021-04-12] MEDS: allopurinol 100 mg Tablet PO (21:11)
[2021-04-12] MEDS: vancomycin 1,000 MG in sodium chloride 0.9% 250 ML 250 MG IV (21:12)
[2021-04-13] VITALS: BP 121/71; PULSE 20; RESP 20; TEMP 36.7; O2SAT 96
[2021-04-13 03:39] VITALS: BP 144/79; PULSE 90; RESP 20; TEMP 36.9; O2SAT 96
[2021-04-13 04:51] LABS: Hematocrit 28.3 % (42.0-52.0); Hemoglobin 8.9 g/dL (11.7-16.6); Mean Corpuscular HGB Conc 31.4 g/dL (30.0-36.0); Mean Corpuscular Volume 92.2 fL (80-94); Mean Platelet Volume 11.3 fL (7.4-10.4); Platelet Count 189 10^3/cmm (130-400); Red Blood Count 3.07 10^6/uL (4.1-5.3); Red Cell Distribution Width 14.8 % (12.1-15.1); White Blood Count 12.7 10^3/uL (4.0-10.0)
[2021-04-13 05:02] LABS: Slide Review Slide Review Perform
[2021-04-13 05:11] LABS: Absolute Neutrophil 9.5 10^3/cmm (1.4-6.5); Absolute Segmented Neutrophil 4.4 10/cmm (1.6-7.1); Band Neutrophils Absolute 5.1 10^3/cmm (0.0-1.2); Eosinophils 0 %; Lymphocytes 11 %; Lymphocytes Absolute 2.3 10^3/cmm (1.2-3.4); Monocytes Absolute 0.6 10^3/cmm (0.1-0.6); Platelet Estimate Normal (Normal); Segmented Neutrophils 35 %; Total Cells Counted 100 (0-100)
[2021-04-13 05:14] LABS: Alanine Aminotransferase 9 U/L (0-41); Albumin Level 3.1 g/dL (3.5-5.2); Alkaline Phosphatase 116 IU/L (40-130); Anion Gap 14.5 (5-19); Aspartate Amino Transferase 16 U/L (0-40); Blood Urea Nitrogen 16 mg/dL (8-23); Calcium 7.1 mg/dL (8.5-10.5); Carbon Dioxide 21 mmol/L (22-29); Chloride 105 mmol/L (98-107); Globulin 2.5 g/dL (1.3-4.6); Glucose 90 mg/dL (65-115); Osmolality Calculated 285 mOsm/kg (285-295); Potassium 3.5 mmol/L (3.5-5.1); Sodium 137 mmol/L (136-145); Total Bilirubin 0.2 mg/dL (0.15-1.2); Total Protein 5.6 g/dL (6.6-8.7)
--- NOTE | 2021-04-13 05:52 | PC.NURSE ---
Shift Summary Patient was up some tonight, stated he could not sleep so he was listening to music and reading his book. Has had no complaints of pain since evening med pass.
[2021-04-13 08:00] VITALS: BP 140/84; PULSE 103; RESP 18; TEMP 36.6; O2SAT 93
[2021-04-13] MEDS: sennosides-docusate Tablet 1 TAB PO (10:10)
[2021-04-13] MEDS: pantoprazole DR 40 mg Tablet PO (10:10)
[2021-04-13] MEDS: hyDRALAzine 50 mg Tablet PO (10:11)
[2021-04-13] MEDS: ferrous sulfate EC 325 mg Tablet PO (10:11)
[2021-04-13] MEDS: chlorhexidine gluconate 0.12% Btl 473 mL 15 ML MUCOUS MEM (10:12)
[2021-04-13] MEDS: metoprolol tartrate 25 mg Tablet PO (10:16)
[2021-04-13 12:00] VITALS: BP 142/76; PULSE 102; RESP 18; TEMP 36.6; O2SAT 95
--- NOTE | 2021-04-13 12:22 | USCV_ITS ---
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 BP: 140 / 84 HR: 83 Rhythm: Sinus Technical Quality: Fair MEASUREMENTS (Male / Female) Normal Values 2D ECHO LV Diastolic Diameter PLAX 3.8 cm 4.2 - 5.9 / 3.9 - 5.3 cm LV Systolic Diameter PLAX 3.0 cm LV Chamber Size 3.5 cm IVS Diastolic Thickness 1.1 cm 0.6 - 1.0 / 0.6 - 0.9 cm IVS Systolic Thickness 1.2 cm LVPW Diastolic Thickness 0.7 cm 0.6 - 1.0 / 0.6 - 0.9 cm LVPW Systolic Thickness 1.0 cm RV Chamber Size 3.3 cm LVOT Diameter 2.0 cm LV Ejection Fraction 2D Teich 44.5 % LV Ejection Fraction MOD 2C 51.9 % LV Ejection Fraction 2C AL 52.3 % LA Diameter 3.6 cm LA Width 3.4 cm LA Height 4.2 cm RA Width 3.2 cm RA Height 4.6 cm Aorta at Sinotubular Diameter 3.1 cm M-MODE LV Diastolic Diameter MM 4.9 cm 4.2 - 5.9 / 3.9 - 5.3 cm LV Systolic Diameter MM 3.3 cm LV Ejection Fraction MM Teich 61.9 % IVS Diastolic Thickness MM 0.8 cm 0.6 - 1.0 / 0.6 - 0.9 cm IVS Systolic Thickness MM 1.3 cm LVPW Diastolic Thickness MM 1.1 cm 0.6 - 1.0 / 0.6 - 0.9 cm LVPW Systolic Thickness MM 1.6 cm RV Diastolic Diameter MM 1.1 cm Aortic Annulus Diameter 3.5 cm LA Ao Ratio MM 1.2 MV E Point Septal Separation 0.4 cm DOPPLER AV Peak Velocity 89.0 cm/s LVOT Peak Velocity 92.0 cm/s AV Area Cont Eq vti 3.7 cm squared AV Area Cont Eq pk 3.4 cm squared MV Area PHT 4.8 cm squared Mitral E to A Ratio 0.9 MV E' Velocity 35.0 cm/s Mitral E to MV E' Ratio 7.1 Mitral E to LV E' Lateral Ratio 6.0 Mitral E to LV E' Septal Ratio 8.7 TR Peak Velocity 220.5 cm/s TR Peak Gradient 19.4 mmHg TV Peak E Velocity 44.0 cm/s Right Atrial Pressure 3.0 mmHg Pulmonary Artery Systolic Pressu 22.4 mmHg PV Peak Velocity 78.0 cm/s RV Acceleration Time 0.1 s RV Ejection Time 0.2 s RV AcT/ET 0.5 FINDINGS Left Ventricle Normal left ventricular cavity size. No regional wall motion abnormalities. Left ventricular ejection fraction is estimated at 60 %. Grade I/IV diastolic dysfunction (abnormal relaxation filling pattern), normal to mildly elevated filling pressures. Right Ventricle The right ventricle is normal in size and function. Right Atrium The right atrium is normal in size. Left Atrium The left atrium is normal in size. Mitral Valve Thickened mitral valve. No mitral valve stenosis. Moderate mitral valve regurgitation. Aortic Valve Mild aortic valve calcification. No aortic valve stenosis. No aortic valve regurgitation. Tricuspid Valve Moderate tricuspid valve regurgitation. Pulmonic Valve Structurally normal pulmonic valve without significant stenosis. There is no pulmonic regurgitation. Pericardium Normal pericardium without effusion. Aorta Normal ascending aorta dimension. CONCLUSIONS 1-Normal left ventricular cavity size. No regional wall motion abnormalities. Left ventricular ejection fraction is estimated at 60 %. Grade I/IV diastolic dysfunction (abnormal relaxation filling pattern), normal to mildly elevated filling pressures. 2-Moderate tricuspid valve regurgitation. 3-Thickened mitral valve. No mitral valve stenosis. Moderate mitral valve regurgitation. 4-There is no pericardial effusion. 5-Pulmonary artery systolic pressure is within normal limits. 6-No significant change since the prior echocardiogram study of 03/16/2021. Grecia Santa MD (Electronically Signed) Final Date: 13 April 2021 15:15 S
--- NOTE | 2021-04-13 12:23 | PM.DCS ---
Discharge Providers Date of Admission: 04/09/21 19:21 Date of Discharge: April 13, 2021 Attending Provider at Admission: Grecia Madrigal MD Attending Provider at Discharge: Sal Castillo MD Primary Care Provider: Enrique Nguyen DO Diagnoses at Discharge Discharge Diagnosis (1) Staphylococcus aureus bacteremia: Status: Acute (2) Sepsis: Status: Acute (3) Neutropenia: Status: Acute (4) Neutropenic fever: Status: Acute (5) Chronic kidney disease: Status: Acute (6) Macrocytic anemia: Status: Acute Reason for Visit Reason for Visit: NEEDS TRANSFUSION Hospital Course Hospital Course Xavi Pryor is a 80 year old male who has 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 Figueroa because of anemia, neutropenia. Patient is stating that at home he has not noticed any chest pain, shortness of breath, productive cough, change in his bowel movement, worsening of skin rash. He has been extremely lethargic, fatigued and exhausted. Endorsing subjective fevers. Denies any melena, hematochezia, hemoptysis. He has lost significant amount of weight about 30 pounds in last few months. Diagnosis in the ER revealed high-grade fever, neutropenia and anemia, he was started on broad-spectrum antibiotics, normal blood pressure, patient is denying new symptoms other than exhaustion. Chest x-ray unremarkable. Patient admitted to hospital for management of neutropenic fever and anemia. He required 2 units of blood transfusion on admission after which his hemoglobin remained stable. Patient's stool occult blood was positive but as hemoglobin remained stable GI was not consulted. On admission patient was neutropenic and he was started on broad-spectrum antibiotics. Patient's blood culture from the day of admission were positive 1 out of 4 for MSSA staph aureus. Given the history of Port-A-Cath placement, neutropenia, hardware in situ repeat blood cultures were done and patient was continued on broad-spectrum antibiotics. Repeat blood cultures so far has remained preliminary negative and patient has remained afebrile for last 48 hours. Echocardiogram has been done prior to discharge but the results are not available. Patient is being discharged in hemodynamically stable condition on oral Augmentin for 7 more days with advised to follow-up with his primary care provider within next 1 week for further follow-up of blood cultures and result of echocardiogram. Patient is to stop Augmentin if blood cultures are negative. Care and discharge plan was discussed in detail with the patient and he verbalized understanding. During hospitalization patient was found to have labile blood pressures for which his antihypertensives have been adjusted. Patient is also advised to follow-up with Dr. Jennings as an outpatient for possible endoscopy and colonoscopy for positive stool for occult blood. Physical Exam Narrative: EXAM NARRATIVE: Very pleasant elderly male who was laying supine comfortably Awake alert oriented x3 GCS 15 EOMI, PERRLA Left mandibular gingivitis left mid abdomen nodule, mildly tender on deep palpation Abdomen soft no signs of peritonitis guarding or rigidity, bowel sounds regular Lower extremity no edema gangrene or ulcer Bilateral breath sounds without adventitious rhonchi or crackles S1, S2 sinus tachycardia Multiple skin nodules all over his body, cervical lymphadenopathy, Discharge Data Data Completed and Pending: Completed Studies During Hospitalization Category Date Time Status CT chest abd pel wo con Urgent Cat Scan 04/09/21 21:55 Completed XR chest 1V nyla ble [id number] Stat Exams 04/09/21 18:19 Completed Pending at discharge Category Date Time Status Blood Culture Sta t Lab 04/09/21 18:43 Results Blood Culture Sta t Lab 04/11/21 10:12 Results CV echo complete* [id number] Routine Ultrasound 04/13/21 12:22 Ordered Labs from last 24 hours 04/13/21 04/13/21 04:30 04:30 WBC 12.7 H RBC 3.07 L Hgb 8.9 L Hct 28.3 L MCV 92.2 MCH 29.0 MCHC 31.4 RDW 14.8 Plt Count 189 MPV 11.3 H Lymph % (Auto) Not Reportable [place] % (Auto) Not Reportable Lymph # (Auto) Not Reportable [place] # (Auto) Not Reportable Total Counted 100 Atypical Lymphs % 7.0 H Absolute Neutrophi ls 9.5 H Segmented Neutroph ils 35 Abs Segm Neuts (Ma n) 4.4 Band Neutrophils 40.0 Abs Band Neuts (Ma n) 5.1 H Absolute Lymphocyt es 2.3 Lymphocytes (Manua l) 11 Monocytes (Manual) 5.0 Absolute Monocytes 0.6 Eosinophils (Manua l) 0 Absolute Eosinophi ls 0.0 Basophils (Manual) 0.0 Absolute Basophils 0.0 Metamyelocytes 2.0 Platelet Estimate Normal Sodium 137 Potassium 3.5 Chloride 105 Carbon Dioxide 21 L Anion Gap 14.5 BUN 16 Creatinine 1.3 H GFR Calculation Not Reportable Glucose 90 Calculated Osmolal ity 285 Calcium 7.1 L Total Bilirubin 0.2 AST 16 ALT 9 Alkaline Phosphata se 116 Total Protein 5.6 L Albumin 3.1 L Globulin 2.5 Addt'l Data from Hospital Stay: Laboratory Results WBC 12.7 10^3/uL (4.0 -10.0) H 04/13/21 04:30 RBC 3.07 10^6/uL (4.1 -5.3) L 04/13/21 04:30 Hgb 8.9 g/dL (11.7-16 .6) L 04/13/21 04:30 Hct 28.3 % (42.0-52.0 ) L 04/13/21 04:30 MCV 92.2 fL (80-94) 04/13/21 04:30 MCH 29.0 pg (28.0-34. 0) 04/13/21 04:30 MCHC 31.4 g/dL (30.0-3 6.0) 04/13/21 04:30 RDW 14.8 % (12.1-15.1 ) 04/13/21 04:30 Plt Count 189 10^3/cmm (130 -400) 04/13/21 04:30 MPV 11.3 fL (7.4-10.4 ) H 04/13/21 04:30 Neut % (Auto) 67.1 % 04/12/21 06:00 Lymph % (Auto) Not Reportable 04/13/21 04:30 [place] % (Auto) Not Reportable 04/13/21 04:30 Eos % (Auto) 1.8 % 04/12/21 06:00 Baso % (Auto) 0.4 % 04/12/21 06:00 Reticulocyte % (Au to) 0.2 % (0.5-2.0) L 04/09/21 17:36 Neut # (Auto) 9.03 10^3/uL (1.8 -7.7) H 04/12/21 06:00 Lymph # (Auto) Not Reportable 04/13/21 04:30 [place] # (Auto) Not Reportable 04/13/21 04:30 Eos # (Auto) 0.2 10^3/uL (0.0- 0.8) 04/12/21 06:00 Baso # (Auto) 0.1 10^3/uL (0.0- 0.1) 04/12/21 06:00 Nucleated RBC % (a uto) 0 % 04/12/21 06:00 Total Counted 100 (0-100) 04/13/21 04:30 Atypical Lymphs % 7.0 % (0-5) H 04/13/21 04:30 Absolute Neutrophi ls 9.5 10^3/cmm (1.4 -6.5) H 04/13/21 04:30 Segmented Neutroph ils 35 % 04/13/21 04:30 Abs Segm Neuts (Ma n) 4.4 10/cmm (1.6-7 .1) 04/13/21 04:30 Band Neutrophils 40.0 % 04/13/21 04:30 Abs Band Neuts (Ma n) 5.1 10^3/cmm (0.0 -1.2) H 04/13/21 04:30 Absolute Lymphocyt es 2.3 10^3/cmm (1.2 -3.4) 04/13/21 04:30 Lymphocytes (Manua l) 11 % 04/13/21 04:30 Monocytes (Manual) 5.0 % 04/13/21 04:30 Absolute Monocytes 0.6 10^3/cmm (0.1 -0.6) 04/13/21 04:30 Eosinophils (Manua l) 0 % 04/13/21 04:30 Absolute Eosinophi ls 0.0 10^3/cmm (0.0 -0.7) 04/13/21 04:30 Basophils (Manual) 0.0 % 04/13/21 04:30 Absolute Basophils 0.0 10^3/cmm (0.0 -0.2) 04/13/21 04:30 Metamyelocytes 2.0 % 04/13/21 04:30 Nucleated RBCs # 0.0 /100WBC 04/12/21 06:00 Platelet Estimate Normal (Normal) 04/13/21 04:30 Giant Platelets Trace 04/11/21 05:43 Haptoglobin 366.0 mg/L (30-20 0) H 04/09/21 17:36 Sodium 137 mmol/L (136-1 45) 04/13/21 04:30 Potassium 3.5 mmol/L (3.5-5 .1) 04/13/21 04:30 Chloride 105 mmol/L (98-10 7) 04/13/21 04:30 Carbon Dioxide 21 mmol/L (22-29) L 04/13/21 04:30 Anion Gap 14.5 (5-19) 04/13/21 04:30 BUN 16 mg/dL (8-23) 04/13/21 04:30 Creatinine 1.3 mg/dL (0.7-1. 2) H 04/13/21 04:30 GFR Calculation Not Reportable 04/13/21 04:30 Glucose 90 mg/dL (65-115) 04/13/21 04:30 Estimat Average Gl ucose 103 04/11/21 05:43 Hemoglobin A1c 5.2 % (4.0-6.0) 04/11/21 05:43 Calculated Osmolal ity 285 mOsm/kg (285- 295) 04/13/21 04:30 Lactic Acid 1.0 mmol/L (0.5-2 .2) 04/09/21 17:36 Lactate 0.8 mmol/L (0.5-2 .2) 04/09/21 18:43 Calcium 7.1 mg/dL (8.5-10 .5) L 04/13/21 04:30 Iron 21 ug/dL (59-158) L 04/10/21 01:53 TIBC 171 mcg/dl 04/10/21 01:53 % Saturation 12.2 % (20-50) L 04/10/21 01:53 Unsat Iron Binding 150 ug/dL (112-34 7) 04/10/21 01:53 Ferritin 1155 ng/mL (30-40 0) H 04/09/21 17:36 Total Bilirubin 0.2 mg/dL (0.15-1 .2) 04/13/21 04:30 Direct Bilirubin 0.20 mg/dL (0.00- 0.30) 04/09/21 17:36 Indirect Bilirubin 0.20 04/09/21 17:36 AST 16 U/L (0-40) 04/13/21 04:30 ALT 9 U/L (0-41) 04/13/21 04:30 Alkaline Phosphata se 116 IU/L (40-130) 04/13/21 04:30 Lactate Dehydrogen ase 312 U/L (135-225) H 04/09/21 17:36 C-Reactive Protein 101.5 mg/L (0.0-4 .9) H 04/10/21 01:53 Total Protein 5.6 g/dL (6.6-8.7 ) L 04/13/21 04:30 Albumin 3.1 g/dL (3.5-5.2 ) L 04/13/21 04:30 Globulin 2.5 g/dL (1.3-4.6 ) 04/13/21 04:30 Vitamin B12 1276 pg/mL (232-1 245) H 04/09/21 17:36 Folate 15.9 ng/mL (4.5-3 2.2) 04/09/21 17:36 Procalcitonin 0.39 ng/mL (0-0.5 ) 04/10/21 01:53 TSH 1.81 uIU/mL (0.27 -4.20) 04/10/21 01:53 Urine Color Yellow (Yellow) 04/09/21 19:10 Urine Appearance Clear (CLEAR) 04/09/21 19:10 Urine pH 6 (5-7) 04/09/21 19:10 Ur Specific Gravit y 1.010 (1.005-1.0 30) 04/09/21 19:10 Urine Protein Neg (Negative) 04/09/21 19:10 Urine Glucose (UA) Norm (Normal) 04/09/21 19:10 Urine Ketones Negative (Negati ve) 04/09/21 19:10 Urine Blood Neg (Negative) 04/09/21 19:10 Urine Nitrate Negative (Negati ve) 04/09/21 19:10 Urine Bilirubin Neg (Negative) 04/09/21 19:10 Urine Urobilinogen Norm mg/dL (Negat nanette) 04/09/21 19:10 Ur Leukocyte Shahana ase Negative (Negati ve) 04/09/21 19:10 Vancomycin Trough 11.6 ug/mL (10-15 ) 04/11/21 20:20 Serum Ketones Negative (Negati ve) 04/09/21 17:36 Blood Type O Negative 04/09/21 17:36 Rho(D) Type Negative / 0 04/09/21 17:36 Antibody Screen Negative 04/09/21 17:36 Crossmatch See Detail 04/09/21 17:36 Impressions Chest X-Ray 04/09/21 18:19 IMPRESSION: 1. Right-sided Port-A-Cath seen in place with tip in the superior vena cava. 2. Stable orthopedic hardware seen at several right ribs. 3. Right shoulder arthroplasty changes. 4. Trace right pleural effusion. Chest/Abdomen/Pelvis CT 04/09/21 21:55 IMPRESSION: 1. Negative for acute inflammatory process in the abdomen or pelvis. 2. Constipation. 3. Diverticulosis without diverticulitis. 4. Right hip arthroplasty changes. 5. 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 Radiation Dose CTDIVOL = (mGy): DLP = 1214.17~1214.17 (mGy-cm) Microbiology 04/11/21 10:12 Blood Blood Culture - Preliminary NEGATIVE TO DATE 04/10/21 17:30 Sputum - Expectorated Sputum Gram Stain - Final 04/10/21 17:30 Sputum - Expectorated Sputum Sputum Culture - Final 04/11/21 10:00 Blood Blood Culture - Preliminary NEGATIVE TO DATE 04/09/21 18:43 Blood Blood Culture - Preliminary Staphylococcus aureus?MSSA 04/10/21 16:40 Nose MRSA Culture - Final 04/11/21 00:25 Stool - Stool Aspirate Occult Blood (FIT) - Final 04/10/21 18:10 Urine,Voided Legionella Urinary Antigen - Final 04/09/21 17:36 Blood Blood Culture - Preliminary NEGATIVE TO DATE 04/09/21 19:10 Urine Kidney Bacterial Antigens - Final Vitals: Last Vital Signs Temp 97.8 F 04/13/21 08:00 Pulse 103 H 04/13/21 08:00 Resp 18 04/13/21 08:00 BP 140/84 04/13/21 08:00 Pulse Ox 93 04/13/21 08:00 Discharge Plan Discharge Patient Disposition: Home Condition: Stable Prescriptions: New metoprolol tartrate 25 mg Tablet 25 mg PO BID@0900,2100 Qty: 60 RF: 0 amoxicillin-pot clavulanate [Augmentin] 500-125 mg tablet 1 tab PO BID 7 Days Qty: 14 RF: 0 Continued loratadine [Claritin] 10 mg tablet 10 mg PO DAILY PRN (Reason: Allergy Symptoms) RF: 0 fluticasone propionate 50 mcg/actuation spray,suspension 1 spray INTRANASAL BID PRN (Reason: Nasal Congestion) RF: 0 albuterol sulfate 90 mcg/actuation Hfa Aerosol Inhaler 1 puff INHALATION QID PRN (Reason: Shortness Of Breath) RF: 0 hydrocodone-acetaminophen 5-325 mg tablet 1 tab PO Q6H PRN (Reason: Pain) RF: 0 ferrous sulfate 325 mg (65 mg iron) Tablet,Delayed Release (Dr/Ec) 325 mg PO BIDWM Qty: 0 RF: 0 sennosides-docusate sodium [Stool Softener-Laxative] 8.6-50 mg Tablet 1 tab PO BID Qty: 0 RF: 0 allopurinol 100 mg tablet 100 mg PO DAILY@20 RF: 0 multivitamin Tablet 1 tab PO DAILY@20 RF: 0 prochlorperazine maleate 10 mg tablet 10 - 20 mg PO TID PRN (Reason: Nausea And Vomiting) RF: 0 lidocaine-prilocaine 2.5-2.5 % cream 1 applic topical . DIRECTED RF: 0 potassium chloride 20 mEq tablet,ER particles/crystals 20 meq PO DAILY@20 RF: 0 lorazepam 1 mg tablet 1 mg PO TID PRN (Reason: Nausea And Vomiting) RF: 0 melatonin 10 mg Tablet 10 mg PO BEDTIME RF: 0 pantoprazole 40 mg tablet,delayed release (DR/EC) 40 mg PO DAILY RF: 0 Changed hydralazine 100 mg tablet 50 mg PO TID Qty: 90 RF: 0 Discharge Orders: Discharge Order (Routine); Ordered 04/13/21 Ordered By: Sal Castillo Referrals: Enrique Nguyen DO [Primary Care Provider] - 4-7 days Magdiel Jennings MD [Physician] - 2 weeks (Positive stool for occult blood, possible need of EGD and colonoscopy in setting of grade 2 follicular lymphoma) Discharge Diet: Cardiac Discharge Activity: Resume usual activity Patient Instructions: Opioid Safety Activity Restrictions/Additional Instructions: Please continue taking Augmentin for next 7 days. Please follow-up with a primary care provider within next 4 to 7 days for further follow-up of blood cultures and echocardiogram results. Please follow-up with Dr. Jennings within next 2 weeks for possible EGD and colonoscopy first positive stool for occult blood. Your dose of hydralazine has been changed to 15 mg 3 times a day. You will be on metoprolol 25 mg twice daily which is a new medication for tachycardia. Discharge Attestations Time Spent in Discharge Care*: greater than 30 min Quality Metrics Clinical Quality Measures During this hospital stay, did patient experience: None Coding Level of Care Code Acute g FW ID note Diagnoses Staphylococcus aureus bacteremia R78.81; B95.61 Sepsis A41.9 Neutropenia D70.9 Neutropenic fever D70.9; R50.81 Chronic kidney disease N18.9 Macrocytic anemia D53.9
[2021-04-13 15:52] VITALS: BP 142/76; PULSE 102; RESP 18; TEMP 36.6; O2SAT 95
== END 2021-04-13 15:55 | disposition home or self-care (01) | DRG 872 ==
LOC: ER 18:15 → MEDSURG 21:06
PROVIDERS: Family Medicine; Admitting Provider Internal Medicine; Emergency Provider Emergency Medicine; PCP Internal Medicine; Visit Provider Student in an Organized Health Care Education/Training Program
DX: A41.9 Sepsis, unspecified organism (principal); C82.18 Follicular lymphoma grade II, lymph nodes of multiple sites; E46 Unspecified protein-calorie malnutrition; Z79.899 Other long term (current) drug therapy; D64.81 Anemia due to antineoplastic chemotherapy; T45.1X5A Adverse effect of antineoplastic and immunosuppressive drugs, initial encounter; D70.1 Agranulocytosis secondary to cancer chemotherapy; Z85.828 Personal history of other malignant neoplasm of skin; M19.90 Unspecified osteoarthritis, unspecified site; Z92.3 Personal history of irradiation; Z96.611 Presence of right artificial shoulder joint; Z87.891 Personal history of nicotine dependence; I12.9 Hypertensive chronic kidney disease with stage 1 through stage 4 chronic kidney disease, or unspecified chronic kidney disease; N18.9 Chronic kidney disease, unspecified; Z68.20 Body mass index [BMI] 20.0-20.9, adult; A49.01 Methicillin susceptible Staphylococcus aureus infection, unspecified site; Z79.891 Long term (current) use of opiate analgesic
CPT/HCPCS: 36415; 36430; 36591; 71045; 71250; 74176; 80048; 80053; 80202; 81003; 82009; 82247; 82248; 82274; 82607; 82728; 82746; 83010; 83036; 83540; 83550; 83605; 83615; 84145; 84443; 85007; 85014; 85018; 85025; 85045; 86140; 86403; 86850; 86900; 86920; 87040; 87070; 87077; 87186; 87205; 87449; 87641; 93005; 93306; 94640; 96360; 96365; 96367; 97116; 97161; 99214; 99285; J0610; J2543; J3370; J3535; J7030; J7040; J7050; P9016; P9040

== ENCOUNTER 2021-04-17 10:13 | Emergency (ER) | payer MEDICARE, SELFPAY ==
[2021-04-17 10:14] VITALS: BP 142/103; PULSE 92; RESP 18; TEMP 36.4; O2SAT 97; BMI 20.2
--- NOTE | 2021-04-17 10:15 | XR_ITS ---
WS: [id number] Portable AP upright chest, 04/17/2021 Clinical Data: dyspnea/cough Comparison: Portable chest, 04/09/2021. Findings: No nodules, masses or effusions are seen. The heart is normal. The pulmonary vascularity is not increased. No pneumonia or pneumothorax is seen. The aortic arch and descending aorta are tortuo us. The right Port-A-Cath remains in good position. There are are surgical plates in the right latera l ribs and a right shoulder arthroplasty unchanged. There is right pleural reaction unchanged. XR/XR chest 1V portable [id number] Impression: 1. Atherosclerosis. 2. Surgical plates in the right lateral ribs and right shoulder arthroplasty un changed. 3. Right Port-A-Cath.
--- NOTE | 2021-04-17 10:15 | ECG_ITS ---
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 Measurements Intervals [place] Rate: 80 P: 68 NC: 165 QRS: 59 QRSD: 85 T: 74 QT: 363 QTc: 420 Interpretive Statements SINUS RHYTHM SEPTAL MYOCARDIAL INFARCTION [40+ ms Q WAVE IN V1/V2], OF INDETERMINATE AGE Compared to ECG 04/09/2021 17:54:39 Myocardial infarct finding now present Sinus tachycardia no longer present Electronically Signed On 04-17-2021 16:27:30 CDT by Kailey Ang M.D. [email or web address]
--- NOTE | 2021-04-17 10:16 | W.ED.WEAKNES ---
HPI - Weakness General: Chief complaint: General Medical Stated complaint: weak Time Seen by Provider: 04/17/21 10:14 History of Present Illness: HPI Narrative: 80-year-old male presents emergency room with complaint of generalized weakness. Patient was diagnosed several years ago with lympho, he was monitored until recently and just 3 weeks ago he had his first chemotherapy treatment. He is very vague about what is bothering him today is no chest pain no abdominal pain he is vaguely short of breath but his sats are normal. Has not had any dysuria urgency or frequency vomiting or diarrhea. He states he had a brain fog and felt weak this morning. MD Complaint: generalized weakness and focal weakness Onset (ago): minute(s) Duration: constant Location: generalized Severity: mild Relieving factors: none Exacerbating factors: none Associated symptoms: Denies chest pain, chills, confusion, melena, decreased appetite, diaphoresis, dysuria, easy bruising, fever(s), headache(s), myalgias, nausea, rash, short of breath, syncope or vomiting Review of Systems Const: Denies: fever(s), chills or diaphoresis ENMT: Denies: throat pain, ear or mastoid pain, nasal discharge or nasal congestion Card: Denies: chest pain or syncope Resp: Denies: dyspnea, productive cough or non-productive cough GI: Denies: nausea, vomiting or melena : Denies: dysuria Skin/Breast: Denies: rash or pruritus Neuro: Denies: headache(s) or confusion Miguel/Lymph: Denies: easy bruising PFSH ED PFSH: Medical History Chronic kidney disease Diverticulosis Follicular lymphoma Diagnosed in 2017, 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, multiple locations, 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 History of basal cell carcinoma of skin History of renal dialysis Temporary 3 weeks of hemodialysis after traumatic encounter with a horse in 2011 Macrocytic anemia Neutropenia Neutropenic fever Osteoarthritis Surgical History H/O lymph node biopsy (~04/2019) Left inguinal History of appendectomy History of cataract surgery History of colonoscopy (~2015) History of right knee joint replacement Port-A-Cath in place (03/21/21) S/P skin biopsy (~12/2020) Abdominal wall mass Status post excisional biopsy (~2016) Submandibular mass Status post radiation therapy Palliative radiotherapy completed on February 12, 2021 to the lumbar area Status post replacement of right shoulder joint (~2018) Family History Mother Cancer Brain Father Cancer Multiple myeloma Social History Smoking and tobacco status: former smoker Alcohol intake: current Alcohol intake frequency: few times a week Alcohol type: beer Lives independently: Yes Marital status: / Physical Exam Const: COMMON NORMALS: no acute distress GENERAL APPEARANCE: cooperative and comfortable ORIENTATION/CONSCIOUSNESS: Yes awake, Yes oriented to person, Yes oriented to place and Yes oriented to time HENMT: COMMON NORMALS: normocephalic, atraumatic, hearing grossly normal bilaterally and external ears normal HEAD & SCALP: normocephalic and atraumatic EXTERNAL EAR: Yes external ears normal Neck/C-Spine: COMMON NORMALS: no JVD Resp: COMMON NORMALS: normal respiratory effort, No retractions, No use of accessory muscles and clear to auscultation bilaterally AUSCULTATION: clear to auscultation bilaterally Cardio: COMMON NORMALS: no JVD, regular rate, regular rhythm and No murmurs present (Cardio) RATE: regular rate RHYTHM: regular rhythm GI: COMMON NORMALS: Soft to palpation and No hepatosplenomegaly present AUSCULTATION: Yes normoactive bowel sounds PALPATION: Yes Soft to palpation, No Tenderness to palpation present (GI), No Guarding due to palpation present (GI) and Yes No hepatosplenomegaly present Extremity: COMMON NORMALS: normal to inspection, capillary refill normal, no clubbing, cyanosis or edema, no calf tenderness and no pedal edema Neuro: SENSORIUM/ORIENTATION: Yes oriented to person, Yes oriented to place and Yes oriented to time Skin: COMMON NORMALS: no rashes or lesions noted GENERAL SKIN EXAM: no rashes or lesions noted Course Vital Signs: Vital signs: Vital Signs Temperature 97.6 F 04/17/21 10:14 Pulse Rate 83 04/17/21 12:54 Respiratory Rate 18 04/17/21 12:54 Blood Pressure 134/79 04/17/21 12:54 Pulse Oximetry 97 04/17/21 12:54 MDM - Weakness MDM Narrative: Medical decision making narrative: Reviewed labs and imaging no significant findings he is somewhat better now with some this may be due to his underlying cancer or his recent chemotherapy. We will go and discharge home with home follow-up with oncology return if his problem Lab Data: Labs: Lab Results 04/17/21 04/17/21 04/17/21 Range/Units 10:40 10:40 10:40 WBC 10.1 H (4.0-10.0) 10^3/ uL RBC 3.58 L (4.1-5.3) 10^6/u L Hgb 10.7 L (11.7-16.6) g/dL Hct 32.6 L (42.0-52.0) % MCV 91.1 (80-94) fL MCH 29.9 (28.0-34.0) pg MCHC 32.8 (30.0-36.0) g/dL RDW 15.6 H (12.1-15.1) % Plt Count 331 (130-400) 10^3/c mm MPV 10.2 (7.4-10.4) fL Neut % (Auto) 72.6 % Lymph % (Auto) 5.6 % Garfield % (Auto) 9.6 % Eos % (Auto) 0.2 % Baso % (Auto) 1.1 % Neut # (Auto) 7.36 (1.8-7.7) 10^3/u L Lymph # (Auto) 0.6 L (0.8-4.8) 10^3/u L Garfield # (Auto) 1.0 H (0.2-0.9) 10^3/u L Eos # (Auto) 0.0 (0.0-0.8) 10^3/u L Baso # (Auto) 0.1 (0.0-0.1) 10^3/u L Nucleated RBC % (a uto) 0 % Nucleated RBCs # 0.0 /100WBC Sodium 133 L (136-145) mmol/L Potassium 4.1 (3.5-5.1) mmol/L Chloride 101 (98-107) mmol/L Carbon Dioxide 17 L (22-29) mmol/L Anion Gap 19.1 H (5-19) BUN 23 (8-23) mg/dL Creatinine 1.1 (0.7-1.2) mg/dL GFR Calculation Not Reportable Glucose 114 (65-115) mg/dL Calculated Osmolal ity 281 L (285-295) mOsm/k g Calcium 7.3 L (8.5-10.5) mg/dL Magnesium 1.7 (1.7-2.3) mg/dL Total Bilirubin 0.2 (0.15-1.2) mg/dL AST 21 (0-40) U/L ALT 10 (0-41) U/L Alkaline Phosphata se 124 (40-130) IU/L Creatine Kinase 77 (39-308) U/L Troponin T Baselin e (0-15) ng/L Troponin T 120 Min [place] (0-15) ng/L Delta Troponin T (0-10) ABS# Total Protein 6.3 L (6.6-8.7) g/dL Albumin 3.9 (3.5-5.2) g/dL Globulin 2.4 (1.3-4.6) g/dL Lipase 50 (13-60) U/L Urine Color (Yellow) Urine Appearance (CLEAR) Urine pH (5-7) Ur Specific Gravit y (1.005-1.030) Urine Protein (Negative) Urine Glucose (UA) (Normal) Urine Ketones (Negative) Urine Blood (Negative) Urine Nitrate (Negative) Urine Bilirubin (Negative) Urine Urobilinogen (Negative) mg/dL Ur Leukocyte Shahana ase (Negative) Serum Ketones Negative (Negative) 04/17/21 04/17/21 04/17/21 Range/Units 10:40 11:19 12:38 WBC (4.0-10.0) 10^3/ uL RBC (4.1-5.3) 10^6/u L Hgb (11.7-16.6) g/dL Hct (42.0-52.0) % MCV (80-94) fL MCH (28.0-34.0) pg MCHC (30.0-36.0) g/dL RDW (12.1-15.1) % Plt Count (130-400) 10^3/c mm MPV (7.4-10.4) fL Neut % (Auto) % Lymph % (Auto) % Garfield % (Auto) % Eos % (Auto) % Baso % (Auto) % Neut # (Auto) (1.8-7.7) 10^3/u L Lymph # (Auto) (0.8-4.8) 10^3/u L Garfield # (Auto) (0.2-0.9) 10^3/u L Eos # (Auto) (0.0-0.8) 10^3/u L Baso # (Auto) (0.0-0.1) 10^3/u L Nucleated RBC % (a uto) % Nucleated RBCs # /100WBC Sodium (136-145) mmol/L Potassium (3.5-5.1) mmol/L Chloride (98-107) mmol/L Carbon Dioxide (22-29) mmol/L Anion Gap (5-19) BUN (8-23) mg/dL Creatinine (0.7-1.2) mg/dL GFR Calculation Glucose (65-115) mg/dL Calculated Osmolal ity (285-295) mOsm/k g Calcium (8.5-10.5) mg/dL Magnesium (1.7-2.3) mg/dL Total Bilirubin (0.15-1.2) mg/dL AST (0-40) U/L ALT (0-41) U/L Alkaline Phosphata se (40-130) IU/L Creatine Kinase (39-308) U/L Troponin T Baselin e 35 H (0-15) ng/L Troponin T 120 [address] [place] 35.17 H (0-15) ng/L Delta Troponin T 0.17 (0-10) ABS# Total Protein (6.6-8.7) g/dL Albumin (3.5-5.2) g/dL Globulin (1.3-4.6) g/dL Lipase (13-60) U/L Urine Color Yellow (Yellow) Urine Appearance Clear (CLEAR) Urine pH 7 (5-7) Ur Specific Gravit y 1.005 (1.005-1.030) Urine Protein Neg (Negative) Urine Glucose (UA) Norm (Normal) Urine Ketones Negative (Negative) Urine Blood Neg (Negative) Urine Nitrate Negative (Negative) Urine Bilirubin Neg (Negative) Urine Urobilinogen Norm (Negative) mg/dL Ur Leukocyte Shahana ase Negative (Negative) Serum Ketones (Negative) Discharge Plan Discharge Patient Disposition: Home Clinical Impression: AMS (altered mental status), Follicular lymphoma Condition: Stable Prescriptions: No Action loratadine [Claritin] 10 mg tablet 10 mg PO DAILY PRN (Reason: Allergy Symptoms) RF: 0 fluticasone propionate 50 mcg/actuation spray,suspension 1 spray INTRANASAL BID PRN (Reason: Nasal Congestion) RF: 0 albuterol sulfate 90 mcg/actuation Hfa Aerosol Inhaler 1 puff INHALATION QID PRN (Reason: Shortness Of Breath) RF: 0 hydrocodone-acetaminophen 5-325 mg tablet 1 tab PO Q6H PRN (Reason: Pain) RF: 0 ferrous sulfate 325 mg (65 mg iron) Tablet,Delayed Release (Dr/Ec) 325 mg PO BIDWM Qty: 0 RF: 0 sennosides-docusate sodium [Stool Softener-Laxative] 8.6-50 mg Tablet 1 tab PO BID Qty: 0 RF: 0 allopurinol 100 mg tablet 100 mg PO DAILY@20 RF: 0 multivitamin Tablet 1 tab PO DAILY@20 RF: 0 prochlorperazine maleate 10 mg tablet 10 - 20 mg PO TID PRN (Reason: Nausea And Vomiting) RF: 0 lidocaine-prilocaine 2.5-2.5 % cream 1 applic topical . DIRECTED RF: 0 potassium chloride 20 mEq tablet,ER particles/crystals 20 meq PO DAILY@20 RF: 0 lorazepam 1 mg tablet 1 mg PO TID PRN (Reason: Nausea And Vomiting) RF: 0 melatonin 10 mg Tablet 10 mg PO BEDTIME RF: 0 pantoprazole 40 mg tablet,delayed release (DR/EC) 40 mg PO DAILY RF: 0 metoprolol tartrate 25 mg Tablet 25 mg PO BID@0900,2100 Qty: 60 RF: 0 Augmentin 500-125 mg tablet 1 tab PO BID 7 Days Qty: 14 RF: 0 hydralazine 100 mg tablet 50 mg PO TID Qty: 90 RF: 0 Discharge Orders: Discharge ED (Routine); Ordered 04/17/21 Ordered By: Uri Ohara Referrals: Enrique Nguyen DO [Primary Care Provider] - Discharge Diet: Usual diet Discharge Activity: Increase activity as tolerated Patient Instructions: Opioid Safety Coding Level of Care Code ED Pick Pack Worker for Chg Fwd Exam Comprehensive
[2021-04-17 10:49] LABS: Basophils # 0.1 10^3/uL (0.0-0.1); Basophils % 1.1 %; Eosinophils % 0.2 %; Hematocrit 32.6 % (42.0-52.0); Hemoglobin 10.7 g/dL (11.7-16.6); Lymphocytes # 0.6 10^3/uL (0.8-4.8); Lymphocytes % 5.6 %; Mean Corpuscular HGB Conc 32.8 g/dL (30.0-36.0); Mean Corpuscular Hemoglobin 29.9 pg (28.0-34.0); Mean Corpuscular Volume 91.1 fL (80-94); Mean Platelet Volume 10.2 fL (7.4-10.4); Monocytes % 9.6 %; Neutrophils # 7.36 10^3/uL (1.8-7.7); Neutrophils % 72.6 %; Nucleated Red Blood Cells % 0 %; Platelet Count 331 10^3/cmm (130-400); Positive C 1; Positive M 1; Red Blood Count 3.58 10^6/uL (4.1-5.3); Red Cell Distribution Width 15.6 % (12.1-15.1); White Blood Count 10.1 10^3/uL (4.0-10.0)
[2021-04-17 11:15] LABS: Alanine Aminotransferase 10 U/L (0-41); Albumin Level 3.9 g/dL (3.5-5.2); Alkaline Phosphatase 124 IU/L (40-130); Aspartate Amino Transferase 21 U/L (0-40); Blood Urea Nitrogen 23 mg/dL (8-23); Calcium 7.3 mg/dL (8.5-10.5); Carbon Dioxide 17 mmol/L (22-29); Chloride 101 mmol/L (98-107); Creatine Phosphokinase 77 U/L (39-308); Globulin 2.4 g/dL (1.3-4.6); Glucose 114 mg/dL (65-115); Lipase 50 U/L (13-60); Magnesium 1.7 mg/dL (1.7-2.3); Osmolality Calculated 281 mOsm/kg (285-295); Slide Review Slide Review Perform; Sodium 133 mmol/L (136-145); Total Bilirubin 0.2 mg/dL (0.15-1.2); Total Protein 6.3 g/dL (6.6-8.7)
--- NOTE | 2021-04-17 11:16 | CT_ITS ---
WS: [id number] CT HEAD NONCONTRAST HISTORY: AMS TECHNIQUE: Contiguous axial imaging performed through the brain in 2.5 mm imaging. Bone and soft tiss ue windows. Sagittal and coronal reformats reviewed. All CT scans at [facility] use at ast one of these dose optimization techniques: automated exposure control; mA and/or kV adjustment pe r patient size (includes targeted exams where dose is matched to clinical indication); or iterative r econstruction. DLP: 875.28 mGy.cm COMPARISON: None available. No acute intracranial hemorrhage, midline shift or mass effect. Mild atrophy. Moderate chronic microvascular ischemic changes in the periventricular white matter. Be nign basal ganglia calcifications on the RIGHT. Small lacunar infarct LEFT external capsule. No hypod ense lesions. Ventricles: Normal size with no hydrocephalus. Paranasal sinuses: Mucoperiosteal thickening and a small air-fluid level in the RIGHT maxillary sinus . Mastoid air cells: Well pneumatized. Calvarium and scalp: Skull is intact with no soft tissue edema or swelling. CT/CT head wo con* [id number] IMPRESSION: 1. No acute intracranial hemorrhage or edema. 2. Decreased attenuation in the white matter most consistent with moderate chr onic microvascular ischemic disease. 3. RIGHT maxillary sinusitis.
[2021-04-17 11:26] LABS: Anion Gap 19.1 (5-19); Potassium 4.1 mmol/L (3.5-5.1)
[2021-04-17 11:28] LABS: Add Urine Microscopic? NO; Charge for UA Resulting for Rev
[2021-04-17 11:35] LABS: Ketone (Acetest) Serum Negative (Negative)
[2021-04-17 11:48] LABS: Bilirubin Urine Neg (Negative); Blood Urine Neg (Negative); Glucose Urine UA Norm (Normal); Ketones Urine Negative (Negative); Leukocyte Esterase Urine Negative (Negative); Nitrate Urine Negative (Negative); Protein Urine Neg (Negative); Specific Gravity, Urine 1.005 (1.005-1.030); Urine Appearance Clear (CLEAR); Urine Color Yellow (Yellow); Urobilinogen Urine Norm (Negative); pH Urine 7 (5-7)
[2021-04-17 11:51] LABS: Troponin(5th) Baseline 35 ng/L (0-15)
--- NOTE | 2021-04-17 12:15 | ECG_ITS ---
[facility] Test Date: 2021-04-17 Pat Name: Xavi Pryor Department: Room: Gender: Male Frame Bander: : 1940 Requested By: Uri Saunders Order Number: [id number] Qiana MD: Kailey Ang M.D. Measurements Intervals [place] Rate: 82 P: 74 NM: 165 QRS: 56 QRSD: 82 T: 76 QT: 364 QTc: 427 Interpretive Statements SINUS RHYTHM Compared to ECG 04/17/2021 10:49:31 Myocardial infarct finding no longer present Electronically Signed On 04-17-2021 16:32:59 CDT by Kailey Ang M.D. [email or web address]
[2021-04-17 12:54] VITALS: BP 134/79; PULSE 83; RESP 18; O2SAT 97
[2021-04-17 13:13] LABS: Troponin 5 2HR 35.17 ng/L (0-15); Troponin 5 2HR Delta 0.17 ABS# (0-10)
== END 2021-04-17 12:58 | disposition home or self-care (01) ==
PROVIDERS: Emergency Provider Family Medicine; PCP Internal Medicine
DX: R41.82 Altered mental status, unspecified (principal); C82.90 Follicular lymphoma, unspecified, unspecified site; Z87.891 Personal history of nicotine dependence
CPT/HCPCS: 36415; 70450; 71045; 80053; 81003; 82009; 82550; 83690; 83735; 84484; 85025; 93005; 99283

== ENCOUNTER 2021-04-23 06:02 | Outpatient (RCR) | payer MEDICARE, SELFPAY ==
[2021-04-23 12:25] LABS: Basophils # 0.1 10^3/uL (0.0-0.1); Basophils % 0.7 %; Eosinophils % 0.1 %; Hematocrit 29.9 % (42.0-52.0); Hemoglobin 9.7 g/dL (11.7-16.6); Lymphocytes # 0.9 10^3/uL (0.8-4.8); Lymphocytes % 12.7 %; Mean Corpuscular HGB Conc 32.4 g/dL (30.0-36.0); Mean Corpuscular Hemoglobin 29.8 pg (28.0-34.0); Mean Corpuscular Volume 91.7 fL (80-94); Mean Platelet Volume 9.4 fL (7.4-10.4); Neutrophils % 70.7 %; Nucleated Red Blood Cells % 0 %; Platelet Count 420 10^3/cmm (130-400); Red Blood Count 3.26 10^6/uL (4.1-5.3); Red Cell Distribution Width 16.1 % (12.1-15.1); White Blood Count 7.2 10^3/uL (4.0-10.0)
[2021-04-23 12:53] LABS: Alanine Aminotransferase 14 U/L (0-41); Albumin Level 3.9 g/dL (3.5-5.2); Alkaline Phosphatase 115 IU/L (40-130); Anion Gap 15.4 (5-19); Aspartate Amino Transferase 24 U/L (0-40); Blood Urea Nitrogen 27 mg/dL (8-23); Calcium 8.3 mg/dL (8.5-10.5); Carbon Dioxide 21 mmol/L (22-29); Chloride 102 mmol/L (98-107); Globulin 2.3 g/dL (1.3-4.6); Glucose 97 mg/dL (65-115); Osmolality Calculated 283 mOsm/kg (285-295); Potassium 4.4 mmol/L (3.5-5.1); Sodium 134 mmol/L (136-145); Total Bilirubin 0.2 mg/dL (0.15-1.2); Total Protein 6.2 g/dL (6.6-8.7)
--- NOTE | 2021-05-12 21:30 | ONC FU_ITS ---
[facility] Patient Note Patient: Xavi Pryor Unit #: [id number]: [id number] Dictated By: Marsha MaciasDate of Visit: Apr 23, 2021 Onc MED Follow-Up/Prog Note Chief Complaint: Follicular lymphoma History of Present Illness: Mr. 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 He initially presented with right submandibular mass and was treated with antibiotics without much help, He was referred to ENT and underwent FNA of right submental mass which showed atypical lymphoid infiltrate. Mr Pryor subsequently underwent excisional biopsy of right submandibular mass on 04/08/2017. flow cytometry showed monoclonal B-cell population which was positive for CD19/CD20/FNCC 7 and CD20 to and was negative for CD5. Also exhibited surface kappa light chain restriction. These findings were consistent with grade 2 follicular lymphoma. Patient was evaluated by Dr. Pardo at [facility] in [place], [place] and being low-grade and stage II disease active surveillance was pursued. Last time he saw Dr. Pardo was on 02/15/2018. As per patient, last CT PET scan was done in 2016. Since his last visit with Dr. Pardo in February 2018, he had develop left inguinal lymphadenopathy and lost about 30 pounds. Mr Pryor attributed his weight loss to diverticulitis. Denied any night sweats, recurrent fever, abdominal fullness, any other peripheral lymphadenopathy. Denied any melena, hematochezia, denied any nosebleed, petechiae or ecchymosis. He denied any shortness of breath or dysphagia, denies any jaundice. CT PET scan was done on 03/12/2019 showed hypermetabolic soft tissue adherent to the aorta at upper mediastinum and upper abdominal level is consistent with a lymphoma Hypermetabolic left inguinal nodes consistent with lymphoma Diffuse activity in the rectosigmoid colon Questionable activity in the posterior left iliac Left inguinal lymph node biopsy was done on 05/04/2019 to confirm whether there is transformation to aggressive lymphoma versus persistent low-grade follicular. Final pathology report came back follicular lymphoma grade 1-2 of 3 s/p right shoulder replacement in first week of October 2019. Mr Pryor underwent anterior left midabdomen skin biopsy on December 31, 2020 which showed follicular lymphoma, grade 1 -2 of 3., BCL6 negative cyclin D1 was negative, BCL-2's staining is moderately strong and demonstrate aberrant coexpression of B cells. Further immunohistochemistry positive for CD3, CD5, CD20, CD10, CD43 Because of progressive left hip/lower back pain with radiation to left leg, his PCP ordered CT scan of abdomen pelvis which was done on January 01, 2021. This showed no lytic lesion in left ilium. Variable density within left hip and proximal femur may be related to osteopenia. No abdominal or pelvic lymphadenopathy, spleen is normal size, bone scan was recommended for further evaluation which was done on January 14, 2021. The bone scan showed multiple patchy areas of bone marrow activity involving bilateral humerus, bilateral forearm bones, mid femoral shafts suspicious for metastatic disease. Patchy activity involving left hip. Also involving left proximal tibial shaft and calvarium. Mr. Pryor was referred to Dr. 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 His nuclear bone scan from January 14, 2021 revealed metabolic uptake in the calvarium, moral shaft, mid femoral shaft and proximal tibia. 2 weeks prior to his appointment with Dr. Calabrese, he developed worsening left hip pain and lower back pain symptoms of the left leg. A restaging PET/CT on January 19, 2021 identified the anterior medial soft tissue mass as indicated above. It measured 2.2 cm x 1.2 cm with an SUV of 7.5. He also had right cervical lymphadenopathy (level 2), subcutaneous lesions within the anterior left chest wall and upper quadrant of the abdominal wall. I right testicular lesion SUV of 15.8 and a hypermetabolic peripancreatic lymph node as well as multiple osseous lesions throughout the proximal left humerus, medial left clavicle, bilateral proximal femurs and L3???L4-L5 with encroachment into the left neural foramen. He was treated with dexamethasone prior to his appointment with Dr. Calabrese for potential palliative lumbar radiotherapy. He completed palliative radiotherapy for management of the metastatic follicular lymphoma to the appendicular and axial skeleton on February 12, 2021. A total of 30 Rodrigues was delivered in 10 fractions encompassing 14 days. He received radiation to the third through the fifth lumbar vertebral bodies. He tolerated it well and states his pain is better. Mr Pryor was seen in medical oncology post completion of the radiation therapy. He was concerned that he had new nodules on his abdomen and on his back. He states they are also on his lower leg. He has adenopathy in his left anterior cervical supraclavicular area as well. He denied any trouble swallowing. He was complaining of generalized weakness and fatigue, initially patient had skin biopsy done from left anterior epigastric area skin lesion and as per pathology he was consistent with low-grade lymphoma but his disease is behaving like aggressive lymphoma. Mr Smiley was referred to surgery for biopsy from new lesions especially in the left anterior cervical supraclavicular lymph node area. A biopsy was repeated from the large subcutaneous lesion in the right upper abdominal area. 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 FISH to evaluate possible double hit was pending Mr. Pryor was seen on March 13, 2021 for follow-up given his generalized weakness and fatigue. He had developed night sweats. There were more lesions involving the upper abdomen, right anterior shoulder, right leg, left anterior cervical/supraclavicular mass. As the pathology report from March 12, 2021 reported his lymphoma had transformed from low-grade to high-grade lymphoma. Mr. Pryor was started on prednisone 60 mg daily for 5 days while awaiting chemotherapy with R-CHOP approval from insurance company and prognostic lymphoma profile testing. Mr Pryor was admitted to hospital on March 21, 2021 with acute kidney injury/tumor lysis due to steroid alone. His chemistry showed BUN 90/creatinine 4, nephrology was consulted. His uric acid was 10.7. He was given a dose of rasburicase and with that his uric acid was normalized. He was treated with IV fluids and his BUN/creatinine continue to improve. At the time of discharge, his BUN was 52 creatinine was 3.2. He was also having good urine output. As per nephrology it will take couple of weeks for kidney function to normalize . Mr Pryor had CT scan of chest done on March 21, 2021 which showed no visible evidence of acute cardiopulmonary pathology process. advanced COPD, centrilobular emphysema scant right pleural effusion no significant mediastinal or axillary lymphadenopathy. He was treated empirically with Lovenox for DVT prophylaxis and subsequently developed hematochezia at times with large bright red clots of blood. He did have acute blood loss anemia with hemoglobin dropping from around 10 to a low of 7. He received 2 units of packed red blood cells. He was having tachycardia with exertion. It was also noted that he had very poor dentition and he was given a course of Augmentin while admitted particularly in the light of planned chemotherapy. On 03/21/2021 he had placement of a PowerPort for venous access in anticipation of chemotherapy in the right subclavian vein per Dr. Jennings. There was some bruising around the site but no bleeding. CT of the chest abdomen pelvis without contrast from March 22, 2021 reported no visible evidence of acute cardiopulmonary/cardiothoracic pathology process. There was advanced COPD/chronic bronchitis with central lobar emphysema. Scant right pleural effusion and advanced three-vessel coronary artery disease. The noncontrast CT of the abdomen pelvis reported no visible evidence of acute abdominal or pelvic pathology process. No visible explanation for the indication of gross hematuria with clots. It was noted that he has scoliosis but no visible acute osseous abnormalities. Bilateral spondylosis L5/S1 with grade 1 anterior spondylolisthesis. Advanced degenerative disc disease with disc space height loss throughout the visualized thoracolumbar lumbar sacral spine. Facet arthrosis. No visible osteolytic or osteoblastic destructive process. Right total hip prosthesis with extensive metal artifact limiting assessment of the pelvis. Soft tissues reported cachexia. Mr. Pryor was discharged on March 25, 2021. His hemoglobin was noted to be 7.7 on March 24, 2021. His hematocrit was 23.7 platelet count 310,000 and his ANC was 8500. His creatinine was 3.2 and BUN 52. Recheck of his creatinine on March 29, 2021 was 2.5. 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 High Ki 67 for liberation rate up to 75%. BCL 2???week and strong c-Myc coexpression. CD20 1 focal lymphoid staining. C-Myc: Positive more than 70 to 80% coexpression. CHITO-rian: Negative. Ki 67: Increased up to 75%. Mum 1: Negative. PAX5: Positive in all large sized tumor lymphocytes. Mr. Pryor received his first dose of rituximab???CHOP on April 01, 2021. He presented on April 09, 2021 for follow-up with Dr. Figueroa with concerns of fever and chills. He stated that he was feeling very cold. He denies any known fever. He had no dysuria or hematuria. He had no complaints of cough. He had significant improvement in the lower anterior cervical/upper sternal nodularity and abdominal skin lesions are also resolving. He was noted to be neutropenic with an ANC of 380. He was also noted to have a hemoglobin of 7.7. He was referred to [facility] emergency room and subsequently admitted for chemotherapy-induced neutropenia/anemia. He was found to have acute staph coccus aureus bacteremia/sepsis. He required 2 units of packed red blood cells after which his hemoglobin remained stable. He did have positive stool occult blood but as his hemoglobin remained stable GI was not consulted. He was started on broad-spectrum antibiotics and his blood cultures from day 1 of admission were positive 1 out of 4 for MSSA staph aureus. He remained afebrile for 48 hours prior to discharge. He was discharged on oral Augmentin and referred to Dr. Jennings for possible endoscopy and colonoscopy given the positive stool for occult blood. He was seen again in the emergency room on 04/17/2021 with generalized weakness. He was seen in the emergency room by Dr. Carrasco who indicated that he was complaining of generalized weakness but was very vague about particular symptoms. He had stated that he had had a brain fog and felt weak this morning . His hemoglobin was 10.7 platelet count was 331,000 and his WBC is thousand 100. His ANC at that time was 7360. His LFTs were normal lipase was 50 random glucose was 114 CK was 77 alk phos 124 urine was negative. His potassium was 4.1 sodium 133 creatinine was 1.1 and BUN was 23. As his assessment did not reveal any acute findings and he was feeling somewhat better, Mr. Pryor was discharged home. Mr. Pryor is here today for 1 week follow-up post ER visit. He states overall he is feeling much better. He states that he is seeing Dr. Nguyen tomorrow for LEFT knee pain and limited activity due to the knee pain. He states this is not acute and that has been bothering him for some time. Otherwise he states he feels good. He has had no nausea or vomiting. He states he has had no shortness of breath orthopnea. He denies any further chills. He has had no fever. He denies any cough or shortness of breath. He denies any diarrhea or constipation. He has not noted any hematochezia. He states that the nodules are almost gone . He states overall he feels he is doing good now. His appetite is good. It is noted that his weight is stable at 129 compared to 129.4 on April 09, 2021. His ECOG is 2. ] Past Medical History: Diverticulosis History of basal cell skin cancer Osteoarthritis Past Surgical History: Appendectomy Cataract excision Reconstruction of ribs Right hip replacement PowerPort right subclavian???Dr. Jennings in 2020 Covid vaccine #2 in 2020 Covid vaccine #1 in 2020 Colonoscopy in 2016 Allergies: Tetanus-Diphtheria Toxoids Td Medications: Acetaminophen 2 Tablet (of 325 mg) Oral q 6 hours PRN Albuterol Sulfate 1 puff(s) (of 108 (90 base) mcg/act) Aerosol Powder, Breath Activated Inhalation PRN Allopurinol 1 Tablet (of 100 mg) Oral daily Amoxicillin-Pot Clavulanate 1 Tablet (of 875-125 mg) Oral b.i.d. for 7 days Claritin 1 Tablet (of 10 mg) Oral daily Ferrous Sulfate 1 Tablet (of 325 (65 fe) mg) Oral b.i.d. Flonase 2 spray(s) (of 50 mcg/act) Suspension Nasal daily hydrALAZINE HCl 1 Tablet (of 100 mg) Oral daily HYDROcodone-Acetaminophen 1 Tablet (of 5-325 mg) Oral q 6 hours PRN Naprosyn 1 Tablet (of 250 mg) Oral b.i.d. Pantoprazole Sodium 1 Tablet (of 40 mg) Tablet, enteric coated Oral daily Family History: Mr. Pryor's mother at age 63: brain cancer. Mr. Pryor's father at age 80: myeloma. His maternal grandfather is : cancer of unknown primary. Social History: Mr. Pryor is and he is retired. Mr. Pryor quit smoking 16 years ago but had smoked 1.0 pack/day for 40 years. He is an active drinker.He consumes 2 drinks/day 7 days/week. Review Of Symptoms: <See Above> Vital Signs: Performed on Apr 23, 2021 14:06 Height - 67.50 in Weight - 129 lbs (LOW) BSA - 1.69 sq.m BMI - 19.91 Temperature - 98.9 F (HIGH) Pulse - 116 /min (HIGH) Respiration - 18 /min BP - 132/82 mm(hg) O2 Sat - 97 % Pain - 0 Fatigue - 5,1 - No physically strenuous activity, but ambulatory and able to carry out light or sedentary work (e.g. office work, light house work). (ECOG) Physical Examination: Constitutional Alert, oriented, no acute distress. Skin pink, warm and dry. Head Normocephalic; atraumatic. Eyes Conjunctivae and sclerae are clear and without icterus. Pupils are reactive and equal. Hematologic/Lymphatic He has adenopathy on the left side and the sternoclavicular area. Is approximately 1.1.5 cm in diameter. It is dramatically improved. Respiratory Lungs are clear to auscultation without rhonchi or wheezing. Cardiovascular Regular rate and rhythm of heart without murmurs,clicks, gallops or rubs. Back/Spine Non-tender to palpation. Extremities No visible deformities, no cyanosis, clubbing or edema. Left knee has no noted redness warmth or nodules. There is no acute swelling or crepitus on exam. Musculoskeletal No tenderness or swelling, normal range of motion without obvious weakness. LEFT knee is limited in ROM due to patient report of discomfort. Neurologic No sensory or motor deficits, normal cerebellar function. Psychiatric Alert and oriented times three. Coherent speech. Verbalizes understanding of our discussions today. Impression: Large B-cell lymphoma with high-grade features per anterior abdominal wall skin lesion biopsy done on March 11, 2021, Ki-67 up to 75%, BCL-2 weak, strong c-Myc expression, FISH pending CT PET scan done on January 19, 2021 showed hypermetabolic soft tissue lesion in the right cervical papo territory, anterior mediastinum, subcutaneous tissue involving left upper abdominal wall and anterior chest, right testicle, peripancreatic region. Multifocal osseous metastatic disease, FDG positive soft tissue at L3 and L4 neuroforamen, representing lymphoma. Started on R-CHOP/Xgeva on April 01, 2021, Prior to that, patient was given high-dose prednisone as a part of R-CHOP because of progressive symptoms while waiting for chemotherapy approval for recently transformed low-grade lymphoma into high-grade, patient did develop symptom of tumor lysis despite of being on allopurinol for which patient required inpatient care 2, h/o Grade 2 follicular lymphoma status post excisional biopsy of right mandibular mass done on 04/08/2017 Flow cytometry was positive for CD19, CD20, CD22 and FNCC 7 and negative for CD5 Also exhibited surface kappa light chain restriction. CT PET scan was done in 2017, as per patient he was told he has stage II disease. Being low-grade and early-stage, no treatment was required but Active surveillance. CT PET scan done on 05/06/2017 showed left cervical lymphadenopathy and activity in the right shoulder but there are severe degenerative changes in that area and there is also increased activity involving lumbar spine may have both soft tissue or bone lesions. There are abnormal areas in the right ribs but patient has history of surgery on right ribs CT PET scan repeated on 03/12/2019 showed suspicious activity is present in the mediastinum in soft tissue abutting the ascending aortic arch and pulmonary artery. This has SUV of 7.9 consistent with recurrent lymphoma and additional hypermetabolic soft tissue is adherent to the abdominal aorta with SUV of 6.8 consistent with lymphoma Left inguinal lymph nodes measures up to 2.7 cm has SUV of 11 There is intense rectosigmoid activity which could be physiological but lymphomatous involvement cannot be ruled out Patient has history of diverticulitis/diverticular. Left inguinal lymph node biopsy done on 05/04/2019 showed follicular lymphoma Mr Pryor underwent anterior left midabdomen skin biopsy on December 31, 2020 which showed follicular lymphoma, grade 1 -2 of 3., BCL6 negative cyclin D1 was negative, BCL-2's staining is moderately strong and demonstrate aberrant coexpression of B cells. Further immunohistochemistry positive for CD3, CD5, CD20, CD10, CD43 Because of progressive left hip/lower back pain with radiation to left leg, his PCP ordered CT scan of abdomen pelvis which was done on January 01, 2021. This showed no lytic lesion in left ilium. Variable density within left hip and proximal femur may be related to osteopenia. No abdominal or pelvic lymphadenopathy, spleen is normal size, bone scan was recommended for further evaluation which was done on January 14, 2021. The bone scan showed multiple patchy areas of bone marrow activity involving bilateral humerus, bilateral forearm bones, mid femoral shafts suspicious for metastatic disease. Patchy activity involving left hip. Also involving left proximal tibial shaft and calvarium. Mr. Pryor was referred to Dr. 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 His nuclear bone scan from January 14, 2021 revealed metabolic uptake in the calvarium, moral shaft, mid femoral shaft and proximal tibia. 2 weeks prior to his appointment with Dr. Calabrese, he developed worsening left hip pain and lower back pain symptoms of the left leg. A restaging PET/CT on January 19, 2021 identified the anterior medial soft tissue mass as indicated above. It measured 2.2 cm x 1.2 cm with an SUV of 7.5. He also had right cervical lymphadenopathy (level 2), subcutaneous lesions within the anterior left chest wall and upper quadrant of the abdominal wall. I right testicular lesion SUV of 15.8 and a hypermetabolic peripancreatic lymph node as well as multiple osseous lesions throughout the proximal left humerus, medial left clavicle, bilateral proximal femurs and L3???L4-L5 with encroachment into the left neural foramen. He was treated with dexamethasone prior to his appointment with Dr. Calabrese for potential palliative lumbar radiotherapy. He completed palliative radiotherapy for management of the metastatic follicular lymphoma to the appendicular and axial skeleton on February 12, 2021. A total of 30 Rodrigues was delivered in 10 fractions encompassing 14 days. He received radiation to the third through the fifth lumbar vertebral bodies. He tolerated it well and states his pain is better. Mr Pryor was seen in medical oncology post completion of the radiation therapy. He was concerned that he had new nodules on his abdomen and on his back. He states they are also on his lower leg. He has adenopathy in his left anterior cervical supraclavicular area as well. He denied any trouble swallowing. He was complaining of generalized weakness and fatigue, initially patient had skin biopsy done from left anterior epigastric area skin lesion and as per pathology he was consistent with low-grade lymphoma but his disease is behaving like aggressive lymphoma. Mr Smiley was referred to surgery for biopsy from new lesions especially in the left anterior cervical supraclavicular lymph node area. A biopsy was repeated from the large subcutaneous lesion in the right upper abdominal area. 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 FISH to evaluate possible double hit was pending Mr. Pryor was seen on March 13, 2021 for follow-up given his generalized weakness and fatigue. He had developed night sweats. There were more lesions involving the upper abdomen, right anterior shoulder, right leg, left anterior cervical/supraclavicular mass. As the pathology report from March 12, 2021 reported his lymphoma had transformed from low-grade to high-grade lymphoma. Mr. Pryor was started on prednisone 60 mg daily for 5 days while awaiting chemotherapy with R-CHOP approval from insurance company and prognostic lymphoma profile testing. Mr Pryor was admitted to hospital on March 21, 2021 with acute kidney injury/tumor lysis due to steroid alone. His chemistry showed BUN 90/creatinine 4, nephrology was consulted. His uric acid was 10.7. He was given a dose of rasburicase and with that his uric acid was normalized. He was treated with IV fluids and his BUN/creatinine continue to improve. At the time of discharge, his BUN was 52 creatinine was 3.2. He was also having good urine output. As per nephrology it will take couple of weeks for kidney function to normalize . Mr Pryor had CT scan of chest done on March 21, 2021 which showed no visible evidence of acute cardiopulmonary pathology process. advanced COPD, centrilobular emphysema scant right pleural effusion no significant mediastinal or axillary lymphadenopathy. He was treated empirically with Lovenox for DVT prophylaxis and subsequently developed hematochezia at times with large bright red clots of blood. He did have acute blood loss anemia with hemoglobin dropping from around 10 to a low of 7. He received 2 units of packed red blood cells. He was having tachycardia with exertion. It was also noted that he had very poor dentition and he was given a course of Augmentin while admitted particularly in the light of planned chemotherapy. On 03/21/2021 he had placement of a PowerPort for venous access in anticipation of chemotherapy in the right subclavian vein per Dr. Jennings. There was some bruising around the site but no bleeding. CT of the chest abdomen pelvis without contrast from March 22, 2021 reported no visible evidence of acute cardiopulmonary/cardiothoracic pathology process. There was advanced COPD/chronic bronchitis with central lobar emphysema. Scant right pleural effusion and advanced three-vessel coronary artery disease. The noncontrast CT of the abdomen pelvis reported no visible evidence of acute abdominal or pelvic pathology process. No visible explanation for the indication of gross hematuria with clots. It was noted that he has scoliosis but no visible acute osseous abnormalities. Bilateral spondylosis L5/S1 with grade 1 anterior spondylolisthesis. Advanced degenerative disc disease with disc space height loss throughout the visualized thoracolumbar lumbar sacral spine. Facet arthrosis. No visible osteolytic or osteoblastic destructive process. Right total hip prosthesis with extensive metal artifact limiting assessment of the pelvis. Soft tissues reported cachexia. Mr. Pryor was discharged on March 25, 2021. His hemoglobin was noted to be 7.7 on March 24, 2021. His hematocrit was 23.7 platelet count 310,000 and his ANC was 8500. His creatinine was 3.2 and BUN 52. Recheck of his creatinine on March 29, 2021 was 2.5. 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 High Ki 67 for liberation rate up to 75%. BCL 2???week and strong c-Myc coexpression. CD20 1 focal lymphoid staining. C-Myc: Positive more than 70 to 80% coexpression. CHITO-rian: Negative. Ki 67: Increased up to 75%. Mum 1: Negative. PAX5: Positive in all large sized tumor lymphocytes. Mr. Pryor received his first dose of rituximab???CHOP on April 01, 2021. He presented on April 09, 2021 for follow-up with Dr. Figueroa with concerns of fever and chills. He stated that he was feeling very cold. He denies any known fever. He had no dysuria or hematuria. He had no complaints of cough. He had significant improvement in the lower anterior cervical/upper sternal nodularity and abdominal skin lesions are also resolving. He was noted to be neutropenic with an ANC of 380. He was also noted to have a hemoglobin of 7.7. He was referred to [facility] emergency room and subsequently admitted for chemotherapy-induced neutropenia/anemia. He was found to have acute staph coccus aureus bacteremia/sepsis. He required 2 units of packed red blood cells after which his hemoglobin remained stable. He did have positive stool occult blood but as his hemoglobin remained stable GI was not consulted. He was started on broad-spectrum antibiotics and his blood cultures from day 1 of admission were positive 1 out of 4 for MSSA staph aureus. He remained afebrile for 48 hours prior to discharge. He was discharged on oral Augmentin and referred to Dr. Jennings for possible endoscopy and colonoscopy given the positive stool for occult blood. He was seen again in the emergency room on 04/17/2021 with generalized weakness. He was seen in the emergency room by Dr. Carrasco who indicated that he was complaining of generalized weakness but was very vague about particular symptoms. He had stated that he had had a brain fog and felt weak this morning . His hemoglobin was 10.7 platelet count was 331,000 and his WBC is thousand 100. His ANC at that time was 7360. His LFTs were normal lipase was 50 random glucose was 114 CK was 77 alk phos 124 urine was negative. His potassium was 4.1 sodium 133 creatinine was 1.1 and BUN was 23. As his assessment did not reveal any acute findings and he was feeling somewhat better, Mr. Pryor was discharged home. Plan/Problems Addressed at this Visit: 1. Large B Cell lymphoma: Due to his complex interval history please see above. Mr. Pryor received his first dose of R-CHOP on April 01, 2021. He did receive Neulasta support. He was admitted on 04/09/2001 with chemo induced neutropenia and found to have 1 of 4 blood cultures positive for MSSA-he was treated with IV antibiotics and discharged on Augmentin and recovered well. He presents today for follow-up and consideration of cycle 2 R-CHOP. A. Given his complex complications post cycle 1 chemotherapy, we are going to delay him 1 more week prior to starting his second cycle of R-CHOP. He has had significant clinical response. He also was scheduled late in the day to begin a chemotherapy regimen with Rituxan cyclophosphamide Adriamycin and vincristine. His appointment time for follow-up visit was 1:30 PM and chemo was planned to follow. B. Today's labs reviewed in detail discussed with Mr. Pryor and a copy was given to him. WBC 7.2, hemoglobin 9.7, platelets 420,000, ANC is 5100. Sodium 134 potassium 4.4 creatinine 1.5 LFTs are normal his alk phos is 115. His weight is stable at 129. C. He plans to see his primary care tomorrow for left knee pain. It is noted that there were multifocal osseous lesions in the bilateral proximal femurs. He states the knee pain is chronic and is limiting his mobility. 2. Bone metastasis-PET/CT from January 19, 2021 reports multifocal osseous lesions present in the proximal left humerus, medial left clavicle, bilateral proximal femurs, left L3 and L4 with encroachment into the left neural foramen at those levels. A. Palliative radiation therapy to the appendicular and axial skeleton completed on February 12, 2021 to a total of 30 Rodrigues. He received radiation to the third through fifth lumbar vertebral bodies. B. He began denosumab 120 mg monthly on April 01, 2021. 3. Follow-up plan: A. we will plan to see him back in 1 week with CBC CMP and LDH. B. I have asked for an store coordinator appointment for his R-CHOP treatment plan. C. Mr. Pryor was instructed to contact us in interim should questions or problems arise. Total time spent on Mr. Pryor's care today including review is records prior to his visit???including all of his hospitalizations and ER visits, discussion of the current plan of care, chemotherapy review of potential side effects and management as well as post visit documentation was 60 minutes. Signed By: Marsha Macias-, AOCNP Jose Angel Figueroa MD <<Signature on File>>
== END 2021-04-24 12:00 | disposition home or self-care (01) ==
LOC: ONCMED 06:02
PROVIDERS: PCP Internal Medicine; Visit Provider Nurse Practitioner
DX: C83.33 Diffuse large B-cell lymphoma, intra-abdominal lymph nodes (principal); C79.51 Secondary malignant neoplasm of bone; K57.92 Diverticulitis of intestine, part unspecified, without perforation or abscess without bleeding; G89.3 Neoplasm related pain (acute) (chronic); Z79.899 Other long term (current) drug therapy; Z92.21 Personal history of antineoplastic chemotherapy; Z79.52 Long term (current) use of systemic steroids
CPT/HCPCS: 36591; 80053; 85025; 99215

== ENCOUNTER 2021-05-08 05:53 | Outpatient (RCR) | payer MEDICARE, SELFPAY ==
[2021-05-01 08:54] LABS: Basophils % 0.5 %; Eosinophils # 0.1 10^3/uL (0.0-0.8); Eosinophils % 0.8 %; Hematocrit 29.4 % (42.0-52.0); Hemoglobin 9.4 g/dL (11.7-16.6); Lymphocytes # 1.1 10^3/uL (0.8-4.8); Lymphocytes % 17.9 %; Mean Corpuscular Hemoglobin 29.7 pg (28.0-34.0); Mean Platelet Volume 9.7 fL (7.4-10.4); Monocytes % 15.4 %; Neutrophils # 4.13 10^3/uL (1.8-7.7); Neutrophils % 64.6 %; Nucleated Red Blood Cells % 0 %; Platelet Count 281 10^3/cmm (130-400); Red Blood Count 3.16 10^6/uL (4.1-5.3); Red Cell Distribution Width 16.9 % (12.1-15.1); White Blood Count 6.4 10^3/uL (4.0-10.0)
[2021-05-01 09:21] LABS: Alanine Aminotransferase 12 U/L (0-41); Albumin Level 3.8 g/dL (3.5-5.2); Alkaline Phosphatase 110 IU/L (40-130); Anion Gap 14.1 (5-19); Aspartate Amino Transferase 26 U/L (0-40); Blood Urea Nitrogen 19 mg/dL (8-23); Calcium 8.4 mg/dL (8.5-10.5); Carbon Dioxide 20 mmol/L (22-29); Chloride 105 mmol/L (98-107); Globulin 2.5 g/dL (1.3-4.6); Glucose 98 mg/dL (65-115); Lactate Dehydrogenase 223 U/L (135-225); Osmolality Calculated 282 mOsm/kg (285-295); Potassium 4.1 mmol/L (3.5-5.1); Sodium 135 mmol/L (136-145); Total Bilirubin 0.3 mg/dL (0.15-1.2); Total Protein 6.3 g/dL (6.6-8.7)
[2021-05-01] MEDS: diphenhydrAMINE 50 mg/mL SDV 1mL 25 MG IVP (11:00)
[2021-05-01] MEDS: sodium chloride 0.9% 1,000 ML 999 ML IV (11:00)
[2021-05-01] MEDS: acetaminophen 325 mg Tablet 650 MG PO (11:00)
[2021-05-01] MEDS: palonosetron 0.25 mg/5 mL SDV IVP (11:04)
[2021-05-01] MEDS: famotidine 20 mg/2 mL INJ IVP (11:07)
[2021-05-01] MEDS: denosumab 120 mg SDV SUBCUT (14:50)
[2021-05-01] MEDS: pegfilgrastim 6 mg/0.6 mL Kit (onpro) SUBCUT (16:34)
[2021-05-08 14:04] LABS: Basophils % 0.4 %; Eosinophils # 0.2 10^3/uL (0.0-0.8); Hematocrit 26.1 % (42.0-52.0); Hemoglobin 8.6 g/dL (11.7-16.6); Lymphocytes # 0.6 10^3/uL (0.8-4.8); Lymphocytes % 11.4 %; Mean Corpuscular Hemoglobin 30.3 pg (28.0-34.0); Mean Corpuscular Volume 91.9 fL (80-94); Mean Platelet Volume 10.1 fL (7.4-10.4); Monocytes # 0.6 10^3/uL (0.2-0.9); Monocytes % 11.9 %; Neutrophils # 3.12 10^3/uL (1.8-7.7); Neutrophils % 64.9 %; Nucleated Red Blood Cells % 0 %; Platelet Count 213 10^3/cmm (130-400); Red Blood Count 2.84 10^6/uL (4.1-5.3); Red Cell Distribution Width 17.1 % (12.1-15.1); White Blood Count 4.8 10^3/uL (4.0-10.0)
[2021-05-08 14:33] LABS: Alanine Aminotransferase 12 U/L (0-41); Albumin Level 3.9 g/dL (3.5-5.2); Alkaline Phosphatase 138 IU/L (40-130); Anion Gap 15.4 (5-19); Aspartate Amino Transferase 18 U/L (0-40); Blood Urea Nitrogen 24 mg/dL (8-23); Calcium 8.6 mg/dL (8.5-10.5); Carbon Dioxide 24 mmol/L (22-29); Chloride 101 mmol/L (98-107); Globulin 2.1 g/dL (1.3-4.6); Glucose 113 mg/dL (65-115); Osmolality Calculated 289 mOsm/kg (285-295); Potassium 3.4 mmol/L (3.5-5.1); Slide Review Slide Review Perform; Sodium 137 mmol/L (136-145); Total Bilirubin 0.4 mg/dL (0.15-1.2)
--- NOTE | 2021-05-14 19:03 | ONC FU_ITS ---
[facility] Patient Note Patient: Xavi Pryor Unit #: [id number]: 1940 Dictated By: Marsha MaciasDate of Visit: May 01, 2021 Onc MED Follow-Up/Prog Note Chief Complaint: Follicular lymphoma History of Present Illness: Mr. 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 He initially presented with right submandibular mass and was treated with antibiotics without much help, He was referred to ENT and underwent FNA of right submental mass which showed atypical lymphoid infiltrate. Mr Pryor subsequently underwent excisional biopsy of right submandibular mass on 04/08/2017. flow cytometry showed monoclonal B-cell population which was positive for CD19/CD20/FNCC 7 and CD20 to and was negative for CD5. Also exhibited surface kappa light chain restriction. These findings were consistent with grade 2 follicular lymphoma. Patient was evaluated by Dr. Pardo at [facility] in [place], [place] and being low-grade and stage II disease active surveillance was pursued. Last time he saw Dr. Pardo was on 02/15/2018. As per patient, last CT PET scan was done in 2016. Since his last visit with Dr. Pardo in February 2018, he had develop left inguinal lymphadenopathy and lost about 30 pounds. Mr Pryor attributed his weight loss to diverticulitis. Denied any night sweats, recurrent fever, abdominal fullness, any other peripheral lymphadenopathy. Denied any melena, hematochezia, denied any nosebleed, petechiae or ecchymosis. He denied any shortness of breath or dysphagia, denies any jaundice. CT PET scan was done on 03/12/2019 showed hypermetabolic soft tissue adherent to the aorta at upper mediastinum and upper abdominal level is consistent with a lymphoma Hypermetabolic left inguinal nodes consistent with lymphoma Diffuse activity in the rectosigmoid colon Questionable activity in the posterior left iliac Left inguinal lymph node biopsy was done on 05/04/2019 to confirm whether there is transformation to aggressive lymphoma versus persistent low-grade follicular. Final pathology report came back follicular lymphoma grade 1-2 of 3 s/p right shoulder replacement in first week of October 2019. Mr Pryor underwent anterior left midabdomen skin biopsy on December 31, 2020 which showed follicular lymphoma, grade 1 -2 of 3., BCL6 negative cyclin D1 was negative, BCL-2's staining is moderately strong and demonstrate aberrant coexpression of B cells. Further immunohistochemistry positive for CD3, CD5, CD20, CD10, CD43 Because of progressive left hip/lower back pain with radiation to left leg, his PCP ordered CT scan of abdomen pelvis which was done on January 01, 2021. This showed no lytic lesion in left ilium. Variable density within left hip and proximal femur may be related to osteopenia. No abdominal or pelvic lymphadenopathy, spleen is normal size, bone scan was recommended for further evaluation which was done on January 14, 2021. The bone scan showed multiple patchy areas of bone marrow activity involving bilateral humerus, bilateral forearm bones, mid femoral shafts suspicious for metastatic disease. Patchy activity involving left hip. Also involving left proximal tibial shaft and calvarium. Mr. Pryor was referred to Dr. 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 His nuclear bone scan from January 14, 2021 revealed metabolic uptake in the calvarium, moral shaft, mid femoral shaft and proximal tibia. 2 weeks prior to his appointment with Dr. Calabrese, he developed worsening left hip pain and lower back pain symptoms of the left leg. A restaging PET/CT on January 19, 2021 identified the anterior medial soft tissue mass as indicated above. It measured 2.2 cm x 1.2 cm with an SUV of 7.5. He also had right cervical lymphadenopathy (level 2), subcutaneous lesions within the anterior left chest wall and upper quadrant of the abdominal wall. I right testicular lesion SUV of 15.8 and a hypermetabolic peripancreatic lymph node as well as multiple osseous lesions throughout the proximal left humerus, medial left clavicle, bilateral proximal femurs and L3???L4-L5 with encroachment into the left neural foramen. He was treated with dexamethasone prior to his appointment with Dr. Calabrese for potential palliative lumbar radiotherapy. He completed palliative radiotherapy for management of the metastatic follicular lymphoma to the appendicular and axial skeleton on February 12, 2021. A total of 30 Rodrigues was delivered in 10 fractions encompassing 14 days. He received radiation to the third through the fifth lumbar vertebral bodies. He tolerated it well and states his pain is better. Mr Pryor was seen in medical oncology post completion of the radiation therapy. He was concerned that he had new nodules on his abdomen and on his back. He states they are also on his lower leg. He has adenopathy in his left anterior cervical supraclavicular area as well. He denied any trouble swallowing. He was complaining of generalized weakness and fatigue, initially patient had skin biopsy done from left anterior epigastric area skin lesion and as per pathology he was consistent with low-grade lymphoma but his disease is behaving like aggressive lymphoma. Mr Smiley was referred to surgery for biopsy from new lesions especially in the left anterior cervical supraclavicular lymph node area. A biopsy was repeated from the large subcutaneous lesion in the right upper abdominal area. 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 FISH to evaluate possible double hit was pending Mr. Pryor was seen on March 13, 2021 for follow-up given his generalized weakness and fatigue. He had developed night sweats. There were more lesions involving the upper abdomen, right anterior shoulder, right leg, left anterior cervical/supraclavicular mass. As the pathology report from March 12, 2021 reported his lymphoma had transformed from low-grade to high-grade lymphoma. Mr. Pryor was started on prednisone 60 mg daily for 5 days while awaiting chemotherapy with R-CHOP approval from insurance company and prognostic lymphoma profile testing. Mr Pryor was admitted to hospital on March 21, 2021 with acute kidney injury/tumor lysis due to steroid alone. His chemistry showed BUN 90/creatinine 4, nephrology was consulted. His uric acid was 10.7. He was given a dose of rasburicase and with that his uric acid was normalized. He was treated with IV fluids and his BUN/creatinine continue to improve. At the time of discharge, his BUN was 52 creatinine was 3.2. He was also having good urine output. As per nephrology it will take couple of weeks for kidney function to normalize . Mr Pryor had CT scan of chest done on March 21, 2021 which showed no visible evidence of acute cardiopulmonary pathology process. advanced COPD, centrilobular emphysema scant right pleural effusion no significant mediastinal or axillary lymphadenopathy. He was treated empirically with Lovenox for DVT prophylaxis and subsequently developed hematochezia at times with large bright red clots of blood. He did have acute blood loss anemia with hemoglobin dropping from around 10 to a low of 7. He received 2 units of packed red blood cells. He was having tachycardia with exertion. It was also noted that he had very poor dentition and he was given a course of Augmentin while admitted particularly in the light of planned chemotherapy. On 03/21/2021 he had placement of a PowerPort for venous access in anticipation of chemotherapy in the right subclavian vein per Dr. Jennings. There was some bruising around the site but no bleeding. CT of the chest abdomen pelvis without contrast from March 22, 2021 reported no visible evidence of acute cardiopulmonary/cardiothoracic pathology process. There was advanced COPD/chronic bronchitis with central lobar emphysema. Scant right pleural effusion and advanced three-vessel coronary artery disease. The noncontrast CT of the abdomen pelvis reported no visible evidence of acute abdominal or pelvic pathology process. No visible explanation for the indication of gross hematuria with clots. It was noted that he has scoliosis but no visible acute osseous abnormalities. Bilateral spondylosis L5/S1 with grade 1 anterior spondylolisthesis. Advanced degenerative disc disease with disc space height loss throughout the visualized thoracolumbar lumbar sacral spine. Facet arthrosis. No visible osteolytic or osteoblastic destructive process. Right total hip prosthesis with extensive metal artifact limiting assessment of the pelvis. Soft tissues reported cachexia. Mr. Pryor was discharged on March 25, 2021. His hemoglobin was noted to be 7.7 on March 24, 2021. His hematocrit was 23.7 platelet count 310,000 and his ANC was 8500. His creatinine was 3.2 and BUN 52. Recheck of his creatinine on March 29, 2021 was 2.5. 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 High Ki 67 for liberation rate up to 75%. BCL 2???week and strong c-Myc coexpression. CD20 1 focal lymphoid staining. C-Myc: Positive more than 70 to 80% coexpression. CHITO-rian: Negative. Ki 67: Increased up to 75%. Mum 1: Negative. PAX5: Positive in all large sized tumor lymphocytes. Mr. Pryor received his first dose of rituximab???CHOP on April 01, 2021. He presented on April 09, 2021 for follow-up with Dr. Figueroa with concerns of fever and chills. He stated that he was feeling very cold. He denies any known fever. He had no dysuria or hematuria. He had no complaints of cough. He had significant improvement in the lower anterior cervical/upper sternal nodularity and abdominal skin lesions are also resolving. He was noted to be neutropenic with an ANC of 380. He was also noted to have a hemoglobin of 7.7. He was referred to [facility] emergency room and subsequently admitted for chemotherapy-induced neutropenia/anemia. He was found to have acute staph coccus aureus bacteremia/sepsis. He required 2 units of packed red blood cells after which his hemoglobin remained stable. He did have positive stool occult blood but as his hemoglobin remained stable GI was not consulted. He was started on broad-spectrum antibiotics and his blood cultures from day 1 of admission were positive 1 out of 4 for MSSA staph aureus. He remained afebrile for 48 hours prior to discharge. He was discharged on oral Augmentin and referred to Dr. Jennings for possible endoscopy and colonoscopy given the positive stool for occult blood. He was seen again in the emergency room on 04/17/2021 with generalized weakness. He was seen in the emergency room by Dr. Carrasco who indicated that he was complaining of generalized weakness but was very vague about particular symptoms. He had stated that he had had a brain fog and felt weak this morning . His hemoglobin was 10.7 platelet count was 331,000 and his WBC is thousand 100. His ANC at that time was 7360. His LFTs were normal lipase was 50 random glucose was 114 CK was 77 alk phos 124 urine was negative. His potassium was 4.1 sodium 133 creatinine was 1.1 and BUN was 23. As his assessment did not reveal any acute findings and he was feeling somewhat better, Mr. Pryor was discharged home. Mr. Pryor is here today for 1 week follow-up. He was scheduled to resume cycle 2 R-CHOP last week but this was delayed due to significant side efects with ycle 1 and declining performance status. He is due for his second cycle of rituximab CHOP today. We will plan to decrease his doxorubicin by 15%. He had significant performance status issues with cycle 1. He states he has not had any fever or chills. He denies any mouth sores, sore throat or difficulty swallowing. He denies any new shortness of breath orthopnea. He states that the nodules are basically gone and are certainly not bothersome anymore. He states he has had dramatic improvement. He is swallowing well. He denies any appetite changes. He denies nausea or vomiting. He denies any diarrhea or constipation. 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 His ECOG is 2.. He states overall he is feeling much better. He had an Xray of his RIGHT knee on 04/24/2021 for persistent knee pain and limited activity due to the knee pain. The x-ray report reads mild tricompartment osteoarthritis. Small joint effusion and mild heterogeneous appearance of the marrow. If pain persist consider bone scan imaging to evaluate for possible infiltrative process. This is likely due to osteopenia per Dr. Ragsdale's report on the x-ray from 04/24/2021. He states that the nodules are almost gone . He states overall he feels he is doing good now. His appetite is good. It is noted that his weight is stable at 134.4 compared to 129.4 on April 09, 2021. His ECOG is 2. Past Medical History: Diverticulosis History of basal cell skin cancer Osteoarthritis Past Surgical History: Appendectomy Cataract excision Reconstruction of ribs Right hip replacement PowerPort right subclavian???Dr. Jennings in 2020 Covid vaccine #2 in 2020 Covid vaccine #1 in 2020 Colonoscopy in 2016 Allergies: Tetanus-Diphtheria Toxoids Td Medications: Acetaminophen 2 Tablet (of 325 mg) Oral q 6 hours PRN Albuterol Sulfate 1 puff(s) (of 108 (90 base) mcg/act) Aerosol Powder, Breath Activated Inhalation PRN Allopurinol 1 Tablet (of 100 mg) Oral daily Amoxicillin-Pot Clavulanate 1 Tablet (of 875-125 mg) Oral b.i.d. for 7 days Claritin 1 Tablet (of 10 mg) Oral daily Ferrous Sulfate 1 Tablet (of 325 (65 fe) mg) Oral b.i.d. Flonase 2 spray(s) (of 50 mcg/act) Suspension Nasal daily hydrALAZINE HCl 1 Tablet (of 100 mg) Oral daily HYDROcodone-Acetaminophen 1 Tablet (of 5-325 mg) Oral q 6 hours PRN Naprosyn 1 Tablet (of 250 mg) Oral b.i.d. Pantoprazole Sodium 1 Tablet (of 40 mg) Tablet, enteric coated Oral daily Family History: Mr. Pryor's mother at age 63: brain cancer. Mr. Pryor's father at age 80: myeloma. His maternal grandfather is : cancer of unknown primary. Social History: Mr. Pryor is and he is retired. Mr. Pryor quit smoking 16 years ago but had smoked 1.0 pack/day for 40 years. He is an active drinker.He consumes 2 drinks/day 7 days/week. Review Of Symptoms: <See Above> Vital Signs: Performed on May 01, 2021 10:01 Height - 67.50 in Weight - 134.4 lbs (HIGH) BSA - 1.72 sq.m BMI - 20.74 Temperature - 97.8 F (LOW) Pulse - 84 /min Respiration - 18 /min BP - 118/60 mm(hg) O2 Sat - 97 % Pain - 0 Fatigue - 4,1 - No physically strenuous activity, but ambulatory and able to carry out light or sedentary work (e.g. office work, light house work). (ECOG) Physical Examination: Constitutional Alert, oriented, no acute distress. Skin pink, warm and dry. Head Normocephalic; atraumatic. Eyes Conjunctivae and sclerae are clear and without icterus. Pupils are reactive and equal. Hematologic/Lymphatic He has adenopathy on the left side and the sternoclavicular area. Is approximately 1 cm in diameter. It continues to dramatically improve. Respiratory Lungs are clear to auscultation without rhonchi or wheezing. Cardiovascular Regular rate and rhythm of heart without murmurs,clicks, gallops or rubs. Back/Spine Non-tender to palpation. Extremities No visible deformities, no cyanosis, clubbing or edema. Left knee has no noted redness warmth or nodules. There is no acute swelling or crepitus on exam. Musculoskeletal No tenderness or swelling, normal range of motion without obvious weakness. LEFT knee is limited in ROM due to patient report of discomfort. Neurologic No sensory or motor deficits, normal cerebellar function. Psychiatric Alert and oriented times three. Coherent speech. Verbalizes understanding of our discussions today. Laboratory:Test performed on May 01, 2021 08:10 LDH (Total) 223 U/L Sodium 135 mmol/L Potassium 4.1 mmol/L Chloride 105 mmol/L CO2 20 mmol/L Anion Gap 14.1 BUN 19 mg/dL Creatinine 1.1 mg/dL Cr Clearance (Est) 49.7800 mL/min Glucose 98 mg/dL Osmolality - Calculated 282 mOsm/kg Calcium 8.4 mg/dL Protein, Total 6.3 g/dL Albumin 3.8 g/dL Globulin 2.5 g/dL Bilirubin, Total 0.3 mg/dL ALT (SGPT) 12 U/L AST (SGOT) 26 U/L Alkaline Phosphatase 110 IU/L WBC 6.4 10 3/uL RBC 3.16 10 6/uL HGB 9.4 g/dL HCT 29.4 % MCV 93.0 fL MCH 29.7 pg MCHC 32.0 g/dL RDW 16.9 % Platelet Count 281 10 3/cmm MPV 9.7 fL Neutrophils 4.13 10 3/uL Lymphocytes 1.1 10 3/uL Monocytes 1.0 10 3/uL Eosinophils 0.1 10 3/uL Basophils 0.0 10 3/uL Neutrophil % 64.6 % Lymphocyte % 17.9 % Monocyte % 15.4 % Eosinophil % 0.8 % Basophils % 0.5 % NRBC % 0 % Impression: Large B-cell lymphoma with high-grade features per anterior abdominal wall skin lesion biopsy done on March 11, 2021, Ki-67 up to 75%, BCL-2 weak, strong c-Myc expression, FISH pending CT PET scan done on January 19, 2021 showed hypermetabolic soft tissue lesion in the right cervical papo territory, anterior mediastinum, subcutaneous tissue involving left upper abdominal wall and anterior chest, right testicle, peripancreatic region. Multifocal osseous metastatic disease, FDG positive soft tissue at L3 and L4 neuroforamen, representing lymphoma. Started on R-CHOP/Xgeva on April 01, 2021, Prior to that, patient was given high-dose prednisone as a part of R-CHOP because of progressive symptoms while waiting for chemotherapy approval for recently transformed low-grade lymphoma into high-grade, patient did develop symptom of tumor lysis despite of being on allopurinol for which patient required inpatient care 2, h/o Grade 2 follicular lymphoma status post excisional biopsy of right mandibular mass done on 04/08/2017 Flow cytometry was positive for CD19, CD20, CD22 and FNCC 7 and negative for CD5 Also exhibited surface kappa light chain restriction. CT PET scan was done in 2017, as per patient he was told he has stage II disease. Being low-grade and early-stage, no treatment was required but Active surveillance. CT PET scan done on 05/06/2017 showed left cervical lymphadenopathy and activity in the right shoulder but there are severe degenerative changes in that area and there is also increased activity involving lumbar spine may have both soft tissue or bone lesions. There are abnormal areas in the right ribs but patient has history of surgery on right ribs CT PET scan repeated on 03/12/2019 showed suspicious activity is present in the mediastinum in soft tissue abutting the ascending aortic arch and pulmonary artery. This has SUV of 7.9 consistent with recurrent lymphoma and additional hypermetabolic soft tissue is adherent to the abdominal aorta with SUV of 6.8 consistent with lymphoma Left inguinal lymph nodes measures up to 2.7 cm has SUV of 11 There is intense rectosigmoid activity which could be physiological but lymphomatous involvement cannot be ruled out Patient has history of diverticulitis/diverticular. Left inguinal lymph node biopsy done on 05/04/2019 showed follicular lymphoma Mr Pryor underwent anterior left midabdomen skin biopsy on December 31, 2020 which showed follicular lymphoma, grade 1 -2 of 3., BCL6 negative cyclin D1 was negative, BCL-2's staining is moderately strong and demonstrate aberrant coexpression of B cells. Further immunohistochemistry positive for CD3, CD5, CD20, CD10, CD43 Because of progressive left hip/lower back pain with radiation to left leg, his PCP ordered CT scan of abdomen pelvis which was done on January 01, 2021. This showed no lytic lesion in left ilium. Variable density within left hip and proximal femur may be related to osteopenia. No abdominal or pelvic lymphadenopathy, spleen is normal size, bone scan was recommended for further evaluation which was done on January 14, 2021. The bone scan showed multiple patchy areas of bone marrow activity involving bilateral humerus, bilateral forearm bones, mid femoral shafts suspicious for metastatic disease. Patchy activity involving left hip. Also involving left proximal tibial shaft and calvarium. Mr. Pryor was referred to Dr. 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 His nuclear bone scan from January 14, 2021 revealed metabolic uptake in the calvarium, moral shaft, mid femoral shaft and proximal tibia. 2 weeks prior to his appointment with Dr. Calabrese, he developed worsening left hip pain and lower back pain symptoms of the left leg. A restaging PET/CT on January 19, 2021 identified the anterior medial soft tissue mass as indicated above. It measured 2.2 cm x 1.2 cm with an SUV of 7.5. He also had right cervical lymphadenopathy (level 2), subcutaneous lesions within the anterior left chest wall and upper quadrant of the abdominal wall. I right testicular lesion SUV of 15.8 and a hypermetabolic peripancreatic lymph node as well as multiple osseous lesions throughout the proximal left humerus, medial left clavicle, bilateral proximal femurs and L3???L4-L5 with encroachment into the left neural foramen. He was treated with dexamethasone prior to his appointment with Dr. Calabrese for potential palliative lumbar radiotherapy. He completed palliative radiotherapy for management of the metastatic follicular lymphoma to the appendicular and axial skeleton on February 12, 2021. A total of 30 Rodrigues was delivered in 10 fractions encompassing 14 days. He received radiation to the third through the fifth lumbar vertebral bodies. He tolerated it well and states his pain is better. Mr Pryor was seen in medical oncology post completion of the radiation therapy. He was concerned that he had new nodules on his abdomen and on his back. He states they are also on his lower leg. He has adenopathy in his left anterior cervical supraclavicular area as well. He denied any trouble swallowing. He was complaining of generalized weakness and fatigue, initially patient had skin biopsy done from left anterior epigastric area skin lesion and as per pathology he was consistent with low-grade lymphoma but his disease is behaving like aggressive lymphoma. Mr Smiley was referred to surgery for biopsy from new lesions especially in the left anterior cervical supraclavicular lymph node area. A biopsy was repeated from the large subcutaneous lesion in the right upper abdominal area. 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 FISH to evaluate possible double hit was pending Mr. Pryor was seen on March 13, 2021 for follow-up given his generalized weakness and fatigue. He had developed night sweats. There were more lesions involving the upper abdomen, right anterior shoulder, right leg, left anterior cervical/supraclavicular mass. As the pathology report from March 12, 2021 reported his lymphoma had transformed from low-grade to high-grade lymphoma. Mr. Pryor was started on prednisone 60 mg daily for 5 days while awaiting chemotherapy with R-CHOP approval from insurance company and prognostic lymphoma profile testing. Mr Pryor was admitted to hospital on March 21, 2021 with acute kidney injury/tumor lysis due to steroid alone. His chemistry showed BUN 90/creatinine 4, nephrology was consulted. His uric acid was 10.7. He was given a dose of rasburicase and with that his uric acid was normalized. He was treated with IV fluids and his BUN/creatinine continue to improve. At the time of discharge, his BUN was 52 creatinine was 3.2. He was also having good urine output. As per nephrology it will take couple of weeks for kidney function to normalize . Mr Pryor had CT scan of chest done on March 21, 2021 which showed no visible evidence of acute cardiopulmonary pathology process. advanced COPD, centrilobular emphysema scant right pleural effusion no significant mediastinal or axillary lymphadenopathy. He was treated empirically with Lovenox for DVT prophylaxis and subsequently developed hematochezia at times with large bright red clots of blood. He did have acute blood loss anemia with hemoglobin dropping from around 10 to a low of 7. He received 2 units of packed red blood cells. He was having tachycardia with exertion. It was also noted that he had very poor dentition and he was given a course of Augmentin while admitted particularly in the light of planned chemotherapy. On 03/21/2021 he had placement of a PowerPort for venous access in anticipation of chemotherapy in the right subclavian vein per Dr. Jennings. There was some bruising around the site but no bleeding. CT of the chest abdomen pelvis without contrast from March 22, 2021 reported no visible evidence of acute cardiopulmonary/cardiothoracic pathology process. There was advanced COPD/chronic bronchitis with central lobar emphysema. Scant right pleural effusion and advanced three-vessel coronary artery disease. The noncontrast CT of the abdomen pelvis reported no visible evidence of acute abdominal or pelvic pathology process. No visible explanation for the indication of gross hematuria with clots. It was noted that he has scoliosis but no visible acute osseous abnormalities. Bilateral spondylosis L5/S1 with grade 1 anterior spondylolisthesis. Advanced degenerative disc disease with disc space height loss throughout the visualized thoracolumbar lumbar sacral spine. Facet arthrosis. No visible osteolytic or osteoblastic destructive process. Right total hip prosthesis with extensive metal artifact limiting assessment of the pelvis. Soft tissues reported cachexia. Mr. Pryor was discharged on March 25, 2021. His hemoglobin was noted to be 7.7 on March 24, 2021. His hematocrit was 23.7 platelet count 310,000 and his ANC was 8500. His creatinine was 3.2 and BUN 52. Recheck of his creatinine on March 29, 2021 was 2.5. 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 High Ki 67 for liberation rate up to 75%. BCL 2???week and strong c-Myc coexpression. CD20 1 focal lymphoid staining. C-Myc: Positive more than 70 to 80% coexpression. CHITO-rian: Negative. Ki 67: Increased up to 75%. Mum 1: Negative. PAX5: Positive in all large sized tumor lymphocytes. Mr. Pryor received his first dose of rituximab???CHOP on April 01, 2021. He presented on April 09, 2021 for follow-up with Dr. Figueroa with concerns of fever and chills. He stated that he was feeling very cold. He denies any known fever. He had no dysuria or hematuria. He had no complaints of cough. He had significant improvement in the lower anterior cervical/upper sternal nodularity and abdominal skin lesions are also resolving. He was noted to be neutropenic with an ANC of 380. He was also noted to have a hemoglobin of 7.7. He was referred to [facility] emergency room and subsequently admitted for chemotherapy-induced neutropenia/anemia. He was found to have acute staph coccus aureus bacteremia/sepsis. He required 2 units of packed red blood cells after which his hemoglobin remained stable. He did have positive stool occult blood but as his hemoglobin remained stable GI was not consulted. He was started on broad-spectrum antibiotics and his blood cultures from day 1 of admission were positive 1 out of 4 for MSSA staph aureus. He remained afebrile for 48 hours prior to discharge. He was discharged on oral Augmentin and referred to Dr. Jennings for possible endoscopy and colonoscopy given the positive stool for occult blood. He was seen again in the emergency room on 04/17/2021 with generalized weakness. He was seen in the emergency room by Dr. Carrasco who indicated that he was complaining of generalized weakness but was very vague about particular symptoms. He had stated that he had had a brain fog and felt weak this morning . His hemoglobin was 10.7 platelet count was 331,000 and his WBC is thousand 100. His ANC at that time was 7360. His LFTs were normal lipase was 50 random glucose was 114 CK was 77 alk phos 124 urine was negative. His potassium was 4.1 sodium 133 creatinine was 1.1 and BUN was 23. As his assessment did not reveal any acute findings and he was feeling somewhat better, Mr. Pryor was discharged home. Plan/Problems Addressed at this Visit: 1. Large B Cell lymphoma: Due to his complex interval history please see above. Mr. Pryor received his first dose of R-CHOP on April 01, 2021. He did receive Neulasta support. He was admitted on 04/09/2001 with chemo induced neutropenia and found to have 1 of 4 blood cultures positive for MSSA-he was treated with IV antibiotics and discharged on Augmentin and recovered well. He presents today for follow-up and consideration of cycle 2 R-CHOP. A. Given his complex complications post cycle 1 chemotherapy, he was delayed an extra week to allow for further recovery. He will PROCEED his second cycle of R-CHOP today. He has had significant clinical response. He will have dose reduction today of his chemotherapy regimen. Rituxan will remain at normal dosing. B. Today's labs reviewed in detail discussed with Mr. Pryor and a copy was given to him. WBC 6.4, hemoglobin 9.4, hematocrit 29.4 platelets 281,000, ANC is 4130. Sodium 135 potassium 4.1 creatinine 1.1 random glucose 98 calcium 8.4 LFTs are normal alk phos is 110 and LDH is 223. His weight is 134.4 today. C. Continue aggressive antiemetics premedication and supportive care as needed. 2. Bone metastasis-PET/CT from January 19, 2021 reports multifocal osseous lesions present in the proximal left humerus, medial left clavicle, bilateral proximal femurs, left L3 and L4 with encroachment into the left neural foramen at those levels. A. Palliative radiation therapy to the appendicular and axial skeleton completed on February 12, 2021 to a total of 30 Rodrigues. He received radiation to the third through fifth lumbar vertebral bodies. B. He began denosumab 120 mg monthly on April 01, 2021. C. Proceed with denosumab 120 mg daily today. 3. Follow-up plan: A. we will plan to see him back in 3 weeks with CBC CMP and LDH. He will be due for cycle 3 R-CHOP at that time. B. I did request weekly interim labs given his difficulties after his first cycle of chemotherapy. C. Mr. Pryor was instructed to contact us in interim should questions or problems arise. Total time spent on Mr. Pryor's care today including review is records prior to his visit???including all of his hospitalizations and ER visits, discussion of the current plan of care, chemotherapy review of potential side effects and management as well as post visit documentation was 60 minutes. Signed By: Marsha Macias-< AOCNP Jose Angel Figeuroa MD <<Signature on File>>
== END 2021-05-08 23:59 | disposition home or self-care (01) ==
LOC: ONCMED 05:53
PROVIDERS: Nurse Practitioner; PCP Internal Medicine; Visit Provider Internal Medicine Hematology & Oncology
DX: Z51.12 Encounter for antineoplastic immunotherapy (principal); Z51.11 Encounter for antineoplastic chemotherapy; C82.11 Follicular lymphoma grade II, lymph nodes of head, face, and neck; C79.51 Secondary malignant neoplasm of bone; K57.92 Diverticulitis of intestine, part unspecified, without perforation or abscess without bleeding; Z79.52 Long term (current) use of systemic steroids; Z79.899 Other long term (current) drug therapy; Z92.3 Personal history of irradiation
CPT/HCPCS: 36415; 36591; 80053; 83615; 85025; 96367; 96372; 96375; 96377; 96411; 96413; 96415; 96417; 99214; J0897; J1100; J1200; J1453; J2469; J2505; J3490; J7030; J7040; J9000; J9070; J9312; J9370

== ENCOUNTER 2021-05-30 05:48 | Outpatient (RCR) | payer MEDICARE, SELFPAY ==
[2021-05-15 14:03] LABS: Basophils # 0.1 10^3/uL (0.0-0.1); Basophils % 0.6 %; Eosinophils # 0.2 10^3/uL (0.0-0.8); Eosinophils % 2.1 %; Hemoglobin 9.3 g/dL (11.7-16.6); Lymphocytes # 0.8 10^3/uL (0.8-4.8); Lymphocytes % 8.3 %; Mean Corpuscular HGB Conc 32.1 g/dL (30.0-36.0); Mean Corpuscular Hemoglobin 30.5 pg (28.0-34.0); Mean Corpuscular Volume 95.1 fL (80-94); Monocytes # 0.9 10^3/uL (0.2-0.9); Monocytes % 10.1 %; Neutrophils # 6.93 10^3/uL (1.8-7.7); Neutrophils % 74.9 %; Nucleated Red Blood Cells % 0 %; Platelet Count 291 10^3/cmm (130-400); Red Blood Count 3.05 10^6/uL (4.1-5.3); Red Cell Distribution Width 18.8 % (12.1-15.1); White Blood Count 9.3 10^3/uL (4.0-10.0)
[2021-05-15 14:22] LABS: Alanine Aminotransferase 18 U/L (0-41); Albumin Level 4.1 g/dL (3.5-5.2); Alkaline Phosphatase 121 IU/L (40-130); Anion Gap 15.8 (5-19); Aspartate Amino Transferase 26 U/L (0-40); Blood Urea Nitrogen 25 mg/dL (8-23); Calcium 8.7 mg/dL (8.5-10.5); Carbon Dioxide 24 mmol/L (22-29); Chloride 102 mmol/L (98-107); Globulin 2.3 g/dL (1.3-4.6); Glucose 98 mg/dL (65-115); Osmolality Calculated 288 mOsm/kg (285-295); Potassium 4.8 mmol/L (3.5-5.1); Sodium 137 mmol/L (136-145); Total Bilirubin 0.2 mg/dL (0.15-1.2); Total Protein 6.4 g/dL (6.6-8.7)
[2021-05-22 15:05] LABS: Basophils % 0.4 %; Eosinophils # 0.1 10^3/uL (0.0-0.8); Hematocrit 29.5 % (42.0-52.0); Hemoglobin 9.5 g/dL (11.7-16.6); Lymphocytes # 0.9 10^3/uL (0.8-4.8); Lymphocytes % 10.7 %; Mean Corpuscular HGB Conc 32.2 g/dL (30.0-36.0); Mean Corpuscular Hemoglobin 31.3 pg (28.0-34.0); Mean Platelet Volume 10.2 fL (7.4-10.4); Monocytes # 0.9 10^3/uL (0.2-0.9); Monocytes % 11.3 %; Neutrophils # 6.04 10^3/uL (1.8-7.7); Neutrophils % 76.1 %; Nucleated Red Blood Cells % 0 %; Platelet Count 286 10^3/cmm (130-400); Red Blood Count 3.04 10^6/uL (4.1-5.3); Red Cell Distribution Width 19.1 % (12.1-15.1); White Blood Count 7.9 10^3/uL (4.0-10.0)
[2021-05-22 15:17] LABS: Alanine Aminotransferase 17 U/L (0-41); Albumin Level 4.1 g/dL (3.5-5.2); Alkaline Phosphatase 105 IU/L (40-130); Aspartate Amino Transferase 22 U/L (0-40); Blood Urea Nitrogen 26 mg/dL (8-23); Calcium 8.2 mg/dL (8.5-10.5); Carbon Dioxide 22 mmol/L (22-29); Chloride 106 mmol/L (98-107); Globulin 2.2 g/dL (1.3-4.6); Glucose 91 mg/dL (65-115); Lactate Dehydrogenase 241 U/L (135-225); Osmolality Calculated 290 mOsm/kg (285-295); Sodium 138 mmol/L (136-145); Total Bilirubin 0.2 mg/dL (0.15-1.2); Total Protein 6.3 g/dL (6.6-8.7)
[2021-05-23] MEDS: acetaminophen 325 mg Tablet 650 MG PO (10:40)
[2021-05-23] MEDS: sodium chloride 0.9% 500 ML 999 ML IV (10:40)
[2021-05-23] MEDS: famotidine 20 mg/2 mL INJ IVP (10:42)
[2021-05-23] MEDS: diphenhydrAMINE 50 mg/mL SDV 1mL 25 MG IVP (10:44)
[2021-05-23] MEDS: palonosetron 0.25 mg/5 mL SDV IVP (10:49)
[2021-05-23] MEDS: pegfilgrastim 6 mg/0.6 mL Kit (onpro) SUBCUT (16:24)
--- NOTE | 2021-05-23 17:36 | ONC FU_ITS ---
Dr. Figueroa follow up note Patient: Xavi Pryor Unit #: [id number]: 1940 Dicatated By: Jose Angel Figueroa M.D.Date of Visit:May 23, 2021 Onc Med Follow-up/Prog Note History of Present Illness: Mr. 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 He initially presented with right submandibular mass and was treated with antibiotics without much help, He was referred to ENT and underwent FNA of right submental mass which showed atypical lymphoid infiltrate. Mr Pryor subsequently underwent excisional biopsy of right submandibular mass on 04/08/2017. flow cytometry showed monoclonal B-cell population which was positive for CD19/CD20/FNCC 7 and CD20 to and was negative for CD5. Also exhibited surface kappa light chain restriction. These findings were consistent with grade 2 follicular lymphoma. Patient was evaluated by Dr. Prado at [facility] in [place], [place] and being low-grade and stage II disease active surveillance was pursued. Last time he saw Dr. Pardo was on 02/15/2018. As per patient, last CT PET scan was done in 2016. Since his last visit with Dr. Pardo in February 2018, he had develop left inguinal lymphadenopathy and lost about 30 pounds. Mr Pryor attributed his weight loss to diverticulitis. Denied any night sweats, recurrent fever, abdominal fullness, any other peripheral lymphadenopathy. Denied any melena, hematochezia, denied any nosebleed, petechiae or ecchymosis. He denied any shortness of breath or dysphagia, denies any jaundice. CT PET scan was done on 03/12/2019 showed hypermetabolic soft tissue adherent to the aorta at upper mediastinum and upper abdominal level is consistent with a lymphoma Hypermetabolic left inguinal nodes consistent with lymphoma Diffuse activity in the rectosigmoid colon Questionable activity in the posterior left iliac Left inguinal lymph node biopsy was done on 05/04/2019 to confirm whether there is transformation to aggressive lymphoma versus persistent low-grade follicular. Final pathology report came back follicular lymphoma grade 1-2 of 3 s/p right shoulder replacement in first week of October 2019. Mr Pryor underwent anterior left midabdomen skin biopsy on December 31, 2020 which showed follicular lymphoma, grade 1 -2 of 3., BCL6 negative cyclin D1 was negative, BCL-2's staining is moderately strong and demonstrate aberrant coexpression of B cells. Further immunohistochemistry positive for CD3, CD5, CD20, CD10, CD43 Because of progressive left hip/lower back pain with radiation to left leg, his PCP ordered CT scan of abdomen pelvis which was done on January 01, 2021. This showed no lytic lesion in left ilium. Variable density within left hip and proximal femur may be related to osteopenia. No abdominal or pelvic lymphadenopathy, spleen is normal size, bone scan was recommended for further evaluation which was done on January 14, 2021. The bone scan showed multiple patchy areas of bone marrow activity involving bilateral humerus, bilateral forearm bones, mid femoral shafts suspicious for metastatic disease. Patchy activity involving left hip. Also involving left proximal tibial shaft and calvarium. Mr. Pryor was referred to Dr. 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 His nuclear bone scan from January 14, 2021 revealed metabolic uptake in the calvarium, moral shaft, mid femoral shaft and proximal tibia. 2 weeks prior to his appointment with Dr. Calabrese, he developed worsening left hip pain and lower back pain symptoms of the left leg. A restaging PET/CT on January 19, 2021 identified the anterior medial soft tissue mass as indicated above. It measured 2.2 cm x 1.2 cm with an SUV of 7.5. He also had right cervical lymphadenopathy (level 2), subcutaneous lesions within the anterior left chest wall and upper quadrant of the abdominal wall. I right testicular lesion SUV of 15.8 and a hypermetabolic peripancreatic lymph node as well as multiple osseous lesions throughout the proximal left humerus, medial left clavicle, bilateral proximal femurs and L3???L4-L5 with encroachment into the left neural foramen. He was treated with dexamethasone prior to his appointment with Dr. Calabrese for potential palliative lumbar radiotherapy. He completed palliative radiotherapy for management of the metastatic follicular lymphoma to the appendicular and axial skeleton on February 12, 2021. A total of 30 Rodrigues was delivered in 10 fractions encompassing 14 days. He received radiation to the third through the fifth lumbar vertebral bodies. He tolerated it well and states his pain is better. Mr Pryor was seen in medical oncology post completion of the radiation therapy. He was concerned that he had new nodules on his abdomen and on his back. He states they are also on his lower leg. He has adenopathy in his left anterior cervical supraclavicular area as well. He denied any trouble swallowing. He was complaining of generalized weakness and fatigue, initially patient had skin biopsy done from left anterior epigastric area skin lesion and as per pathology he was consistent with low-grade lymphoma but his disease is behaving like aggressive lymphoma. Mr Smiley was referred to surgery for biopsy from new lesions especially in the left anterior cervical supraclavicular lymph node area. A biopsy was repeated from the large subcutaneous lesion in the right upper abdominal area. 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 FISH to evaluate possible double hit was pending Mr. Pryor was seen on March 13, 2021 for follow-up given his generalized weakness and fatigue. He had developed night sweats. There were more lesions involving the upper abdomen, right anterior shoulder, right leg, left anterior cervical/supraclavicular mass. As the pathology report from March 12, 2021 reported his lymphoma had transformed from low-grade to high-grade lymphoma. Mr. Pryor was started on prednisone 60 mg daily for 5 days while awaiting chemotherapy with R-CHOP approval from insurance company and prognostic lymphoma profile testing. Mr Pryor was admitted to hospital on March 21, 2021 with acute kidney injury/tumor lysis due to steroid alone. His chemistry showed BUN 90/creatinine 4, nephrology was consulted. His uric acid was 10.7. He was given a dose of rasburicase and with that his uric acid was normalized. He was treated with IV fluids and his BUN/creatinine continue to improve. At the time of discharge, his BUN was 52 creatinine was 3.2. He was also having good urine output. As per nephrology it will take couple of weeks for kidney function to normalize . Mr Pryor had CT scan of chest done on March 21, 2021 which showed no visible evidence of acute cardiopulmonary pathology process. advanced COPD, centrilobular emphysema scant right pleural effusion no significant mediastinal or axillary lymphadenopathy. He was treated empirically with Lovenox for DVT prophylaxis and subsequently developed hematochezia at times with large bright red clots of blood. He did have acute blood loss anemia with hemoglobin dropping from around 10 to a low of 7. He received 2 units of packed red blood cells. He was having tachycardia with exertion. It was also noted that he had very poor dentition and he was given a course of Augmentin while admitted particularly in the light of planned chemotherapy. On 03/21/2021 he had placement of a PowerPort for venous access in anticipation of chemotherapy in the right subclavian vein per Dr. Jennings. There was some bruising around the site but no bleeding. CT of the chest abdomen pelvis without contrast from March 22, 2021 reported no visible evidence of acute cardiopulmonary/cardiothoracic pathology process. There was advanced COPD/chronic bronchitis with central lobar emphysema. Scant right pleural effusion and advanced three-vessel coronary artery disease. The noncontrast CT of the abdomen pelvis reported no visible evidence of acute abdominal or pelvic pathology process. No visible explanation for the indication of gross hematuria with clots. It was noted that he has scoliosis but no visible acute osseous abnormalities. Bilateral spondylosis L5/S1 with grade 1 anterior spondylolisthesis. Advanced degenerative disc disease with disc space height loss throughout the visualized thoracolumbar lumbar sacral spine. Facet arthrosis. No visible osteolytic or osteoblastic destructive process. Right total hip prosthesis with extensive metal artifact limiting assessment of the pelvis. Soft tissues reported cachexia. Mr. Pryor was discharged on March 25, 2021. His hemoglobin was noted to be 7.7 on March 24, 2021. His hematocrit was 23.7 platelet count 310,000 and his ANC was 8500. His creatinine was 3.2 and BUN 52. Recheck of his creatinine on March 29, 2021 was 2.5. 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 High Ki 67 for liberation rate up to 75%. BCL 2???week and strong c-Myc coexpression. CD20 1 focal lymphoid staining. C-Myc: Positive more than 70 to 80% coexpression. CHITO-rian: Negative. Ki 67: Increased up to 75%. Mum 1: Negative. PAX5: Positive in all large sized tumor lymphocytes. Mr. Pryor received his first dose of rituximab???CHOP on April 01, 2021. He presented on April 09, 2021 for follow-up with concerns of fever and chills. He stated that he was feeling very cold. He denies any known fever. He had no dysuria or hematuria. He had no complaints of cough. He had significant improvement in the lower anterior cervical/upper sternal nodularity and abdominal skin lesions are also resolving. He was noted to be neutropenic with an ANC of 380. He was also noted to have a hemoglobin of 7.7. He was referred to [facility] emergency room and subsequently admitted for chemotherapy-induced neutropenia/anemia. He was found to have acute staph coccus aureus bacteremia/sepsis. He required 2 units of packed red blood cells after which his hemoglobin remained stable. He did have positive stool occult blood but as his hemoglobin remained stable GI was not consulted. He was started on broad-spectrum antibiotics and his blood cultures from day 1 of admission were positive 1 out of 4 for MSSA staph aureus. He remained afebrile for 48 hours prior to discharge. He was discharged on oral Augmentin and referred to Dr. Jennings for possible endoscopy and colonoscopy given the positive stool for occult blood. He was seen again in the emergency room on 04/17/2021 with generalized weakness. He was seen in the emergency room by Dr. Carrasco who indicated that he was complaining of generalized weakness but was very vague about particular symptoms. He had stated that he had had a brain fog and felt weak this morning . His hemoglobin was 10.7 platelet count was 331,000 and his WBC is thousand 100. His ANC at that time was 7360. His LFTs were normal lipase was 50 random glucose was 114 CK was 77 alk phos 124 urine was negative. His potassium was 4.1 sodium 133 creatinine was 1.1 and BUN was 23. As his assessment did not reveal any acute findings and he was feeling somewhat better, Mr. Pryor was discharged home. He was scheduled to resume cycle 2 R-CHOP last week but this was delayed due to significant side efects with cycle 1 and declining performance status. planned to decrease his doxorubicin by 15%. He had significant performance status issues with cycle 1. He states he has not had any fever or chills. He denies any mouth sores, sore throat or difficulty swallowing. He denies any new shortness of breath orthopnea. He states that the nodules are basically gone and are certainly not bothersome anymore. He states he has had dramatic improvement. He is swallowing well. He denies any appetite changes. He denies nausea or vomiting. He denies any diarrhea or constipation. 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 His ECOG is 2.. He states overall he is feeling much better. He had an Xray of his RIGHT knee on 04/24/2021 for persistent knee pain and limited activity due to the knee pain. The x-ray report reads mild tricompartment osteoarthritis. Small joint effusion and mild heterogeneous appearance of the marrow. If pain persist consider bone scan imaging to evaluate for possible infiltrative process. This is likely due to osteopenia per Dr. Ragsdale's report on the x-ray from 04/24/2021. He states that the nodules are almost gone . Came for follow-up, complaining of progressive skin lesions in epigastric area and right flank and new skin lesion in the right lateral thigh and left medial thigh, as per patient initially with chemotherapy the skin lesion improved but now progressive again but no night sweats, no fever chills, no abdominal pain or fullness, no recurrent fever. No shortness of breath no palpitation, no peripheral neuropathy, tolerating systemic therapy with R-CHOP well otherwise Medications: Acetaminophen 2 Tablet (of 325 mg) Oral q 6 hours PRN, Albuterol Sulfate 1 puff(s) (of 108 (90 base) mcg/act) Aerosol Powder, Breath Activated Inhalation PRN, Allopurinol 1 Tablet (of 100 mg) Oral daily, Amoxicillin-Pot Clavulanate 1 Tablet (of 875-125 mg) Oral b.i.d. for 7 days, Claritin 1 Tablet (of 10 mg) Oral daily, Ferrous Sulfate 1 Tablet (of 325 (65 fe) mg) Oral b.i.d., Flonase 2 spray(s) (of 50 mcg/act) Suspension Nasal daily, hydrALAZINE HCl 1 Tablet (of 100 mg) Oral daily, HYDROcodone-Acetaminophen 1 Tablet (of 5-325 mg) Oral q 6 hours PRN, Naprosyn 1 Tablet (of 250 mg) Oral b.i.d., Pantoprazole Sodium 1 Tablet (of 40 mg) Tablet, enteric coated Oral daily Allergies: Tetanus-Diphtheria Toxoids Td Review of Systems: Review of Systems is not available for this patient. Vital Signs: Performed on May 23, 2021 11:23 Height - 67.50 in Weight - 136 lbs (HIGH) BSA - 1.73 sq.m BMI - 20.99 Temperature - 98.3 F (LOW) Pulse - 105 /min (HIGH) Respiration - 18 /min BP - 127/73 mm(hg) O2 Sat - 97 % Pain - 0 Fatigue - 9 Performance Status: 1 - No physically strenuous activity, but ambulatory and able to carry out light or sedentary work (e.g. office work, light house work). (ECOG) Physical Examination: ENMT - No mouth sores, no thrush, no jaundice, fullness in left anterior neck, Respiratory - Lungs are clear to auscultation, Cardiovascular - Regular rate and rhythm of heart, Abdomen - Soft, bowel sounds present Mildly oozing raised margin about 7 to 8 cm skin lesion and epigastric area, another one in the right lateral abdomen, Extremities - No visible edema. Lab/Imaging: Test performed on May 01, 2021 08:10 LDH (Total) 223 U/L Sodium 135 mmol/L Potassium 4.1 mmol/L Chloride 105 mmol/L CO2 20 mmol/L Anion Gap 14.1 BUN 19 mg/dL Creatinine 1.1 mg/dL Cr Clearance (Est) 49.7800 mL/min Glucose 98 mg/dL Osmolality - Calculated 282 mOsm/kg Calcium 8.4 mg/dL Protein, Total 6.3 g/dL Albumin 3.8 g/dL Globulin 2.5 g/dL Bilirubin, Total 0.3 mg/dL ALT (SGPT) 12 U/L AST (SGOT) 26 U/L Alkaline Phosphatase 110 IU/L WBC 6.4 10 3/uL RBC 3.16 10 6/uL HGB 9.4 g/dL HCT 29.4 % MCV 93.0 fL MCH 29.7 pg MCHC 32.0 g/dL RDW 16.9 % Platelet Count 281 10 3/cmm MPV 9.7 fL Neutrophils 4.13 10 3/uL Lymphocytes 1.1 10 3/uL Monocytes 1.0 10 3/uL Eosinophils 0.1 10 3/uL Basophils 0.0 10 3/uL Neutrophil % 64.6 % Lymphocyte % 17.9 % Monocyte % 15.4 % Eosinophil % 0.8 % Basophils % 0.5 % NRBC % 0 % Test performed on March 20, 2021 13:30 Uric Acid 10.7 mg/dL Impression: Large B-cell lymphoma with high-grade features per anterior abdominal wall skin lesion biopsy done on March 11, 2021, Ki-67 up to 75%, BCL-2 weak, strong c-Myc expression, FISH pending CT PET scan done on January 19, 2021 showed hypermetabolic soft tissue lesion in the right cervical papo territory, anterior mediastinum, subcutaneous tissue involving left upper abdominal wall and anterior chest, right testicle, peripancreatic region. Multifocal osseous metastatic disease, FDG positive soft tissue at L3 and L4 neuroforamen, representing lymphoma. Started on R-CHOP/Xgeva on April 01, 2021, Prior to that, patient was given high-dose prednisone as a part of R-CHOP because of progressive symptoms while waiting for chemotherapy approval for recently transformed low-grade lymphoma into high-grade, patient did develop symptom of tumor lysis despite of being on allopurinol for which patient required inpatient care 2, h/o Grade 2 follicular lymphoma status post excisional biopsy of right mandibular mass done on 04/08/2017 Flow cytometry was positive for CD19, CD20, CD22 and FNCC 7 and negative for CD5 Also exhibited surface kappa light chain restriction. CT PET scan was done in 2017, as per patient he was told he has stage II disease. Being low-grade and early-stage, no treatment was required but Active surveillance. CT PET scan done on 05/06/2017 showed left cervical lymphadenopathy and activity in the right shoulder but there are severe degenerative changes in that area and there is also increased activity involving lumbar spine may have both soft tissue or bone lesions. There are abnormal areas in the right ribs but patient has history of surgery on right ribs CT PET scan repeated on 03/12/2019 showed suspicious activity is present in the mediastinum in soft tissue abutting the ascending aortic arch and pulmonary artery. This has SUV of 7.9 consistent with recurrent lymphoma and additional hypermetabolic soft tissue is adherent to the abdominal aorta with SUV of 6.8 consistent with lymphoma Left inguinal lymph nodes measures up to 2.7 cm has SUV of 11 There is intense rectosigmoid activity which could be physiological but lymphomatous involvement cannot be ruled out Patient has history of diverticulitis/diverticular. Left inguinal lymph node biopsy done on 05/04/2019 showed follicular lymphoma Mr Pryor underwent anterior left midabdomen skin biopsy on December 31, 2020 which showed follicular lymphoma, grade 1 -2 of 3., BCL6 negative cyclin D1 was negative, BCL-2's staining is moderately strong and demonstrate aberrant coexpression of B cells. Further immunohistochemistry positive for CD3, CD5, CD20, CD10, CD43 Because of progressive left hip/lower back pain with radiation to left leg, his PCP ordered CT scan of abdomen pelvis which was done on January 01, 2021. This showed no lytic lesion in left ilium. Variable density within left hip and proximal femur may be related to osteopenia. No abdominal or pelvic lymphadenopathy, spleen is normal size, bone scan was recommended for further evaluation which was done on January 14, 2021. The bone scan showed multiple patchy areas of bone marrow activity involving bilateral humerus, bilateral forearm bones, mid femoral shafts suspicious for metastatic disease. Patchy activity involving left hip. Also involving left proximal tibial shaft and calvarium. Mr. Pryor was referred to Dr. 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 His nuclear bone scan from January 14, 2021 revealed metabolic uptake in the calvarium, moral shaft, mid femoral shaft and proximal tibia. 2 weeks prior to his appointment with Dr. Calabrese, he developed worsening left hip pain and lower back pain symptoms of the left leg. A restaging PET/CT on January 19, 2021 identified the anterior medial soft tissue mass as indicated above. It measured 2.2 cm x 1.2 cm with an SUV of 7.5. He also had right cervical lymphadenopathy (level 2), subcutaneous lesions within the anterior left chest wall and upper quadrant of the abdominal wall. I right testicular lesion SUV of 15.8 and a hypermetabolic peripancreatic lymph node as well as multiple osseous lesions throughout the proximal left humerus, medial left clavicle, bilateral proximal femurs and L3???L4-L5 with encroachment into the left neural foramen. He was treated with dexamethasone prior to his appointment with Dr. Calabrese for potential palliative lumbar radiotherapy. He completed palliative radiotherapy for management of the metastatic follicular lymphoma to the appendicular and axial skeleton on February 12, 2021. A total of 30 Rodrigues was delivered in 10 fractions encompassing 14 days. He received radiation to the third through the fifth lumbar vertebral bodies. He tolerated it well and states his pain is better. Mr Pryor was seen in medical oncology post completion of the radiation therapy. He was concerned that he had new nodules on his abdomen and on his back. He states they are also on his lower leg. He has adenopathy in his left anterior cervical supraclavicular area as well. He denied any trouble swallowing. He was complaining of generalized weakness and fatigue, initially patient had skin biopsy done from left anterior epigastric area skin lesion and as per pathology he was consistent with low-grade lymphoma but his disease is behaving like aggressive lymphoma. Mr Smiley was referred to surgery for biopsy from new lesions especially in the left anterior cervical supraclavicular lymph node area. A biopsy was repeated from the large subcutaneous lesion in the right upper abdominal area. 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 FISH to evaluate possible double hit was pending Mr. Pryor was seen on March 13, 2021 for follow-up given his generalized weakness and fatigue. He had developed night sweats. There were more lesions involving the upper abdomen, right anterior shoulder, right leg, left anterior cervical/supraclavicular mass. As the pathology report from March 12, 2021 reported his lymphoma had transformed from low-grade to high-grade lymphoma. Mr. Pryor was started on prednisone 60 mg daily for 5 days while awaiting chemotherapy with R-CHOP approval from insurance company and prognostic lymphoma profile testing. Mr Pryor was admitted to hospital on March 21, 2021 with acute kidney injury/tumor lysis due to steroid alone. His chemistry showed BUN 90/creatinine 4, nephrology was consulted. His uric acid was 10.7. He was given a dose of rasburicase and with that his uric acid was normalized. He was treated with IV fluids and his BUN/creatinine continue to improve. At the time of discharge, his BUN was 52 creatinine was 3.2. He was also having good urine output. As per nephrology it will take couple of weeks for kidney function to normalize . Mr Pryor had CT scan of chest done on March 21, 2021 which showed no visible evidence of acute cardiopulmonary pathology process. advanced COPD, centrilobular emphysema scant right pleural effusion no significant mediastinal or axillary lymphadenopathy. He was treated empirically with Lovenox for DVT prophylaxis and subsequently developed hematochezia at times with large bright red clots of blood. He did have acute blood loss anemia with hemoglobin dropping from around 10 to a low of 7. He received 2 units of packed red blood cells. He was having tachycardia with exertion. It was also noted that he had very poor dentition and he was given a course of Augmentin while admitted particularly in the light of planned chemotherapy. On 03/21/2021 he had placement of a PowerPort for venous access in anticipation of chemotherapy in the right subclavian vein per Dr. Jennings. There was some bruising around the site but no bleeding. CT of the chest abdomen pelvis without contrast from March 22, 2021 reported no visible evidence of acute cardiopulmonary/cardiothoracic pathology process. There was advanced COPD/chronic bronchitis with central lobar emphysema. Scant right pleural effusion and advanced three-vessel coronary artery disease. The noncontrast CT of the abdomen pelvis reported no visible evidence of acute abdominal or pelvic pathology process. No visible explanation for the indication of gross hematuria with clots. It was noted that he has scoliosis but no visible acute osseous abnormalities. Bilateral spondylosis L5/S1 with grade 1 anterior spondylolisthesis. Advanced degenerative disc disease with disc space height loss throughout the visualized thoracolumbar lumbar sacral spine. Facet arthrosis. No visible osteolytic or osteoblastic destructive process. Right total hip prosthesis with extensive metal artifact limiting assessment of the pelvis. Soft tissues reported cachexia. Mr. Pryor was discharged on March 25, 2021. His hemoglobin was noted to be 7.7 on March 24, 2021. His hematocrit was 23.7 platelet count 310,000 and his ANC was 8500. His creatinine was 3.2 and BUN 52. Recheck of his creatinine on March 29, 2021 was 2.5. 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 High Ki 67 for liberation rate up to 75%. BCL 2???week and strong c-Myc coexpression. CD20 1 focal lymphoid staining. C-Myc: Positive more than 70 to 80% coexpression. CHITO-rian: Negative. Ki 67: Increased up to 75%. Mum 1: Negative. PAX5: Positive in all large sized tumor lymphocytes. Mr. Pryor received his first dose of rituximab???CHOP on April 01, 2021. He presented on April 09, 2021 for follow-up with concerns of fever and chills. He stated that he was feeling very cold. He denies any known fever. He had no dysuria or hematuria. He had no complaints of cough. He had significant improvement in the lower anterior cervical/upper sternal nodularity and abdominal skin lesions are also resolving. He was noted to be neutropenic with an ANC of 380. He was also noted to have a hemoglobin of 7.7. He was referred to [facility] emergency room and subsequently admitted for chemotherapy-induced neutropenia/anemia. He was found to have acute staph coccus aureus bacteremia/sepsis. He required 2 units of packed red blood cells after which his hemoglobin remained stable. He did have positive stool occult blood but as his hemoglobin remained stable GI was not consulted. He was started on broad-spectrum antibiotics and his blood cultures from day 1 of admission were positive 1 out of 4 for MSSA staph aureus. He remained afebrile for 48 hours prior to discharge. He was discharged on oral Augmentin and referred to Dr. Jennings for possible endoscopy and colonoscopy given the positive stool for occult blood. He was seen again in the emergency room on 04/17/2021 with generalized weakness. He was seen in the emergency room by Dr. Carrasco who indicated that he was complaining of generalized weakness but was very vague about particular symptoms. He had stated that he had had a brain fog and felt weak this morning . His hemoglobin was 10.7 platelet count was 331,000 and his WBC is thousand 100. His ANC at that time was 7360. His LFTs were normal lipase was 50 random glucose was 114 CK was 77 alk phos 124 urine was negative. His potassium was 4.1 sodium 133 creatinine was 1.1 and BUN was 23. As his assessment did not reveal any acute findings and he was feeling somewhat better, Mr. Pryor was discharged home. Plan: Discussed with patient regarding his labs white blood count 7.9 hemoglobin 9.5 hematocrit 29.5 platelets 286,000 ANC 6.04 CMP within normal limits creatinine 1.4 stable, LDH 241 Clinically, patient is doing reasonably well now concerned about progressive skin lesions especially in biopsy-proven epigastric area and also noted in right flank, and right lateral thigh, which is concerned his lab work-up also shows progressive LDH, patient may be developing R-CHOP resistant high-grade lymphoma or lymphoma may be transitioning into another subtype, at this point we will proceed with cycle #3 with R-CHOP with Neulasta support to prevent chemotherapy-induced neutropenia leukopenia but because of progressive cutaneous lymphomatous lesion and left upper sternal lesion, will refer him to [facility] lymphoma clinic for evaluation and recommendations. Patient was advised to maintain hydration and then he will return to clinic in 1 week with CBC CMP Signed By: Jose Angel Figueroa M.D. <<Signature on File>>
[2021-05-30 13:22] LABS: Basophils % 0.2 %; Eosinophils # 0.1 10^3/uL (0.0-0.8); Hemoglobin 8.8 g/dL (11.7-16.6); Lymphocytes # 0.6 10^3/uL (0.8-4.8); Mean Corpuscular HGB Conc 32.6 g/dL (30.0-36.0); Mean Corpuscular Hemoglobin 31.3 pg (28.0-34.0); Mean Corpuscular Volume 96.1 fL (80-94); Mean Platelet Volume 10.9 fL (7.4-10.4); Monocytes # 0.5 10^3/uL (0.2-0.9); Monocytes % 9.6 %; Neutrophils # 3.93 10^3/uL (1.8-7.7); Neutrophils % 71.5 %; Nucleated Red Blood Cells % 0 %; Platelet Count 136 10^3/cmm (130-400); Red Blood Count 2.81 10^6/uL (4.1-5.3); Red Cell Distribution Width 18.5 % (12.1-15.1); White Blood Count 5.5 10^3/uL (4.0-10.0)
[2021-05-30 13:52] LABS: Alanine Aminotransferase 12 U/L (0-41); Albumin Level 4.1 g/dL (3.5-5.2); Alkaline Phosphatase 148 IU/L (40-130); Anion Gap 15.4 (5-19); Aspartate Amino Transferase 19 U/L (0-40); Blood Urea Nitrogen 26 mg/dL (8-23); Calcium 7.9 mg/dL (8.5-10.5); Carbon Dioxide 21 mmol/L (22-29); Chloride 105 mmol/L (98-107); Globulin 2.1 g/dL (1.3-4.6); Glucose 89 mg/dL (65-115); Osmolality Calculated 288 mOsm/kg (285-295); Potassium 4.4 mmol/L (3.5-5.1); Sodium 137 mmol/L (136-145); Total Bilirubin 0.3 mg/dL (0.15-1.2); Total Protein 6.2 g/dL (6.6-8.7)
== END 2021-06-08 23:59 | disposition home or self-care (01) ==
LOC: ONCMED 05:48
PROVIDERS: Internal Medicine Medical Oncology; PCP Internal Medicine; Visit Provider Internal Medicine Hematology & Oncology
DX: Z51.12 Encounter for antineoplastic immunotherapy (principal); Z51.11 Encounter for antineoplastic chemotherapy; C82.11 Follicular lymphoma grade II, lymph nodes of head, face, and neck; C79.51 Secondary malignant neoplasm of bone; K57.90 Diverticulosis of intestine, part unspecified, without perforation or abscess without bleeding; M19.90 Unspecified osteoarthritis, unspecified site; Z85.828 Personal history of other malignant neoplasm of skin; Z79.899 Other long term (current) drug therapy
CPT/HCPCS: 36415; 36591; 80053; 83615; 85025; 96367; 96372; 96375; 96377; 96411; 96413; 96415; 96417; 99215; J1100; J1200; J1453; J2469; J2505; J3490; J7040; J9000; J9070; J9312; J9370

== ENCOUNTER 2021-06-08 07:33 | Outpatient (CLI) | payer MEDICARE, SELFPAY ==
[2021-06-08 08:27] VITALS: BP 113/66; PULSE 103; RESP 19; TEMP 36.9; O2SAT 96
[2021-06-08 09:12] VITALS: BP 118/65; PULSE 88; RESP 17; O2SAT 95; BMI 21.1
--- NOTE | 2021-06-08 10:41 | A.OFFVIS_ITS ---
Patient Information Referred by: MP Mcadams Symptom onset date: 06/03/21 COVID 19 common symptoms: positive fever(s), chills, cough, productive cough, fatigue and body aches Severity: mild Treatment prior to arrival: none Other details: Patient is a 80-year-old male here for a BAM infusion for his COVID diagnosis. Patient meets all criteria for infusion. Risks and benefits of using an experimental drug to treat this infection were discussed. Patient verbalizes understanding and wishes to proceed with infusion. [facility] COVID test results: SARS-CoV-2 RNA (RT-PCR) Not detected (NOT DETECTED) 10/20/20 10:20 10/20/20 outside results available, scanned ([facility]-06/04/21) Criteria/Plan Inclusion/Exclusion Criteria weight >/= 40kg, + direct test </= 10 days ago and symptom onset </= 10 days ago age >/= 65 and age >/= 55 and has hypertension not requiring hospitalization, not requiring oxygen (if not chronically on oxygen) and no increase oxygen requirement (if chronically on oxygen) Patient education patient/family/caregiver received/reviewed fact sheet, Emergency Use Authorization/unapproved drug status discussed with patient/family/caregiver, alternatives to this treatment discussed with patient/family/caregiver, risks and benefits of medication reviewed with patient/family/caregiver, patient/family/caregiver given opportunity for questions, which were answered and patient consents to receiving Monoclonal Antibody Treatment Plan for treatment Meets criteria for Monoclonal Antibody infusion Ordering Monoclonal Antibody infusion for today
--- NOTE | 2021-06-08 12:10 | PC.NURSE ---
Infusion finished, flushed iv .Patient denies any complaints at this time
[2021-06-08 12:37] VITALS: BP 130/72; PULSE 92; RESP 18; TEMP 37.2; O2SAT 94
--- NOTE | 2021-06-08 12:37 | PC.NURSE ---
Port on right upper chest deaccessed by charge nurse Jaquan CHAMPION. Tolerated well with zero difficulties or complaints. Patient ambulated to restroom then to COVID waiting room with zero difficulties or complaints.
--- NOTE | 2021-06-08 13:10 | PC.NURSE ---
Patient Denies any complaints ,ambulatory to POV with zero difficulties
== END 2021-06-08 07:34 | disposition home or self-care (01) ==
PROVIDERS: PCP Internal Medicine; Visit Provider Nurse Practitioner
DX: U07.1 COVID-19 (principal)
CPT/HCPCS: 96365

== ENCOUNTER 2021-06-26 10:15 | Emergency (ER) | payer MEDICARE, SELFPAY ==
[2021-06-26 10:20] VITALS: BP 141/82; PULSE 114; RESP 18; TEMP 36.2; O2SAT 94; BMI 20.7
[2021-06-26 10:24] VITALS: BP 135/77; PULSE 90; O2SAT 96
--- NOTE | 2021-06-26 10:31 | CT_ITS ---
WS: [id number] CT HEAD NONCONTRAST HISTORY: Neurological deficit. TECHNIQUE: Contiguous axial imaging performed through the brain in 2.5 mm imaging. Bone and soft tiss ue windows. Sagittal and coronal reformats reviewed. All CT scans at [facility] use at le ast one of these dose optimization techniques: automated exposure control; mA and/or kV adjustment pe r patient size (includes targeted exams where dose is matched to clinical indication); or iterative r econstruction. DLP: 862.62 mGy-cm. COMPARISON: 04/17/2021 No acute intracranial hemorrhage, midline shift or mass effect. Mild atrophy. Severe chronic white matter ischemic type changes throughout the white matter. There ar e multiple small lacunar infarcts in the basal ganglia bilaterally. No new area of sulcal effacement or infarct is appreciated. Ventricles: Normal size with no hydrocephalus. Paranasal sinuses: Circumferential mucoperiosteal thickening in the RIGHT maxillary sinus. There is o verlying bony hypertrophy and sclerosis from a long-standing process. No air-fluid levels. Mastoid air cells: Well pneumatized. Calvarium and scalp: Skull is intact with no soft tissue edema or swelling. CT/CT head wo con* [id number] IMPRESSION: 1. No acute intracranial hemorrhage. 2. Extensive chronic white matter ischemic changes and small basal ganglia lac unar infarcts. Stable since 04/17/2021. 3. Chronic RIGHT maxillary sinusitis.
--- NOTE | 2021-06-26 10:42 | ED_ITS ---
HPI - Neuro Symptoms/Deficit General: Chief Complaint: Neuro Symptoms/Deficit Stated Complaint: stroke symptoms Time Seen by Provider: 06/26/21 10:18 History of Present Illness: HPI Narrative: 80-year-old male presents emergency room with left-sided facial droop and difficulty closing his left eye and left ear pain ear pain started a couple of days ago. He otherwise had no other symptoms began sometime this morning. He states his tongue feels awkward and he has difficult time formulating words and things taste a bit funny. He has had some watering from his left eye a little bit of difficulty swallowing things that he cannot close the corner of his left mouth. Location: left face History of same: No Severity: mild Relieving factors: none Exacerbating factors: none Associated symptoms: Deny chest pain, cough, diaphoresis, fevers/chills, headache(s), anorexia, malaise, nausea, seizures, short of breath, syncope, tingling, vertigo, vomiting, weakness or other Treatments Prior to Arrival: none Review of Systems Const: Denies: malaise or diaphoresis Card: Denies: chest pain or syncope GI: Denies: nausea or vomiting Neuro: Denies: headache(s) or vertigo PFSH ED PFSH: Medical History Chronic kidney disease Diverticulosis Follicular lymphoma Diagnosed in 2017, 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, multiple locations, 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 History of basal cell carcinoma of skin History of renal dialysis Temporary 3 weeks of hemodialysis after traumatic encounter with a horse in 2011 Macrocytic anemia Neutropenia Neutropenic fever Osteoarthritis Surgical History H/O lymph node biopsy (~04/2019) Left inguinal History of appendectomy History of cataract surgery History of colonoscopy (~2015) History of right knee joint replacement Port-A-Cath in place (03/21/21) S/P skin biopsy (~12/2020) Abdominal wall mass Status post excisional biopsy (~2016) Submandibular mass Status post radiation therapy Palliative radiotherapy completed on February 12, 2021 to the lumbar area Status post replacement of right shoulder joint (~2018) Family History Mother Cancer Brain Father Cancer Multiple myeloma Social History Smoking and tobacco status: former smoker Alcohol intake: current Alcohol intake frequency: few times a week Alcohol type: beer Lives independently: Yes Marital status: / NIH stroke score NIHSS: Level Of Consciousness - 1a: 0 Level Of Consciousness Questions - 1b: Both Correct Level Of Consciousness Commands - 1c: Both Correct Best G aze - 2: Normal Visual Hector - 3: No Visual Loss Facial Palsy - 4: Minor Paralysis Motor Arm Right - 5: No Drift Motor Arm Left - 5: No Drift Motor Leg Right - 6: No Drift Motor Leg Left - 6: No Drift Limb Ataxia - 7: Absent Sensory - 8: Mild To Moderate Loss (Left cheek only) Best Language - 9: No Aphasia Dysarthia - 10: Normal Extinction And Inattention - 11: 0 Score: Total Score: 2 Physical Exam Const: COMMON NORMALS: no acute distress GENERAL APPEARANCE: cooperative and comfortable ORIENTATION/CONSCIOUSNESS: Yes awake, Yes oriented to person, Yes oriented to place and Yes oriented to time HENMT: COMMON NORMALS: normocephalic, atraumatic, hearing grossly normal bilaterally, external ears normal, EAC's normal, TM's normal bilaterally, Normal nasal mucous membranes and turbinates present, moist oral mucous membranes and oropharynx normal HEAD & SCALP: normocephalic and atraumatic NOSE: Normal nasal mucous membranes and turbinates present EXTERNAL EAR: Yes external ears normal EXTERNAL AUDITORY CANAL: EAC's normal TYMPANIC MEMBRANE: TM's normal bilaterally OTHER: Right-sided facial droop with partial flattening and loss of ability to wrinkle forehead. Eye: COMMON NORMALS: Equal, round and reactive pupils present, EOMs intact bilaterally, conjunctivae normal and no scleral icterus CONJUNCTIVA: Yes conjunctivae normal PUPIL: Yes Equal, round and reactive pupils present Neck/C-Spine: COMMON NORMALS: full ROM, no lymphadenopathy, supple and no JVD Resp: COMMON NORMALS: normal respiratory effort, No retractions, No use of accessory muscles and clear to auscultation bilaterally AUSCULTATION: clear to auscultation bilaterally Cardio: COMMON NORMALS: no JVD, regular rate, regular rhythm and No murmurs present (Cardio) RATE: regular rate RHYTHM: regular rhythm GI: COMMON NORMALS: Soft to palpation and No hepatosplenomegaly present AUSCULTATION: Yes normoactive bowel sounds PALPATION: Yes Soft to palpation, No Tenderness to palpation present (GI), No Guarding due to palpation present (GI) and Yes No hepatosplenomegaly present Extremity: COMMON NORMALS: normal to inspection, capillary refill normal, no clubbing, cyanosis or edema, no calf tenderness and no pedal edema Neuro: SENSORIUM/ORIENTATION: Yes oriented to person, Yes oriented to place and Yes oriented to time Skin: COMMON NORMALS: no rashes or lesions noted GENERAL SKIN EXAM: no rashes or lesions noted Course Vital Signs: Vital signs: Vital Signs Temperature 97.2 F L 06/26/21 10:20 Pulse Rate 114 H 06/26/21 10:20 Respiratory Rate 18 06/26/21 10:20 Blood Pressure 141/82 06/26/21 10:20 Pulse Oximetry 94 06/26/21 10:20 MDM - Neuro Symptoms/Deficit MDM Narrative: Medical decision making narrative: Reviewed lab and imaging as found on the chart. Discussed with the patient. He has typical De Paz's palsy presentation we will start him on prednisone 60 mg daily for 5 days has worsening or change symptoms return. Repeat NIH scoring at time of discharge showed no change other than his findings significant for De Paz's palsy. Lab Data: Labs: Lab Results 06/26/21 06/26/21 06/26/21 Range/Units 11:00 11:16 11:16 WBC 5.7 (4.0-10.0) 10^3/ uL RBC 2.98 L (4.1-5.3) 10^6/u L Hgb 9.4 L (11.7-16.6) g/dL Hct 29.1 L (42.0-52.0) % MCV 97.7 H (80-94) fl MCH 31.5 (28.0-34.0) pg MCHC 32.3 (30.0-36.0) g/dL RDW 16.9 H (12.1-15.1) % Plt Count 247 (130-400) 10^3/c mm MPV 9.4 (7.4-10.4) fL Neut % (Auto) 76.0 % Lymph % (Auto) 9.0 % George % (Auto) 11.6 % Eos % (Auto) 2.5 % Baso % (Auto) 0.4 % Neut # (Auto) 4.31 (1.8-7.7) 10^3/u L Lymph # (Auto) 0.5 L (0.8-4.8) 10^3/u L George # (Auto) 0.7 (0.2-0.9) 10^3/u L Eos # (Auto) 0.1 (0.0-0.8) 10^3/u L Baso # (Auto) 0.0 (0.0-0.1) 10^3/u L Nucleated RBC % (a uto) 0 % Nucleated RBCs # 0.0 /100WBC Sodium 132 L (136-145) mmol/L Potassium 4.1 (3.5-5.1) mmol/L Chloride 97 L (98-107) mmol/L Carbon Dioxide 22 (22-29) mmol/L Anion Gap 17.1 (5-19) BUN 18 (8-23) mg/dL Creatinine 1.2 (0.7-1.2) mg/dL GFR Calculation Not Reportable Glucose 98 (65-115) mg/dL POC Glucose 109 (70-110) mg/dL Calculated Osmolal ity 276 L (285-295) mOsm/k g Calcium 8.4 L (8.5-10.5) mg/dL Total Bilirubin 0.4 (0.15-1.2) mg/dL AST 23 (0-40) U/L ALT 10 (0-41) U/L Alkaline Phosphata se 107 (40-130) IU/L Total Protein 6.3 L (6.6-8.7) g/dL Albumin 4.1 (3.5-5.2) g/dL Globulin 2.2 (1.3-4.6) g/dL Discharge Plan Discharge Patient Disposition: Home Clinical Impression: De Paz palsy Condition: Stable Prescriptions: New prednisone 20 mg tablet 20 mg PO TID 5 Days Qty: 15 RF: 0 No Action loratadine [Claritin] 10 mg tablet 10 mg PO DAILY PRN (Reason: Allergy Symptoms) RF: 0 fluticasone propionate 50 mcg/actuation spray,suspension 1 spray INTRANASAL BID PRN (Reason: Nasal Congestion) RF: 0 albuterol sulfate 90 mcg/actuation Hfa Aerosol Inhaler 1 puff INHALATION QID PRN (Reason: Shortness Of Breath) RF: 0 hydrocodone-acetaminophen 5-325 mg tablet 1 tab PO Q6H PRN (Reason: Pain) RF: 0 ferrous sulfate 325 mg (65 mg iron) Tablet,Delayed Release (Dr/Ec) 325 mg PO BIDWM Qty: 0 RF: 0 sennosides-docusate sodium [Stool Softener-Laxative] 8.6-50 mg Tablet 1 tab PO BID Qty: 0 RF: 0 allopurinol 100 mg tablet 100 mg PO DAILY@20 RF: 0 multivitamin Tablet 1 tab PO DAILY@20 RF: 0 prochlorperazine maleate 10 mg tablet 10 - 20 mg PO TID PRN (Reason: Nausea And Vomiting) RF: 0 lidocaine-prilocaine 2.5-2.5 % cream 1 applic topical . DIRECTED RF: 0 potassium chloride 20 mEq tablet,ER particles/crystals 20 meq PO DAILY@20 RF: 0 lorazepam 1 mg tablet 1 mg PO TID PRN (Reason: Nausea And Vomiting) RF: 0 melatonin 10 mg Tablet 10 mg PO BEDTIME RF: 0 hydralazine 100 mg tablet 50 mg PO TID Qty: 90 RF: 0 Discharge Orders: Discharge ED (Routine); Ordered 06/26/21 Ordered By: Uri Ohara Referrals: Enrique Nguyen DO [Primary Care Provider] - Discharge Diet: Usual diet Discharge Activity: Increase activity as tolerated Patient Instructions: Opioid Safety Coding Level of Care Code ED Retail Assistant Store Manager for Chg Fwd Exam Comprehensive
[2021-06-26 11:20] LABS: Glucose Point of Care 109 mg/dL (70-110)
[2021-06-26 11:22] LABS: Basophils % 0.4 %; Eosinophils # 0.1 10^3/uL (0.0-0.8); Eosinophils % 2.5 %; Hematocrit 29.1 % (42.0-52.0); Hemoglobin 9.4 g/dL (11.7-16.6); Lymphocytes # 0.5 10^3/uL (0.8-4.8); Mean Corpuscular HGB Conc 32.3 g/dL (30.0-36.0); Mean Corpuscular Hemoglobin 31.5 pg (28.0-34.0); Mean Corpuscular Volume 97.7 fl (80-94); Mean Platelet Volume 9.4 fL (7.4-10.4); Monocytes # 0.7 10^3/uL (0.2-0.9); Monocytes % 11.6 %; Neutrophils # 4.31 10^3/uL (1.8-7.7); Nucleated Red Blood Cells % 0 %; Platelet Count 247 10^3/cmm (130-400); Red Blood Count 2.98 10^6/uL (4.1-5.3); Red Cell Distribution Width 16.9 % (12.1-15.1); White Blood Count 5.7 10^3/uL (4.0-10.0)
[2021-06-26 11:43] LABS: Alanine Aminotransferase 10 U/L (0-41); Albumin Level 4.1 g/dL (3.5-5.2); Alkaline Phosphatase 107 IU/L (40-130); Anion Gap 17.1 (5-19); Aspartate Amino Transferase 23 U/L (0-40); Blood Urea Nitrogen 18 mg/dL (8-23); Calcium 8.4 mg/dL (8.5-10.5); Carbon Dioxide 22 mmol/L (22-29); Chloride 97 mmol/L (98-107); Globulin 2.2 g/dL (1.3-4.6); Glucose 98 mg/dL (65-115); Osmolality Calculated 276 mOsm/kg (285-295); Potassium 4.1 mmol/L (3.5-5.1); Sodium 132 mmol/L (136-145); Total Bilirubin 0.4 mg/dL (0.15-1.2); Total Protein 6.3 g/dL (6.6-8.7)
[2021-06-26 13:17] VITALS: BP 125/70; PULSE 97; O2SAT 96
== END 2021-06-26 13:18 | disposition home or self-care (01) ==
PROVIDERS: Emergency Provider Family Medicine; PCP Internal Medicine
DX: G51.0 Bell's palsy (principal); Z85.72 Personal history of non-Hodgkin lymphomas; Z87.891 Personal history of nicotine dependence
CPT/HCPCS: 36416; 70450; 80053; 82962; 85025; 99283

== ENCOUNTER 2021-07-04 20:35 | Emergency (ER) | payer MEDICARE, SELFPAY ==
[2021-07-04 21:01] VITALS: BP 113/63; PULSE 94; RESP 18; TEMP 36.7; O2SAT 96; BMI 20.7
--- NOTE | 2021-07-04 22:15 | W.ED.GENADLT ---
HPI - General Adult General: Chief complaint: General Medical Stated complaint: Cancer Pt in Pain Time Seen by Provider: 07/04/21 22:00 Source: patient Mode of arrival: ambulatory Limitations: no limitations History of Present Illness: HPI narrative: 80-year-old male has a history of follicular lymphoma. He states that tonight the lymphoma is causing increased pain and he took 2 Broseley's at home was unable to relieve the pain tonight. He states pain currently is a 7 out of 10. Denies any fever. Denies any vomiting denies any diarrhea. Associated symptoms: Deny chest pain, dyspnea, headache(s), nausea, rash or vomiting Review of Systems Const: Reports: body aches Eyes: Denies: blurry vision or eye discomfort ENMT: Denies: throat pain or dental pain Card: Denies: chest pain Resp: Denies: dyspnea GI: Denies: abdominal pain, nausea, vomiting or diarrhea : Denies: dysuria Musc: Denies: neck pain or back pain Skin/Breast: Denies: rash Neuro: Denies: headache(s) Psych: Denies: depression Miguel/Lymph: Denies: easy bruising All/Imm: Denies: urticaria PFSH ED PFSH: Medical History Chronic kidney disease Diverticulosis Follicular lymphoma Diagnosed in 2017, 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, multiple locations, 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 History of basal cell carcinoma of skin History of renal dialysis Temporary 3 weeks of hemodialysis after traumatic encounter with a horse in 2011 Macrocytic anemia Neutropenia Neutropenic fever Osteoarthritis Surgical History H/O lymph node biopsy (~04/2019) Left inguinal History of appendectomy History of cataract surgery History of colonoscopy (~2015) History of right knee joint replacement Port-A-Cath in place (03/21/21) S/P skin biopsy (~12/2020) Abdominal wall mass Status post excisional biopsy (~2016) Submandibular mass Status post radiation therapy Palliative radiotherapy completed on February 12, 2021 to the lumbar area Status post replacement of right shoulder joint (~2018) Family History Mother Cancer Brain Father Cancer Multiple myeloma Social History Smoking and tobacco status: former smoker Alcohol intake: current Alcohol intake frequency: few times a week Alcohol type: beer Lives independently: Yes Marital status: / Physical Exam Const: COMMON NORMALS: no acute distress, patient oriented x3 and healthy appearing HENMT: COMMON NORMALS: normocephalic and atraumatic HEAD & SCALP: normocephalic and atraumatic Eye: COMMON NORMALS: Equal, round and reactive pupils present and EOMs intact bilaterally PUPIL: Yes Equal, round and reactive pupils present Neck/C-Spine: COMMON NORMALS: full ROM and supple Chest: COMMONS NORMALS: normal inspection of the chest and normal palpation of entire chest wall Resp: COMMON NORMALS: normal respiratory effort, No retractions, No use of accessory muscles and clear to auscultation bilaterally AUSCULTATION: clear to auscultation bilaterally Cardio: COMMON NORMALS: regular rate, regular rhythm and No murmurs present (Cardio) RATE: regular rate RHYTHM: regular rhythm GI: COMMON NORMALS: Normal to inspection, nondistended, normoactive bowel sounds present, Soft to palpation and no masses PALPATION: Yes Soft to palpation OTHER: follicular lymphoma to stomach that are tender to touch Extremity: COMMON NORMALS: normal to inspection and full ROM Neuro: COMMON NORMALS: patient oriented x3, moves all extremities and no focal motor deficits Psych: COMMON NORMALS: mental status grossly normal, Normal thought process present and cooperative THOUGHT PROCESS: Normal thought process present Skin: COMMON NORMALS: no rashes or lesions noted and no wounds GENERAL SKIN EXAM: no rashes or lesions noted Course Vital Signs: Vital signs: Vital Signs Temperature 98.0 F 07/04/21 21:01 Pulse Rate 94 07/04/21 21:01 Respiratory Rate 20 H 07/04/21 23:30 Blood Pressure 113/63 07/04/21 21:01 Pulse Oximetry 94 07/04/21 23:30 MDM - General Adult MDM Narrative: Medical decision making narrative: Patient presents here with pain likely from his cancer and his pain is chronic in nature. He feels much improved after Dilaudid and is stable for discharge. He is take his pain meds at home as scheduled and return if worsening. Discharge Plan Discharge Patient Disposition: Home Clinical Impression: Follicular lymphoma, Chronic pain Condition: Stable Prescriptions: No Action loratadine [Claritin] 10 mg tablet 10 mg PO DAILY PRN (Reason: Allergy Symptoms) RF: 0 fluticasone propionate 50 mcg/actuation spray,suspension 1 spray INTRANASAL BID PRN (Reason: Nasal Congestion) RF: 0 albuterol sulfate 90 mcg/actuation Hfa Aerosol Inhaler 1 puff INHALATION QID PRN (Reason: Shortness Of Breath) RF: 0 hydrocodone-acetaminophen 5-325 mg tablet 1 tab PO Q6H PRN (Reason: Pain) RF: 0 ferrous sulfate 325 mg (65 mg iron) Tablet,Delayed Release (Dr/Ec) 325 mg PO BIDWM Qty: 0 RF: 0 sennosides-docusate sodium [Stool Softener-Laxative] 8.6-50 mg Tablet 1 tab PO BID Qty: 0 RF: 0 allopurinol 100 mg tablet 100 mg PO DAILY@20 RF: 0 multivitamin Tablet 1 tab PO DAILY@20 RF: 0 prochlorperazine maleate 10 mg tablet 10 - 20 mg PO TID PRN (Reason: Nausea And Vomiting) RF: 0 lidocaine-prilocaine 2.5-2.5 % cream 1 applic topical . DIRECTED RF: 0 potassium chloride 20 mEq tablet,ER particles/crystals 20 meq PO DAILY@20 RF: 0 lorazepam 1 mg tablet 1 mg PO TID PRN (Reason: Nausea And Vomiting) RF: 0 melatonin 10 mg Tablet 10 mg PO BEDTIME RF: 0 hydralazine 100 mg tablet 50 mg PO TID Qty: 90 RF: 0 Discharge Orders: Discharge ED (Routine); Ordered 07/04/21 Ordered By: Ciarra Hartman Discharge Diet: Advance as tolerated Discharge Activity: Resume usual activity Patient Instructions: Chronic Pain (ED), Opioid Safety Coding Level of Care Code ED Security Intern for Alexi Fwd Exam Comprehensive
[2021-07-04 23:07] VITALS: BP 136/71; PULSE 86; RESP 15; O2SAT 96
[2021-07-04 23:30] VITALS: RESP 20; O2SAT 94
[2021-07-04] MEDS: HYDROmorphone 1 mg/mL INJ 1 mL IVP (23:30)
[2021-07-04] MEDS: ondansetron 2 mg/ML SDV 2 mL 4 MG IVP (23:30)
--- NOTE | 2021-07-05 00:24 | PC.NURSE ---
Patient port de-accessed. Dressing applied. No bleeding observed.
[2021-07-05 00:25] VITALS: BP 125/65; PULSE 90; RESP 17; O2SAT 94
== END 2021-07-05 01:00 | disposition home or self-care (01) ==
PROVIDERS: Emergency Provider Emergency Medicine
DX: C82.88 Other types of follicular lymphoma, lymph nodes of multiple sites (principal); C79.51 Secondary malignant neoplasm of bone; G89.29 Other chronic pain; N18.9 Chronic kidney disease, unspecified; Z87.891 Personal history of nicotine dependence; Z92.3 Personal history of irradiation
CPT/HCPCS: 96374; 96375; 99283; J1170; J2405

== ENCOUNTER 2021-07-06 08:09 | Emergency (ER) | payer MEDICARE, SELFPAY ==
[2021-07-06 09:07] VITALS: BP 131/84; PULSE 126; RESP 18; TEMP 36.7; O2SAT 97; BMI 21.2
--- NOTE | 2021-07-06 11:40 | PC.NURSE ---
pt states he was eating pancakes this morning and couldn't swallow them. pt also states he has trouble swallowing saliva sometimes. follicular lymphioma stage 2. he states he has lumps pop up on his body from this. concerned he has one in his throat. this nurse notes one on his left upper arm and left clavicular area.
[2021-07-06 11:43] VITALS: BP 153/94; PULSE 108; RESP 18; TEMP 36.6; O2SAT 98
--- NOTE | 2021-07-06 11:46 | CTR_ITS ---
PROCEDURE INFORMATION: Exam: CT Neck With Contrast Exam date and time: 07/06/2021 11:46 AM Age: 80 years old Clinical indication: Cancer. Lymphoma. Difficulty swallowing. TECHNIQUE: Imaging protocol: Computed tomography images of the neck with contrast. Radiation optimization: All CT scans at this facility use at least one of these dose optimization techniques: automated exposure control; mA and/or kV adjustment per patient size (includes targeted exams where dose is matched to clinical indication); or iterative reconstruction. Contrast material: OMNIPAQUE 300; Contrast volume: 50 ml; Contrast route: INTRAVENOUS (IV); COMPARISON: CT neck w con* [id number] 01/13/2017 2:46 PM RADIATION DOSE METRICS: Total DLP (mGy-cm): 358.36 FINDINGS: There is a probable subacute fracture involving the proximal left clavicle. Old right rib fractures are noted. Moderate to advanced degenerative disc disease is seen in the cervical spine. The orbits are unremarkable. The visualized parapharyngeal soft tissues are symmetric. The temporomandibular joints are anatomically aligned. There is mucosal thickening in the right maxillary sinus. The visualized submandibular and parotid glands are symmetric. There is a mass or large lymph node within the right posterosuperior cervical subcutaneous tissues that measures 2.9 x 2.0 x 2.5 cm. The thyroid is unremarkable. No acute cervical fracture is identified. CT/CT neck w con* [id number] IMPRESSION: 1. Mass or large lymph node within the right posterosuperior cervical subcutaneous tissues. 2. Probable subacute fracture involving the proximal left clavicle. Old right rib fractures are noted. 3. Moderate to advanced degenerative disc disease is seen in the cervical spine. 4. Please see dedicated CT of the chest for associated findings. Radiation Dose CTDIVOL = (mGy): DLP = 358.36 (mGy-cm)
--- NOTE | 2021-07-06 11:46 | CTR_ITS ---
PROCEDURE INFORMATION: Exam: CT Head Without Contrast Exam date and time: 07/06/2021 11:46 AM Age: 80 years old Clinical indication: Left facial droop TECHNIQUE: Imaging protocol: Computed tomography of the head without contrast. Radiation optimization: All CT scans at this facility use at least one of these dose optimization techniques: automated exposure control; mA and/or kV adjustment per patient size (includes targeted exams where dose is matched to clinical indication); or iterative reconstruction. COMPARISON: CT head wo con* [id number] 06/26/2021 10:26 AM RADIATION DOSE METRICS: Total DLP (mGy-cm): 789.61 FINDINGS: Brain: No acute intracranial hemorrhage. No mass, mass effect or midline shift.; There is no evidence of acute large vessel infarct.; There is moderate patchy subcortical and periventricular hypodensity, most commonly associated with small vessel ischemic disease of indeterminate age. The posterior fossa is grossly unremarkable; however, it is partially obscurred by beam hardening artifact. Cerebral ventricles: The ventricles are prominent, compatible with moderate parenchymal volume loss. Paranasal sinuses: There is mucosal thickening in the right maxillary sinus. Mastoid air cells: No mastoid effusion. Orbital cavity: The visualized globes are symmetric. Bones/joints: Old facial fractures are noted. CT/CT head wo con* [id number] IMPRESSION: 1. No evidence of acute large vessel infarct by noncontrast CT. 2. Moderate senescent changes as above. 3. No acute intracranial hemorrhage. Radiation Dose CTDIVOL = (mGy): DLP = 789.61 (mGy-cm)
--- NOTE | 2021-07-06 11:53 | ED_ITS ---
HPI - General Adult General: Chief complaint: General Medical Stated complaint: DIFF SWALLOWING//HAS DE PAZ'S PALSY Time Seen by Provider: 07/06/21 11:37 Source: patient Mode of arrival: ambulatory Limitations: no limitations History of Present Illness: HPI narrative: The patient is a 80-year-old male who is being treated for follicular lymphoma and who has multiple lymph node en largements all over his body. 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 The patient was given steroids for 5 days, prednisone 20 mg 3 times a day. Patient states he has not noticed any significant improvement. Today when he was eating he was having difficulty swallowing. He was eating pancakes and he said it took him about 45 minutes to finish because of difficulty swallowing. No pain on swallowing. He is concerned that he has some lymph nodes that have enlarged and compressing on his esophagus. He has no fever, no other significant symptoms. Onset (ago): hour(s) (2) Associated symptoms: Deny chest pain, confusion, cough, diaphoresis, decreased appetite, dyspnea, fevers/chills, headache(s), malaise, nausea, rash, palpitations, seizures, short of breath, syncope, vomiting or weakness Review of Systems General: Reports: 10 or more systems reviewed and unremarkable except in HPI and below Const: Denies: malaise or diaphoresis Card: Denies: chest pain, palpitations or syncope Resp: Denies: dyspnea GI: Denies: nausea or vomiting Skin/Breast: Denies: rash Neuro: Denies: headache(s) or confusion PFSH ED PFSH: Medical History (Reviewed 07/06/21 @ 12:08 by Darrin Mckeon MD, [facility] [place] [facility] [place] Chronic kidney disease Diverticulosis Follicular lymphoma Diagnosed in 2017, 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, multiple locations, 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 History of basal cell carcinoma of skin History of renal dialysis Temporary 3 weeks of hemodialysis after traumatic encounter with a horse in 2011 Macrocytic anemia Neutropenia Neutropenic fever Osteoarthritis Surgical History (Reviewed 07/06/21 @ 12:08 by Darrin Mckeon MD, [facility] [place] H/O lymph node biopsy (~04/2019) Left inguinal History of appendectomy History of cataract surgery History of colonoscopy (~2015) History of right knee joint replacement Port-A-Cath in place (03/21/21) S/P skin biopsy (~12/2020) Abdominal wall mass Status post excisional biopsy (~2016) Submandibular mass Status post radiation therapy Palliative radiotherapy completed on February 12, 2021 to the lumbar area Status post replacement of right shoulder joint (~2018) Family History (Reviewed 07/06/21 @ 12:08 by Darrin Mckeon MD, [facility] [place] Mother Cancer Brain Father Cancer Multiple myeloma Social History (Reviewed 07/06/21 @ 12:08 by Darrin Mckeon MD, [facility] [place] Smoking and tobacco status: former smoker Alcohol intake: current Alcohol intake frequency: few times a week Alcohol type: beer Lives independently: Yes Marital status: / Physical Exam Const: COMMON NORMALS: no acute distress, average body habitus, patient orient ed x3, no limitations, healthy appearing, alert and well nourished HENMT: COMMON NORMALS: normocephalic, atraumatic and moist oral mucous membranes HEAD & SCALP: normocephalic and atraumatic Neck/C-Spine: COMMON NORMALS: no meningeal signs and no JVD Resp: COMMON NORMALS: normal respiratory effort, No retractions, No use of accessory muscles, clear to auscultation bilaterally and percussion normal AUSCULTATION: clear to auscultation bilaterally PERCUSSION: percussion normal Cardio: COMMON NORMALS: no JVD, regular rate, regular rhythm, S1 normal heart sound present, S2 normal heart sound present, No gallops present (Cardio), No clicks present (Cardio), No murmurs present (Cardio), No rub (Cardio) and Peripheral pulses 2+ throughout RATE: regular rate RHYTHM: regular rhythm HEART SOUNDS: S1 normal heart sound present and S2 normal heart sound present PERIPHERAL PULSES: Peripheral pulses 2+ throughout GI: COMMON NORMALS: Normal to inspection, nondistended, normoactive bowel sounds present, Soft to palpation, non-tender, No hepatosplenomegaly present, no masses and no bruits PALPATION: Yes Soft to palpation and Yes No hepatosplenomegaly present Extremity: COMMON NORMALS: normal to inspection, full ROM, capillary refill normal, no calf tenderness and no pedal edema Neuro: COMMON NORMALS: patient oriented x3 SENSORIUM/ORIENTATION: Yes alert MENINGEAL SIGNS: Yes no meningeal signs CRANIAL NERVES: Yes CN VII (facial) Laterality: left CN VII left: facial droop, flattened naso-labial fold, unable to puff cheeks, unable to raise eyebrow(s), weak closing of eye(s), asymmetrical smile and other (tape over his left eye) Skin: COMMON NORMALS: turgor normal, no jaundice, no petechiae and no mottling NARRATIVE SKIN EXAM: multiple skin masses on several parts of his body - upper arms, trunk. groin The largest 2 measure about 5 cm each on his anterior neck and right upper chest wall. The chest wall mass has a necrotic center. GENERAL SKIN EXAM: turgor normal Course 2 Reevaluation(s): Reevaluation #1: Discussed his lab and imaging findings with him. Labs unremarkable, however imaging findings have several concerning findings including a new pancreatic mass, enlarging and new lymph nodes in the cervical region as well as the trunk. No obvious cause for his dysphagia. Advised that it is likely secondary to the De Paz's palsy. He has an appointment with his oncologist on Thursday and advised him to keep the appointment. Will add an antiviral medication to see if that would help his De Paz's palsy and will also increase the length of his steroid usage. He voiced understanding and is in agreement with the plan. Time: 15:30 Vital Signs: Vital signs: Vital Signs Temperature 98.4 F 07/06/21 16:25 Pulse Rate 109 H 07/06/21 16:25 Respiratory Rate 18 07/06/21 16:25 Blood Pressure 153/91 07/06/21 16:25 Pulse Oximetry 95 07/06/21 16:25 MDM - General Adult MDM Narrative: Medical decision making narrative: 80-year-old male with a history of follicular lymphoma who has missed treatments due to being diagnosed with COVID-19. He was recently diagnosed with De Paz's palsy and was given a 5- day course of steroids. De Paz's palsy has not significantly improved, however he presents with complaints of difficulty swallowing. Because of concerns of lymph node enlargement causing external obstruction of his esophagus a CT scan of his neck and chest were done. A head CT was also done in case he has some intracranial metastasis. CT of his head was unremarkable, however CT of his chest shows a new pancreatic mass which he believes is metastasis. He also has what appears to be metastatic lesions in his lungs and on his skin. He will follow-up with his oncologist on Thursday as he already has an appointment. He is advised to consume a soft/liquid diet until symptoms resolve. He is given a 1 week prescription for valacyclovir to help manage his De Paz's palsy as well as a 1 week supply of prednisone. Medical Records: Attestation: I reviewed the patient's medical records. Lab Data: Attestation: I reviewed the patient's lab results. Labs: Lab Results 07/06/21 07/06/21 Range/Units 12:35 12:35 WBC 8.3 (4.0-10.0) 10^3/ uL RBC 3.12 L (4.1-5.3) 10^6/u L Hgb 10.1 L (11.7-16.6) g/dL Hct 30.6 L (42.0-52.0) % MCV 98.1 H (80-94) fl MCH 32.4 (28.0-34.0) pg MCHC 33.0 (30.0-36.0) g/dL RDW 16.5 H (12.1-15.1) % Plt Count 261 (130-400) 10^3/c mm MPV 9.9 (7.4-10.4) fL Neut % (Auto) 78.9 % Lymph % (Auto) 6.0 % Ocean % (Auto) 14.2 % Eos % (Auto) 0.4 % Baso % (Auto) 0.0 % Neut # (Auto) 6.58 (1.8-7.7) 10^3/u L Lymph # (Auto) 0.5 L (0.8-4.8) 10^3/u L Ocean # (Auto) 1.2 H (0.2-0.9) 10^3/u L Eos # (Auto) 0.0 (0.0-0.8) 10^3/u L Baso # (Auto) 0.0 (0.0-0.1) 10^3/u L Nucleated RBC % (a uto) 0 % Nucleated RBCs # 0.0 /100WBC Sodium 131 L (136-145) mmol/L Potassium 4.3 (3.5-5.1) mmol/L Chloride 96 L (98-107) mmol/L Carbon Dioxide 24 (22-29) mmol/L Anion Gap 15.3 (5-19) BUN 23 (8-23) mg/dL Creatinine 0.9 (0.7-1.2) mg/dL GFR Calculation Not Reportable Glucose 111 (65-115) mg/dL Calculated Osmolal ity 276 L (285-295) mOsm/k g Calcium 8.6 (8.5-10.5) mg/dL Total Bilirubin 0.3 (0.15-1.2) mg/dL AST 30 (0-40) U/L ALT 14 (0-41) U/L Alkaline Phosphata se 109 (40-130) IU/L Total Protein 6.5 L (6.6-8.7) g/dL Albumin 3.7 (3.5-5.2) g/dL Globulin 2.8 (1.3-4.6) g/dL Imaging Data^: CT Chest: Attestation: I personally reviewed and interpreted this imaging study as follows: Radiologist's impression: [address] [id number] Scan ReportSigned Patient: Xavi Pryor #: [id number]: [id number]#:[id number]/Sex: 80 / MADM Date: 07/06/21Loc: ERRoom/Bed:Attending Dr: Ordering Provider/Ordering MD: Darrin Mckeon MD, [facility] [facility] [place] Date of Service: 07/06/21 Procedure(s): CT chest w con* [id number] Accession Number(s): [id number] Report Number: [id number] PROCEDURE INFORMATION: Exam: CT Chest With Contrast; Diagnostic Exam date and time: 07/06/2021 11:56 AM Age: 80 years old Clinical indication: Condition or disease; Other: Lymphoma; Follow-up oncological assessment; Prior surgery; Surgery date: 1-6 months; Surgery type: Port; Additional info: Lymphoma, difficulty swallowing TECHNIQUE: Imaging protocol: Diagnostic computed tomography of the chest with contrast. Radiation optimization: All CT scans at this facility use at least one of these dose optimization techniques: automated exposure control; mA and/or kV adjustment per patient size (includes targeted exams where dose is matched to clinical indication); or iterative reconstruction. Contrast material: OMNIPAQUE 300; Contrast volume: 70 ml; Contrast route: INTRAVENOUS (IV); COMPARISON: CT chest abd pel wo con 04/09/2021 10:54 PM RADIATION DOSE METRICS: Total DLP (mGy-cm): 1219.66 FINDINGS: Lungs: There are new 0.9 cm nodules in the left lower lobe on series 2, image 51 and a new 0.7 cm nodule in the right lower lobe on image 41. There is lung emphysema. No significant lung consolidation. Pleural spaces: Unremarkable. No pneumothorax. No pleural effusion. Heart: Unremarkable. No cardiomegaly. No pericardial effusion. Aorta: Unremarkable. No aortic aneurysm. Lymph nodes: Unremarkable. No enlarged lymph nodes. No esophageal dilation or pneumomediastinum. Pancreas: There is a 2.5 cm mass in the body of the pancreas on series 2, image 66. No associated fat or calcification. Kidneys and ureters: There is a 3.2 cm exophytic isodense area off the right kidney with a Hounsfield unit measurement of 28. No associated fat or calcification. Bones/joints: There has been ORIF of right rib fractures as before. There has been a right shoulder replacement. Soft tissues: There is a collection along the superficial anterior abdominal wall measuring 6.5 x 3.3 cm as seen on series 2, image 69. This contains both fluid and gas. There is a new soft tissue nodule along the anterior right chest wall measuring 3.8 x 2.5 cm, just below and medial to the right chest wall port as seen on image 28. There is also a soft tissue nodule in the posterior left chest wall measuring 3.5 x 1.9 cm adjacent to the left scapula on image 7. There are additional nodules in the right anterior and lateral abdominal wall on series 2, images [address]/CT chest w con* [id number] IMPRESSION: When compared with 04/09/2021, there appears to be a new pancreatic mass suspicious for malignancy.If there is desire for further evaluation, a MRI could be performed. There also multifocal soft tissue nodules in the chest and abdominal wall suspicious for metastatic disease. There are new nodules in the bilateral lower lobes of the lung suspicious for metastatic disease. Radiation Dose CTDIVOL = (mGy): DLP = 1219.66 (mGy-cm) Dictated By:Brie Lemon MDSigned By:Brie Lemon MDSigned Date/Time:07/06/21 1515DD/ 151 CT Head: Attestation: I personally reviewed and interpreted this imaging study as follows: Radiologist's impression: [id number] [place], [place] [address] Scan ReportSigned Patient: Xavi Pryor #: [id number]: [id number]#:[id number]/Sex: 80 / MADM Date: 07/06/21Loc: E RRoom/Bed:Attending Dr: Ordering Provider/Ordering MD: Darrin Mckeon MD, [facility] [facility] [place] Date of Service: 07/06/21 Procedure(s): CT head wo con* [id number] Accession Number(s): [id number] Report Number: [id number] PROCEDURE INFORMATION: Exam: CT Head Without Contrast Exam date and time: 07/06/2021 11:46 AM Age: 80 years old Clinical indication: Left facial droop TECHNIQUE: Imaging protocol: Computed tomography of the head without contrast. Radiation optimization: All CT scans at this facility use at least one of these dose optimization techniques: automated exposure control; mA and/or kV adjustment per patient size (includes targeted exams where dose is matched to clinical indication); or iterative reconstruction. COMPARISON: CT head wo con* [id number] 06/26/2021 10:26 AM RADIATION DOSE METRICS: Total DLP (mGy-cm): 789.61 FINDINGS: Brain: No acute intracranial hemorrhage. No mass, mass effect or midline shift.; There is no evidence of acute large vessel infarct.; There is moderate patchy subcortical and periventricular hypodensity, most commonly associated with small vessel ischemic disease of indeterminate age. The posterior fossa is grossly unremarkable; however, it is partially obscurred by beam hardening artifact. Cerebral ventricles: The ventricles are prominent, compatible with moderate parenchymal volume loss. Paranasal sinuses: There is mucosal thickening in the right maxillary sinus. Mastoid air cells: No mastoid effusion. Orbital cavity: The visualized globes are symmetric. Bones/joints: Old facial fractures are noted. CT/CT head wo con* [id number] IMPRESSION: 1. No evidence of acute large vessel infarct by noncontrast CT. 2. Moderate senescent changes as above. 3. No acute intracranial hemorrhage. Radiation Dose CTDIVOL = (mGy): DLP = 789.61 (mGy-cm) Dictated By:Jaimie Lyonigned By:Jaimie Lyonigned Date/Time:07/06/218DD/ [address]: Attestation: I personally reviewed and interpreted this imaging study as follows: Radiologist's impression: [id number] [place], [place] [address]GN Scan ReportSigned Patient: Xavi Pryor #: [id number]: 2Acct#:[id number]/Sex: 80 / MADM Date: 07/06/21Loc: ERRoom/Bed:Attending Dr: Ordering Provider/Ordering MD: Darrin Mckeon MD, [facility] [facility] [place] Date of Service: 07/06/21 Procedure(s): CT neck w con* [id number] Accession Number(s): [id number] Report Number: [id number] PROCEDURE INFORMATION: Exam: CT Neck With Contrast Exam date and time: 07/06/2021 11:46 AM Age: 80 years old Clinical indication: Cancer. Lymphoma. Difficulty swallowing. TECHNIQUE: Imaging protocol: Computed tomography images of the neck with contrast. Radiation optimization: All CT scans at this facility use at least one of these dose optimization techniques: automated exposure control; mA and/or kV adjustment per patient size (includes targeted exams where dose is matched to clinical indication); or iterative reconstruction. Contrast material: OMNIPAQUE 300; Contrast volume: 50 ml; Contrast route: INTRAVENOUS (IV); COMPARISON: CT neck w con* [id number] 01/13/2017 2:46 PM RADIATION DOSE METRICS: Total DLP (mGy-cm): 358.36 FINDINGS: There is a probable subacute fracture involving the proximal left clavicle. Old right rib fractures are noted. Moderate to advanced degenerative disc disease is seen in the cervical spine. The orbits are unremarkable. The visualized parapharyngeal soft tissues are symmetric. The temporomandibular joints are anatomically aligned. There is mucosal thickening in the right maxillary sinus. The visualized submandibular and parotid glands are symmetric. There is a mass or large lymph node within the right posterosuperior cervical subcutaneous tissues that measures 2.9 x 2.0 x 2.5 cm. The thyroid is unremarkable. No acute cervical fracture is identified. CT/CT neck w con* [id number] IMPRESSION: 1. Mass or large lymph node within the right posterosuperior cervical subcutaneous tissues. 2. Probable subacute fracture involving the proximal left clavicle. Old right rib fractures are noted. 3. Moderate to advanced degenerative disc disease is seen in the cervical spine. 4. Please see dedicated CT of the chest for associated findings. Radiation Dose CTDIVOL = (mGy): DLP = 358.36 (mGy-cm) Dictated By:Jaimie Lyonigned By:Jaimie Lyonigned Date/Time:07/06/211446DD/ 144 Discharge Plan Discharge Patient Disposition: Home Clinical Impression: De Paz's palsy, Pancreatic mass Dysphagia Qualifiers: Dysphagia type: unspecified Qualified Code(s): R13.10 - Dysphagia, unspecified Lymphoma Qualifiers: Lymphoma type: non-Hodgkin Non-Hodgkin lymphoma type: follicular Follicular lymphoma grade: grade II Lymphoma site: multiple regions Qualified Code(s): C82.18 - Follicular lymphoma grade II, lymph nodes of multiple sites Condition: Stable Prescriptions: New prednisone 20 mg tablet 60 mg PO DAILY Qty: 15 RF: 0 valacyclovir 1 gram tablet 1,000 mg PO TID 7 Days Qty: 21 RF: 0 Continued loratadine [Claritin] 10 mg tablet 10 mg PO DAILY PRN (Reason: Allergy Symptoms) RF: 0 fluticasone propionate 50 mcg/actuation spray,suspension 1 spray INTRANASAL BID PRN (Reason: Nasal Congestion) RF: 0 albuterol sulfate 90 mcg/actuation Hfa Aerosol Inhaler 1 puff INHALATION QID PRN (Reason: Shortness Of Breath) RF: 0 hydrocodone-acetaminophen 5-325 mg tablet 1 tab PO Q6H PRN (Reason: Pain) RF: 0 ferrous sulfate 325 mg (65 mg iron) Tablet,Delayed Release (Dr/Ec) 325 mg PO BIDWM Qty: 0 RF: 0 sennosides-docusate sodium [Stool Softener-Laxative] 8.6-50 mg Tablet 1 tab PO BID Qty: 0 RF: 0 allopurinol 100 mg tablet 100 mg PO DAILY@20 RF: 0 multivitamin Tablet 1 tab PO DAILY@20 RF: 0 prochlorperazine maleate 10 mg tablet 10 - 20 mg PO TID PRN (Reason: Nausea And Vomiting) RF: 0 lidocaine-prilocaine 2.5-2.5 % cream 1 applic topical . DIRECTED RF: 0 potassium chloride 20 mEq tablet,ER particles/crystals 20 meq PO DAILY@20 RF: 0 lorazepam 1 mg tablet 1 mg PO TID PRN (Reason: Nausea And Vomiting) RF: 0 melatonin 10 mg Tablet 10 mg PO BEDTIME RF: 0 hydralazine 100 mg tablet 50 mg PO TID Qty: 90 RF: 0 Discharge Orders: Discharge ED (Routine); Ordered 07/06/21 Ordered By: Darrin Mckeon Referrals: Jose Angel Figueroa MD [Staff Physician] - 07/08/21 Discharge Diet: Usual diet Discharge Activity: Increase activity as tolerated Patient Instructions: De Paz Palsy (ED) Activity Restrictions/Additional Instructions: Return for any new or worsening symptoms. Follow up with Dr. Figueroa on Thursday as scheduled. Continue your home medications. Take the medications as prescribed. Consume soft or liquid foods until your symptoms resolve. Coding Level of Care Code ED Print Line Tailer for Chg Fwd Exam Comprehensive
--- NOTE | 2021-07-06 11:56 | CTR_ITS ---
PROCEDURE INFORMATION: Exam: CT Chest With Contrast; Diagnostic Exam date and time: 07/06/2021 11:56 AM Age: 80 years old Clinical indication: Condition or disease; Other: Lymphoma; Follow-up oncological assessment; Prior surgery; Surgery date: 1-6 months; Surgery type: Port; Additional info: Lymphoma, difficulty swallowing TECHNIQUE: Imaging protocol: Diagnostic computed tomography of the chest with contrast. Radiation optimization: All CT scans at this facility use at least one of these dose optimization techniques: automated exposure control; mA and/or kV adjustment per patient size (includes targeted exams where dose is matched to clinical indication); or iterative reconstruction. Contrast material: OMNIPAQUE 300; Contrast volume: 70 ml; Contrast route: INTRAVENOUS (IV); COMPARISON: CT chest abd pel wo con 04/09/2021 10:54 PM RADIATION DOSE METRICS: Total DLP (mGy-cm): 1219.66 FINDINGS: Lungs: There are new 0.9 cm nodules in the left lower lobe on series 2, image 51 and a new 0.7 cm nodule in the right lower lobe on image 41. There is lung emphysema. No significant lung consolidation. Pleural spaces: Unremarkable. No pneumothorax. No pleural effusion. Heart: Unremarkable. No cardiomegaly. No pericardial effusion. Aorta: Unremarkable. No aortic aneurysm. Lymph nodes: Unremarkable. No enlarged lymph nodes. No esophageal dilation or pneumomediastinum. Pancreas: There is a 2.5 cm mass in the body of the pancreas on series 2, image 66. No associated fat or calcification. Kidneys and ureters: There is a 3.2 cm exophytic isodense area off the right kidney with a Hounsfield unit measurement of 28. No associated fat or calcification. Bones/joints: There has been ORIF of right rib fractures as before. There has been a right shoulder replacement. Soft tissues: There is a collection along the superficial anterior abdominal wall measuring 6.5 x 3.3 cm as seen on series 2, image 69. This contains both fluid and gas. There is a new soft tissue nodule along the anterior right chest wall measuring 3.8 x 2.5 cm, just below and medial to the right chest wall port as seen on image 28. There is also a soft tissue nodule in the posterior left chest wall measuring 3.5 x 1.9 cm adjacent to the left scapula on image 7. There are additional nodules in the right anterior and lateral abdominal wall on series 2, images [address]/CT chest w con* [id number] IMPRESSION: When compared with 04/09/2021, there appears to be a new pancreatic mass suspicious for malignancy.If there is desire for further evaluation, a MRI could be performed. There also multifocal soft tissue nodules in the chest and abdominal wall suspicious for metastatic disease. There are new nodules in the bilateral lower lobes of the lung suspicious for metastatic disease. Radiation Dose CTDIVOL = (mGy): DLP = 1219.66 (mGy-cm)
--- NOTE | 2021-07-06 12:18 | PC.NURSE ---
report received at [id number]
[2021-07-06 12:38] VITALS: BP 147/91; PULSE 98; RESP 18; TEMP 37; O2SAT 98
[2021-07-06 12:46] LABS: Eosinophils % 0.4 %; Hematocrit 30.6 % (42.0-52.0); Hemoglobin 10.1 g/dL (11.7-16.6); Lymphocytes # 0.5 10^3/uL (0.8-4.8); Mean Corpuscular Hemoglobin 32.4 pg (28.0-34.0); Mean Corpuscular Volume 98.1 fl (80-94); Mean Platelet Volume 9.9 fL (7.4-10.4); Monocytes # 1.2 10^3/uL (0.2-0.9); Monocytes % 14.2 %; Neutrophils # 6.58 10^3/uL (1.8-7.7); Neutrophils % 78.9 %; Nucleated Red Blood Cells % 0 %; Platelet Count 261 10^3/cmm (130-400); Red Blood Count 3.12 10^6/uL (4.1-5.3); Red Cell Distribution Width 16.5 % (12.1-15.1); White Blood Count 8.3 10^3/uL (4.0-10.0)
[2021-07-06 13:10] LABS: Alanine Aminotransferase 14 U/L (0-41); Albumin Level 3.7 g/dL (3.5-5.2); Alkaline Phosphatase 109 IU/L (40-130); Anion Gap 15.3 (5-19); Aspartate Amino Transferase 30 U/L (0-40); Blood Urea Nitrogen 23 mg/dL (8-23); Calcium 8.6 mg/dL (8.5-10.5); Carbon Dioxide 24 mmol/L (22-29); Chloride 96 mmol/L (98-107); Globulin 2.8 g/dL (1.3-4.6); Glucose 111 mg/dL (65-115); Osmolality Calculated 276 mOsm/kg (285-295); Potassium 4.3 mmol/L (3.5-5.1); Sodium 131 mmol/L (136-145); Total Bilirubin 0.3 mg/dL (0.15-1.2); Total Protein 6.5 g/dL (6.6-8.7)
[2021-07-06] MEDS: iohexol 300 mg/mL 100 mL Btl IV ×2 (13:55→13:56)
[2021-07-06 14:11] VITALS: BP 151/88; PULSE 99; RESP 16; O2SAT 96
[2021-07-06 15:40] VITALS: BP 153/91; PULSE 109; RESP 18; TEMP 36.9; O2SAT 95
[2021-07-06 16:25] VITALS: BP 153/91; PULSE 109; RESP 18; TEMP 36.9; O2SAT 95
== END 2021-07-06 16:28 | disposition home or self-care (01) ==
PROVIDERS: Emergency Provider Family Medicine
DX: R13.10 Dysphagia, unspecified (principal); G51.0 Bell's palsy; C82.18 Follicular lymphoma grade II, lymph nodes of multiple sites; C79.51 Secondary malignant neoplasm of bone; N18.9 Chronic kidney disease, unspecified; Z87.891 Personal history of nicotine dependence
CPT/HCPCS: 70450; 70491; 71260; 80053; 85025; 96374; 99284; J1642; Q9967

== ENCOUNTER 2021-07-09 08:11 | Outpatient (RCR) | payer MEDICARE, SELFPAY ==
[2021-07-08 09:35] LABS: Basophils % 0.1 %; Hemoglobin 9.9 g/dL (11.7-16.6); Lymphocytes # 0.2 10^3/uL (0.8-4.8); Mean Corpuscular Volume 97.1 fl (80-94); Mean Platelet Volume 10.2 fL (7.4-10.4); Monocytes % 5.9 %; Neutrophils # 15.54 10^3/uL (1.8-7.7); Neutrophils % 92.5 %; Nucleated Red Blood Cells % 0 %; Platelet Count 306 10^3/cmm (130-400); Red Blood Count 3.09 10^6/uL (4.1-5.3); Red Cell Distribution Width 15.9 % (12.1-15.1); White Blood Count 16.8 10^3/uL (4.0-10.0)
[2021-07-08 10:02] LABS: Alanine Aminotransferase 15 U/L (0-41); Alkaline Phosphatase 105 IU/L (40-130); Anion Gap 16.3 (5-19); Aspartate Amino Transferase 32 U/L (0-40); Blood Urea Nitrogen 21 mg/dL (8-23); Calcium 9.2 mg/dL (8.5-10.5); Carbon Dioxide 22 mmol/L (22-29); Chloride 93 mmol/L (98-107); Glucose 108 mg/dL (65-115); Osmolality Calculated 268 mOsm/kg (285-295); Potassium 4.3 mmol/L (3.5-5.1); Sodium 127 mmol/L (136-145); Total Bilirubin 0.5 mg/dL (0.15-1.2)
[2021-07-08] MEDS: acetaminophen 325 mg Tablet 650 MG PO (12:20)
[2021-07-08] MEDS: sodium chloride 0.9% 500 ML 100 ML IV (12:50)
[2021-07-08 13:30] VITALS: RESP 16; O2SAT 97
[2021-07-08] MEDS: morphine 4 mg/mL SDV 1 mL 1 MG IV (13:30)
[2021-07-08] MEDS: diphenhydrAMINE 50 mg/mL SDV 1mL 25 MG IVP (15:20)
--- NOTE | 2021-07-08 16:15 | ONC FU_ITS ---
Dr. Figueroa follow up note Patient: Xavi Pryor Unit #: [id number]: [id number] Dicatated By: Jose Angel Figueroa M.D.Date of Visit:Jul 08, 2021 Onc Med Follow-up/Prog Note History of Present Illness: Mr. 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 He initially presented with right submandibular mass and was treated with antibiotics without much help, He was referred to ENT and underwent FNA of right submental mass which showed atypical lymphoid infiltrate. Mr Pryor subsequently underwent excisional biopsy of right submandibular mass on 04/08/2017. flow cytometry showed monoclonal B-cell population which was positive for CD19/CD20/FNCC 7 and CD20 to and was negative for CD5. Also exhibited surface kappa light chain restriction. These findings were consistent with grade 2 follicular lymphoma. Patient was evaluated by Dr. Pardo at [facility] in [place], [place] and being low-grade and stage II disease active surveillance was pursued. Last time he saw Dr. Pardo was on 02/15/2018. As per patient, last CT PET scan was done in 2016. Since his last visit with Dr. Pardo in February 2018, he had develop left inguinal lymphadenopathy and lost about 30 pounds. Mr Pryor attributed his weight loss to diverticulitis. Denied any night sweats, recurrent fever, abdominal fullness, any other peripheral lymphadenopathy. Denied any melena, hematochezia, denied any nosebleed, petechiae or ecchymosis. He denied any shortness of breath or dysphagia, denies any jaundice. CT PET scan was done on 03/12/2019 showed hypermetabolic soft tissue adherent to the aorta at upper mediastinum and upper abdominal level is consistent with a lymphoma Hypermetabolic left inguinal nodes consistent with lymphoma Diffuse activity in the rectosigmoid colon Questionable activity in the posterior left iliac Left inguinal lymph node biopsy was done on 05/04/2019 to confirm whether there is transformation to aggressive lymphoma versus persistent low-grade follicular. Final pathology report came back follicular lymphoma grade 1-2 of 3 s/p right shoulder replacement in first week of October 2019. Mr Pryor underwent anterior left midabdomen skin biopsy on December 31, 2020 which showed follicular lymphoma, grade 1 -2 of 3., BCL6 negative cyclin D1 was negative, BCL-2's staining is moderately strong and demonstrate aberrant coexpression of B cells. Further immunohistochemistry positive for CD3, CD5, CD20, CD10, CD43 Because of progressive left hip/lower back pain with radiation to left leg, his PCP ordered CT scan of abdomen pelvis which was done on January 01, 2021. This showed no lytic lesion in left ilium. Variable density within left hip and proximal femur may be related to osteopenia. No abdominal or pelvic lymphadenopathy, spleen is normal size, bone scan was recommended for further evaluation which was done on January 14, 2021. The bone scan showed multiple patchy areas of bone marrow activity involving bilateral humerus, bilateral forearm bones, mid femoral shafts suspicious for metastatic disease. Patchy activity involving left hip. Also involving left proximal tibial shaft and calvarium. Mr. Pryor was referred to Dr. 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 His nuclear bone scan from January 14, 2021 revealed metabolic uptake in the calvarium, moral shaft, mid femoral shaft and proximal tibia. 2 weeks prior to his appointment with Dr. Calabrese, he developed worsening left hip pain and lower back pain symptoms of the left leg. A restaging PET/CT on January 19, 2021 identified the anterior medial soft tissue mass as indicated above. It measured 2.2 cm x 1.2 cm with an SUV of 7.5. He also had right cervical lymphadenopathy (level 2), subcutaneous lesions within the anterior left chest wall and upper quadrant of the abdominal wall. I right testicular lesion SUV of 15.8 and a hypermetabolic peripancreatic lymph node as well as multiple osseous lesions throughout the proximal left humerus, medial left clavicle, bilateral proximal femurs and L3???L4-L5 with encroachment into the left neural foramen. He was treated with dexamethasone prior to his appointment with Dr. Calabrese for potential palliative lumbar radiotherapy. He completed palliative radiotherapy for management of the metastatic follicular lymphoma to the appendicular and axial skeleton on February 12, 2021. A total of 30 Rodrigues was delivered in 10 fractions encompassing 14 days. He received radiation to the third through the fifth lumbar vertebral bodies. He tolerated it well and states his pain is better. Mr Pryor was seen in medical oncology post completion of the radiation therapy. He was concerned that he had new nodules on his abdomen and on his back. He states they are also on his lower leg. He has adenopathy in his left anterior cervical supraclavicular area as well. He denied any trouble swallowing. He was complaining of generalized weakness and fatigue, initially patient had skin biopsy done from left anterior epigastric area skin lesion and as per pathology he was consistent with low-grade lymphoma but his disease is behaving like aggressive lymphoma. Mr Smiley was referred to surgery for biopsy from new lesions especially in the left anterior cervical supraclavicular lymph node area. A biopsy was repeated from the large subcutaneous lesion in the right upper abdominal area. 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 FISH to evaluate possible double hit was pending Mr. Pryor was seen on March 13, 2021 for follow-up given his generalized weakness and fatigue. He had developed night sweats. There were more lesions involving the upper abdomen, right anterior shoulder, right leg, left anterior cervical/supraclavicular mass. As the pathology report from March 12, 2021 reported his lymphoma had transformed from low-grade to high-grade lymphoma. Mr. Pryor was started on prednisone 60 mg daily for 5 days while awaiting chemotherapy with R-CHOP approval from insurance company and prognostic lymphoma profile testing. Mr Pryor was admitted to hospital on March 21, 2021 with acute kidney injury/tumor lysis due to steroid alone. His chemistry showed BUN 90/creatinine 4, nephrology was consulted. His uric acid was 10.7. He was given a dose of rasburicase and with that his uric acid was normalized. He was treated with IV fluids and his BUN/creatinine continue to improve. At the time of discharge, his BUN was 52 creatinine was 3.2. He was also having good urine output. As per nephrology it will take couple of weeks for kidney function to normalize . Mr Pryor had CT scan of chest done on March 21, 2021 which showed no visible evidence of acute cardiopulmonary pathology process. advanced COPD, centrilobular emphysema scant right pleural effusion no significant mediastinal or axillary lymphadenopathy. He was treated empirically with Lovenox for DVT prophylaxis and subsequently developed hematochezia at times with large bright red clots of blood. He did have acute blood loss anemia with hemoglobin dropping from around 10 to a low of 7. He received 2 units of packed red blood cells. He was having tachycardia with exertion. It was also noted that he had very poor dentition and he was given a course of Augmentin while admitted particularly in the light of planned chemotherapy. On 03/21/2021 he had placement of a PowerPort for venous access in anticipation of chemotherapy in the right subclavian vein per Dr. Jennings. There was some bruising around the site but no bleeding. CT of the chest abdomen pelvis without contrast from March 22, 2021 reported no visible evidence of acute cardiopulmonary/cardiothoracic pathology process. There was advanced COPD/chronic bronchitis with central lobar emphysema. Scant right pleural effusion and advanced three-vessel coronary artery disease. The noncontrast CT of the abdomen pelvis reported no visible evidence of acute abdominal or pelvic pathology process. No visible explanation for the indication of gross hematuria with clots. It was noted that he has scoliosis but no visible acute osseous abnormalities. Bilateral spondylosis L5/S1 with grade 1 anterior spondylolisthesis. Advanced degenerative disc disease with disc space height loss throughout the visualized thoracolumbar lumbar sacral spine. Facet arthrosis. No visible osteolytic or osteoblastic destructive process. Right total hip prosthesis with extensive metal artifact limiting assessment of the pelvis. Soft tissues reported cachexia. Mr. Pryor was discharged on March 25, 2021. His hemoglobin was noted to be 7.7 on March 24, 2021. His hematocrit was 23.7 platelet count 310,000 and his ANC was 8500. His creatinine was 3.2 and BUN 52. Recheck of his creatinine on March 29, 2021 was 2.5. 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 High Ki 67 for liberation rate up to 75%. BCL 2???week and strong c-Myc coexpression. CD20 1 focal lymphoid staining. C-Myc: Positive more than 70 to 80% coexpression. CHITO-rian: Negative. Ki 67: Increased up to 75%. Mum 1: Negative. PAX5: Positive in all large sized tumor lymphocytes. Mr. Pryor received his first dose of rituximab???CHOP on April 01, 2021. He presented on April 09, 2021 for follow-up with concerns of fever and chills. He stated that he was feeling very cold. He denies any known fever. He had no dysuria or hematuria. He had no complaints of cough. He had significant improvement in the lower anterior cervical/upper sternal nodularity and abdominal skin lesions are also resolving. He was noted to be neutropenic with an ANC of 380. He was also noted to have a hemoglobin of 7.7. He was referred to [facility] emergency room and subsequently admitted for chemotherapy-induced neutropenia/anemia. He was found to have acute staph coccus aureus bacteremia/sepsis. He required 2 units of packed red blood cells after which his hemoglobin remained stable. He did have positive stool occult blood but as his hemoglobin remained stable GI was not consulted. He was started on broad-spectrum antibiotics and his blood cultures from day 1 of admission were positive 1 out of 4 for MSSA staph aureus. He remained afebrile for 48 hours prior to discharge. He was discharged on oral Augmentin and referred to Dr. Jennings for possible endoscopy and colonoscopy given the positive stool for occult blood. He was seen again in the emergency room on 04/17/2021 with generalized weakness. He was seen in the emergency room by Dr. Carrasco who indicated that he was complaining of generalized weakness but was very vague about particular symptoms. He had stated that he had had a brain fog and felt weak this morning . His hemoglobin was 10.7 platelet count was 331,000 and his WBC is thousand 100. His ANC at that time was 7360. His LFTs were normal lipase was 50 random glucose was 114 CK was 77 alk phos 124 urine was negative. His potassium was 4.1 sodium 133 creatinine was 1.1 and BUN was 23. As his assessment did not reveal any acute findings and he was feeling somewhat better, Mr. Pryor was discharged home. He was scheduled to resume cycle 2 R-CHOP last week but this was delayed due to significant side efects with cycle 1 and declining performance status. planned to decrease his doxorubicin by 15%. He had significant performance status issues with cycle 1. He states he has not had any fever or chills. He denies any mouth sores, sore throat or difficulty swallowing. He denies any new shortness of breath orthopnea. He states that the nodules are basically gone and are certainly not bothersome anymore. He states he has had dramatic improvement. He is swallowing well. He denies any appetite changes. He denies nausea or vomiting. He denies any diarrhea or constipation. 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 His ECOG is 2.. He states overall he is feeling much better. He had an Xray of his RIGHT knee on 04/24/2021 for persistent knee pain and limited activity due to the knee pain. The x-ray report reads mild tricompartment osteoarthritis. Small joint effusion and mild heterogeneous appearance of the marrow. If pain persist consider bone scan imaging to evaluate for possible infiltrative process. This is likely due to osteopenia per Dr. Ragsdale's report on the x-ray from 04/24/2021. He states that the nodules are almost gone . 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 3.2 cm exophytic isodense area off right kidney and multifocal soft tissue lesion in the chest and abdominal wall suspicious for metastatic disease, along the superficial anterior abdominal wall there is a 6.5 x 3.3 cm mass which contains both fluid and gas. There is a new soft tissue nodule along the anterior right chest wall measuring 3.8 x 2.5 cm just below and medial to the right chest wall port, there is also soft tissue nodule in the posterior left chest wall measuring 3.5 x 1.9 cm, adjacent to the left scapula. An additional nodules in the right anterior hand lateral abdominal wall., Now patient is complaining of progressive mild to moderate dysphagia, patient was referred to lymphoma clinic at [facility] and he was recommended Rituxan/gemcitabine/oxaliplatin and evaluation after 4-6 cycle. And patient is here to start his first cycle of treatment. Denies any fever chills denies any nausea or vomiting denies any diarrhea or constipation but progressive multiple skin lesion involving torso and lower extremity Medications: Acetaminophen 2 Tablet (of 325 mg) Oral q 6 hours PRN, Albuterol Sulfate 1 puff(s) (of 108 (90 base) mcg/act) Aerosol Powder, Breath Activated Inhalation PRN, Allopurinol 1 Tablet (of 100 mg) Oral daily, Amoxicillin-Pot Clavulanate 1 Tablet (of 875-125 mg) Oral b.i.d. for 7 days, Claritin 1 Tablet (of 10 mg) Oral daily, Ferrous Sulfate 1 Tablet (of 325 (65 fe) mg) Oral b.i.d., Flonase 2 spray(s) (of 50 mcg/act) Suspension Nasal daily, hydrALAZINE HCl 1 Tablet (of 100 mg) Oral daily, HYDROcodone-Acetaminophen 1 Tablet (of 5-325 mg) Oral q 6 hours PRN, Naprosyn 1 Tablet (of 250 mg) Oral b.i.d., Pantoprazole Sodium 1 Tablet (of 40 mg) Tablet, enteric coated Oral daily Allergies: Tetanus-Diphtheria Toxoids Td Review of Systems: Review of Systems is not available for this patient. Vital Signs: Performed on Jul 08, 2021 13:50 Height - 67.50 in Temperature - 99.4 F (HIGH) Pulse - 114 /min (HIGH) Respiration - 16 /min BP - 138/74 mm(hg) O2 Sat - 97 % Pain - 2 Performed on Jul 08, 2021 13:20 Height - 67.50 in Temperature - 99.9 F (HIGH) Pulse - 112 /min (HIGH) Respiration - 16 /min BP - 142/78 mm(hg) (HIGH) O2 Sat - 97 % Performed on Jul 08, 2021 10:24 Height - 67.50 in Weight - 127.0 lbs (LOW) BSA - 1.68 sq.m BMI - 19.60 Temperature - 97.0 F (LOW) Pulse - 96 /min Respiration - 18 /min BP - 151/87 mm(hg) (HIGH) O2 Sat - 97 % Pain - 7 Performance Status: 1 - No physically strenuous activity, but ambulatory and able to carry out light or sedentary work (e.g. office work, light house work). (ECOG) Physical Examination: ENMT - No mouth sores, no thrush, no jaundice but left facial drooling due to De Paz's palsy, Respiratory - Lungs are clear to auscultation, Cardiovascular - Regular rate and rhythm of heart, Abdomen - Soft, bowel sounds present extensive skin lesion involving anterior abdominal wall and right lower thoracic and abdominal wall and in the back and lower extremity and left anterior upper chest wall, Extremities - No visible edema but extensive cutaneous lesion. Lab/Imaging: Test performed on May 22, 2021 14:25 LDH (Total) 241 U/L Sodium 138 mmol/L Potassium 5.0 mmol/L Chloride 106 mmol/L CO2 22 mmol/L Anion Gap 15.0 BUN 26 mg/dL Creatinine 1.4 mg/dL Cr Clearance (Est) 39.1200 mL/min Glucose 91 mg/dL Osmolality - Calculated 290 mOsm/kg Calcium 8.2 mg/dL Protein, Total 6.3 g/dL Albumin 4.1 g/dL Globulin 2.2 g/dL Bilirubin, Total 0.2 mg/dL ALT (SGPT) 17 U/L AST (SGOT) 22 U/L Alkaline Phosphatase 105 IU/L WBC 7.9 10 3/uL RBC 3.04 10 6/uL HGB 9.5 g/dL HCT 29.5 % MCV 97.0 fL MCH 31.3 pg MCHC 32.2 g/dL RDW 19.1 % Platelet Count 286 10 3/cmm MPV 10.2 fL Neutrophils 6.04 10 3/uL Lymphocytes 0.9 10 3/uL Monocytes 0.9 10 3/uL Eosinophils 0.1 10 3/uL Basophils 0.0 10 3/uL Neutrophil % 76.1 % Lymphocyte % 10.7 % Monocyte % 11.3 % Eosinophil % 1.0 % Basophils % 0.4 % NRBC % 0 % Test performed on March 20, 2021 13:30 Uric Acid 10.7 mg/dL Impression: Large B-cell lymphoma with high-grade features per anterior abdominal wall skin lesion biopsy done on March 11, 2021, Ki-67 up to 75%, BCL-2 weak, strong c-Myc expression, FISH pending CT PET scan done on January 19, 2021 showed hypermetabolic soft tissue lesion in the right cervical papo territory, anterior mediastinum, subcutaneous tissue involving left upper abdominal wall and anterior chest, right testicle, peripancreatic region. Multifocal osseous metastatic disease, FDG positive soft tissue at L3 and L4 neuroforamen, representing lymphoma. Started on R-CHOP/Xgeva on April 01, 2021, Prior to that, patient was given high-dose prednisone as a part of R-CHOP because of progressive symptoms while waiting for chemotherapy approval for recently transformed low-grade lymphoma into high-grade, patient did develop symptom of tumor lysis despite of being on allopurinol for which patient required inpatient care 2, h/o Grade 2 follicular lymphoma status post excisional biopsy of right mandibular mass done on 04/08/2017 Flow cytometry was positive for CD19, CD20, CD22 and FNCC 7 and negative for CD5 Also exhibited surface kappa light chain restriction. CT PET scan was done in 2017, as per patient he was told he has stage II disease. Being low-grade and early-stage, no treatment was required but Active surveillance. CT PET scan done on 05/06/2017 showed left cervical lymphadenopathy and activity in the right shoulder but there are severe degenerative changes in that area and there is also increased activity involving lumbar spine may have both soft tissue or bone lesions. There are abnormal areas in the right ribs but patient has history of surgery on right ribs CT PET scan repeated on 03/12/2019 showed suspicious activity is present in the mediastinum in soft tissue abutting the ascending aortic arch and pulmonary artery. This has SUV of 7.9 consistent with recurrent lymphoma and additional hypermetabolic soft tissue is adherent to the abdominal aorta with SUV of 6.8 consistent with lymphoma Left inguinal lymph nodes measures up to 2.7 cm has SUV of 11 There is intense rectosigmoid activity which could be physiological but lymphomatous involvement cannot be ruled out Patient has history of diverticulitis/diverticular. Left inguinal lymph node biopsy done on 05/04/2019 showed follicular lymphoma Mr Pryor underwent anterior left midabdomen skin biopsy on December 31, 2020 which showed follicular lymphoma, grade 1 -2 of 3., BCL6 negative cyclin D1 was negative, BCL-2's staining is moderately strong and demonstrate aberrant coexpression of B cells. Further immunohistochemistry positive for CD3, CD5, CD20, CD10, CD43 Because of progressive left hip/lower back pain with radiation to left leg, his PCP ordered CT scan of abdomen pelvis which was done on January 01, 2021. This showed no lytic lesion in left ilium. Variable density within left hip and proximal femur may be related to osteopenia. No abdominal or pelvic lymphadenopathy, spleen is normal size, bone scan was recommended for further evaluation which was done on January 14, 2021. The bone scan showed multiple patchy areas of bone marrow activity involving bilateral humerus, bilateral forearm bones, mid femoral shafts suspicious for metastatic disease. Patchy activity involving left hip. Also involving left proximal tibial shaft and calvarium. Mr. Pryor was referred to Dr. 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 His nuclear bone scan from January 14, 2021 revealed metabolic uptake in the calvarium, moral shaft, mid femoral shaft and proximal tibia. 2 weeks prior to his appointment with Dr. Calabrese, he developed worsening left hip pain and lower back pain symptoms of the left leg. A restaging PET/CT on January 19, 2021 identified the anterior medial soft tissue mass as indicated above. It measured 2.2 cm x 1.2 cm with an SUV of 7.5. He also had right cervical lymphadenopathy (level 2), subcutaneous lesions within the anterior left chest wall and upper quadrant of the abdominal wall. I right testicular lesion SUV of 15.8 and a hypermetabolic peripancreatic lymph node as well as multiple osseous lesions throughout the proximal left humerus, medial left clavicle, bilateral proximal femurs and L3???L4-L5 with encroachment into the left neural foramen. He was treated with dexamethasone prior to his appointment with Dr. Calabrese for potential palliative lumbar radiotherapy. He completed palliative radiotherapy for management of the metastatic follicular lymphoma to the appendicular and axial skeleton on February 12, 2021. A total of 30 Rodrigues was delivered in 10 fractions encompassing 14 days. He received radiation to the third through the fifth lumbar vertebral bodies. He tolerated it well and states his pain is better. Mr Pryor was seen in medical oncology post completion of the radiation therapy. He was concerned that he had new nodules on his abdomen and on his back. He states they are also on his lower leg. He has adenopathy in his left anterior cervical supraclavicular area as well. He denied any trouble swallowing. He was complaining of generalized weakness and fatigue, initially patient had skin biopsy done from left anterior epigastric area skin lesion and as per pathology he was consistent with low-grade lymphoma but his disease is behaving like aggressive lymphoma. Mr Smiley was referred to surgery for biopsy from new lesions especially in the left anterior cervical supraclavicular lymph node area. A biopsy was repeated from the large subcutaneous lesion in the right upper abdominal area. 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 FISH to evaluate possible double hit was pending Mr. Pryor was seen on March 13, 2021 for follow-up given his generalized weakness and fatigue. He had developed night sweats. There were more lesions involving the upper abdomen, right anterior shoulder, right leg, left anterior cervical/supraclavicular mass. As the pathology report from March 12, 2021 reported his lymphoma had transformed from low-grade to high-grade lymphoma. Mr. Pryor was started on prednisone 60 mg daily for 5 days while awaiting chemotherapy with R-CHOP approval from insurance company and prognostic lymphoma profile testing. Mr Pryor was admitted to hospital on March 21, 2021 with acute kidney injury/tumor lysis due to steroid alone. His chemistry showed BUN 90/creatinine 4, nephrology was consulted. His uric acid was 10.7. He was given a dose of rasburicase and with that his uric acid was normalized. He was treated with IV fluids and his BUN/creatinine continue to improve. At the time of discharge, his BUN was 52 creatinine was 3.2. He was also having good urine output. As per nephrology it will take couple of weeks for kidney function to normalize . Mr Pryor had CT scan of chest done on March 21, 2021 which showed no visible evidence of acute cardiopulmonary pathology process. advanced COPD, centrilobular emphysema scant right pleural effusion no significant mediastinal or axillary lymphadenopathy. He was treated empirically with Lovenox for DVT prophylaxis and subsequently developed hematochezia at times with large bright red clots of blood. He did have acute blood loss anemia with hemoglobin dropping from around 10 to a low of 7. He received 2 units of packed red blood cells. He was having tachycardia with exertion. It was also noted that he had very poor dentition and he was given a course of Augmentin while admitted particularly in the light of planned chemotherapy. On 03/21/2021 he had placement of a PowerPort for venous access in anticipation of chemotherapy in the right subclavian vein per Dr. Jennings. There was some bruising around the site but no bleeding. CT of the chest abdomen pelvis without contrast from March 22, 2021 reported no visible evidence of acute cardiopulmonary/cardiothoracic pathology process. There was advanced COPD/chronic bronchitis with central lobar emphysema. Scant right pleural effusion and advanced three-vessel coronary artery disease. The noncontrast CT of the abdomen pelvis reported no visible evidence of acute abdominal or pelvic pathology process. No visible explanation for the indication of gross hematuria with clots. It was noted that he has scoliosis but no visible acute osseous abnormalities. Bilateral spondylosis L5/S1 with grade 1 anterior spondylolisthesis. Advanced degenerative disc disease with disc space height loss throughout the visualized thoracolumbar lumbar sacral spine. Facet arthrosis. No visible osteolytic or osteoblastic destructive process. Right total hip prosthesis with extensive metal artifact limiting assessment of the pelvis. Soft tissues reported cachexia. Mr. Pryor was discharged on March 25, 2021. His hemoglobin was noted to be 7.7 on March 24, 2021. His hematocrit was 23.7 platelet count 310,000 and his ANC was 8500. His creatinine was 3.2 and BUN 52. Recheck of his creatinine on March 29, 2021 was 2.5. 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 High Ki 67 for liberation rate up to 75%. BCL 2???week and strong c-Myc coexpression. CD20 1 focal lymphoid staining. C-Myc: Positive more than 70 to 80% coexpression. CHITO-rian: Negative. Ki 67: Increased up to 75%. Mum 1: Negative. PAX5: Positive in all large sized tumor lymphocytes. Mr. Pryor received his first dose of rituximab???CHOP on April 01, 2021. He presented on April 09, 2021 for follow-up with concerns of fever and chills. He stated that he was feeling very cold. He denies any known fever. He had no dysuria or hematuria. He had no complaints of cough. He had significant improvement in the lower anterior cervical/upper sternal nodularity and abdominal skin lesions are also resolving. He was noted to be neutropenic with an ANC of 380. He was also noted to have a hemoglobin of 7.7. He was referred to [facility] [place] [facility] emergency room and subsequently admitted for chemotherapy-induced neutropenia/anemia. He was found to have acute staph coccus aureus bacteremia/sepsis. He required 2 units of packed red blood cells after which his hemoglobin remained stable. He did have positive stool occult blood but as his hemoglobin remained stable GI was not consulted. He was started on broad-spectrum antibiotics and his blood cultures from day 1 of admission were positive 1 out of 4 for MSSA staph aureus. He remained afebrile for 48 hours prior to discharge. He was discharged on oral Augmentin and referred to Dr. Jennings for possible endoscopy and colonoscopy given the positive stool for occult blood. He was seen again in the emergency room on 04/17/2021 with generalized weakness. He was seen in the emergency room by Dr. Carrasco who indicated that he was complaining of generalized weakness but was very vague about particular symptoms. He had stated that he had had a brain fog and felt weak this morning . His hemoglobin was 10.7 platelet count was 331,000 and his WBC is thousand 100. His ANC at that time was 7360. His LFTs were normal lipase was 50 random glucose was 114 CK was 77 alk phos 124 urine was negative. His potassium was 4.1 sodium 133 creatinine was 1.1 and BUN was 23. As his assessment did not reveal any acute findings and he was feeling somewhat better, Mr. Pryor was discharged home. 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 on day 1/[id number] mg/m???On day 1/[id number] mg per metered square today and then every 2 weeks x 4 to 6 cycle as long as tolerated and then monitoring him for the response if there is improvement we will continue otherwise we will refer him back to lymphoma clinic at [facility] for further evaluation and recommendations. Patient is already on allopurinol, will monitor him for tumor lysis patient was advised to maintain good hydration As far as mild hyponatremia is concerned probably due to excessive free water patient was advised to consider Gatorade instead of free water and will monitor his sodium level. Signed By: Jose Angel Figueroa M.D. <<Signature on File>>
[2021-07-09] MEDS: dextrose 5% 250 ML IV (09:05)
[2021-07-09] MEDS: palonosetron 0.25 mg/5 mL SDV IV (09:05)
== END 2021-07-09 23:59 | disposition home or self-care (01) ==
LOC: ONCMED 08:11
PROVIDERS: Internal Medicine Hematology & Oncology; PCP Internal Medicine; Visit Provider Internal Medicine Medical Oncology
DX: Z51.12 Encounter for antineoplastic immunotherapy (principal); C82.11 Follicular lymphoma grade II, lymph nodes of head, face, and neck; C79.51 Secondary malignant neoplasm of bone; K57.92 Diverticulitis of intestine, part unspecified, without perforation or abscess without bleeding; M25.552 Pain in left hip; M54.5 Low back pain; Z79.899 Other long term (current) drug therapy
CPT/HCPCS: 80053; 85025; 96367; 96375; 96413; 96415; 96417; 99215; J1100; J1200; J2270; J2469; J7040; J9201; J9263; J9312

== ENCOUNTER 2021-07-17 05:47 | Outpatient (RCR) | payer MEDICARE, SELFPAY ==
[2021-07-16 17:16] LABS: Basophils % 1.3 %; Eosinophils % 0.7 %; Hemoglobin 9.5 g/dL (11.7-16.6); Lymphocytes # 0.1 10^3/uL (0.8-4.8); Lymphocytes % 8.1 %; Mean Corpuscular HGB Conc 32.8 g/dL (30.0-36.0); Mean Corpuscular Hemoglobin 32.9 pg (28.0-34.0); Mean Corpuscular Volume 100.3 fl (80-94); Mean Platelet Volume 11.1 fL (7.4-10.4); Monocytes # 0.1 10^3/uL (0.2-0.9); Monocytes % 3.4 %; Neutrophils # 1.12 10^3/uL (1.8-7.7); Neutrophils % 75.1 %; Nucleated Red Blood Cells % 0 %; Platelet Count 77 10^3/cmm (130-400); Red Blood Count 2.89 10^6/uL (4.1-5.3); Red Cell Distribution Width 14.3 % (12.1-15.1); White Blood Count 1.5 10^3/uL (4.0-10.0)
[2021-07-16 17:49] LABS: Slide Review Slide Review Perform
[2021-07-16 18:02] LABS: Alanine Aminotransferase 18 U/L (0-41); Albumin Level 3.7 g/dL (3.5-5.2); Alkaline Phosphatase 117 IU/L (40-130); Anion Gap 18.1 (5-19); Aspartate Amino Transferase 26 U/L (0-40); Blood Urea Nitrogen 27 mg/dL (8-23); Calcium 8.2 mg/dL (8.5-10.5); Carbon Dioxide 23 mmol/L (22-29); Chloride 95 mmol/L (98-107); Globulin 2.3 g/dL (1.3-4.6); Glucose 107 mg/dL (65-115); Osmolality Calculated 280 mOsm/kg (285-295); Potassium 4.1 mmol/L (3.5-5.1); Sodium 132 mmol/L (136-145); Total Bilirubin 0.9 mg/dL (0.15-1.2)
--- NOTE | 2021-07-17 17:00 | ONC FU_ITS ---
Dr. Figueroa follow up note Patient: Xavi Pryor Unit #: [id number]: [id number] Dicatated By: Jose Angel Figueroa M.D.Date of Visit:Jul 17, 2021 Onc Med Follow-up/Prog Note History of Present Illness: Mr. 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 He initially presented with right submandibular mass and was treated with antibiotics without much help, He was referred to ENT and underwent FNA of right submental mass which showed atypical lymphoid infiltrate. Mr Pryro subsequently underwent excisional biopsy of right submandibular mass on 04/08/2017. flow cytometry showed monoclonal B-cell population which was positive for CD19/CD20/FNCC 7 and CD20 to and was negative for CD5. Also exhibited surface kappa light chain restriction. These findings were consistent with grade 2 follicular lymphoma. Patient was evaluated by Dr. Pardo at [facility] in [place], [place] and being low-grade and stage II disease active surveillance was pursued. Last time he saw Dr. Pardo was on 02/15/2018. As per patient, last CT PET scan was done in 2016. Since his last visit with Dr. Pardo in February 2018, he had develop left inguinal lymphadenopathy and lost about 30 pounds. Mr Pryor attributed his weight loss to diverticulitis. Denied any night sweats, recurrent fever, abdominal fullness, any other peripheral lymphadenopathy. Denied any melena, hematochezia, denied any nosebleed, petechiae or ecchymosis. He denied any shortness of breath or dysphagia, denies any jaundice. CT PET scan was done on 03/12/2019 showed hypermetabolic soft tissue adherent to the aorta at upper mediastinum and upper abdominal level is consistent with a lymphoma Hypermetabolic left inguinal nodes consistent with lymphoma Diffuse activity in the rectosigmoid colon Questionable activity in the posterior left iliac Left inguinal lymph node biopsy was done on 05/04/2019 to confirm whether there is transformation to aggressive lymphoma versus persistent low-grade follicular. Final pathology report came back follicular lymphoma grade 1-2 of 3 s/p right shoulder replacement in first week of October 2019. Mr Pryor underwent anterior left midabdomen skin biopsy on December 31, 2020 which showed follicular lymphoma, grade 1 -2 of 3., BCL6 negative cyclin D1 was negative, BCL-2's staining is moderately strong and demonstrate aberrant coexpression of B cells. Further immunohistochemistry positive for CD3, CD5, CD20, CD10, CD43 Because of progressive left hip/lower back pain with radiation to left leg, his PCP ordered CT scan of abdomen pelvis which was done on January 01, 2021. This showed no lytic lesion in left ilium. Variable density within left hip and proximal femur may be related to osteopenia. No abdominal or pelvic lymphadenopathy, spleen is normal size, bone scan was recommended for further evaluation which was done on January 14, 2021. The bone scan showed multiple patchy areas of bone marrow activity involving bilateral humerus, bilateral forearm bones, mid femoral shafts suspicious for metastatic disease. Patchy activity involving left hip. Also involving left proximal tibial shaft and calvarium. Mr. Pryor was referred to Dr. 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 His nuclear bone scan from January 14, 2021 revealed metabolic uptake in the calvarium, moral shaft, mid femoral shaft and proximal tibia. 2 weeks prior to his appointment with Dr. Calabrese, he developed worsening left hip pain and lower back pain symptoms of the left leg. A restaging PET/CT on January 19, 2021 identified the anterior medial soft tissue mass as indicated above. It measured 2.2 cm x 1.2 cm with an SUV of 7.5. He also had right cervical lymphadenopathy (level 2), subcutaneous lesions within the anterior left chest wall and upper quadrant of the abdominal wall. I right testicular lesion SUV of 15.8 and a hypermetabolic peripancreatic lymph node as well as multiple osseous lesions throughout the proximal left humerus, medial left clavicle, bilateral proximal femurs and L3???L4-L5 with encroachment into the left neural foramen. He was treated with dexamethasone prior to his appointment with Dr. Calabrese for potential palliative lumbar radiotherapy. He completed palliative radiotherapy for management of the metastatic follicular lymphoma to the appendicular and axial skeleton on February 12, 2021. A total of 30 Rodrigues was delivered in 10 fractions encompassing 14 days. He received radiation to the third through the fifth lumbar vertebral bodies. He tolerated it well and states his pain is better. Mr Pryor was seen in medical oncology post completion of the radiation therapy. He was concerned that he had new nodules on his abdomen and on his back. He states they are also on his lower leg. He has adenopathy in his left anterior cervical supraclavicular area as well. He denied any trouble swallowing. He was complaining of generalized weakness and fatigue, initially patient had skin biopsy done from left anterior epigastric area skin lesion and as per pathology he was consistent with low-grade lymphoma but his disease is behaving like aggressive lymphoma. Mr Smiley was referred to surgery for biopsy from new lesions especially in the left anterior cervical supraclavicular lymph node area. A biopsy was repeated from the large subcutaneous lesion in the right upper abdominal area. 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 FISH to evaluate possible double hit was pending Mr. Pryor was seen on March 13, 2021 for follow-up given his generalized weakness and fatigue. He had developed night sweats. There were more lesions involving the upper abdomen, right anterior shoulder, right leg, left anterior cervical/supraclavicular mass. As the pathology report from March 12, 2021 reported his lymphoma had transformed from low-grade to high-grade lymphoma. Mr. Pryor was started on prednisone 60 mg daily for 5 days while awaiting chemotherapy with R-CHOP approval from insurance company and prognostic lymphoma profile testing. Mr Pryor was admitted to hospital on March 21, 2021 with acute kidney injury/tumor lysis due to steroid alone. His chemistry showed BUN 90/creatinine 4, nephrology was consulted. His uric acid was 10.7. He was given a dose of rasburicase and with that his uric acid was normalized. He was treated with IV fluids and his BUN/creatinine continue to improve. At the time of discharge, his BUN was 52 creatinine was 3.2. He was also having good urine output. As per nephrology it will take couple of weeks for kidney function to normalize . Mr Pryor had CT scan of chest done on March 21, 2021 which showed no visible evidence of acute cardiopulmonary pathology process. advanced COPD, centrilobular emphysema scant right pleural effusion no significant mediastinal or axillary lymphadenopathy. He was treated empirically with Lovenox for DVT prophylaxis and subsequently developed hematochezia at times with large bright red clots of blood. He did have acute blood loss anemia with hemoglobin dropping from around 10 to a low of 7. He received 2 units of packed red blood cells. He was having tachycardia with exertion. It was also noted that he had very poor dentition and he was given a course of Augmentin while admitted particularly in the light of planned chemotherapy. On 03/21/2021 he had placement of a PowerPort for venous access in anticipation of chemotherapy in the right subclavian vein per Dr. Jennings. There was some bruising around the site but no bleeding. CT of the chest abdomen pelvis without contrast from March 22, 2021 reported no visible evidence of acute cardiopulmonary/cardiothoracic pathology process. There was advanced COPD/chronic bronchitis with central lobar emphysema. Scant right pleural effusion and advanced three-vessel coronary artery disease. The noncontrast CT of the abdomen pelvis reported no visible evidence of acute abdominal or pelvic pathology process. No visible explanation for the indication of gross hematuria with clots. It was noted that he has scoliosis but no visible acute osseous abnormalities. Bilateral spondylosis L5/S1 with grade 1 anterior spondylolisthesis. Advanced degenerative disc disease with disc space height loss throughout the visualized thoracolumbar lumbar sacral spine. Facet arthrosis. No visible osteolytic or osteoblastic destructive process. Right total hip prosthesis with extensive metal artifact limiting assessment of the pelvis. Soft tissues reported cachexia. Mr. Pryor was discharged on March 25, 2021. His hemoglobin was noted to be 7.7 on March 24, 2021. His hematocrit was 23.7 platelet count 310,000 and his ANC was 8500. His creatinine was 3.2 and BUN 52. Recheck of his creatinine on March 29, 2021 was 2.5. 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 High Ki 67 for liberation rate up to 75%. BCL 2???week and strong c-Myc coexpression. CD20 1 focal lymphoid staining. C-Myc: Positive more than 70 to 80% coexpression. CHITO-rian: Negative. Ki 67: Increased up to 75%. Mum 1: Negative. PAX5: Positive in all large sized tumor lymphocytes. Mr. Pryor received his first dose of rituximab???CHOP on April 01, 2021. He presented on April 09, 2021 for follow-up with concerns of fever and chills. He stated that he was feeling very cold. He denies any known fever. He had no dysuria or hematuria. He had no complaints of cough. He had significant improvement in the lower anterior cervical/upper sternal nodularity and abdominal skin lesions are also resolving. He was noted to be neutropenic with an ANC of 380. He was also noted to have a hemoglobin of 7.7. He was referred to [facility] emergency room and subsequently admitted for chemotherapy-induced neutropenia/anemia. He was found to have acute staph coccus aureus bacteremia/sepsis. He required 2 units of packed red blood cells after which his hemoglobin remained stable. He did have positive stool occult blood but as his hemoglobin remained stable GI was not consulted. He was started on broad-spectrum antibiotics and his blood cultures from day 1 of admission were positive 1 out of 4 for MSSA staph aureus. He remained afebrile for 48 hours prior to discharge. He was discharged on oral Augmentin and referred to Dr. Jennings for possible endoscopy and colonoscopy given the positive stool for occult blood. He was seen again in the emergency room on 04/17/2021 with generalized weakness. He was seen in the emergency room by Dr. Carrasco who indicated that he was complaining of generalized weakness but was very vague about particular symptoms. He had stated that he had had a brain fog and felt weak this morning . His hemoglobin was 10.7 platelet count was 331,000 and his WBC is thousand 100. His ANC at that time was 7360. His LFTs were normal lipase was 50 random glucose was 114 CK was 77 alk phos 124 urine was negative. His potassium was 4.1 sodium 133 creatinine was 1.1 and BUN was 23. As his assessment did not reveal any acute findings and he was feeling somewhat better, Mr. Pryor was discharged home. He was scheduled to resume cycle 2 R-CHOP last week but this was delayed due to significant side efects with cycle 1 and declining performance status. planned to decrease his doxorubicin by 15%. He had significant performance status issues with cycle 1. He states he has not had any fever or chills. He denies any mouth sores, sore throat or difficulty swallowing. He denies any new shortness of breath orthopnea. He states that the nodules are basically gone and are certainly not bothersome anymore. He states he has had dramatic improvement. He is swallowing well. He denies any appetite changes. He denies nausea or vomiting. He denies any diarrhea or constipation. 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 His ECOG is 2.. He states overall he is feeling much better. He had an Xray of his RIGHT knee on 04/24/2021 for persistent knee pain and limited activity due to the knee pain. The x-ray report reads mild tricompartment osteoarthritis. Small joint effusion and mild heterogeneous appearance of the marrow. If pain persist consider bone scan imaging to evaluate for possible infiltrative process. This is likely due to osteopenia per Dr. Ragsdale's report on the x-ray from 04/24/2021. He states that the nodules are almost gone . 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 3.2 cm exophytic isodense area off right kidney and multifocal soft tissue lesion in the chest and abdominal wall suspicious for metastatic disease, along the superficial anterior abdominal wall there is a 6.5 x 3.3 cm mass which contains both fluid and gas. There is a new soft tissue nodule along the anterior right chest wall measuring 3.8 x 2.5 cm just below and medial to the right chest wall port, there is also soft tissue nodule in the posterior left chest wall measuring 3.5 x 1.9 cm, adjacent to the left scapula. An additional nodules in the right anterior hand lateral abdominal wall., Now patient is complaining of progressive mild to moderate dysphagia, patient was referred to lymphoma clinic at [facility] and he was recommended Rituxan/gemcitabine/oxaliplatin and evaluation after 4-6 cycle. Which was started on July 08, 2021 Came for follow-up, complaining of generalized weakness and fatigue and persistent multiple skin nodules involving upper torso extremities lower extremities and now complaining of puslike discharge from epigastric area skin lesion due to lymphoma biopsy site, denies any fever chills denies any night sweats denies any vomiting denies any diarrhea or constipation. Denies any peripheral numbness patient received first cycle of chemotherapy with gemcitabine/oxaliplatin/Rituxan last week, tolerated reasonably well Medications: Acetaminophen 2 Tablet (of 325 mg) Oral q 6 hours PRN, Albuterol Sulfate 1 puff(s) (of 108 (90 base) mcg/act) Aerosol Powder, Breath Activated Inhalation PRN, Allopurinol 1 Tablet (of 100 mg) Oral daily, Amoxicillin-Pot Clavulanate 1 Tablet (of 875-125 mg) Oral b.i.d. for 7 days, Claritin 1 Tablet (of 10 mg) Oral daily, Ferrous Sulfate 1 Tablet (of 325 (65 fe) mg) Oral b.i.d., Flonase 2 spray(s) (of 50 mcg/act) Suspension Nasal daily, hydrALAZINE HCl 1 Tablet (of 100 mg) Oral daily, HYDROcodone-Acetaminophen 1 Tablet (of 5-325 mg) Oral q 6 hours PRN, Naprosyn 1 Tablet (of 250 mg) Oral b.i.d., Pantoprazole Sodium 1 Tablet (of 40 mg) Tablet, enteric coated Oral daily Allergies: Tetanus-Diphtheria Toxoids Td Review of Systems: Review of Systems is not available for this patient. Vital Signs: Performed on Jul 17, 2021 15:06 Height - 67.50 in Temperature - 98.8 F Pulse - 57 /min (LOW) Respiration - 18 /min BP - 110/54 mm(hg) O2 Sat - 97 % Pain - 3 Fatigue - 10 Performance Status: 2 - Ambulatory/capable of all self-care, unable to perform any work activities. Up and about more than 50% of waking hours. (ECOG) Physical Examination: ENMT - No mouth sores, no thrush, no jaundice, extensive cutaneous lymphomatous lesion involving right shoulder anterior chest posterior chest and right flank epigastric area and lower extremities, Respiratory - Lungs are clear to auscultation, Cardiovascular - Regular rate and rhythm of heart, Abdomen - Soft, bowel sounds present, puslike discharge from biopsy site at epigastric area lymphomatous skin lesion, Extremities - No visible edema but extensive lymphomatous cutaneous lesions involving bilateral extremities. Lab/Imaging: Test performed on May 22, 2021 14:25 LDH (Total) 241 U/L Sodium 138 mmol/L Potassium 5.0 mmol/L Chloride 106 mmol/L CO2 22 mmol/L Anion Gap 15.0 BUN 26 mg/dL Creatinine 1.4 mg/dL Cr Clearance (Est) 39.1200 mL/min Glucose 91 mg/dL Osmolality - Calculated 290 mOsm/kg Calcium 8.2 mg/dL Protein, Total 6.3 g/dL Albumin 4.1 g/dL Globulin 2.2 g/dL Bilirubin, Total 0.2 mg/dL ALT (SGPT) 17 U/L AST (SGOT) 22 U/L Alkaline Phosphatase 105 IU/L WBC 7.9 10 3/uL RBC 3.04 10 6/uL HGB 9.5 g/dL HCT 29.5 % MCV 97.0 fL MCH 31.3 pg MCHC 32.2 g/dL RDW 19.1 % Platelet Count 286 10 3/cmm MPV 10.2 fL Neutrophils 6.04 10 3/uL Lymphocytes 0.9 10 3/uL Monocytes 0.9 10 3/uL Eosinophils 0.1 10 3/uL Basophils 0.0 10 3/uL Neutrophil % 76.1 % Lymphocyte % 10.7 % Monocyte % 11.3 % Eosinophil % 1.0 % Basophils % 0.4 % NRBC % 0 % Test performed on March 20, 2021 13:30 Uric Acid 10.7 mg/dL Impression: Large B-cell lymphoma with high-grade features per anterior abdominal wall skin lesion biopsy done on March 11, 2021, Ki-67 up to 75%, BCL-2 weak, strong c-Myc expression, FISH pending CT PET scan done on January 19, 2021 showed hypermetabolic soft tissue lesion in the right cervical papo territory, anterior mediastinum, subcutaneous tissue involving left upper abdominal wall and anterior chest, right testicle, peripancreatic region. Multifocal osseous metastatic disease, FDG positive soft tissue at L3 and L4 neuroforamen, representing lymphoma. Started on R-CHOP/Xgeva on April 01, 2021, Prior to that, patient was given high-dose prednisone as a part of R-CHOP because of progressive symptoms while waiting for chemotherapy approval for recently transformed low-grade lymphoma into high-grade, patient did develop symptom of tumor lysis despite of being on allopurinol for which patient required inpatient care 2, h/o Grade 2 follicular lymphoma status post excisional biopsy of right mandibular mass done on 04/08/2017 Flow cytometry was positive for CD19, CD20, CD22 and FNCC 7 and negative for CD5 Also exhibited surface kappa light chain restriction. CT PET scan was done in 2017, as per patient he was told he has stage II disease. Being low-grade and early-stage, no treatment was required but Active surveillance. CT PET scan done on 05/06/2017 showed left cervical lymphadenopathy and activity in the right shoulder but there are severe degenerative changes in that area and there is also increased activity involving lumbar spine may have both soft tissue or bone lesions. There are abnormal areas in the right ribs but patient has history of surgery on right ribs CT PET scan repeated on 03/12/2019 showed suspicious activity is present in the mediastinum in soft tissue abutting the ascending aortic arch and pulmonary artery. This has SUV of 7.9 consistent with recurrent lymphoma and additional hypermetabolic soft tissue is adherent to the abdominal aorta with SUV of 6.8 consistent with lymphoma Left inguinal lymph nodes measures up to 2.7 cm has SUV of 11 There is intense rectosigmoid activity which could be physiological but lymphomatous involvement cannot be ruled out Patient has history of diverticulitis/diverticular. Left inguinal lymph node biopsy done on 05/04/2019 showed follicular lymphoma Mr Pryor underwent anterior left midabdomen skin biopsy on December 31, 2020 which showed follicular lymphoma, grade 1 -2 of 3., BCL6 negative cyclin D1 was negative, BCL-2's staining is moderately strong and demonstrate aberrant coexpression of B cells. Further immunohistochemistry positive for CD3, CD5, CD20, CD10, CD43 Because of progressive left hip/lower back pain with radiation to left leg, his PCP ordered CT scan of abdomen pelvis which was done on January 01, 2021. This showed no lytic lesion in left ilium. Variable density within left hip and proximal femur may be related to osteopenia. No abdominal or pelvic lymphadenopathy, spleen is normal size, bone scan was recommended for further evaluation which was done on January 14, 2021. The bone scan showed multiple patchy areas of bone marrow activity involving bilateral humerus, bilateral forearm bones, mid femoral shafts suspicious for metastatic disease. Patchy activity involving left hip. Also involving left proximal tibial shaft and calvarium. Mr. Pryor was referred to Dr. 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 His nuclear bone scan from January 14, 2021 revealed metabolic uptake in the calvarium, moral shaft, mid femoral shaft and proximal tibia. 2 weeks prior to his appointment with Dr. Calabrese, he developed worsening left hip pain and lower back pain symptoms of the left leg. A restaging PET/CT on January 19, 2021 identified the anterior medial soft tissue mass as indicated above. It measured 2.2 cm x 1.2 cm with an SUV of 7.5. He also had right cervical lymphadenopathy (level 2), subcutaneous lesions within the anterior left chest wall and upper quadrant of the abdominal wall. I right testicular lesion SUV of 15.8 and a hypermetabolic peripancreatic lymph node as well as multiple osseous lesions throughout the proximal left humerus, medial left clavicle, bilateral proximal femurs and L3???L4-L5 with encroachment into the left neural foramen. He was treated with dexamethasone prior to his appointment with Dr. Calabrese for potential palliative lumbar radiotherapy. He completed palliative radiotherapy for management of the metastatic follicular lymphoma to the appendicular and axial skeleton on February 12, 2021. A total of 30 Rodrigues was delivered in 10 fractions encompassing 14 days. He received radiation to the third through the fifth lumbar vertebral bodies. He tolerated it well and states his pain is better. Mr Pryor was seen in medical oncology post completion of the radiation therapy. He was concerned that he had new nodules on his abdomen and on his back. He states they are also on his lower leg. He has adenopathy in his left anterior cervical supraclavicular area as well. He denied any trouble swallowing. He was complaining of generalized weakness and fatigue, initially patient had skin biopsy done from left anterior epigastric area skin lesion and as per pathology he was consistent with low-grade lymphoma but his disease is behaving like aggressive lymphoma. Mr Smiley was referred to surgery for biopsy from new lesions especially in the left anterior cervical supraclavicular lymph node area. A biopsy was repeated from the large subcutaneous lesion in the right upper abdominal area. 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 FISH to evaluate possible double hit was pending Mr. Pryor was seen on March 13, 2021 for follow-up given his generalized weakness and fatigue. He had developed night sweats. There were more lesions involving the upper abdomen, right anterior shoulder, right leg, left anterior cervical/supraclavicular mass. As the pathology report from March 12, 2021 reported his lymphoma had transformed from low-grade to high-grade lymphoma. Mr. Pryor was started on prednisone 60 mg daily for 5 days while awaiting chemotherapy with R-CHOP approval from insurance company and prognostic lymphoma profile testing. Mr Pryor was admitted to hospital on March 21, 2021 with acute kidney injury/tumor lysis due to steroid alone. His chemistry showed BUN 90/creatinine 4, nephrology was consulted. His uric acid was 10.7. He was given a dose of rasburicase and with that his uric acid was normalized. He was treated with IV fluids and his BUN/creatinine continue to improve. At the time of discharge, his BUN was 52 creatinine was 3.2. He was also having good urine output. As per nephrology it will take couple of weeks for kidney function to normalize . Mr Pryor had CT scan of chest done on March 21, 2021 which showed no visible evidence of acute cardiopulmonary pathology process. advanced COPD, centrilobular emphysema scant right pleural effusion no significant mediastinal or axillary lymphadenopathy. He was treated empirically with Lovenox for DVT prophylaxis and subsequently developed hematochezia at times with large bright red clots of blood. He did have acute blood loss anemia with hemoglobin dropping from around 10 to a low of 7. He received 2 units of packed red blood cells. He was having tachycardia with exertion. It was also noted that he had very poor dentition and he was given a course of Augmentin while admitted particularly in the light of planned chemotherapy. On 03/21/2021 he had placement of a PowerPort for venous access in anticipation of chemotherapy in the right subclavian vein per Dr. Jennings. There was some bruising around the site but no bleeding. CT of the chest abdomen pelvis without contrast from March 22, 2021 reported no visible evidence of acute cardiopulmonary/cardiothoracic pathology process. There was advanced COPD/chronic bronchitis with central lobar emphysema. Scant right pleural effusion and advanced three-vessel coronary artery disease. The noncontrast CT of the abdomen pelvis reported no visible evidence of acute abdominal or pelvic pathology process. No visible explanation for the indication of gross hematuria with clots. It was noted that he has scoliosis but no visible acute osseous abnormalities. Bilateral spondylosis L5/S1 with grade 1 anterior spondylolisthesis. Advanced degenerative disc disease with disc space height loss throughout the visualized thoracolumbar lumbar sacral spine. Facet arthrosis. No visible osteolytic or osteoblastic destructive process. Right total hip prosthesis with extensive metal artifact limiting assessment of the pelvis. Soft tissues reported cachexia. Mr. Pryor was discharged on March 25, 2021. His hemoglobin was noted to be 7.7 on March 24, 2021. His hematocrit was 23.7 platelet count 310,000 and his ANC was 8500. His creatinine was 3.2 and BUN 52. Recheck of his creatinine on March 29, 2021 was 2.5. 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 High Ki 67 for liberation rate up to 75%. BCL 2???week and strong c-Myc coexpression. CD20 1 focal lymphoid staining. C-Myc: Positive more than 70 to 80% coexpression. CHITO-rian: Negative. Ki 67: Increased up to 75%. Mum 1: Negative. PAX5: Positive in all large sized tumor lymphocytes. Mr. Pryor received his first dose of rituximab???CHOP on April 01, 2021. He presented on April 09, 2021 for follow-up with concerns of fever and chills. He stated that he was feeling very cold. He denies any known fever. He had no dysuria or hematuria. He had no complaints of cough. He had significant improvement in the lower anterior cervical/upper sternal nodularity and abdominal skin lesions are also resolving. He was noted to be neutropenic with an ANC of 380. He was also noted to have a hemoglobin of 7.7. He was referred to [facility] emergency room and subsequently admitted for chemotherapy-induced neutropenia/anemia. He was found to have acute staph coccus aureus bacteremia/sepsis. He required 2 units of packed red blood cells after which his hemoglobin remained stable. He did have positive stool occult blood but as his hemoglobin remained stable GI was not consulted. He was started on broad-spectrum antibiotics and his blood cultures from day 1 of admission were positive 1 out of 4 for MSSA staph aureus. He remained afebrile for 48 hours prior to discharge. He was discharged on oral Augmentin and referred to Dr. Jennings for possible endoscopy and colonoscopy given the positive stool for occult blood. He was seen again in the emergency room on 04/17/2021 with generalized weakness. He was seen in the emergency room by Dr. Carrasco who indicated that he was complaining of generalized weakness but was very vague about particular symptoms. He had stated that he had had a brain fog and felt weak this morning . His hemoglobin was 10.7 platelet count was 331,000 and his WBC is thousand 100. His ANC at that time was 7360. His LFTs were normal lipase was 50 random glucose was 114 CK was 77 alk phos 124 urine was negative. His potassium was 4.1 sodium 133 creatinine was 1.1 and BUN was 23. As his assessment did not reveal any acute findings and he was feeling somewhat better, Mr. Pryor was discharged home. Plan: Discussed with patient regarding his labs white blood count 1.5 hemoglobin 9.5 hematocrit 29 platelets 77,000 ANC 1120 CMP within normal limit except sodium 132 Clinically, patient is doing reasonably well but mild distress due to persistent multiple lymphomatous cutaneous lesions involving torso and bilateral extremities and now with epigastric area biopsy-proven lymphoma site cellulitis, we will consider Keflex 500 mg p.o. twice daily and triple antibiotic for topical use, on July 08, 2021, patient was started on systemic therapy with Rituxan/oxaliplatin/gemcitabine every 2 weeks, patient tolerated chemo therapy/Rituxan well, but follow-up labs shows pancytopenia despite of Neulasta. Patient will return to clinic in 1 week with CBC CMP if that shows resolution of leukopenia/neutropenia and thrombocytopenia, will consider next cycle of chemotherapy with Rituxan/oxaliplatin/gemcitabine. But concern is there is no significant improvement 1 week after first cycle of chemotherapy and if there is no improvement by next week, or after next cycle of chemotherapy, we will request lymphoma clinic at [facility] to reevaluate him for next line of therapy. Signed By: Jose Angel Figueroa M.D. <<Signature on File>>
== END 2021-07-22 08:20 | disposition home or self-care (01) ==
LOC: ONCMED 05:47
PROVIDERS: PCP Internal Medicine; Visit Provider Internal Medicine Hematology & Oncology
DX: C83.33 Diffuse large B-cell lymphoma, intra-abdominal lymph nodes (principal); C79.51 Secondary malignant neoplasm of bone; K57.92 Diverticulitis of intestine, part unspecified, without perforation or abscess without bleeding; M54.5 Low back pain; M25.552 Pain in left hip; Z79.899 Other long term (current) drug therapy; Z92.21 Personal history of antineoplastic chemotherapy; Z92.3 Personal history of irradiation
CPT/HCPCS: 36591; 80053; 85025; 96372; 99214; J2505

== ENCOUNTER 2021-07-22 08:21 | Emergency (ER) | payer MEDICARE, SELFPAY ==
[2021-07-22] VITALS (18 sets, daily range): BP systolic 124–148; BP diastolic 69–97; PULSE 89–108; RESP 16–18; TEMP 36–37.1; O2SAT 93–98; BMI 20.7
--- NOTE | 2021-07-22 08:32 | ECG_ITS ---
[facility] Test Date: 2021-07-22 Pat Name: Xavi Pryor Department: Room: Gender: Male Nuclear Physician: : 1940 Requested By: Uri Saunders Order Number: [id number] Qiana MD: Kailey Ang M.D. Measurements Intervals [place] Rate: 103 P: 72 HI: 152 QRS: -20 QRSD: 94 T: 60 QT: 326 QTc: 428 Interpretive Statements SINUS TACHYCARDIA WITH OCCASIONAL SUPRAVENTRICULAR PREMATURE COMPLEXES Compared to ECG 04/17/2021 12:38:54 Sinus rhythm no longer present Electronically Signed On 07-22-2021 19:10:33 CDT by Kailey Ang M.D. [id number]
--- NOTE | 2021-07-22 08:33 | XR_ITS ---
WS: [id number] XR chest 1V portable [id number] REASON FOR EXAM: dyspnea/cough FINDINGS: Chemotherapy infusion port over the right chest with transvenous right subclavian vein catheter with the tip in the SVC. Multiple old healed rib fractures and plate and screw fixation of lateral right ribs. Calcified granulomatous disease bilaterally. Nonspecific infiltrative process in the medial left lower lung not present on the previous examinatio n of 04/17/2021. There is increased density overlying the medial left upper lung which appears to be related to overly ing soft tissue. XR/XR chest 1V portable [id number] IMPRESSION: Infiltrative unknown chronicity in the left lower lung compatible with acute, s ubacute pneumonitis. Patient is rotated which may account for the increased density over the apex of the left lung. Soft tissue mass cannot be excluded and repeat examination with the patient repositioned is recommended. If this were a soft tissue mass it sh ould be palpable.
--- NOTE | 2021-07-22 08:44 | W.ED.WEAKNES ---
HPI - Weakness General: Chief complaint: Weakness Stated complaint: WEAKNESS Time Seen by Provider: 07/22/21 08:28 History of Present Illness: HPI Narrative: 80-year-old male history of lymphoma with cutaneous metastasis multiple across his chest and abdomen. Last couple weeks has been feeling very ill and very weak. He is still getting treatments and has intitiated a course of chemotherapy at [facility]. He has had any fever sweats or chills the nodules across his chest are very prominent some of them the skin has eroded open. He states he has been having difficulty swallowing for some time now he denies any vomiting or diarrhea. MD Complaint: generalized weakness Onset (ago): month(s) Duration: constant Location: generalized Relieving factors: none Exacerbating factors: none Associated symptoms: Reports decreased appetite, myalgias and nausea; Denies chest pain, chills, confusion, melena, diaphoresis, dysuria, easy bruising, fever(s), headache(s), rash, short of breath, syncope or vomiting Review of Systems Const: Denies: fever(s), chills or diaphoresis ENMT: Denies: throat pain, ear or mastoid pain, nasal discharge or nasal congestion Card: Denies: chest pain or syncope Resp: Denies: dyspnea, productive cough or non-productive cough GI: Reports: nausea; Denies: vomiting or melena : Denies: dysuria Skin/Breast: Denies: rash or pruritus Neuro: Denies: headache(s) or confusion Miguel/Lymph: Denies: easy bruising PFSH ED PFSH: Medical History Chronic kidney disease Diverticulosis Follicular lymphoma Diagnosed in 2017, 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, multiple locations, 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 History of basal cell carcinoma of skin History of renal dialysis Temporary 3 weeks of hemodialysis after traumatic encounter with a horse in 2011 Macrocytic anemia Neutropenia Neutropenic fever Osteoarthritis Surgical History H/O lymph node biopsy (~04/2019) Left inguinal History of appendectomy History of cataract surgery History of colonoscopy (~2015) History of right knee joint replacement Port-A-Cath in place (03/21/21) S/P skin biopsy (~12/2020) Abdominal wall mass Status post excisional biopsy (~2016) Submandibular mass Status post radiation therapy Palliative radiotherapy completed on February 12, 2021 to the lumbar area Status post replacement of right shoulder joint (~2018) Family History Mother Cancer Brain Father Cancer Multiple myeloma Social History Smoking and tobacco status: former smoker Alcohol intake: current Alcohol intake frequency: few times a week Alcohol type: beer Lives independently: Yes Marital status: / Physical Exam Const: COMMON NORMALS: no acute distress GENERAL APPEARANCE: cooperative ORIENTATION/CONSCIOUSNESS: Yes awake, Yes oriented to person, Yes oriented to place and Yes oriented to time HENMT: COMMON NORMALS: normocephalic, atraumatic and hearing grossly normal bilaterally HEAD & SCALP: normocephalic and atraumatic OTHER: 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 Neck/C-Spine: COMMON NORMALS: no JVD Resp: COMMON NORMALS: normal respiratory effort, No retractions, No use of accessory muscles and clear to auscultation bilaterally AUSCULTATION: clear to auscultation bilaterally Cardio: COMMON NORMALS: no JVD, regular rate, regular rhythm and No murmurs present (Cardio) RATE: regular rate RHYTHM: regular rhythm GI: COMMON NORMALS: Soft to palpation and No hepatosplenomegaly present AUSCULTATION: Yes normoactive bowel sounds PALPATION: Yes Soft to palpation, No Tenderness to palpation present (GI), No Guarding due to palpation present (GI) and Yes No hepatosplenomegaly present Extremity: COMMON NORMALS: normal to inspection, capillary refill normal, no clubbing, cyanosis or edema, no calf tenderness and no pedal edema Neuro: SENSORIUM/ORIENTATION: Yes oriented to person, Yes oriented to place and Yes oriented to time Skin: NARRATIVE SKIN EXAM: Extensive eruptions of cutaneous lymphoma some of which are necrotic on the torso. Course Vital Signs: Vital signs: Vital Signs Temperature 97.6 F 07/22/21 17:05 Pulse Rate 92 07/22/21 18:24 Respiratory Rate 18 07/22/21 18:24 Blood Pressure 135/78 07/22/21 18:24 Pulse Oximetry 94 07/22/21 18:24 MDM - Weakness MDM Narrative: Medical decision making narrative: Dr. Dr. Figueroa but the patient we tried to get him transferred to [facility] he did not feel he needed to be admitted there is nothing acute that they would do at this point he may need to consider changing therapies also like Dr. Figueroa ultimately we ended up discharging the patient home and follow-up with Dr. Figueroa tomorrow he can return if he has further problems Lab Data: Labs: Lab Results 07/22/21 07/22/21 07/22/21 Range/Units 09:36 09:36 09:36 WBC 6.5 (4.0-10.0) 10^3/ uL RBC 2.40 L (4.1-5.3) 10^6/u L Hgb 7.9 L (11.7-16.6) g/dL Hct 23.9 L (42.0-52.0) % MCV 99.6 H (80-94) fl MCH 32.9 (28.0-34.0) pg MCHC 33.1 (30.0-36.0) g/dL RDW 14.1 (12.1-15.1) % Plt Count 64 L (130-400) 10^3/c mm MPV 10.9 H (7.4-10.4) fL Neut % (Auto) 83.5 % Lymph % (Auto) 4.0 % Lander % (Auto) 6.8 % Eos % (Auto) 0.3 % Baso % (Auto) 0.5 % Neut # (Auto) 5.44 (1.8-7.7) 10^3/u L Lymph # (Auto) 0.3 L (0.8-4.8) 10^3/u L Lander # (Auto) 0.4 (0.2-0.9) 10^3/u L Eos # (Auto) 0.0 (0.0-0.8) 10^3/u L Baso # (Auto) 0.0 (0.0-0.1) 10^3/u L Nucleated RBC % (a uto) 0 % Nucleated RBCs # 0.0 /100WBC Sodium 132 L (136-145) mmol/L Potassium 4.3 (3.5-5.1) mmol/L Chloride 96 L (98-107) mmol/L Carbon Dioxide 25 (22-29) mmol/L Anion Gap 15.3 (5-19) BUN 14 (8-23) mg/dL Creatinine 0.9 (0.7-1.2) mg/dL GFR Calculation Not Reportable Glucose 79 (65-115) mg/dL Calculated Osmolal ity 273 L (285-295) mOsm/k g Calcium 8.2 L (8.5-10.5) mg/dL Total Bilirubin 0.4 (0.15-1.2) mg/dL AST 28 (0-40) U/L ALT 13 (0-41) U/L Alkaline Phosphata se 116 (40-130) IU/L Troponin T Baselin e 52 H (0-15) ng/L Troponin T 120 Min false pass (0-15) ng/L Delta Troponin T (0-10) ABS# Total Protein 5.2 L (6.6-8.7) g/dL Albumin 3.4 L (3.5-5.2) g/dL Globulin 1.8 (1.3-4.6) g/dL Blood Type Rho(D) Type Antibody Screen Crossmatch 07/22/21 07/22/21 Range/Units 12:20 12:20 WBC (4.0-10.0) 10^3/ uL RBC (4.1-5.3) 10^6/u L Hgb (11.7-16.6) g/dL Hct (42.0-52.0) % MCV (80-94) fl MCH (28.0-34.0) pg MCHC (30.0-36.0) g/dL RDW (12.1-15.1) % Plt Count (130-400) 10^3/c mm MPV (7.4-10.4) fL Neut % (Auto) % Lymph % (Auto) % Lander % (Auto) % Eos % (Auto) % Baso % (Auto) % Neut # (Auto) (1.8-7.7) 10^3/u L Lymph # (Auto) (0.8-4.8) 10^3/u L Lander # (Auto) (0.2-0.9) 10^3/u L Eos # (Auto) (0.0-0.8) 10^3/u L Baso # (Auto) (0.0-0.1) 10^3/u L Nucleated RBC % (a uto) % Nucleated RBCs # /100WBC Sodium (136-145) mmol/L Potassium (3.5-5.1) mmol/L Chloride (98-107) mmol/L Carbon Dioxide (22-29) mmol/L Anion Gap (5-19) BUN (8-23) mg/dL Creatinine (0.7-1.2) mg/dL GFR Calculation Glucose (65-115) mg/dL Calculated Osmolal ity (285-295) mOsm/k g Calcium (8.5-10.5) mg/dL Total Bilirubin (0.15-1.2) mg/dL AST (0-40) U/L ALT (0-41) U/L Alkaline Phosphata se (40-130) IU/L Troponin T Baselin e (0-15) ng/L Troponin T 120 Min false pass 45.11 H (0-15) ng/L Delta Troponin T -6.89 L (0-10) ABS# Total Protein (6.6-8.7) g/dL Albumin (3.5-5.2) g/dL Globulin (1.3-4.6) g/dL Blood Type O Negative Rho(D) Type Negative Antibody Screen Negative Crossmatch See Detail Discharge Plan Discharge Patient Disposition: Home Clinical Impression: Follicular lymphoma, Protein-calorie malnutrition, moderate, Dysphagia, Anemia Condition: Stable Prescriptions: No Action loratadine [Claritin] 10 mg tablet 10 mg PO DAILY PRN (Reason: Allergy Symptoms) RF: 0 fluticasone propionate 50 mcg/actuation spray,suspension 1 spray INTRANASAL BID PRN (Reason: Nasal Congestion) RF: 0 allopurinol 300 mg tablet 300 mg PO DAILY RF: 0 hydralazine 100 mg tablet 100 mg PO TID RF: 0 albuterol sulfate 90 mcg/actuation Hfa Aerosol Inhaler 1 puff INHALATION QID PRN (Reason: Shortness Of Breath) RF: 0 hydrocodone-acetaminophen 5-325 mg tablet 1 tab PO Q6H PRN (Reason: Pain) RF: 0 ferrous sulfate 325 mg (65 mg iron) Tablet,Delayed Release (Dr/Ec) 325 mg PO BIDWM Qty: 0 RF: 0 sennosides-docusate sodium [Stool Softener-Laxative] 8.6-50 mg Tablet 1 tab PO BID Qty: 0 RF: 0 multivitamin Tablet 1 tab PO DAILY@20 RF: 0 prochlorperazine maleate 10 mg tablet 10 - 20 mg PO TID PRN (Reason: Nausea And Vomiting) RF: 0 lidocaine-prilocaine 2.5-2.5 % cream See Rx Instructions .ROUTE .COMPLEX RF: 0 potassium chloride 20 mEq tablet,ER particles/crystals 20 meq PO DAILY@20 RF: 0 lorazepam 1 mg tablet 1 mg PO TID PRN (Reason: Nausea And Vomiting) RF: 0 melatonin 10 mg Tablet 10 mg PO BEDTIME RF: 0 prednisone 20 mg tablet 60 mg PO DAILY Qty: 15 RF: 0 Discharge Orders: Discharge ED (Routine); Ordered 07/22/21 Ordered By: Uri Ohara Referrals: Enrique Nguyen DO [Primary Care Provider] - Discharge Diet: Usual diet Discharge Activity: Limit activity as instructed Patient Instructions: Opioid Safety Activity Restrictions/Additional Instructions: Follow-up with Dr. Figueroa in his office tomorrow. Coding Level of Care Code ED Keg Filler for Poojag Fwd Exam Detailed
[2021-07-22 09:53] LABS: Basophils % 0.5 %; Eosinophils % 0.3 %; Hematocrit 23.9 % (42.0-52.0); Hemoglobin 7.9 g/dL (11.7-16.6); Lymphocytes # 0.3 10^3/uL (0.8-4.8); Mean Corpuscular HGB Conc 33.1 g/dL (30.0-36.0); Mean Corpuscular Hemoglobin 32.9 pg (28.0-34.0); Mean Corpuscular Volume 99.6 fl (80-94); Mean Platelet Volume 10.9 fL (7.4-10.4); Monocytes # 0.4 10^3/uL (0.2-0.9); Monocytes % 6.8 %; Neutrophils # 5.44 10^3/uL (1.8-7.7); Neutrophils % 83.5 %; Nucleated Red Blood Cells % 0 %; Platelet Count 64 10^3/cmm (130-400); Red Cell Distribution Width 14.1 % (12.1-15.1); White Blood Count 6.5 10^3/uL (4.0-10.0)
[2021-07-22] MEDS: sodium chloride 0.9% 500 ML 999 ML IV (10:01)
[2021-07-22 10:24] LABS: Alanine Aminotransferase 13 U/L (0-41); Albumin Level 3.4 g/dL (3.5-5.2); Alkaline Phosphatase 116 IU/L (40-130); Anion Gap 15.3 (5-19); Aspartate Amino Transferase 28 U/L (0-40); Blood Urea Nitrogen 14 mg/dL (8-23); Calcium 8.2 mg/dL (8.5-10.5); Carbon Dioxide 25 mmol/L (22-29); Chloride 96 mmol/L (98-107); Globulin 1.8 g/dL (1.3-4.6); Glucose 79 mg/dL (65-115); Osmolality Calculated 273 mOsm/kg (285-295); Potassium 4.3 mmol/L (3.5-5.1); Sodium 132 mmol/L (136-145); Total Bilirubin 0.4 mg/dL (0.15-1.2); Total Protein 5.2 g/dL (6.6-8.7)
[2021-07-22 10:25] LABS: Troponin(5th) Baseline 52 ng/L (0-15)
--- NOTE | 2021-07-22 10:32 | ECG_ITS ---
[facility] Test Date: 2021-07-22 Pat Name: Xavi Pryor Department: Room: Gender: Male Survey Field Technician: : 1940 Requested By: Uri Saunders Order Number: [id number] Qiana MD: Kailey Ang M.D. Measurements Intervals [place] Rate: 88 P: 71 OR: 159 QRS: -26 QRSD: 90 T: 64 QT: 340 QTc: 413 Interpretive Statements SINUS RHYTHM WITH OCCASIONAL SUPRAVENTRICULAR PREMATURE COMPLEXES BORDERLINE LEFT AXIS DEVIATION [QRS AXIS < -20] Compared to ECG 07/22/2021 08:51:23 Sinus tachycardia no longer present Electronically Signed On 07-22-2021 21:29:34 CDT by Kailey Ang M.D. [id number]
[2021-07-22] MEDS: vancomycin 1,000 MG in sodium chloride 0.9% 250 ML 250 MG IV (11:10)
[2021-07-22] MEDS: enoxaparin 60 mg/0.6 mL Syringe SUBCUT (11:11)
[2021-07-22] MEDS: morphine 4 mg/mL SDV 1 mL 2 MG IVP (12:22)
[2021-07-22 12:54] LABS: Troponin 5 2HR 45.11 ng/L (0-15)
[2021-07-22] MEDS: morphine 4 mg/mL SDV 1 mL 2 MG IM (16:14)
== END 2021-07-22 18:24 | disposition home or self-care (01) ==
PROVIDERS: Emergency Provider Family Medicine; PCP Internal Medicine
DX: C82.90 Follicular lymphoma, unspecified, unspecified site (principal); E44.0 Moderate protein-calorie malnutrition; R13.10 Dysphagia, unspecified; D64.9 Anemia, unspecified; Z87.891 Personal history of nicotine dependence
CPT/HCPCS: 36430; 36591; 71045; 80053; 84484; 85025; 86850; 86900; 86920; 93005; 96365; 96372; 96375; 99284; 99291; J1650; J2270; J3370; J7040; J7050; P9016